=== PATIENT | female | born 1945 | race Caucasian/White ===

== ENCOUNTER → 2016-06-01 10:21 | Outpatient (CLI) | payer MEDICARE, BC ==
[2016-03-20 13:57] VITALS: BMI 35.1
[~2016-06-01 10:21] MED LIST: BAYER CHEWABLE81 MG PO; BENZONATATE200 MG PO; CARAFATE1 G PO; CYCLOBENZAPRINE10 MG PO; DESERYL100 MG PO; EFFIENT10 MG PO; ELAVIL25 MG PO; FLORAJEN3 CAPS460 MG PO; GLUCOPHAGE1000 MG PO; HYZAAR 100-25 T1 TAB PO; ISOSORBIDE MONO30 M1 PO; ISOSORBIDE MONO60 M1 PO; JARDIANCE25 MG PO; K-TAB10 MEQ PO; KLONOPIN0.5 MG PO; LEVAQUIN500 MG PO; LEVEMIR100 U/M1 SC; LIPITOR40 MG PO; LIPITOR80 MG PO; LOPRESSOR25 MG PO; MEPERIDINE HCL50 MG PO; METOPROLOL TART25 MG PO; MUCINEX DM ER1 EAC1 PO; MULTIPLE VITAMI1 TA1 PO; NITROSTAT0.4 MG SL; PROTONIX40 MG PO; SYNTHROID112 MCG PO; TRAZODONE HCL150 MG PO; ULTRAM50 MG PO; VICTOZA0.6 MG/0.1 SQ; ZOLOFT100 MG PO
== END | disposition home or self-care (01) ==
LOC: D.CT 10:21
DX: R19.09 Other intra-abdominal and pelvic swelling, mass and lump (principal)

== ENCOUNTER → 2016-06-09 10:25 | Outpatient (CLI) | payer MEDICARE, BC ==
[2016-03-20 13:57] VITALS: BMI 35.1
[2016-06-09 11:26] LABS: ANION GAP 12.8 mmol/L (8-16); CALCIUM 9.5 mg/dL (8.5-10.1); CARBON DIOXIDE 31.3 mmol/L (21.0-32.0); CREATININE - SERUM 1.3 mg/dL (0.6-1.3); POTASSIUM - SERUM 5.1 mmol/L (3.5-5.1)
[2016-06-13 12:16] LABS: RENIN ACTIVITY - PLASMA 1.045 ng/mL/hr (0.167-5.380)
[2016-06-16 10:19] LABS: ALDOSTERONE 3.2 ng/dL (0.0-30.0)
[2016-06-18 08:09] LABS: CORTISOL FREE - 24HR 5 ug/24 hr (0-50); CORTISOL FREE - UR 4 ug/L (Undefined)
[2016-06-21 17:12] LABS: META PL - METANEPHRINE <10 pg/mL (0-62); META PL - NORMETANEPHRINE 15 pg/mL (0-145)
== END | disposition home or self-care (01) ==
LOC: D.LAB 10:25
PROVIDERS: Surgery
DX: D35.00 Benign neoplasm of unspecified adrenal gland (principal)

== ENCOUNTER 2016-06-14 16:36 | Observation (INO) | payer MEDICARE, BC ==
[~2016-06-14] VITALS: Ht 175.3 cm; Wt 98.7 kg
--- NOTE | ~2016-06-14 | HEMODYNAMI ---
PATIENT:WALLY FAY MEDICAL RECORD: [id number] : 47 LOCATION:[id number] ADMISSION DATE: 06/14/16 Generatedon:06/15/20168:45 Patient name: WALLY FAY Patient #: [id number] : 1945 Date of study: 06/15/2016 Page: Of Hemodynamic Procedure Report Patient Data Patient Demographics Procedure consent was obtained First Name: AWLLY Gender: Female Last Name: NYA : 1945 Middle Initial: DIANA Age: 70 year(s) Patient #: [id number] Race: SSN: [id number] Additional ID: [id number] Contact details Address: [address] [place] [address] State: [place] City: [place] Zip code: [address] Past Medical History Allergies Allergen Reaction Date Comments Reported Other allergy 12/30/2015 MARCELO,Tape, Hydrocodone, Reglan, Sulfa, Morphine Other allergy 02/11/2016 Sulfa, Morphine, Hydrocodone, Reglan, MARCELO Inhibitors, tape Other allergy 03/19/2016 Marcelo Inhibitors, Sulfa, Hydrocodone, Morphine, Acetametaphen, Metoclopramide, Adhesive Tape MARCELO inhibitors 06/15/2016 Sulfa drugs 06/15/2016 Adhesive tape 06/15/2016 Other allergy 06/15/2016 amlodipine, reglan, hydrocodone Admission Admission Data Admission Date: 06/14/2016 Admission Time: 19:00 Room #: D.2118 Lab Results Lab Result Date: 06/15/2016 Lab Result Time: 0:00 Biochemistry Name Units Result Min Max BUN mg/dl 23 --(----)-* 7 18 Creatinine mg/dl 1.1 --(--*-)-- 0.6 1.3 CBC Name Units Result Min Max Hemoglobin g/dl 12.7 -*(----)-- 13.5 17.5 Procedure Procedure Types Cath Procedure Diagnostic Procedure [facility] w/Coronaries Miscellaneous Procedures Moderate Sedation up to 15 minutes Procedure Description Procedure Date Procedure Date: 06/15/2016 Procedure Start Time: 8:33 Procedure End Time: 8:40 Procedure Staff Name Function Kang Sheth MD Performing Physician Alejandro Parnell RT Scrub Rajan Duncan RN Nurse David Regan RT Monitor Procedure Data Cath Procedure Fluoroscopy Diagnostic fluoroscopy Total fluoroscopy Time: 0.9 time: 0.9 min min Diagnostic fluoroscopy Total fluoroscopy dose: dose: 233.78 mGy 233.78 mGy Contrast Material Contrast Material Type Amount (ml) Isovue 300 64 Entry Location Entry Primary Successful Side Size Upsize Upsize Entry Closure Luna ccessful Closure Location (Fr) 1 (Fr) 2 (Fr) Remarks Device Remarks Radial Right 6 Fr Mechanical artery Short Compression Diagnostic catheters Device Type Used For End Catheter Placement Cordis RBL 4 catheter (NO Left Coronary CHARGE) Angiography Procedure Complications No complications Procedure Medications Medication Administration Route Dosage Oxygen NC 2 l/min Heparin Flush Bag added to field 2 bags (1000units/500ml NS) 0.9% NaCl I.V. 100 ml/hr Radial Cocktail added to field 1 syringe (Verapomil 2mg/Nitro 400mcg/Heparin 1500units) Fentanyl I.V. 50 mcg Versed I.V. 1 mg Radial Cocktail I.A. 1 syringe (Verapomil 2mg/Nitro 400mcg/Heparin 1500units) Fentanyl I.V. 50 mcg Versed I.V. 1 mg Hemodynamics Rest HGB: 12.7 (g/dl) Heart Rate: 78 (bpm) Snapshots Pre Cath Intra NCS Post Cath Vital Signs Time Heart Resp SPO2 NIBP (mmHg) Rhythm Pain Sedation Rate (ipm) (%) Status Level (bpm) 8:21:38 82 18 98 147/82(119) NSR 0 (11) 10(A) , No pain 8:25:54 80 18 95 134/79(112) NSR 0 (11) 10(A) , No pain 8:30:12 82 16 98 133/73(101) NSR 0 (11) 9(A) , No pain 8:34:28 89 18 99 120/59(99) NSR 0 (11) 9(A) , No pain 8:38:40 98 17 94 109/66(92) NSR 0 (11) 9(A) , No pain 8:40:22 106 17 96 126/72(99) NSR 0 (11) 9(A) , No pain Medications Time Medication Route Dose Verified Delivered Reason Notes E ffectiveness by by 8:20:08 Oxygen NC 2 l/min Rjaan Tolentino Per Dakota Stokes RN physician RN 8:20:20 Heparin Flush added 2 bags Rajan Tolentino used for Bag to Dakota Stokes RN procedure (1000units/500ml field RN NS) 8:20:32 0.9% NaCl I.V. 100 Rajan Tolentino Per ml/hr Dakota Stokes RN physician RN 8:20:44 Radial Cocktail added 1 Rajan Tolentino used for (Verapomil to syringe Dakota Stokes RN procedure 2mg/Nitro field RN 400mcg/Heparin 1500units) 8:29:59 Fentanyl I.V. 50 mcg Rajan Tolentino for sedation Dakota Stokes RN RN 8:30:10 Versed I.V. 1 mg Rajan Tolentino for sedation Dakota Duncan RN RN 8:33:49 Radial Cocktail I.A. 1 Rajan Kapadia for (Verapomil syringe Dakota Sheth MD vasodilation 2mg/Nitro RN 400mcg/Heparin 1500units) 8:33:59 Fentanyl I.V. 50 mcg Rajan Tolentino for sedation Dakota Duncan RN RN 8:34:04 Versed I.V. 1 mg Rajna Tolentino for sedation Dakota Duncan RN outreach team member Log Time Note 8:05:43 David Regan RT(R) sent for patient. Start room use. 8:19:29 Vital chart was started 8:20:08 Oxygen 2 l/min NC was given by Rajan Stokes RN; Per physician; 8:20:20 Heparin Flush Bag (1000units/500ml NS) 2 bags added to field was given by Rajan Stokes RN; used for procedure; 8:20:32 0.9% NaCl 100 ml/hr I.V. was given by Rajan Stokes RN; Per physician; 8:20:44 Radial Cocktail (Verapomil 2mg/Nitro 400mcg/Heparin 1500units) 1 syringe added to field was given by Rajan Stokes RN; used for procedure; 8:23:39 ACC Patient presents with Unstable Angina CCS Anginal Class 3--Marked limitation of physical activity, angina occurs with ordinary activity.. 8:23:41 Diagnostic Cath status Urgent 8:23:50 Time tracking: Regular hours 8:23:55 Plan of Care:Hemodynamics will remain stable., Cardiac rhythm will remain stable., Comfort level will be maintained., Respiratory function will remain adequate., Patient/ family verbilizes understanding of procedure., Procedure tolerated without complication., Recovers from procedure without complications.. 8:24:02 Patient received from PCU to CCL 3 Alert and oriented. Tansferred to table in Supine position. 8:24:03 Warm blankets applied, and wendy hugger turned on for patient comfort. 8:24:04 Correct patient and procedure confirmed by team. 8:24:05 Signed procedure consent form obtained from patient. 8:24:06 Baseline sample Acquired. 8:24:06 ECG and BP/O2 sat monitors applied to patient. 8:24:09 Rhythm: sinus rhythm 8:24:10 Full Disclosure recording started 8:24:29 H&P Date Dictated: 06/14/2016 Within 30 days and on chart., H&P Addendum completed by physician on day of procedure. (MUST COMPLETE FOR ALL OUTPATIENTS). 8:24:35 Pre-procedure instructions explained to patient. 8:25:20 Pre-op teaching completed and patient verbalized understanding. 8:25:22 Family unavailable. 8:25:25 Patient NPO since Midnight. 8:25:35 Patient allergic to MARCELO inhibitors 8:25:43 Patient allergic to Sulfa drugs 8:25:49 Patient allergic to Adhesive tape 8:26:14 Patient allergic to Other allergyamlodipine, reglan, hydrocodone 8:26:16 Is the patient allergic to Iodine/contrast media? No. 8:26:23 Is patient on blood thinner?Yes 8:26:28 ACC The patient was administered the following blood thiners within the last 24 hours: ACCEffient 8:26:40 effient was 5-7 days ago 8:26:42 Patient diabetic? Yes. 8:26:43 If diabetic: On Metformin? Yes 8:26:47 If on Metformin: Last Dose? 06/14/2016 8:26:48 ----Pre-sedation anethsthesia assessment.---- 8:26:50 Previous problem with sedation/anesthesia? No ? 8:26:53 Snore? Yes 8:26:54 Sleep apnea? Yes 8:26:55 Deviated septum? No 8:26:56 Opens mouth fully? Yes 8:26:57 Sticks out tongue? Yes 8:26:59 Airway obstruction? No ? 8:27:03 Dentures? Yes in tight 8:27:06 Pre procedure: right dorsailis pedis pulse 1+ Palpable, but thready & weak; easily obliterated 8:27:09 Modified Kike's test Ulnar < 7 seconds 8:27:20 Patient pain scale 0/10 no pain just tightness. 8:27:34 IV patent on arrival in left hand with 0.9% NaCl at 10ml/hr. 8:27:41 Right Radial & Right Groin area was prepped with chlora-prep and draped in sterile fashion 8:27:42 Alarms reviewed by R. N. 8:27:43 Sharps counted by scrub and verified by R.N. 8:29:17 --------ALL STOP TIME OUT------ 8:29:18 Final Timeout: patient, procedure, and site verified with staff and physician. All members of the team are in agreement. 8:29:19 Right Radial & Right Groin site verified by team. 8:29:22 Physical assessment completed. ASA score P 2 - A patient with mild systemic disease as per Kang Sheth MD. 8:29:28 Sedation plan: IV Moderate Sedation Versed, Fentanyl 8::59 Fentanyl 50 mcg I.V. was given by Rajan Stokes RN; for sedation; 8:30:10 Versed 1 mg I.V. was given by Rajan Duncan RN; for sedation; 8:32:55 Use device set Radial Dx 8:32:56 Acist Syringe opened to sterile field. 8:32:56 Medline Cath Pack opened to sterile field. 8:32:57 Bag Decanter opened to sterile field. 8:32:57 Terumo 6Fr Slender Glidesheath opened to sterile field. 8:32:57 St Karl 260cm J .035 wire opened to sterile field. 8:32:58 Acist Hand Control opened to sterile field. 8:32:58 Acist Manifold opened to sterile field. 8:32:59 Tegaderm 4 x 4 opened to sterile field. 8:33:01 Procedure started. 8:33:09 Local anesthetic to right radial artery with Lidocaine 2% by Kang Sheth MD.INITIAL ACCESS ONLY 8:33:16 A 6 Fr Short sheath was inserted into the Right Radial artery 8:33:44 Lab Result : BUN 23 mg/dl 8:33:44 Lab Result : Creatinine 1.1 mg/dl 8:33:44 Lab Result : Hemoglobin 12.7 g/dl 8:33:47 Zero performed for pressure channel P1 8:33:49 Radial Cocktail (Verapomil 2mg/Nitro 400mcg/Heparin 1500units) 1 syringe I.A. was given by Kang Sheth MD; for vasodilation; 8:33:59 Fentanyl 50 mcg I.V. was given by Rajan Duncan RN; for sedation; 8:34:04 Versed 1 mg I.V. was given by Rajan Duncan RN; for sedation; 8:34:22 A [employer] RBL 4 catheter (NO CHARGE) was advanced over the wire and used for Left Coronary Angiography. 8:34:30 LV angiography performed. 8:34:31 LV gram done using BAI 8:34:34 Injector settings: Ml/sec: 5, Volume: 15, 8:34:40 EF : 60 % 8:34:51 LCA angiography performed. 8:36:31 RCA angiography performed. 8:36:43 Catheter removed. 8:36:54 Contrast amount:Isovue 300 64ml. 8:37:01 Terumo TR Band Standard opened to sterile field. 8:38:45 Procedure ended.(Physican Out) 8:38:50 Sheath removed intact; hemostasis achieved with Mechanical Compression to the Right Radial artery. 8:39:01 Fluoroscopy time 00.90 minutes. 8:39:08 Fluoroscopy dose: 233.78 mGy 8:39:08 Flurop Dose total: 233.78 8:39:09 Sharps counted by scrub and verified by R.N. 8:39:11 TR band inflated with 12cc of air. 8:39:12 Insertion/operative site no bleeding no hematoma. 8:39:18 Post right radial artery:stable 8:39:19 Post Procedure Pulses reassessed and unchanged 8:39:23 Post-procedure physical assessment completed. ASA score P 2 - A patient with mild systemic disease as per Kang Sheth MD. 8:39:25 Post procedure rhythm: sinus rhythm 8:39:27 Post procedure instruction explained to patient.Patient verbalizes understanding. 8:39:33 Procedure type changed to Cath procedure, Diagnostic procedure, LHC, LHC w/Coronaries, Miscellaneous Procedures, Moderate Sedation up to 15 minutes 8:39:48 Procedure and supply charges have been captured, reviewed, submitted and are correct. 8:39:52 Procedure Complication : No complications 8:39:54 Vital chart was stopped 8:39:54 See physician's report for complete and final results. 8:39:56 Report given to PCU. 8:40:00 Patient transfered to PCU with Bed. 8:40:02 Procedure ended. 8:40:02 Full Disclosure recording stopped 8:40:04 End room use (Document Last) Device Usage Item Name Manufacture Quantity Catalog Hospital Part Current Minimal Lot# / Number Charge Number Stock Stock Serial# Code Acist Acist 1 08956 [id number] 117772 [id number] 20 Syringe [employer] Inc Medline Cardinal 1 [id number] 74518 086704 5 Cath Pack Health Bag Microtek 1 2002S [id number] 52064 720366 5 Decanter Medical Inc. Terumo 6Fr Terumo 1 [id number] 881768 805682 [address] St Karl 1 [id number] 101885 170997 372141 30 260cm J .035 wire Acist Hand Acist 1 15471 384931 764167 703300 5 Control Medical Systems Inc Acist Acist 1 32193 671638 263105 292014 5 Manifold Medical Systems Inc Tegaderm 4 3M 1 1626W 688404 058910 598150 5 x 4 Cordis RBL Cardinal 1 [id number] 045055 692644 5 4 catheter Health (NO CHARGE) Terumo TR Terumo 1 [id number] 044441 484692 265682 40 Band Standard Signature Audit [place] Stage Time Signature Unsigned Intra-Procedure 06/15/2016 David Regan 8:45:12 AM RT(R) Signatures Monitor : David Regan RT Signature : Date : Time : [address] [place] [address]
[~2016-06-14 16:36] MED LIST changes: -CYCLOBENZAPRINE10 MG PO; -ISOSORBIDE MONO60 M1 PO; -KLONOPIN0.5 MG PO; -MEPERIDINE HCL50 MG PO; -MULTIPLE VITAMI1 TA1 PO; -ULTRAM50 MG PO
[2016-06-14 17:12] LABS: BASOPHILS 0.1 % (0.0-2.0); EOSINOPHILS 1.3 % (0-7); HEMATOCRIT 40.6 % (36.0-48.0); HEMOGLOBIN 13.2 g/dL (12-16); IMMATURE GRANULOCYTES 0.3 % (0-5); MCH 28.4 pg (26.0-34.0); MCHC 32.5 g/dL (31.0-37.0); MCV 87.5 fL (80.0-100.0); MEAN PLATELET VOLUME 10.5 fL (7.4-10.4); NEUTROPHILS 56.3 % (40-80); RBC 4.64 10x6/uL (4.00-5.40); RDW 14.5 % (11.5-14.5); WBC 7.4 10x3/uL (4.8-10.8)
[2016-06-14 17:29] LABS: PLATELET COUNT 186 10x3/uL (130-400)
[2016-06-14 17:34] LABS: ALBUMIN 3.8 g/dL (3.4-5.0); ALKALINE PHOSPHATASE 78 U/L (46-116); ALT (SGPT) 32 U/L (10-68); BILIRUBIN - TOTAL 0.63 mg/dL (0.2-1.3); CARBON DIOXIDE 30.5 mmol/L (21.0-32.0); CHLORIDE - SERUM 101 mmol/L (98-107); CREATININE - SERUM 1.2 mg/dL (0.6-1.3); POTASSIUM - SERUM 3.9 mmol/L (3.5-5.1); PROTEIN - SERUM 7.3 g/dL (6.4-8.2); SODIUM 141 mmol/L (136-145); UREA NITROGEN 26 mg/dL (7-18); eGFR NON AFRICAN AMERICAN 47 mL/min (90-120)
[2016-06-14 17:45] LABS: CHOL - HDL RATIO 2.3 ratio (2.3-4.1); CHOLESTEROL, TOTAL 106 mg/dL (0-200); CKMB 0.7 U/L (0.0-3.6); CREATINE KINASE 36 UL (21-215); HDL CHOLESTEROL 47 mg/dL (32-96); LDL CHOLESTEROL 28 mg/dL (0-100); LDL-HDL RATIO 0.6 ratio (1.5-3.5); TRIGLYCERIDE 159 mg/dL (30-200)
[2016-06-14 17:48] LABS: CALC OSMOLALITY 286 mosm/kg (275-300); GLUCOSE 112 mg/dL (74-106); TROPONIN-I < 0.017 ng/mL (0.000-0.060)
--- NOTE | 2016-06-14 20:00 | NUR ---
PT ARRIVES TO THE FLOOR FROM THE ER ACCOMPANIED BY NURSE X1. PLACED ON TELE, NSR ON MONITOR- HR 80'S. L AC WITH IV, NS 50 CC/HR - PLACED ONTO PUMP. ADMISSION ASSESSMENT AND HISTORY OBTAINED. MEDICATIONS RECONCILED AT THE BEDSIDE. CALL LIGHT PLACED WITHIN REACH. WILL CONT TO MONITOR.
[2016-06-14 21:56] VITALS: BP 141/80
--- NOTE | 2016-06-14 22:15 | NUR ---
PT C/O CHEST PAIN, RATES @ 6/10 ON PAIN SCALE. CALL TO DR KEMP. PM MEDS ORDERED AND ORDERED RECEIVED FOR MORPHINE PRN. DR KEMP STATES HE INTENDS TO PERFORM A HEART CATH ON THE PT IN THE MORNING AND TO KEEP PT NPO AFTER MIDNIGHT. UPDATED PT ON POC AND SHE VERBALIZES UNDERSTANDING. WILL CONT TO MONITOR.
[2016-06-14 22:21] VITALS: Ht 175.3 cm; Wt 98.7 kg
[2016-06-14] MEDS ORDERED: ULTRAM50 MG PO (22:33)
--- NOTE | 2016-06-15 00:12 | NUR ---
FURNACE BRAZER AT BEDSIDE TO OBTAIN VITALS, CALL LIGHT IN REACH. WILL CONTINUE WITH PLAN OF CARE.
[2016-06-15 01:17] VITALS: BP 111/51
--- NOTE | 2016-06-15 02:15 | NUR ---
PT RESTING WELL WITHOUT C/O OR DISTRESS NOTED. WILL CONT TO MONITOR. CALL LIGHT WITHIN REACH.
[2016-06-15 05:11] VITALS: BP 144/80
--- NOTE | 2016-06-15 06:00 | NUR ---
PT SIGNS INFORMED CONSENT FOR HEART CATH TODAY @ THIS TIME.
[2016-06-15 07:04] LABS: BASOPHILS 0.1 % (0.0-2.0); EOSINOPHILS 1.3 % (0-7); HEMATOCRIT 39.8 % (36.0-48.0); HEMOGLOBIN 12.7 g/dL (12-16); IMMATURE GRANULOCYTES 0.1 % (0-5); LYMPHOCYTES 34.2 % (15-50); MCH 28.4 pg (26.0-34.0); MCHC 31.9 g/dL (31.0-37.0); MEAN PLATELET VOLUME 11.1 fL (7.4-10.4); MONOCYTES 8.4 % (2-11); NEUTROPHILS 55.9 % (40-80); PLATELET COUNT 162 10x3/uL (130-400); RBC 4.47 10x6/uL (4.00-5.40); RDW 14.8 % (11.5-14.5)
[2016-06-15 07:09] LABS: ANION GAP 13.1 mmol/L (8-16); CALCIUM 9.1 mg/dL (8.5-10.1); CARBON DIOXIDE 29.2 mmol/L (21.0-32.0); CREATININE - SERUM 1.1 mg/dL (0.6-1.3); POTASSIUM - SERUM 4.3 mmol/L (3.5-5.1)
[2016-06-15 07:39] VITALS: BP 111/69
--- NOTE | 2016-06-15 08:08 | NUR ---
PRE-OPS GIVEN. TO MOLD RUNNER BY BED.
--- NOTE | 2016-06-15 08:59 | NUR ---
BACK FROM [facility] FIRER HELPER. VS WNL. RIGHT WRIST STABLE WITH TR BAND INTACT. WILL MONITOR.
[2016-06-15] MEDS ORDERED: ISOSORBIDE MONO60 M1 PO (11:04)
--- NOTE | 2016-06-15 11:29 | NUR ---
TR BAND DCD WITHOUT BLEEDING OR HEMATOMA NBOTED. IV AND TELEMETRY DCD. DC PLANS GIVEN. UNDERSTANDING VOICED. ESCORTED TO CAR BY W/C.
[2016-06-20] MEDS ORDERED: KLONOPIN0.5 MG PO (11:47)
[2016-06-20] MEDS ORDERED: ISOSORBIDE MONO60 M1 PO (11:49)
[2016-06-20] MEDS ORDERED: MULTIPLE VITAMI1 TA1 PO (11:50)
--- NOTE | 2016-06-26 10:08 | CN ---
PATIENT NAME:WALLY LYNCH MEDICAL RECORD: [id number] : 47 LOCATION:D. D.2118 ADMIT DATE: 06/14/16 ACCOUNT: [id number] CONSULTING PHYSICIAN: FLAKITA KEMP MD REFERRING PHYSICIAN: FLAKITA KEMP MD DATE OF CONSULTATION: 06/15/2016 Cardiology Consultation ADMITTING DIAGNOSES: 1. Unstable angina. 2. Coronary artery disease. 3. Previous multivessel percutaneous transluminal coronary angioplasty stent. 4. Hypertension. 5. Hyperlipidemia. HISTORY OF PRESENT ILLNESS: Mrs. Lynch presents with increasing angina over the past month, just like that of her previous angina last cardiac stent within September, she is still on Effient, she is also on Lipitor, Lopressor. Heart rate and blood pressure optimal. She is on Imdur. She continues to have ____ chest pain. PHYSICAL EXAMINATION: GENERAL APPEARANCE: Well-nourished, well-developed, appears stated age. Level of distress, comfortable. PSYCHIATRIC: Mental status, alert, normal affect. Orientation, oriented to time, place and person. EYES: Lids and conjunctiva, noninjected. No discharge, no pallor. ENT: Lips, teeth, gums, normal dentition. Oropharynx, no cyanosis, no pallor. NECK: Carotid arteries, bilateral normal upstroke, no bruits, no thrills. JUGULAR VEINS: No jugular venous pressure or distention. CERVICAL LYMPH NODES: Nontender, nonenlarged. THYROID: Not enlarged. Nontender. No nodules. LUNGS: Respiratory effort, unlabored. CHEST: Normal curvature. No thoracic deformity. No chest wall tenderness. Percussion, resonant. Auscultation, clear. No wheezes, no rales, no rhonchi. CARDIOVASCULAR: Precordial exam, nondisplaced. No heaves or pericardial thrills. Rate and rhythm, regular. Heart sounds, normal S1, normal S2. No S3, no gallop, no rub. Systolic murmur, not heard. Diastolic murmur, not heard. EXTREMITIES: No cyanosis, no edema. Peripheral pulses, full and equal in all extremities, except as noted. No bruits appreciated. ABDOMEN: Soft, nondistended. Normal aorta. No bruit. Nontender. No masses. Liver, nontender, no hepatomegaly. Spleen, nontender, no splenomegaly. MUSCULOSKELETAL: No joint tenderness. No joint swelling. No erythema. NEUROLOGICAL: Normal gait, normal strength, normal tone. SKIN: Warm and dry. REVIEW OF SYSTEMS: The patient reports easy bruising but reports no swollen glands. The patient reports no fever, no night sweats, no significant weight gain, no significant weight loss. No significant exercise tolerance. The patient reports no dry eyes, no irritation, no vision change. Patient reports no difficulty hearing and no ear pain. Patient reports no frequent nose bleeds or nose and sinus problems. Patient reports on arm pain on exertion. No shortness of breath while lying down. No history of heart murmur. Patient reports no cough, no wheezing or coughing up blood. Patient reports no CONSULT REPORT [id number] WALLY LYNCH abdominal pain, no vomiting. Normal appetite. No diarrhea and not vomiting blood. No nausea and no constipation. Patient reports no incontinence. No difficulty urinating. No hematuria. No increased frequency. Patient reports no muscle aches. No weakness, no arthralgias, no back pain. No swelling of the extremities. Patient reports no abnormal mole, no jaundice, no rashes. Reports no loss of consciousness. No weakness and no numbness. No seizures, dizziness, or headaches. The patient reports no depression, no sleep disturbance, feeling safe in a relationship and no alcohol abuse. Patient reports on fatigue. Reports no runny nose or sinus pressure. No itching, no hives, and no frequent sneezing. OVERALL IMPRESSION: Unstable angina. We will proceed with coronary angiography. Further care depends upon findings of the angiography. TRANSINT:[id number] Voice Confirmation ID: [id number] DOCUMENT ID: [id number] FLAKITA KEMP MD at 1008 CC: [id number] DICTATION DATE: 06/15/16 0719 [place] CULTURIST: 06/15/16 1432 [facility] 06/15/16 [place] [id number] [place] [address]
--- NOTE | 2016-06-26 10:08 | OP ---
PATIENT NAME: WALLY FAY MEDICAL RECORD: [id number] :47 LOCATION:D.M2 D.2118 ADMISSION DATE:06/14/16 SURGEON: FLAKITA KEMP MD DATE OF OPERATION: 06/15/2016 PROCEDURES: 1. Left heart catheterization. 2. Selective coronary angiography. 3. Left ventriculogram. INDICATION: Chest pain compatible with angina, coronary artery disease, previous coronary stenting. PROCEDURE IN DETAIL: After informed consent was obtained and after detailed explanation of risks, benefits as well as alternative therapies, the patient elected to proceed with angiogram and heart catheterization. The right radial area was prepped and draped in normal sterile fashion. The right radial artery was cannulated via modified Seldinger technique with placement of 5-Filipino sheath. All catheters exchanged through this sheath. FINDINGS: The left ventriculogram was performed in the standard 30-degree BAI view reveals good cardiac wall motion throughout all segments. Overall ejection fraction estimated 60%. SELECTIVE CORONARY ANGIOGRAPHY: 1. Left main showed no significant angiographic disease. 2. Left anterior descending has multiple previously placed stents. These are widely patent with no significant restenosis. No disease elsewise throughout the LAD or its branches. 3. Left circumflex shows moderate irregularities, but no flow-limiting stenosis. 4. Right coronary has moderate irregularities, but no flow-limiting stenosis. OVERALL IMPRESSION: No significant restenosis of the previously placed stents wide patency of all the vessels elsewise. Continue medical management of the coronary artery disease and cardiac risk factors. TRANSINT:[id number] Voice Confirmation ID: [id number] DOCUMENT ID: [id number] FLAKITA KEMP MD at 1008 CC: [id number] DICTATION DATE: 06/15/16 0842 PROMOTIONS PRODUCER: 06/15/16 1558 [facility] IN 06/15/16 [facility] [address] [place] [id number]
--- NOTE | 2016-07-13 08:41 | DS ---
PATIENT:WALLY LYNCH :47 MEDICAL RECORD: [id number] DISCHARGE SUMMARY ADMISSION DATE: 06/14/16 DISCHARGE DATE: 06/15/16 DISCHARGE DIAGNOSES: 1. Angina. 2. Coronary artery disease. HOSPITAL COURSE: Mrs. Lynch presents with anginal symptomatology. She underwent cardiac catheterization revealing wide patency of all her previously placed stents, no new stenosis. She was discharged home with the addition of Imdur to her medical regimen. She will follow up with [facility] in 1 month. TRANSINT:[id number] Voice Confirmation ID: [id number] DOCUMENT ID: [id number] FLAKITA KEMP MD at 0841 CC: [id number] DICTATION DATE: 07/11/16 1451 CHIPPING MACHINE OPERATOR: 07/12/16 0310 DIS IN 06/15/16 [facility] [address] [place] [address]
== END 2016-06-15 11:30 | disposition home or self-care (01) ==
LOC: OBSVTIME → D.ER 16:36 → D.M2 18:34 → OBSVTIME 18:34 → D.M2 19:00 → D.ER 19:00 → OBSVTIME 19:01 → D.M2 06-15 11:30
PROVIDERS: Emergency Medicine; ADMIT Internal Medicine Interventional Cardiology
DX: I25.110 Atherosclerotic heart disease of native coronary artery with unstable angina pectoris (principal); Z95.5 Presence of coronary angioplasty implant and graft; I10 Essential (primary) hypertension; E78.5 Hyperlipidemia, unspecified

== ENCOUNTER 2016-06-21 07:57 | Day surgery (SDC) | payer MEDICARE, BC ==
[~2016-06-21] VITALS: Ht 175.3 cm; Wt 97.1 kg
[~2016-06-21 07:57] MED LIST changes: +ISOSORBIDE MONO60 M1 PO; +KLONOPIN0.5 MG PO; +MULTIPLE VITAMI1 TA1 PO; +ULTRAM50 MG PO
[2016-06-21 08:53] VITALS: BP 134/71; Ht 175.3 cm; Wt 97.1 kg
[2016-06-21 09:08] LABS: BASOPHILS 0.2 % (0.0-2.0); EOSINOPHILS 2.2 % (0-7); HEMATOCRIT 39.2 % (36.0-48.0); HEMOGLOBIN 12.5 g/dL (12-16); LYMPHOCYTES 39.1 % (15-50); MCH 28.2 pg (26.0-34.0); MCHC 31.9 g/dL (31.0-37.0); MCV 88.5 fL (80.0-100.0); MEAN PLATELET VOLUME 10.6 fL (7.4-10.4); MONOCYTES 8.6 % (2-11); NEUTROPHILS 49.9 % (40-80); PLATELET COUNT 162 10x3/uL (130-400); RBC 4.43 10x6/uL (4.00-5.40); RDW 14.4 % (11.5-14.5); WBC 5.6 10x3/uL (4.8-10.8)
[2016-06-21 09:19] LABS: CALCIUM 9.6 mg/dL (8.5-10.1); CARBON DIOXIDE 33.6 mmol/L (21.0-32.0); CREATININE - SERUM 0.9 mg/dL (0.6-1.3); POTASSIUM - SERUM 4.6 mmol/L (3.5-5.1)
[2016-06-21] MEDS ORDERED: MEPERIDINE HCL50 MG PO (11:28)
[2016-06-21] MEDS ORDERED: CYCLOBENZAPRINE10 MG PO (11:29)
--- NOTE | 2016-06-21 21:25 | OP ---
PATIENT NAME: WALLY FAY MEDICAL RECORD: [id number] :47 LOCATION:D.[facility] ADMISSION DATE: SURGEON: NORMA CABRERA MD DATE OF OPERATION: 06/21/2016 SURGEON: Norma Cabrera MD PREOPERATIVE DIAGNOSES: Umbilical hernia, right-sided anterior abdominal wall mass, left adrenal adenoma, congestive heart failure, diabetes. POSTOPERATIVE DIAGNOSES: Umbilical hernia, right-sided anterior abdominal wall mass, left adrenal adenoma, congestive heart failure, diabetes. PROCEDURE PERFORMED: Laparoscopic lysis of adhesions, laparoscopic umbilical hernia repair with Ventralight ST mesh, excisional biopsy of a 3 cm right upper quadrant anterior abdominal wall mass. SPECIMENS: Right anterior abdominal wall mass, 3 x 2 x 3 cm. ANESTHESIA: General. COMPLICATIONS: None. ESTIMATED BLOOD LOSS: 30 cc. Case was clean. OPERATIVE COURSE: After consent was obtained, the patient was taken to the operating room and placed in supine position on the operating table. Next, general anesthesia was given via endotracheal intubation. A timeout was performed confirming the correct patient and procedure. The abdomen was prepped and draped in typical sterile fashion. Then, dressing was placed. Local anesthetic was injected in the left upper quadrant at Nunes's point. A stab incision was made with an 11-blade scalpel. Using a 5-mm bladeless optical trocar, the abdomen was entered under direct laparoscopic vision. Adequate pneumoperitoneum was achieved. The abdominal cavity was inspected. No evidence of bowel injury. No evidence of bleeding. At this time, 2 additional trocars were placed, 11-mm trocar and 5-mm trocar in the left lateral and left lower quadrants. At this time, the umbilical hernia could not be identified. There is significant amount of adhesions involving the greater omentum and small bowel. Laparoscopic lysis of adhesions was performed with sharp dissection and electrocautery. Once the anterior abdominal wall was cleared, the hernia defect was identified. The hernia sac was excised. The hernia was approximately 3 x 3 cm circular. At this time, the 4-1/[address] mesh was placed in the abdomen, the position system was deployed, the mesh was held firmly against the anterior abdominal wall and it was tacked in a double crown fashion using the OptiFix suture device. Once this was complete, the abdominal cavity was inspected. There was no evidence of bowel injury. No evidence of bleeding. The abdominal cavity was irrigated and suctioned. Again, inspection revealed no evidence of bleeding, no evidence of bowel injury. The Echo position system device was removed. At this time, all remaining instruments were removed. The abdomen was desufflated. Trocars removed. Skin was closed with 4-0 Monocryl, Mastisol and Steri-Strips. These 3 cm nodule on the right anterior abdominal wall had been marked preoperatively. Local anesthetic was administered. An incision made with a 15 blade scalpel. Dissection continued with electrocautery OPERATIVE REPORT [id number] WALLY FAY until the mass was identified. It was grasped with an Allis clamp and was circumferentially dissected using electrocautery and sent for permanent pathology. The wound was then irrigated and cleaned, was closed in multiple layers. The deep subcutaneous tissue was closed with 3-0 Vicryl suture. The skin was closed with 4-0 Monocryl, Mastisol and Steri-Strips. At the end of the case, all needle and instrument counts were correct. No complications occurred. The patient was extubated and transferred to the PACU in stable condition. TRANSINT:[id number] Voice Confirmation ID: [id number] DOCUMENT ID: [id number] NORMA CABRERA MD at 2125 CC: [id number] DICTATION DATE: 06/21/16 1125 HOSPITALITY RECRUITER: 06/21/16 1854 [facility] 06/21/16 [place] [id number] [place] [id number]
== END 2016-06-21 14:45 | disposition home or self-care (01) ==
LOC: D.OPS 07:57 → D.PAN 10:00 → D.OPS 10:15 → D.PAN 10:15 → D.OPS 10:30
PROVIDERS: Anesthesiology
DX: K42.9 Umbilical hernia without obstruction or gangrene (principal); D17.1 Benign lipomatous neoplasm of skin and subcutaneous tissue of trunk; D35.02 Benign neoplasm of left adrenal gland; I50.9 Heart failure, unspecified; E11.9 Type 2 diabetes mellitus without complications

== ENCOUNTER 2016-09-21 13:16 | Emergency (ER) | payer MEDICARE, BC ==
[2016-06-21 08:53] VITALS: BMI 31.6
[~2016-09-21 13:16] MED LIST changes: +CYCLOBENZAPRINE10 MG PO; +MEPERIDINE HCL50 MG PO
[2016-09-21 13:59] LABS: BASOPHILS 0.2 % (0-2); EOSINOPHILS 2.6 % (0-7); HEMATOCRIT 38.7 % (36.0-48.0); HEMOGLOBIN 12.2 g/dL (12-16); IMMATURE GRANULOCYTES 0.2 % (0-5); LYMPHOCYTES 41.4 % (15-50); MCH 26.9 pg (26.0-34.0); MCHC 31.5 g/dL (31.0-37.0); MCV 85.4 fL (80.0-100.0); MEAN PLATELET VOLUME 11.1 fL (7.4-10.4); MONOCYTES 6.2 % (2-11); NEUTROPHILS 49.4 % (40-80); PLATELET COUNT 176 10x3/uL (130-400); RBC 4.53 10x6/uL (4.00-5.40); RDW 14.6 % (11.5-14.5); WBC 5.3 10x3/uL (4.8-10.8)
[2016-09-21 14:17] LABS: ALBUMIN 3.3 g/dL (3.4-5.0); ALKALINE PHOSPHATASE 81 U/L (46-116); ALT (SGPT) 25 U/L (10-68); BILIRUBIN - TOTAL 0.49 mg/dL (0.2-1.3); CALC OSMOLALITY 279 mosm/kg (275-300); CALCIUM 9.3 mg/dL (8.5-10.1); CARBON DIOXIDE 27.3 mmol/L (21.0-32.0); CHLORIDE - SERUM 101 mmol/L (98-107); CREATININE - SERUM 0.9 mg/dL (0.6-1.3); POTASSIUM - SERUM 4.4 mmol/L (3.5-5.1); PROTEIN - SERUM 7.3 g/dL (6.4-8.2); SODIUM 137 mmol/L (136-145); UREA NITROGEN 17 mg/dL (7-18); eGFR NON AFRICAN AMERICAN 66 mL/min (90-120)
[2016-09-21 14:20] LABS: GLUCOSE 177 mg/dL (74-106)
[2016-09-21 14:39] LABS: CHOL - HDL RATIO 2.1 ratio (2.3-4.1); CHOLESTEROL, TOTAL 115 mg/dL (0-200); CKMB 0.5 U/L (0.0-3.6); CREATINE KINASE 36 UL (21-215); HDL CHOLESTEROL 54 mg/dL (32-96); LDL CHOLESTEROL 31 mg/dL (0-100); LDL-HDL RATIO 0.6 ratio (1.5-3.5); TRIGLYCERIDE 153 mg/dL (30-200); TROPONIN-I < 0.017 ng/mL (0.000-0.060)
== END 2016-09-21 17:30 | disposition home or self-care (01) ==
LOC: D.ER 13:16
PROVIDERS: Emergency Medicine
DX: R07.9 Chest pain, unspecified (principal); I10 Essential (primary) hypertension; E11.9 Type 2 diabetes mellitus without complications

== ENCOUNTER 2016-09-27 15:22 | Observation (INO) | payer MEDICARE, BC ==
[~2016-09-27] VITALS: Ht 175.3 cm; Wt 100.6 kg
--- NOTE | 2016-09-27 15:58 | NUR ---
PAGED DYLAN PALMA APN, WAITING ENVIRONMENTAL AIDE BACK
[2016-09-27 16:30] LABS: BASOPHILS 0.3 % (0-2); EOSINOPHILS 2.1 % (0-7); HEMOGLOBIN 12.5 g/dL (12-16); IMMATURE GRANULOCYTES 0.2 % (0-5); LYMPHOCYTES 38.2 % (15-50); MCH 27.4 pg (26.0-34.0); MCHC 32.1 g/dL (31.0-37.0); MCV 85.3 fL (80.0-100.0); MEAN PLATELET VOLUME 10.8 fL (7.4-10.4); MONOCYTES 7.4 % (2-11); NEUTROPHILS 51.8 % (40-80); PLATELET COUNT 171 10x3/uL (130-400); RBC 4.57 10x6/uL (4.00-5.40); RDW 15.2 % (11.5-14.5); WBC 5.8 10x3/uL (4.8-10.8)
--- NOTE | 2016-09-27 16:57 | NUR ---
PRE- MEDICATED PT WITH 12.5MG OF BENADRYL AND ADMINISTERED 4MG OF MORPHINE FOR PAIN LEVEL OF 10/10. PT DENIES ANY NEEDS AT THIS TIME. XRAY TECHS HERE TO TAKE PT TO XRAY, NAD NOTED.
[2016-09-27 16:59] LABS: ALBUMIN 3.6 g/dL (3.4-5.0); ALKALINE PHOSPHATASE 93 U/L (46-116); ALT (SGPT) 35 U/L (10-68); BILIRUBIN - TOTAL 0.67 mg/dL (0.2-1.3); CALC OSMOLALITY 283 mosm/kg (275-300); CALCIUM 9.3 mg/dL (8.5-10.1); CARBON DIOXIDE 28.5 mmol/L (21.0-32.0); CHLORIDE - SERUM 103 mmol/L (98-107); CKMB 0.3 U/L (0.0-3.6); CREATINE KINASE 43 UL (21-215); GLUCOSE 131 mg/dL (74-106); POTASSIUM - SERUM 4.5 mmol/L (3.5-5.1); PROTEIN - SERUM 7.8 g/dL (6.4-8.2); SODIUM 140 mmol/L (136-145); UREA NITROGEN 20 mg/dL (7-18); eGFR NON AFRICAN AMERICAN 58 mL/min (90-120)
[2016-09-27 17:01] LABS: TROPONIN-I < 0.017 ng/mL (0.000-0.060)
[2016-09-27] MEDS ORDERED: NORVASC10 MG PO (17:21)
[2016-09-27] MEDS ORDERED: TOPROL XL25 MG PO (17:24)
[2016-09-27] MEDS ORDERED: FUROSEMIDE20 MG PO (17:27)
[2016-09-27 17:33] VITALS: BP 144/80; Ht 175.3 cm; Wt 100.6 kg
--- NOTE | 2016-09-27 19:18 | NUR ---
RESUMED CARE OF PT, LYING IN BED RESPIRATIONS EVEN AND UNLABORED ON 2LPM VIA NC. 83 SR ON TELEMETRY. RIGHT FOREARM SALINE LOCKED. COMPLAINS OF CHEST PAIN 5:10. PLAN OF CARE DISCUSSED, CALL LIGHT IN REACH. WILL CONTINUE TO MONITOR. SEE NURSE ASSESSMENT.
[2016-09-27 21:40] VITALS: BP 128/64
[2016-09-27 22:42] LABS: CKMB 0.3 U/L (0.0-3.6); CREATINE KINASE 43 UL (21-215); TROPONIN-I < 0.017 ng/mL (0.000-0.060)
--- NOTE | 2016-09-28 01:09 | NUR ---
CENTER DIRECTOR AT BEDSIDE TO OBTAIN VITALS, CALL LIGHT IN REACH. WILL CONTINUE WITH PLAN OF CARE.
[2016-09-28 01:21] VITALS: BP 111/60
[2016-09-28 04:47] VITALS: BP 108/60
[2016-09-28 05:57] LABS: CKMB 0.5 U/L (0.0-3.6); CREATINE KINASE 34 UL (21-215); TROPONIN-I < 0.017 ng/mL (0.000-0.060)
[2016-09-28 08:40] VITALS: BP 132/62
--- NOTE | 2016-09-28 08:49 | CN ---
PATIENT NAME:WALLY LYNCH MEDICAL RECORD: [id number] : 47 LOCATION:D.M2 D.2119 ADMIT DATE: 09/27/16 ACCOUNT: [id number] CONSULTING PHYSICIAN: FLAKITA KEMP MD REFERRING PHYSICIAN: JESSICA LYNN MD DATE OF CONSULTATION: 09/27/2016 Cardiology Consultation ADMITTING DIAGNOSES: 1. Chest pain. 2. Coronary artery disease. 3. Previous cardiac stenting. 4. Hyperlipidemia. HISTORY OF PRESENT ILLNESS: Mrs. Lynch presents with continued chest pain. She has had greater than weeks of continuous chest pain, it does not have ever quit. It is a pressure and dull aching sensation across the anterior chest from shoulder to shoulder area. She does have a history of coronary artery disease, previous coronary stenting approximately a year ago. She underwent cardiac catheterization 2 months ago. This revealed no significant restenosis. No disease elsewise. Her troponin is normal. EKG is with no changes. PHYSICAL EXAMINATION: GENERAL APPEARANCE: Well-nourished, well-developed, appears stated age. Level of distress, comfortable. PSYCHIATRIC: Mental status, alert, normal affect. Orientation, oriented to time, place and person. EYES: Lids and conjunctiva, noninjected. No discharge, no pallor. ENT: Lips, teeth, gums, normal dentition. Oropharynx, no cyanosis, no pallor. NECK: Carotid arteries, bilateral normal upstroke, no bruits, no thrills. JUGULAR VEINS: No jugular venous pressure or distention. CERVICAL LYMPH NODES: Nontender, nonenlarged. THYROID: Not enlarged. Nontender. No nodules. LUNGS: Respiratory effort, unlabored. CHEST: Normal curvature. No thoracic deformity. No chest wall tenderness. Percussion, resonant. Auscultation, clear. No wheezes, no rales, no rhonchi. CARDIOVASCULAR: Precordial exam, nondisplaced. No heaves or pericardial thrills. Rate and rhythm, regular. Heart sounds, normal S1, normal S2. No S3, no gallop, no rub. Systolic murmur, not heard. Diastolic murmur, not heard. EXTREMITIES: No cyanosis, no edema. Peripheral pulses, full and equal in all extremities, except as noted. No bruits appreciated. ABDOMEN: Soft, nondistended. Normal aorta. No bruit. Nontender. No masses. Liver, nontender, no hepatomegaly. Spleen, nontender, no splenomegaly. MUSCULOSKELETAL: No joint tenderness. No joint swelling. No erythema. NEUROLOGICAL: Normal gait, normal strength, normal tone. SKIN: Warm and dry. REVIEW OF SYSTEMS: The patient reports easy bruising but reports no swollen glands. The patient reports no fever, no night sweats, no significant weight gain, no significant weight loss. No significant exercise tolerance. The patient reports no dry eyes, no irritation, no vision change. Patient reports no difficulty hearing and no ear pain. Patient reports no frequent nose bleeds or nose and sinus problems. Patient reports on arm pain on exertion. No shortness of breath while lying down. No history of heart murmur. Patient CONSULT REPORT [id number] WALLY LYNCH reports no cough, no wheezing or coughing up blood. Patient reports no abdominal pain, no vomiting. Normal appetite. No diarrhea and not vomiting blood. No nausea and no constipation. Patient reports no incontinence. No difficulty urinating. No hematuria. No increased frequency. Patient reports no muscle aches. No weakness, no arthralgias, no back pain. No swelling of the extremities. Patient reports no abnormal mole, no jaundice, no rashes. Reports no loss of consciousness. No weakness and no numbness. No seizures, dizziness, or headaches. The patient reports no depression, no sleep disturbance, feeling safe in a relationship and no alcohol abuse. Patient reports on fatigue. Reports no runny nose or sinus pressure. No itching, no hives, and no frequent sneezing. OVERALL IMPRESSION: Continual chest pain, this is not cardiac in etiology, cardiac pain would not be continuous for 2 weeks with a normal troponin, normal EKG. She does have a history of coronary artery disease, but she had a cardiac catheterization 2 months ago and this was with no significant restenosis. No disease elsewise. At this time, we will treat her symptomatically with pain, but no cardiac workup or treatment is necessary. TRANSINT:[id number] Voice Confirmation ID: [id number] DOCUMENT ID: [id number] FLAKITA KEMP MD at 0849 CC: [id number] DICTATION DATE: 09/27/161713 MAINFRAME DEVELOPER: 09/28/16 0332 [facility] IN [address] [place] [address]
--- NOTE | 2016-09-28 15:30 | NUR ---
IV STARTED WITH 20 GAUGE CATH BY LOGAN RODRIGUEZ. LEAVING FOR CT BY W/C.
[2016-09-28 20:24] VITALS: BP 110/74
[2016-09-29 01:28] VITALS: BP 109/68
[2016-09-29 04:34] VITALS: BP 115/49
[2016-09-29 08:00] VITALS: BP 136/65
--- NOTE | 2016-09-29 09:47 | NUR ---
TELEMETRY SR. RESTS WITH EYES CLOSED. CALL LIGHT IN REACH. WILL CONT. PLAN OF CARE.
[2016-09-29 12:00] VITALS: BP 130/65
[2016-09-29] MEDS ORDERED: CARAFATE1 G/10 ML PO (12:37)
[2016-09-29] MEDS ORDERED: LOTRISONE CREAM45 GM TOPICAL (14:16)
--- NOTE | 2016-09-29 15:24 | NUR ---
IV AND TELEMETRY DCD. DC PLANS GIVEN. UNDERSTANDING VOICED. ESCORTED TO CAR BY W/C.
== END 2016-09-29 15:26 | disposition home or self-care (01) ==
LOC: D.M2 15:22 → OBSVTIME 15:22 → D.M2 15:22
PROVIDERS: Family Medicine Adult Medicine; ADMIT Family Medicine
DX: R07.9 Chest pain, unspecified (principal); I25.119 Atherosclerotic heart disease of native coronary artery with unspecified angina pectoris; Z95.5 Presence of coronary angioplasty implant and graft; I11.0 Hypertensive heart disease with heart failure; I50.9 Heart failure, unspecified; M25.512 Pain in left shoulder; R12 Heartburn; E11.65 Type 2 diabetes mellitus with hyperglycemia; Z79.4 Long term (current) use of insulin; E78.5 Hyperlipidemia, unspecified

== ENCOUNTER 2016-11-17 13:27 | Inpatient (IN) | payer MEDICARE, BC ==
[~2016-11-17] VITALS: Ht 177.8 cm; Wt 97.4 kg
--- NOTE | ~2016-11-17 | EC ---
PATIENT:WALLY FAY DATE OF SERVICE: 11/17/16 SEX: F MEDICAL RECORD: [id number] DATE OF : 47 LOCATION:D.MS [address]222 AGE OF PATIENT: 71 ADMISSION DATE: 11/17/16 REFERRING PHYSICIAN: INTERPRETING PHYSICIAN: FLAKITA SHETH MD ECHOCARDIOGRAM REPORT ECHO CHARGES CLINICAL DIAGNOSIS: CVA HX HTN/CHF/CAD/STENTS/IDDM ECHOCARDIOGRAPHIC MEASUREMENTS (adult normal given) AC root (d.<3.7cm) 3.2 cm LV Septum d (<1.2 cm> 1.4 cm Valve Excursion 2.1 cm LV Septum (systole) 1.7 cm Left Atria (s.<4.0cm> 4.2 cm LVPW d(<1.2cm) 1.3 cm RV (d.<2.3cm) 36.4 cm LVPW (sytole) 1.9 cm LV diastole(<5.6CM) 5.8 cm MV E-F(>70mm/sec) cm LV systole 4.1 cm LVOT Diameter 1.5 cm MV exc.(>10mm) 1.7 cm Est.ejection fraction (50-75%) % Pericardial Effusion N DOPPLER: LVIT cm/sec A 136 cm/sec E 90.0 cm/sec LA cm/sec RVSP 31 mmHg LVOT 99 cm/sec AOP1/2T m/s Asc. Ao 157 cm/sec RVOT 88 cm/sec RA cm/sec PA 110 cm/sec AV Gradient Peak 9.84 mmHg AV Mean 6.15 mmHg AV Area 17 cm MV Gradient Peak 9.24 mmHg MV Mean 3.50 mmHg MV Area cm COMMENTS: Senior Sas Developer: Saji CABRALES Nuisance Animal Damage Control Agent: 1 Dr. Sheth TAPE# PACS DATE OF SERVICE: 11/18/2016 Echocardiogram FINDINGS: 1. Left ventricular chamber size is within normal limits. Left ventricular systolic function is normal. Overall ejection fraction estimated at 55%. 2. The left atrium is mildly dilated at 4.2 cm. Right atrium and right ventricular chamber sizes are as well mildly dilated. 3. Valvular structures have normal structure and motion. ECHOCARDIOGRAM REPORT [id number] WALLY FAY 4. Doppler interrogation reveals mild mitral regurgitation, mild tricuspid regurgitation, no other valvular insufficiency or stenosis. Pulmonary systolic pressure is normal estimated at 31 mmHg. 5. No evidence of pericardial effusion or left ventricular thrombus. 6. No cardiac source of neurologic emboli. TRANSINT:[id number] Voice Confirmation ID: [id number] DOCUMENT ID: [id number] 11/24/2016 Edited to correct date of service, dmm. FLAKITA SHETH MD CC: [id number] DICTATION DATE: 11/18/16 1221 REGULATORY COMPLIANCE ENGINEER: 11/18/16 1429 ADM IN [place] [id number] [place] [address]
[~2016-11-17 13:27] MED LIST changes: +CARAFATE1 G/10 ML PO; +FUROSEMIDE20 MG PO; +LOTRISONE CREAM45 GM TOPICAL; +NORVASC10 MG PO; +TOPROL XL25 MG PO
[2016-11-17 14:18] LABS: BASOPHILS 0.4 % (0-2); HEMATOCRIT 40.1 % (36.0-48.0); IMMATURE GRANULOCYTES 0.2 % (0-5); LYMPHOCYTES 34.9 % (15-50); MCH 27.5 pg (26.0-34.0); MCHC 32.4 g/dL (31.0-37.0); MEAN PLATELET VOLUME 10.3 fL (7.4-10.4); MONOCYTES 6.4 % (2-11); NEUTROPHILS 56.1 % (40-80); PLATELET COUNT 190 10x3/uL (130-400); RBC 4.72 10x6/uL (4.00-5.40); RDW 15.9 % (11.5-14.5); WBC 5.5 10x3/uL (4.8-10.8)
[2016-11-17 14:48] LABS: ALBUMIN 3.7 g/dL (3.4-5.0); ANION GAP 13.1 mmol/L (8-16); BILIRUBIN - TOTAL 0.56 mg/dL (0.2-1.3); CALCIUM 9.7 mg/dL (8.5-10.1); CARBON DIOXIDE 29.4 mmol/L (21.0-32.0); POTASSIUM - SERUM 4.5 mmol/L (3.5-5.1)
[2016-11-17 17:50] LABS: CHOL - HDL RATIO 2.4 ratio (2.3-4.1); CHOLESTEROL, TOTAL 134 mg/dL (0-200); CKMB 0.3 U/L (0.0-3.6); CREATINE KINASE 43 UL (21-215); HDL CHOLESTEROL 56 mg/dL (32-96); LDL CHOLESTEROL 47 mg/dL (0-100); LDL-HDL RATIO 0.8 ratio (1.5-3.5); TRIGLYCERIDE 158 mg/dL (30-200)
[2016-11-17 18:21] LABS: TROPONIN-I < 0.017 ng/mL (0.000-0.060)
[2016-11-17 20:55] LABS: CKMB 0.3 U/L (0.0-3.6); CREATINE KINASE 40 UL (21-215); TROPONIN-I < 0.017 ng/mL (0.000-0.060)
--- NOTE | 2016-11-17 21:00 | NUR ---
ASSESSMENT PER FLOW SHEET.PT WITHOUT DISTRESS.EQUAL MANAGER GRANT.LLE A LITTLE WEAKER THAN RIGHT.PT STATES SHE HAS DEVELOPED SOME SHAKING THAT HAS BEEN KEEPING HER FROM SLEEPING.SHE IS ALERT AND ORIENTED.CALL LIGHT USE INSTRUCTED AND IN REACH.
[2016-11-17] MEDS ORDERED: SINGULAIR10 MG PO (21:06)
[2016-11-17] MEDS ORDERED: TOUJEO SOL300 UNIT/1 SC (21:07)
[2016-11-18] VITALS (7 sets, daily range): BP systolic 113–149; BP diastolic 57–84; Ht 177.8 cm; Wt 97.4 kg
[2016-11-18 02:33] LABS: BASOPHILS 0.2 % (0-2); EOSINOPHILS 2.2 % (0-7); HEMATOCRIT 37.2 % (36.0-48.0); HEMOGLOBIN 11.9 g/dL (12-16); IMMATURE GRANULOCYTES 0.2 % (0-5); LYMPHOCYTES 35.6 % (15-50); MCV 84.5 fL (80.0-100.0); MONOCYTES 9.1 % (2-11); NEUTROPHILS 52.7 % (40-80); PLATELET COUNT 161 10x3/uL (130-400); WBC 6.2 10x3/uL (4.8-10.8)
--- NOTE | 2016-11-18 02:45 | NUR ---
HAS BEEN RESTING WELL.AWAKENS INT,WITHOUT DISTRESS.ALERT AND ORIENTED.MONITOR FOR NEEDS
[2016-11-18 03:03] LABS: ALBUMIN 3.3 g/dL (3.4-5.0); ALKALINE PHOSPHATASE 67 U/L (46-116); ALT (SGPT) 31 U/L (10-68); BILIRUBIN - TOTAL 0.62 mg/dL (0.2-1.3); CALC OSMOLALITY 278 mosm/kg (275-300); CALCIUM 9.3 mg/dL (8.5-10.1); CARBON DIOXIDE 29.9 mmol/L (21.0-32.0); CHLORIDE - SERUM 100 mmol/L (98-107); CKMB 0.1 U/L (0.0-3.6); CREATINE KINASE 37 UL (21-215); GLUCOSE 128 mg/dL (74-106); POTASSIUM - SERUM 4.2 mmol/L (3.5-5.1); PROTEIN - SERUM 7.1 g/dL (6.4-8.2); SODIUM 137 mmol/L (136-145); UREA NITROGEN 21 mg/dL (7-18); eGFR NON AFRICAN AMERICAN 58 mL/min (90-120)
[2016-11-18 03:05] LABS: TROPONIN-I < 0.017 ng/mL (0.000-0.060)
--- NOTE | 2016-11-18 05:45 | NUR ---
REPORTS PAIN IN LEFT SHOULDER AND LEFT LEG. ALSO STATES SOME NUMBNESS/TINGELING TO LEFT ARM.DENIES ANY OTHER PAIN. SPEACH REMAINS CLEAR.SHE IS STILL ALERT AND ORIENTED.
--- NOTE | 2016-11-18 07:40 | NUR ---
AWAKE AND ALERT AT THIS TIME. DR CHANG IN ROOM ASSESSING PATIENT AT THIS TIME. CALL LIGHT IN REACH. SRX2 WITH BED LOWEST POSITION AND WHEELS LOCKED. CALL LIGHT IN REACH, WILL CONTINUE WITH PLAN OF CARE.
[2016-11-18 08:18] LABS: CKMB 0.2 U/L (0.0-3.6); CREATINE KINASE 37 UL (21-215)
[2016-11-18 08:19] LABS: TROPONIN-I < 0.017 ng/mL (0.000-0.060)
--- NOTE | 2016-11-18 08:22 | NUR ---
SCHEDULED ASPIRIN ADMINISTERED AT THIS TIME PER DR CHANG'S ORDER.
--- NOTE | 2016-11-18 10:13 | NUR ---
REVIEWED KECASTILLORA AND ADMINISTERED MEDICATION PER ORDER. PT DENIES QUESTIONS OR CONCERNS. PT C/O WEAKNESS WITH PAIN TO LEFT ARM AND LEG. REQUESTING PAIN MEDICATION, BUT NO ORDERS FOR MEDICATION. WILL SPEAK WITH DR LAINEZ.
--- NOTE | 2016-11-18 12:30 | NUR ---
PRN TYLENOL ADMINISTERED FOR PAIN AT THIS TIME. PT ASKING IF DR WILL SEE HER TODAY AND I TOLD HER YES. DENIES FURTHER NEEDS. WILL CONTINUE WITH PLAN OF CARE.
--- NOTE | 2016-11-18 19:55 | NUR ---
ASSESSMENT PER FLOW SHEET.PT WITHOUT DISTRESS.PT STATES LEFT ARM AND LEG FEEL BETTER,BUT ARE STILL WEAK.SHE DENIES ANY TROUBLE SWALLOWING EXCEPT PILL AT TIMES.INSTRUTCED HER TO CALL FOR NEEDS.CALL LIGHT IN REACH.
[2016-11-19] VITALS: BP 144/60
--- NOTE | 2016-11-19 02:12 | NUR ---
RESTING,WITHOUT SIGNS OF DISTRESS.MONITOR FOR CHANGE
--- NOTE | 2016-11-19 06:20 | NUR ---
ASSISTING PT TO BATHROOM WHEN SHE REPORTS SOME TINGELING IN HER ARM AND LEG.PT BACK TO BED AND STATES SHE IS STARTING TO JERK. SOME MOVEMENT IN LEFT ARM AND HEAD NOTED.PT REMAINS ALERT AND TALKING,BUT SHE STARTS CRYING. BP 146/78, HR 82 SR PER SENIOR EXECUTIVE COMPENSATION ANALYST.SATS 100% ON ROOM AIR,BLOOD GLUCOSE 106.DR. LAINEZ HERE TO SEE PT. ATIVAN PER MAR ORDERED. PT CALM AFTER A COUPLE OF MINUTES. SHE IS WITHOUT JERKING. SHE ALSO STATES THAT SHE WILL NOT GET TO GO HOME TODAY UNTIL THE FINDS OUT WHAT IS WRONG.DOOR OPEN TO MONITOR.
[2016-11-19 06:50] LABS: BASOPHILS 0.2 % (0-2); EOSINOPHILS 3.3 % (0-7); HEMOGLOBIN 12.6 g/dL (12-16); IMMATURE GRANULOCYTES 0.2 % (0-5); LYMPHOCYTES 40.9 % (15-50); MCH 27.3 pg (26.0-34.0); MCHC 32.3 g/dL (31.0-37.0); MCV 84.6 fL (80.0-100.0); MEAN PLATELET VOLUME 10.4 fL (7.4-10.4); MONOCYTES 7.9 % (2-11); NEUTROPHILS 47.5 % (40-80); PLATELET COUNT 166 10x3/uL (130-400); RBC 4.61 10x6/uL (4.00-5.40); RDW 15.8 % (11.5-14.5); WBC 4.9 10x3/uL (4.8-10.8)
[2016-11-19 07:06] LABS: ALBUMIN 3.2 g/dL (3.4-5.0); ALKALINE PHOSPHATASE 66 U/L (46-116); ALT (SGPT) 32 U/L (10-68); BILIRUBIN - TOTAL 0.55 mg/dL (0.2-1.3); CALC OSMOLALITY 281 mosm/kg (275-300); CALCIUM 8.8 mg/dL (8.5-10.1); CARBON DIOXIDE 31.2 mmol/L (21.0-32.0); CHLORIDE - SERUM 103 mmol/L (98-107); CREATININE - SERUM 0.8 mg/dL (0.6-1.3); GLUCOSE 114 mg/dL (74-106); POTASSIUM - SERUM 4.2 mmol/L (3.5-5.1); PROTEIN - SERUM 7.1 g/dL (6.4-8.2); SODIUM 140 mmol/L (136-145); UREA NITROGEN 19 mg/dL (7-18); eGFR NON AFRICAN AMERICAN 75 mL/min (90-120)
--- NOTE | 2016-11-19 07:20 | NUR ---
SLEEPING AT THIS TIME WITH RESPIRATIONS EVEN AND NON LABORED. BED ALARM ON AND CALL LIGHT IN REACH. SRX2 WITH BED IN LOWEST POSITION AND WHEELS LOCKED. WILL CONTINUE WITH PLAN OF CARE.
[2016-11-19 08:15] VITALS: BP 111/68
--- NOTE | 2016-11-19 08:31 | NUR ---
SCHEDULED MEDICATIONS ADMINISTERED AT THIS TIME. DENIES NEED FOR PAIN MEDICATION. BED ALARM ON AND CALL LIGHT IN REACH. WILL CONTINUE WITH PLAN OF CARE.
--- NOTE | 2016-11-19 09:45 | NUR ---
UP WITH THERAPY. PT BECAME LIGHT HEADED AND ASSISTED BACK TO BED. VITAL SIGNS OBTAINED AND BP 145/75, HEART RATE 68 NORMAL SINUS RHYTHM AND OXYGEN SATURATION 96% ON ROOM AIR. BED ALARM ON AND CALL LIGHT IN REACH. PT REMAINS ALERT AND ORIENTED. WILL CONTINUE WITH PLAN OF CARE.
[2016-11-19 11:17] VITALS: BP 123/62
--- NOTE | 2016-11-19 11:22 | NUR ---
PRN DEMEROL ADMINISTERED PER PT'S REQUEST FOR COMPLAINTS OF HEADACHE.
--- NOTE | 2016-11-19 14:10 | NUR ---
PT STATED TO DAUGHTER THAT SHE WAS ABOUT TO HAVE ANOTHER EPISODE. PT BEGAN HAVING JERKING MOVEMENTS OF HEAD AND NECK. ALSO DISPLAYING SIGNS OF NYSTAGMUS. LEFT PUPIL 2MM AND SLUGGISH AND RIGHT PUPIL 3MM AND BRISK. HEDIS NURSE STRENGTHS WITH LEFT SIDED WEAKNESS. PT'S SMILE EQUAL WITH NO FACIAL DROOPING. PT UNABLE TO TALK, BUT CAN RESPOND TO YES AND NO QUESTIONS WITH HEAD MOVEMENTS. BP 140/52, PULSE 81 AND NORMAL SINUS RHYTHM PER CHISEL MORTISER OPERATOR, RESPIRATORY RATE 22 AND SHALLOW WITH OXYGEN SATURATION 98%. 1413: DR CHANG CALLED AND NOTIFIED OF CHANGE IN PT STATUS. NEW ORDERS GIVEN FOR ONE TIME DOSE OF ATIVAN 1MG IV AND STAT CMP AND KEPPRA LEVELS. 1417: OXYGENS SATURATION 90-92%. PLACED OXYGEN ON 2L VIA NC. CALLED LAB TO NOTIFY THEM OF STAT LAB ORDERS. 1420: ATTEMPTED TO ADMINISTER ATIVAN 1MG IV TO RIGHT FOREARM PIV. IV LEAKING AROUND INSERTION SITE. 1432: 20G IV SITED TO RIGHT AC X3 ATTEMPTS. BRISK BLOOD RETURN PRESENT AND ATIVAN ADMINISTERED PER ORDER. 1435: ATIVAN ADMINISTERED AND JERKING MOVEMENTS SUBSIDED. BOTH PUPILS 3MM AND BRISK, NYSTAGMUS STILL PRESENT. PT ABLE TO BEGIN SPEAKING SLOWLY WITH SLIGHT SLURRING PRESENT. DAUGHTER REMAINS AT BEDSIDE. BP 116/62, PULSE 73 AND NORMAL SINUS RHYTHM AND OXYGEN SATURATION 96% ON 2L VIA NC.
--- NOTE | 2016-11-19 14:41 | NUR ---
PIV RESITED TO R AC. X2 ATTEMPTS. 20GUAGE USED. SALINE LOCKED AND THEN MICHAEL LIMON AT BEDSIDE PUSHING MEDS PER MAR. BED LOW, CALL LIGHT IN REACH, DENIES NEEDS. CPOC.
[2016-11-19 14:53] LABS: ALBUMIN 3.4 g/dL (3.4-5.0); ANION GAP 12.5 mmol/L (8-16); BILIRUBIN - TOTAL 0.49 mg/dL (0.2-1.3); CALCIUM 8.8 mg/dL (8.5-10.1); CARBON DIOXIDE 29.1 mmol/L (21.0-32.0); POTASSIUM - SERUM 4.6 mmol/L (3.5-5.1); PROTEIN - SERUM 7.2 g/dL (6.4-8.2)
[2016-11-19 14:54] LABS: CREATININE - SERUM 1.1 mg/dL (0.6-1.3)
--- NOTE | 2016-11-19 16:16 | NUR ---
ALERT AND ORIENTED WITH HEADACHE. PRN DEMEROL ADMINISTERED FOR PAIN. DAUGHTER REMAINS AT BEDSIDE. WILL CONTINUE WITH PLAN OF CARE.
--- NOTE | 2016-11-19 18:30 | NUR ---
ASSISTED PT BACK TO BED FROM BATHROOM. PT SAID THAT SHE WAS ABOUT TO HAVE ANOTHER SEIZURE. PT LYING SUPINE WITH HOB AT 35 DEGREES. OXYGEN APPLIED AT 2L VIA NC. PT BEGAN EXPERIENCING JERKING MOVEMENTS TO HEAD, NECK AND LEFT ARM. PT UNABLE TO SPEAK, EYES OPEN. BP 138/84 AND PULSE 75 NORMAL SINUS RHYTHM. OXYGEN SATURATION 98% ON 2L VIA NC. 1840 ATIVAN 0.5MG ADMINISTERED IV PER DR LAINEZ'S ORDER. [address] CHANG PER DR LAINEZ'S REQUEST TO NOTIFY OF NEW SEIZURE. NO ANSWER, LEFT VOICEMAIL. 1846 PT ALERT AND ORIENTED. VITAL SIGNS REMAIN STABLE. SEIZURE ACTIVITY HAS STOPPED AT THIS TIME. ABLE TO VERBALIZE NEEDS, BUT SPEECH IS SLOW AND SLURRED AND SLOWLY RESOLVING.
[2016-11-19 19:00] VITALS: BP 98/71
--- NOTE | 2016-11-19 19:50 | NUR ---
ASSESMENT PER FLOW SHEET.PT IS WITHOUT DISTRESS AT PRESENT.STATES SHE JUST HAD SHAKING EPISODE BEFORE I GOT HERE.SHE IS VERY TEARFUL AND UPSET RE.. TALK WITH DR. GARIBAY WHOM EXPLAINED TO HER, SHE WILL NOT BE ABLE TO TAKE CARE OF HER ANYMORE. SHE SAID THE HAVE BEEN 50 YEARS AND IS VERY UPSET ABOUT POSSIBLE PLACEMENT IN CORRECTION. SHE STATES HSE CARES FOR HER AND SON WHO LIVES WITH THEM.MONITOR FOR NEEDS.
--- NOTE | 2016-11-19 21:30 | NUR ---
PT HAS HAD ANOTHER SEIZURE AFTER I HAD SPOKEN WITH ABOUT SEIZURE ACTIVITY EARLIER.ORDERS RECIEVED PER DR. CHANG AND INITIATED. PT STILL VERY UPSET AND HAS JERKING OF LEFT ARM AND HEAD. SHE STATES HER THROAT FEELS TIGHT AND SHE CAN NOT SPEAK AT PRESENT. ONITOR FOR NEEDS.
--- NOTE | 2016-11-19 22:10 | NUR ---
DECREASED JERKING AND PT MORE CALM.SHE STATES HER THROAT FEELS BETTER.
--- NOTE | 2016-11-19 22:30 | NUR ---
RESTING ON LEFT SIDE,WITHOUT ANY SIGNS OF SEIZURE ACTIVITY.DOOR OPEN TO MONITOR
[2016-11-20 00:37] VITALS: BP 125/62
--- NOTE | 2016-11-20 01:26 | NUR ---
STILL RESTING HEAVILY,AWAKENS TO NAME INT.POSITIONED ON RIGHT SIDE.REMAINS WITHOUT ANY JERKING OF BODY AFTER IV KEPPRA ORDERED. DOOR OPEN TO MONITOR
[2016-11-20 04:00] VITALS: BP 125/59
--- NOTE | 2016-11-20 04:51 | NUR ---
PT AWAKE AND STARTING TO HAVE MILD JERKING.MEDS ORDERED PER MAR
[2016-11-20 05:41] LABS: BASOPHILS 0.2 % (0-2); EOSINOPHILS 2.2 % (0-7); HEMATOCRIT 39.8 % (36.0-48.0); HEMOGLOBIN 12.8 g/dL (12-16); IMMATURE GRANULOCYTES 0.2 % (0-5); LYMPHOCYTES 38.9 % (15-50); MCH 27.3 pg (26.0-34.0); MCHC 32.2 g/dL (31.0-37.0); MCV 84.9 fL (80.0-100.0); MEAN PLATELET VOLUME 10.1 fL (7.4-10.4); MONOCYTES 9.2 % (2-11); NEUTROPHILS 49.3 % (40-80); PLATELET COUNT 168 10x3/uL (130-400); RBC 4.69 10x6/uL (4.00-5.40); WBC 4.9 10x3/uL (4.8-10.8)
[2016-11-20 06:01] LABS: ALBUMIN 3.2 g/dL (3.4-5.0); ANION GAP 11.7 mmol/L (8-16); BILIRUBIN - TOTAL 0.4 mg/dL (0.2-1.3); CALCIUM 9.1 mg/dL (8.5-10.1); CARBON DIOXIDE 29.6 mmol/L (21.0-32.0); CREATININE - SERUM 0.9 mg/dL (0.6-1.3); POTASSIUM - SERUM 4.3 mmol/L (3.5-5.1); PROTEIN - SERUM 7.1 g/dL (6.4-8.2)
--- NOTE | 2016-11-20 06:28 | EEG ---
PATIENT:WALLY FAY DATE OF SERVICE: 11/17/16 MEDICAL RECORD: [id number] DATE OF : 47 LOCATION:D.222 D.MS ADMISSION DATE: 11/17/16 REFERRING PHYSICIAN: INTERPRETING PHYSICIAN: JESSIKA CHANG MD DATE OF SERVICE: 11/18/2016 Referred by myself as an inpatient, currently in room 2223. ELECTROENCEPHALOGRAM NUMBER: [id number] DATE OF EXAMINATION: 11/18/2016, at 11:15 a.m. TECHNICAL DATA: This electroencephalographic recording consists of approximately 20 minutes of data collection utilizing the international 10/20 system of electrode placement and both referential and non-referential montages. Sixteen channels of electrocerebral recording are accompanied by a 17th channel dedicated to the electrocardiographic rhythm and 2 channels of electromyographic recording. Recording is performed in the awake and drowsy states utilizing activation by photic stimulation. ELECTROENCEPHALOGRAPHIC DATA: The awake state comprises approximately 30% of the recorded electrocerebral activity. Electromyographic artifact is prominent and rapid eye movements are seen. The posterior dominant background is not well-developed, but when seen consists of a symmetric semi-arrhythmic waxing and waning 8-9 Hz alpha activity, which is suppressed by eye opening. The drowsy state comprises the remaining portion of the recorded electrocerebral activity. Electromyographic artifact is diminished and rapid eye movements are not seen. The posterior dominant background is relatively suppressed. Also seen are occasional sharp waves with a minor after going slow component, maximal on this scalp recording at C4 and P4 in the right centroparietal region. No clinical or electrocerebral seizures were identified. INTERPRETATION: Sharp waves, focal, right centroparietal (awake and drowsy). This electroencephalographic recording is indicative of an epileptogenic focus of right centroparietal origin, maximal on this scalp recording at C4 and P4. TRANSINT:[id number] Voice Confirmation ID: [id number] DOCUMENT ID: [id number] JESSIKA CHANG MD at 0628 CC: [id number] DICTATION DATE: 11/19/16 0716 GROOVING LATHE TENDER: 11/19/16 0759 [place] [address]
--- NOTE | 2016-11-20 07:30 | NUR ---
ASSESSMENT COMPLETE. O2 2LNC IN USE. TRACTOR EXPERT SHOWING SR 77 PER TECH. L SIDED WEAKNESS. DENIES ANY NEEDS AT PRESENT.
[2016-11-20 08:15] VITALS: BP 146/77
--- NOTE | 2016-11-20 08:30 | NUR ---
Patient Name: WALLY FAY Admission Status: ER Accout number: [id number] Admission Date: 11-17-2016 : 1945 Admission Diagnosis: Attending: ROD Current LOS: 3 Anticipated DC Date: 11-23-2016 Planned Disposition: Home with Home Health Primary Insurance: MEDICARE A & B Discharge Planning Comments: CM MET WITH PATIENT REGARDING D/C NEEDS AND PLANS. PATIENT STATED SHE LIVES WITH HER SON (CJ) AND HE PROBABLE WILL DRIVE HER HOME AT DISCHARGE. PATIENT STATED SHE HAS A RAMP TO ENTER HOME AND NO STAIRS INSIDE. PATIENT WAS INDEPENDENT WITH HER CARE BEFORE THIS VISIT PER PATIENT AND HAS A C-PAP, SHOWER CHAIR, BS COMMODE, AND CANE AT HOME. PATIENTS PCP IS DR. LAINEZ AND PHARMACY IS [facility] ON [address]. PATIENT SIGNED THE KEANU FORM WITH [employer] PENDING SALE TO [facility]. CM WILL CONTINUE TO FOLLOW PATIENT WITH D/C NEEDS AND PLANS. PCP DR. FATOU FRANKLIN ON [address] [phone] CJ (SON) [phone] Diabetes Specialist: Yokasta Mcdaniel Is the patient Alert and Oriented? Yes 0 * How many steps to enter\exit or inside your home? RAMP 0 * PCP DR. LAINEZ 0 * Pharmacy [facility] ON [address] 0 * Preadmission Environment Home with Family 0 * ADLs Independent 0 * Equipment Bedside Commode Cane CPAP Shower Chair 0 * List name and contact numbers for known caregivers / representatives who currently or will assist patient after discharge: CJ (SON) [phone] 0 * Community resources currently utilized None 0 * Additional services required to return to the preadmission environment? Yes 0 * Can the patient safely return to the preadmission environment? Yes 0 * Has this patient been hospitalized within the prior 30 days at any hospital? No 0 Grand Total: 0
--- NOTE | 2016-11-20 08:45 | NUR ---
JERKING MOTION NOTED TO UPPER EXTREMITIES AND HEAD. STATES SHE COULD FEEL "ANOTHER EPISODE COMING ON." DR CHANG ON FLOOR. ORDER RECIEVED TO GIVE ATIVAN 0.5 MG IV AND START KEPPRA DOSE NOW.
--- NOTE | 2016-11-20 09:30 | NUR ---
RESTING QUIETLY AT THIS TIME.
[2016-11-20 11:34] VITALS: BP 139/72
--- NOTE | 2016-11-20 13:09 | NUR ---
JERKING MOTION NOTED TO UPPER EXTREMITIES, HEAD AND NECK. ALICIA CLEVELANDDESIGN ENGINEER OF FLOOR NOTIIFED. ORDER RECIEVED FOR ATIVAN 1 MG IVP. FAMILY AT BEDSIDE.
--- NOTE | 2016-11-20 13:51 | NUR ---
NUTRITION MONITORING & EVAL CHART REVIEWED, PT VISIT. TOLERATING ADA DIET, 100% INTAKE RECENT MEALS. RD FOLLOWING
--- NOTE | 2016-11-20 15:50 | NUR ---
RESTING QUIETLY ON LEFT SIDE WITH EYES CLOSED. RESP EVEN,NONLABORED.
[2016-11-20 16:01] VITALS: BP 135/71
[2016-11-20 20:00] VITALS: BP 141/74
--- NOTE | 2016-11-20 20:00 | NUR ---
ASSESSMENT PER FLOWSHEET. ALERT/ORIENTED X3 PT'S SON IN ROOM. SR UP X2 CALL LIGHT WITHIN REACH. SALINE LOCK PATENT RT AC. SITE CLEAR. NO SEIZURE ACTIVITY AT THIS TIME.
--- NOTE | 2016-11-20 20:28 | NUR ---
PT'S SON CALLS NURSE INTO ROOM STATES PT IS HAVING ANOTHER SEIZURE. TWITCHING OF FACE BOTH HANDS AND LEFT LEG. THEN RIGHT LEG. PATIENT ABLE TO TALK TO NURSE AND FOLLOW COMMANDS. ATIVAN 1MG IVP GIVEN FOR SEIZURE ACTIVITY.
--- NOTE | 2016-11-20 21:15 | NUR ---
MEDS GIVEN PER JUN. XAOH=116. 6 UNITS OF HUMALOG INSULIN GIVEN SUBC PER S/S.
--- NOTE | 2016-11-20 22:00 | NUR ---
RESTING QUIETLY NO OTHER SEIZURE ACTIVITY NOTED.
[2016-11-21] VITALS: BP 138/72
--- NOTE | 2016-11-21 00:23 | NUR ---
PATIENT CALLING OUT FOR HELP. PT HAVING SOME JERKING MOTION OF LEGS AND HANDS AND FACIAL TWITCHING.ATIVAN 1MG IVP GIVEN FOR JERKING MOTION. PT WAS ABLE TO TALK THROUGHOUT JERKING ACTIVITY.
--- NOTE | 2016-11-21 03:22 | NUR ---
EYES CLOSED RESPIRATIONS WITH EASE AND UNLABORED. NO FURTHER SEIZURE ACTIVITY.
[2016-11-21 03:45] LABS: BASOPHILS 0.2 % (0-2); EOSINOPHILS 2.1 % (0-7); HEMATOCRIT 39.1 % (36.0-48.0); HEMOGLOBIN 12.5 g/dL (12-16); IMMATURE GRANULOCYTES 0.2 % (0-5); MCH 27.4 pg (26.0-34.0); MCV 85.7 fL (80.0-100.0); MEAN PLATELET VOLUME 10.2 fL (7.4-10.4); MONOCYTES 6.8 % (2-11); NEUTROPHILS 52.7 % (40-80); PLATELET COUNT 176 10x3/uL (130-400); RBC 4.56 10x6/uL (4.00-5.40); WBC 5.2 10x3/uL (4.8-10.8)
[2016-11-21 04:00] VITALS: BP 131/61
[2016-11-21 04:03] LABS: ALBUMIN 3.1 g/dL (3.4-5.0); BILIRUBIN - TOTAL 0.42 mg/dL (0.2-1.3); CALCIUM 8.8 mg/dL (8.5-10.1); CARBON DIOXIDE 31.5 mmol/L (21.0-32.0); POTASSIUM - SERUM 4.5 mmol/L (3.5-5.1); PROTEIN - SERUM 7.1 g/dL (6.4-8.2)
--- NOTE | 2016-11-21 05:15 | NUR ---
CALL LIGHT ON FOUND PATIENT LYING SUPINE IN FLOOR SR NEXT TO BR DOWN AND BED ALARM BED TURN OFF. ASSESSED PATIENT NO KNOWN INJURY. PATIENT STATES GOT UP AND WENT TO BATHROOM. NOTIFIED TRAIN OPERATOR.
--- NOTE | 2016-11-21 07:10 | NUR ---
NOTIFIED DYLAN PALMA APN SLATE MIXER OF INCIDENT.
--- NOTE | 2016-11-21 07:45 | NUR ---
BED LOWEST POSITION, BED ALARM ON, CALL LIGHT IN REACH, DENIES NEEDS, WILL CONTINUE TO MONITOR
--- NOTE | 2016-11-21 07:50 | NUR ---
PT HAD SEIZURE AND REQUESTED ATIVAN, WILL CONITNUE TO MONITOR
[2016-11-21 09:05] VITALS: BP 132/81
--- NOTE | 2016-11-21 09:30 | NUR ---
RIGHT SIDE SORE FROM FALL THIS AM, TYLENOL GIVEN FOR PAIN
--- NOTE | 2016-11-21 13:00 | NUR ---
DENIES NEEDS AT PRESENT. BED LOW CL IN REACH..
[2016-11-21 13:22] VITALS: BP 158/78
[2016-11-21 17:36] VITALS: BP 149/75
--- NOTE | 2016-11-21 19:45 | NUR ---
C/O PAIN IN MUSCLES OF BACK DEMEROL 12.5MG IVP GIVEN FOR PAIN CONTROL. SR UP X2 CALL LIGHT WITHIN REACH BED ALARM ACTIVATED. DOOR OPENED CALL LIGHT WITHIN REACH PT'S SON AT BEDSIDE.
[2016-11-21 20:00] VITALS: BP 140/84
--- NOTE | 2016-11-21 21:15 | NUR ---
MEDS GIVEN PER MAR.
[2016-11-22] VITALS: BP 112/65
--- NOTE | 2016-11-22 | NUR ---
EYES CLOSED RESPIRATIONS WITH EASE NO SEIZURE ACTIVITY NOTED.
--- NOTE | 2016-11-22 03:00 | NUR ---
AWAKE ASSISTED TO BSC VOIDED. ASSISTED BACK TO BED SR UP X2 CALL LIGHT WITHIN REACH BED ALARM ACTIVATED. TELM. SHOWS SR WITH HR 75.
[2016-11-22 04:00] VITALS: BP 132/69
[2016-11-22 05:40] LABS: BASOPHILS 0.3 % (0-2); EOSINOPHILS 2.2 % (0-7); HEMATOCRIT 37.9 % (36.0-48.0); HEMOGLOBIN 12.2 g/dL (12-16); IMMATURE GRANULOCYTES 0.2 % (0-5); LYMPHOCYTES 39.3 % (15-50); MCH 27.3 pg (26.0-34.0); MCHC 32.2 g/dL (31.0-37.0); MCV 84.8 fL (80.0-100.0); MEAN PLATELET VOLUME 10.3 fL (7.4-10.4); MONOCYTES 7.7 % (2-11); NEUTROPHILS 50.3 % (40-80); PLATELET COUNT 157 10x3/uL (130-400); RBC 4.47 10x6/uL (4.00-5.40); WBC 5.9 10x3/uL (4.8-10.8)
--- NOTE | 2016-11-22 06:00 | NUR ---
MEDS GIVEN PER MAR. NO CHANGES IN ASSESSMENT.
[2016-11-22 06:33] LABS: ALKALINE PHOSPHATASE 79 U/L (46-116); ALT (SGPT) 43 U/L (10-68); BILIRUBIN - TOTAL 0.52 mg/dL (0.2-1.3); CALC OSMOLALITY 279 mosm/kg (275-300); CALCIUM 8.3 mg/dL (8.5-10.1); CARBON DIOXIDE 29.5 mmol/L (21.0-32.0); CHLORIDE - SERUM 102 mmol/L (98-107); CREATININE - SERUM 0.8 mg/dL (0.6-1.3); POTASSIUM - SERUM 4.3 mmol/L (3.5-5.1); PROTEIN - SERUM 6.4 g/dL (6.4-8.2); SODIUM 137 mmol/L (136-145); UREA NITROGEN 15 mg/dL (7-18); eGFR NON AFRICAN AMERICAN 75 mL/min (90-120)
[2016-11-22 06:35] LABS: GLUCOSE 183 mg/dL (74-106)
--- NOTE | 2016-11-22 07:40 | NUR ---
PT HAD A SZ EPISODE AND COMPLAINED OF PAIN ON RIGHT SIDE, ATIVAN AND DEMEROL GIVEN, SZ HAS DISSIPATED QUICKLY, BEDLOWEST POSITION, BED ALARM ON, CALLL LIGHTIN REACH, WILL CONTINUE TO MONITOR
[2016-11-22 08:00] VITALS: BP 135/52
[2016-11-22 12:05] VITALS: BP 150/68
--- NOTE | 2016-11-22 15:07 | NUR ---
PATIENT IN LEFT LATERAL POSITION RESTING QUIETLY WITH EYES CLOSED. RESPIRATIONS EVEN AND UNLABORED. SIDE RAILS UP X2. BED IN LOW POSITION. CALL LIGHT IN REACH.
[2016-11-22 16:34] VITALS: BP 140/81
--- NOTE | 2016-11-22 17:58 | NUR ---
PT IS CURRENTLY HAVING ANOTHER SZ EPISODE, ATIVAN GIVEN PER ORDER, FAMILY AT BEDSIDE, FAMILY IS WORRIED "THE SHAKING HASN'T STOPPED FOR OVER A MINUTE" BUT PT REMAINS COHERENT AND ABLE TO FOLLOW COMMANDS, PUPILS REACTIVE, RIGTH AFTER DOSE OF ATIVAN THE SHAKING SUBSIDED TILL FAMILY STARTED ASKING QUESTIONS TO PATIENT, WILL CONTINUE TO MONITOR
[2016-11-22 20:00] VITALS: BP 153/74
--- NOTE | 2016-11-22 20:00 | NUR ---
ASSESSMENT PER FLOWSHEET. SALINE LOCK PATENT RT AC. SITE CLEAR. BED ALARM BED ACTIVATED SR UP X2 CALL LIGHT WITHIN REACH. BED ALARM ALARMS PATIENT IS COMING OUT OF BED FROM THE FOOT OF THE BED. INFORMED PT NOT TO CLIMB OUT OF BED USE CALL LIGHT IF NEEDED TO GET UP. ASSISTED TO BSC PT VOIDED ASSISTED BACK TO BED SR UP X2 BED ALARM RESET.CALL LIGHT LIGHT WITHIN REACH.
--- NOTE | 2016-11-22 21:00 | NUR ---
MEDS GIVEN HI JUN.[id number]. HUMALOG INSULIN 4 UNITS GIVEN SUBC PER S/S. NO SEIZURE ACTIVITY NOTED.
--- NOTE | 2016-11-22 22:14 | NUR ---
C/O HEAD ACHE TYLENOL 650MG GIVEN PO FOR HEADACHE. PT REQUESTING THE DEMEROL SHOT EXPLAINED TO PATIENT DR. CHANG DISCONTINUED THE DEMEROL BECAUSE IT IS CAUSING HER SEIZURES AND IS NOW LISTED AN ALLERGY.
--- NOTE | 2016-11-23 | NUR ---
EYES CLOSED RESPIRATIONS WITH EASE AND UNLABORED.
--- NOTE | 2016-11-23 02:00 | NUR ---
EYES CLOSED RESPIRATIONS WITH EASE AND UNLABORED. NO SEIZURE ACTIVITY NOTED. TELM. SHOWS SR WITH HR 75.
[2016-11-23 04:00] VITALS: BP 110/54
--- NOTE | 2016-11-23 05:50 | NUR ---
MEDS GIVEN PER JUN. JHOO=[id number]. HUMALOG INSULIN 2 UNITS GIVEN SUBC LEFT ARM PER S/S.
[2016-11-23 05:58] LABS: BASOPHILS 0.2 % (0-2); EOSINOPHILS 2.5 % (0-7); HEMATOCRIT 37.9 % (36.0-48.0); HEMOGLOBIN 12.3 g/dL (12-16); IMMATURE GRANULOCYTES 0.2 % (0-5); LYMPHOCYTES 38.7 % (15-50); MCH 27.4 pg (26.0-34.0); MCHC 32.5 g/dL (31.0-37.0); MCV 84.4 fL (80.0-100.0); MEAN PLATELET VOLUME 10.1 fL (7.4-10.4); MONOCYTES 9.1 % (2-11); NEUTROPHILS 49.3 % (40-80); PLATELET COUNT 151 10x3/uL (130-400); RBC 4.49 10x6/uL (4.00-5.40); RDW 15.9 % (11.5-14.5); WBC 5.5 10x3/uL (4.8-10.8)
[2016-11-23 06:16] LABS: ALKALINE PHOSPHATASE 76 U/L (46-116); ALT (SGPT) 35 U/L (10-68); CALC OSMOLALITY 278 mosm/kg (275-300); CALCIUM 8.7 mg/dL (8.5-10.1); CARBON DIOXIDE 30.8 mmol/L (21.0-32.0); CHLORIDE - SERUM 101 mmol/L (98-107); CREATININE - SERUM 0.8 mg/dL (0.6-1.3); GLUCOSE 196 mg/dL (74-106); POTASSIUM - SERUM 4.1 mmol/L (3.5-5.1); PROTEIN - SERUM 6.6 g/dL (6.4-8.2); SODIUM 137 mmol/L (136-145); UREA NITROGEN 12 mg/dL (7-18); eGFR NON AFRICAN AMERICAN 75 mL/min (90-120)
--- NOTE | 2016-11-23 08:05 | NUR ---
ASSESSMENT PER FLOW SHEET.PT WITHOUT DISTRESS. FAMILY AT BEDSIDE.FALL PREVENTION IN PLACE WITH BED ALARM BED. DOOR OPEN TO MONITOR
[2016-11-23 09:02] VITALS: BP 132/66
[2016-11-23 13:26] VITALS: BP 139/64
--- NOTE | 2016-11-23 14:53 | NUR ---
CM REASSESSMENT NOTE: PATIENT HAS A REHAB CONSULT AND DR. LAINEZ WANTED TO MAKE SURE HER SPOUSE WAS OK AT HOME (THE PATIENT STATED SHE WAS HIS CAREGIVER). CM SPOKE WITH CJ THE SON AND HE STATED HIS DAD AND MOM LIVES WITH HIM AND HIS DAD IS FINE AND BEING TAKEN CARE OF. CJ STATED HIS MOTHER MAKES IT A PRIORITY TO TRY AND TAKE CARE OF HIS DAD.
--- NOTE | 2016-11-23 15:57 | NUR ---
Rehab Prescreening Consult recieved and the chart has been reviewed. She is a good IRF candidate and will be accepted to the rehab when her medical work-up is completed and the physician feels she is medically stable for discharge to rehab. Kori Henning RN Clinical Liaison, Rehab
[2016-11-23 16:28] VITALS: BP 154/66
--- NOTE | 2016-11-23 19:00 | NUR ---
BEDSIDE REPORT RECEIVED AND CARE OF PT ASSUMED. PT LYING IN SUPINE POSITION VISITING WITH FAMILY MEMBERS. IV IN RIGHT AC SALINE LOCKED. TELEMETRY IN PLACE AND READING 62 SR AT THIS ASSESSMENT. WILL MONITOR CLOSEY FOR NEEDS.
[2016-11-23 20:00] VITALS: BP 116/67
--- NOTE | 2016-11-23 20:28 | NUR ---
HS MEDICATIONS GIVEN TO INCLUDE TYLENOL PER REQUEST FOR BACK PAIN. WILL CONTINUE TO MONITOR FOR NEEDS.
[2016-11-24] VITALS: BP 122/53
--- NOTE | 2016-11-24 01:00 | NUR ---
PT RESTLESS AND STATING HAVING BACK PAIN. GAVE TYLENOL AND XANAX PER PRN ORDERS. BED ALARM IN USE FOR SAFETY.
--- NOTE | 2016-11-24 03:00 | NUR ---
PT RESTING QUIETLY AT THIS TIME WITH EASY RESPIRATIONS. SIDE RAILS UP X3 AND BED ALARM IN USE FOR SAFETY.
[2016-11-24 04:00] VITALS: BP 147/60
[2016-11-24 06:43] LABS: BASOPHILS 0.4 % (0-2); EOSINOPHILS 2.4 % (0-7); HEMATOCRIT 38.2 % (36.0-48.0); HEMOGLOBIN 12.4 g/dL (12-16); IMMATURE GRANULOCYTES 0.2 % (0-5); LYMPHOCYTES 42.9 % (15-50); MCH 27.1 pg (26.0-34.0); MCHC 32.5 g/dL (31.0-37.0); MCV 83.6 fL (80.0-100.0); MEAN PLATELET VOLUME 10.3 fL (7.4-10.4); MONOCYTES 7.2 % (2-11); NEUTROPHILS 46.9 % (40-80); PLATELET COUNT 153 10x3/uL (130-400); RBC 4.57 10x6/uL (4.00-5.40); RDW 15.7 % (11.5-14.5)
[2016-11-24 07:06] LABS: ALBUMIN 2.9 g/dL (3.4-5.0); ALKALINE PHOSPHATASE 81 U/L (46-116); ALT (SGPT) 36 U/L (10-68); BILIRUBIN - TOTAL 0.47 mg/dL (0.2-1.3); CALC OSMOLALITY 273 mosm/kg (275-300); CALCIUM 8.6 mg/dL (8.5-10.1); CARBON DIOXIDE 26.2 mmol/L (21.0-32.0); CHLORIDE - SERUM 100 mmol/L (98-107); CREATININE - SERUM 0.6 mg/dL (0.6-1.3); GLUCOSE 225 mg/dL (74-106); POTASSIUM - SERUM 4.1 mmol/L (3.5-5.1); PROTEIN - SERUM 6.8 g/dL (6.4-8.2); SODIUM 134 mmol/L (136-145); UREA NITROGEN 11 mg/dL (7-18); eGFR NON AFRICAN AMERICAN > 90 mL/min (90-120)
--- NOTE | 2016-11-24 07:50 | NUR ---
PT AOX4 CONFUSED AT TIMES RESP EVEN AND NONLABORED IV TO RIGHT AC PATENT AND INTACT AT THIS TIME SRX2 BED AT LOWEST SETTING CALL LIGHT WITHIN REACH WILL CONTINUE TO MONITOR
[2016-11-24 07:53] VITALS: BP 128/64
[2016-11-24] MEDS ORDERED: ATIVAN2 MG/ML IV (09:33)
[2016-11-24] MEDS ORDERED: ASPIRIN325 MG PO (09:33)
[2016-11-24] MEDS ORDERED: PHENOBARBITAL32.4 MG PO (09:33)
[2016-11-24] MEDS ORDERED: KEPPRA500 MG PO (09:33)
[2016-11-24] MEDS ORDERED: HUMALOG 30100 UNITS/ SC (09:34)
[2016-11-24] MEDS ORDERED: GLUCAGEN1 MG/VIAL SC (09:34)
[2016-11-24] MEDS ORDERED: GLUCAGEN1 MG/VIAL IM (09:34)
[2016-11-24] MEDS ORDERED: ACETAMINOPHEN325 MG PO (09:35)
[2016-11-24] MEDS ORDERED: XANAX0.25 MG PO ×2 (09:36)
--- NOTE | 2016-11-24 09:36 | NUR ---
CM REASSESSMENT NOTE: PATIENT IS DISCHARGING TO IP REHAB TODAY. FAMILY AWARE. IMM NOTICE SERVED
--- NOTE | 2016-11-24 10:25 | NUR ---
Rehab Note- Visited with the patient, stated she was interested in acute rehab and is wanting to come to [facility]. Will plan to admit today. Notified KARL Templeton and MICHAEL Hudson. Thank you for this referral! Ellie Lynch RN Clinical Liaison, [facility]
--- NOTE | 2016-11-24 15:32 | NUR ---
Rehab Note- Acute Rehab Prescreen order received. Meet with the patient and her . The patient's is wanting to take the patent home and feels that he can take care of her, stated has taken care of her for 69yrs. Provided the patient's with acute rehab information and business card in case taking his home doesn't work out. Informed EugenioKARL of the patient and 's decision of being discharged home. Thank you for this referral! Ellie Lynch RN Clinical Liaison, [facility]
--- NOTE | 2016-11-24 18:15 | NUR ---
PT IV DISCONTINUED WITH CATHETER INTACT AT THIS TIME PT GIVEN DISCHARGE INSTRUCTIONS AND TAKEN VIA WHEELCHAIR TO INPATIENT WHEELCHAIR AT THIS TIME
== END 2016-11-24 18:16 | DRG 65 ==
LOC: D.ER 13:27 → D.SDCHOLD 17:12 → D.MS 17:12
PROVIDERS: Family Medicine; Psychiatry & Neurology Neurology; ADMIT Family Medicine
DX: I63.9 Cerebral infarction, unspecified (principal); G81.94 Hemiplegia, unspecified affecting left nondominant side; G40.109 Localization-related (focal) (partial) symptomatic epilepsy and epileptic syndromes with simple partial seizures, not intractable, without status epilepticus; R13.10 Dysphagia, unspecified; R47.1 Dysarthria and anarthria; E11.65 Type 2 diabetes mellitus with hyperglycemia; Z79.4 Long term (current) use of insulin; I10 Essential (primary) hypertension; I25.10 Atherosclerotic heart disease of native coronary artery without angina pectoris; E78.5 Hyperlipidemia, unspecified; R41.0 Disorientation, unspecified; W18.30XA Fall on same level, unspecified, initial encounter; Y92.230 Patient room in hospital as the place of occurrence of the external cause

== ENCOUNTER 2016-11-24 19:28 | Inpatient (IN) | payer MEDICARE, BC ==
[~2016-11-24] VITALS: Ht 177.8 cm; Wt 98.4 kg
--- NOTE | 2016-11-24 18:38 | NUR ---
PT. ARRIVED VIA W/C AND TRANSFERRED TO BED. PT. POSITIONED TO COMFORT AND ORIENTED TO ROOM AND ROOMMATE. CALL LIGHT WITHIN REACH.
[~2016-11-24 19:28] MED LIST changes: +ACETAMINOPHEN325 MG PO; +ASPIRIN325 MG PO; +ATIVAN2 MG/ML IV; +GLUCAGEN1 MG/VIAL IM; +GLUCAGEN1 MG/VIAL SC; +HUMALOG 30100 UNITS/ SC; +KEPPRA500 MG PO; +PHENOBARBITAL32.4 MG PO; +SINGULAIR10 MG PO; +TOUJEO SOL300 UNIT/1 SC; +XANAX0.25 MG PO
[2016-11-24 20:00] VITALS: BP 164/80
[2016-11-24 22:58] VITALS: BP 164/80; BMI 31.2
--- NOTE | 2016-11-24 23:19 | NUR ---
ADMISSION ASSESSMENT COMPLETED. PT. IN BED WITH HOB UP FOR COMFORT AND TURNED ONTO HER LEFT SIDE AND EYES WERE CLOSED I WAS LEAVING ROOM. CALL LIGHT WITHIN REACH.
--- NOTE | 2016-11-25 03:15 | NUR ---
PT. IN BED WITH HOB UP FOR COMFORT LYING ON HER LEFT SIDE. EYES CLOSED AND RESP. EVEN. CALL LIGHT WITHIN REACH.
[2016-11-25 06:58] LABS: BASOPHILS 0.2 % (0-2); EOSINOPHILS 1.9 % (0-7); HEMATOCRIT 37.6 % (36.0-48.0); HEMOGLOBIN 12.3 g/dL (12-16); IMMATURE GRANULOCYTES 0.2 % (0-5); LYMPHOCYTES 42.7 % (15-50); MCHC 32.7 g/dL (31.0-37.0); MCV 82.6 fL (80.0-100.0); MEAN PLATELET VOLUME 10.2 fL (7.4-10.4); MONOCYTES 6.5 % (2-11); NEUTROPHILS 48.5 % (40-80); PLATELET COUNT 159 10x3/uL (130-400); RBC 4.55 10x6/uL (4.00-5.40); RDW 15.7 % (11.5-14.5); WBC 5.2 10x3/uL (4.8-10.8)
[2016-11-25 07:13] LABS: CALC OSMOLALITY 274 mosm/kg (275-300); CALCIUM 8.7 mg/dL (8.5-10.1); CARBON DIOXIDE 28.5 mmol/L (21.0-32.0); CHLORIDE - SERUM 100 mmol/L (98-107); GLUCOSE 204 mg/dL (74-106); POTASSIUM - SERUM 3.9 mmol/L (3.5-5.1); SODIUM 135 mmol/L (136-145); UREA NITROGEN 11 mg/dL (7-18); eGFR NON AFRICAN AMERICAN 75 mL/min (90-120)
[2016-11-25 07:15] LABS: CREATININE - SERUM 0.8 mg/dL (0.6-1.3)
--- NOTE | 2016-11-25 07:36 | NUR ---
PT IN THERAPY, DENIES NEEDS. WCTM.
[2016-11-25 08:00] VITALS: BP 124/59
[2016-11-25 09:41] VITALS: BMI 31.1
--- NOTE | 2016-11-25 10:50 | NUR ---
PT IN ROOM CRYING IN PAIN. PRN TYLENOL GIVEN BUT PT STATES "TYLENOL WONT WORK, I'M HURTING BAD." WCTM.
--- NOTE | 2016-11-25 16:47 | NUR ---
PT RESTING IN BED, REQUESTED SNACK. PT GIVEN ALCIDES CRACKERS AND PEANUT BUTTER. PT GIVEN 2 UNIS SS INSULIN FOR FSBS OF 178. WCTM.
--- NOTE | 2016-11-25 19:30 | NUR ---
PT. IN BED WITH HOB UP FOR COMFORT WATCHING TV. ASSESSMENT COMPLETED. PT. REQUESTING ANXIETY MEDICATION. CALL LIGHT WITHIN REACH.
[2016-11-25 19:50] VITALS: BP 124/68
--- NOTE | 2016-11-25 23:05 | NUR ---
PT. IN BED LYING ON HER RIGHT SIDE WITH MULTIPLE PILLOWS FOR COMFORT. EYES CLOSED AND RESP. DEEP AND EVEN. CALL LIGHT WITHIN REACH.
--- NOTE | 2016-11-26 03:00 | NUR ---
ASSISTED PT. TO/FROM BR. POSITIONED TO COMFORT AND CALL LIGHT WITHIN REACH. NO OTHER VOICED NEEDS AT THIS TIME.
--- NOTE | 2016-11-26 03:27 | NUR ---
AT 0252 PT. WAS GIVEN 2 EXTRA STRENGTH TYLENOL FOR RT.SIDED/RIB PAIN AND HER XANAX FOR ANXIETY. THEN AT 319 PT. REPORTS HEADACHE. B/P TAKEN AND IT WAS 123/59. GAVE COOL WASHCLOTH TO FOREHEAD AND INSTRUCTED TO TRY AND RELAX AND LET THE MEDICATION WORK SINCE IT HADN'T REALLY BEEN IN HER SYSTEM LONG ENOUGH TO WORK.
[2016-11-26 07:30] VITALS: BP 104/45
--- NOTE | 2016-11-26 08:13 | NUR ---
AM MEDS ADMINISTERED. PT REBret DIETZ'Conrad PRN TYLENOL WITH AM MEDS FOR 6/10 PAIN TO RT SIDE. WCTM.
--- NOTE | 2016-11-26 12:20 | NUR ---
PT REQ AND REC'D PRN TYLENOL PER ORDERS AT THIS TIME. PT DENIES FURTHER NEEDS. WCTM.
--- NOTE | 2016-11-26 16:55 | NUR ---
PT REQ AND REC'D PRN TYLENOL AND XANAX AT THIS TIME. PT DENIES FURTHER NEEDS. WCTM.
--- NOTE | 2016-11-26 19:25 | NUR ---
PT. IN BED WITH HOB UP FOR COMFORT AND IS WATCHING TV. NO VOICED NEEDS AT THIS TIME. ASSESSMENT COMPLETED. CALL LIGHT WITHIN REACH.
[2016-11-26 19:45] VITALS: BP 115/54
--- NOTE | 2016-11-26 23:08 | NUR ---
PT. IN BED WITH HOB UP FOR COMFORT AND IS LAYING ON HER LEFT SIDE. EYES CLOSED AND RESP. EVEN. CALL LIGHT WITHIN REACH.
--- NOTE | 2016-11-27 03:01 | NUR ---
PT. IN BED LYING ON HER LEFT SIDE WITH EYES CLOSED AND RESP. EVEN. CALL LIGHT WITHIN REACH.
[2016-11-27 05:47] LABS: BASOPHILS 0.2 % (0-2); EOSINOPHILS 3.3 % (0-7); HEMATOCRIT 38.5 % (36.0-48.0); HEMOGLOBIN 12.7 g/dL (12-16); IMMATURE GRANULOCYTES 0.2 % (0-5); MCH 27.5 pg (26.0-34.0); MCV 83.3 fL (80.0-100.0); MEAN PLATELET VOLUME 10.8 fL (7.4-10.4); MONOCYTES 8.4 % (2-11); NEUTROPHILS 43.9 % (40-80); PLATELET COUNT 167 10x3/uL (130-400); RBC 4.62 10x6/uL (4.00-5.40); RDW 16.1 % (11.5-14.5); WBC 5.8 10x3/uL (4.8-10.8)
[2016-11-27 06:20] LABS: ANION GAP 12.7 mmol/L (8-16); CALCIUM 9.4 mg/dL (8.5-10.1); CARBON DIOXIDE 31.2 mmol/L (21.0-32.0); POTASSIUM - SERUM 3.9 mmol/L (3.5-5.1)
--- NOTE | 2016-11-27 07:25 | NUR ---
PT IS RECEIVED LYING IN BED. SHE OFFERS NO COMPLAINTS. GEN- AWAKE AND ALERT. LUNGS- WHEEZING BILATERAL LOWER LOBES. GAVE HER INCENTIVE SPIROMETRY AND INSTRUCTIONS GIVEN. HEART- RRR. ABD- SOFT, NT. BS+ EXT- NO EDEMA. PULSES PALPABLE. SHE HAS A FLANK ABRASION. BED IS LOW, SIDE RAILS UP X 2 AND CALL LIGHT IN REACH. SHE NEEDS MINIMAL ASSISTANCE.
--- NOTE | 2016-11-27 09:15 | NUR ---
PT IS GETTING DRESSED FOR THERAPY. PT OFFERS NO COMPLAINTS.
[2016-11-27 09:29] VITALS: BP 104/55
--- NOTE | 2016-11-27 11:12 | NUR ---
PT IS STANDING UP BESIDE BED. SHE IS GETTING IN WHEELCHAIR TO GO TO THERAPY. SHE OFFERS NO COMPLAINTS.
--- NOTE | 2016-11-27 12:39 | NUR ---
PT IS EATING LUNCH. SITTING ON SIDE OF BED. CALL LIGHT IN REACH.PT OFFERS NO COMPLAINTS. BS TAKEN AND WAS 203. 4 UNITS GIVEN.
--- NOTE | 2016-11-27 14:30 | NUR ---
PT CAME TO NURSE STATION AND IS CRYING AND STATES THAT SHE NEEDS TO TALK TO SOMEONE ABOUT HER FALL. HER DAUGHTER WOULD LIKE TO TALK TO SOMEONE ABOUT HER FALL. SAAD, RN NURSE TAILINGS WORKER ON WAS CONTACTED BY SAILAJA(WOUND CARE NURSE) SAAD DID NOT COME DOWN TO TALK TO PT. SHE TOLD HER TO GIVE HER HER PHONE NUMBER AND SHE CAN CALL. WE ALSO TOLD PT THAT WHEN HER DAUGHTER GETS HERE WE CAN CALL [facility].
--- NOTE | 2016-11-27 16:37 | NUR ---
PT IS GETTING DRESSED FOR THERAPY. PT OFFERS NO COMPLAINTS THIS AM.
--- NOTE | 2016-11-27 16:39 | NUR ---
PT'S BS CHECKED BS IS 164. 2 UNITS OF HUMALOG GIVEN.
--- NOTE | 2016-11-27 16:45 | NUR ---
PT GOING FOR A STROLL IN HER WHEELCHAIR. SHE SEEMS MORE CALM AND HAPPY AT THIS TIME AND NOT TEARFUL.
[2016-11-27 19:34] VITALS: BP 145/66
--- NOTE | 2016-11-27 19:39 | NUR ---
PT IS RESTING IN BED WATCHING TV. ALERT AND ORIENTED X 4. DENIES ACUTE PAIN OR DISCOMFORT AT THIS TIME. VSS. NO NEEDS VOICED. SR'S ARE UP X 2 IN BED. CALL LIGHT AND BEDSIDE TABLE ARE WITHIN EASY REACH. BED ALARM IS ON.
--- NOTE | 2016-11-27 21:28 | NUR ---
PT IS RESTING IN BED WATCHING TV. NO NEEDS VOICED. SON AT BEDSIDE.
--- NOTE | 2016-11-28 00:52 | NUR ---
RESTING IN BED WITH EYES CLOSED.
--- NOTE | 2016-11-28 04:05 | NUR ---
RESTING IN BED WITH EYES CLOSED. ASSISTED TO THE BATHROOM PRN.
--- NOTE | 2016-11-28 04:36 | NUR ---
RESTING IN BED WIOTH EYES CLOSED. NO S/S OF DISTRESS OBSERVED. CALL LIGHT AND OVERBED TABLE IN REACH. LAYING ON BACK WITH HOB ELEVATED AT 20 DEGREES.
--- NOTE | 2016-11-28 07:25 | NUR ---
PT IS LYING IN BED , AWAKE. AHE STATES THAT HER PAIN IS ABOUT A 2 IN HER R SIDE. HER BS WAS 163 SHE RECEIVED 2 UNITS OF HUMALOG THIS AM. SHE STATES THAT SHE HAS BEEN GETTING NAUSEATED AT TIMES AND WOULD LIKE SOMETHING FOR THIS. GEN- AWAKE AND ALERT, LUNGS- CLEAR. HEART- RRR. ABD- SOFT, NT. BS+. EXT WITH MINIMAL EDEMA LE. BED IS LOW, SIDE RAILS UP X 2 AND CALL LIGHT IN REACH.
--- NOTE | 2016-11-28 10:41 | NUR ---
PT IS GOING TO THERAPY. SHE WAS GIVEN HER AM MEDS, INCLUDING THE ZOFRAN FOR NAUSEA. SHE STATES THAT SHE IS NOT FEELING GOOD TODAY.
--- NOTE | 2016-11-28 11:13 | NUR ---
PT IS LYING IN BED AND STATES THAT SHE IS STILL NOT FEELING WELL. STATES CADEN SHE IS HAVING PAIN ON LEFT SIDE BUT CANT DESCRIBE PAIN. STATES THAT HER LEFT ARM IS TINGLING NOW. SHE HAS EQUAL BILATERAL UPPER EXTREMITY AMBULANCE DISPATCHER. HER SMILE IS SYMETRICAL. EQUAL LE STRENGTH. BS WAS 266.
--- NOTE | 2016-11-28 12:48 | NUR ---
PT IS SITTING UP ON SIDE OF BED EATING LUNCH. SHE STATES THAT SHE IS 100 % BETTER AND SHE IS NOT HAVING THE SYMPTOMS ANYMORE.
--- NOTE | 2016-11-28 13:36 | NUR ---
PT IS PARTICIPATING IN THERAPY AT THIS TIME. SHE IS FEELING MUCH BETTER AT THIS TIME. STATES THAT SHE IS NOT HAVING LEFT SIDE PAIN AT THIS TIME.
--- NOTE | 2016-11-28 14:34 | NUR ---
PT IS BACK FROM THERAPY. SHE IS DOING WELL. AI IS GOING TO STR[facility]LL [facility].
--- NOTE | 2016-11-28 15:08 | NUR ---
PT CAME OUT TO THE DESK AND STATED THAT SHE IS BECOMING NAUSEATED AGAIN. HER ZOFRAN IS NOT DUE FOR AN HOUR. SHE WENT TO LAY DOWN. GAVE HER SOME [employer] [employer] [employer] TO DRINK.
--- NOTE | 2016-11-28 15:39 | NUR ---
PT REQUESTED SOMETHING EARLIER FOR NAUSEA. IT WAS NOT TIME THEN. GAVE HER ZOFRAN FOR NAUSEA NOW.
--- NOTE | 2016-11-28 16:36 | NUR ---
PATIENT ADMITTED TO REHAB FROM ACUTE FLOOR. PATIENT LIVES WITH HER SON (CJ) AND HER SPOUSE. DR. LAINEZ IS HER PCP , [facility] [email or web address] IS HER [facility] CHOICE. DME AT HOME: C-PAP, SHOWER CHAIR, BEDSIDE COMMODE AND A CANE. SHE HAS [facility]. WILL CONTINUE TO FOLLOW WITH PATIENT AND WILL ASSIST WITH HER DISCHARGE NEEDS.
--- NOTE | 2016-11-28 17:00 | NUR ---
PT LYING IN BED. BS TAKEN . BS 244. HUMALOG GIVEN.
--- NOTE | 2016-11-28 19:25 | NUR ---
PT IS RESTING IN BED WITH EYES OPEN. ALERT AND ORIENTED X 4. DENIES PAIN OR DISCOMFORT AT THIS TIME. NO NEEDS VOICED. SR'S ARE UP X 2 IN BED. CALL LIGHT AND BEDSIDE TABLE ARE WITHIN EASY REACH.
[2016-11-28 20:45] VITALS: BP 131/68
--- NOTE | 2016-11-28 21:37 | NUR ---
PT IS RESTING IN BED WITH EYES CLOSED. NO DISTRESS NOTED.
--- NOTE | 2016-11-29 00:01 | NUR ---
PT ASSISTED TO THE BATHROOM WITH SBA. NO FURTHER NEEDS VOICED.
--- NOTE | 2016-11-29 02:29 | NUR ---
RESTING IN BED WITH EYES CLOSED. NO DISTRESS NOTED.
--- NOTE | 2016-11-29 04:40 | NUR ---
RESTING IN BED WITH EYES CLOSED. NO S/S OF DISTRESS OBSERVED. CALL LIGHT AND OVERBED TABLE IN REACH.
[2016-11-29 05:51] LABS: BASOPHILS 0.2 % (0-2); EOSINOPHILS 2.6 % (0-7); HEMATOCRIT 38.8 % (36.0-48.0); HEMOGLOBIN 12.5 g/dL (12-16); IMMATURE GRANULOCYTES 0.2 % (0-5); LYMPHOCYTES 36.7 % (15-50); MCH 27.3 pg (26.0-34.0); MCHC 32.2 g/dL (31.0-37.0); MCV 84.7 fL (80.0-100.0); MEAN PLATELET VOLUME 10.6 fL (7.4-10.4); MONOCYTES 7.7 % (2-11); NEUTROPHILS 52.6 % (40-80); PLATELET COUNT 159 10x3/uL (130-400); RBC 4.58 10x6/uL (4.00-5.40); RDW 16.2 % (11.5-14.5); WBC 4.9 10x3/uL (4.8-10.8)
[2016-11-29 06:05] LABS: ANION GAP 12.4 mmol/L (8-16); CALCIUM 9.2 mg/dL (8.5-10.1); CARBON DIOXIDE 29.5 mmol/L (21.0-32.0); CREATININE - SERUM 1.1 mg/dL (0.6-1.3); POTASSIUM - SERUM 3.9 mmol/L (3.5-5.1)
--- NOTE | 2016-11-29 07:22 | NUR ---
INTRODUCED SELF TO PT, PT STATES NO NEEDS AT THIS TIME, WILL CONTINUE TO MONITOR, CALL LIGHT WITHIN REACH.
[2016-11-29 07:53] VITALS: BP 112/75
--- NOTE | 2016-11-29 08:12 | NUR ---
EATING BREAKFAST.DENIES NEEDS.EATING BREAKFAST.
--- NOTE | 2016-11-29 08:31 | NUR ---
MORNING MEDICATION GIVEN, PT TOLERATED WELL, WILL CONTINUE TO MONITOR, CALL LIGHT WITHIN REACH.
[2016-11-29 09:21] VITALS: Ht 177.8 cm; Wt 98.4 kg
--- NOTE | 2016-11-29 11:28 | NUR ---
FSBS 298, 6 UNITS GIVEN, PT TOLERATED WELL, WILL CONTINUE TO MONITOR, CALL LIGHT WITHIN REACH.
--- NOTE | 2016-11-29 13:06 | NUR ---
PT SITTING UP IN BED WATCHING TV, PT STATES NO NEEDS AT THIS TIME, KYLIE CONTINUE TO MONITOR, CALL LIGHT WITHIN REACH.
--- NOTE | 2016-11-29 15:37 | NUR ---
PT RESTING IN BED, RESPIRATIONS EVEN, BED IN LOW POSITION, SIDE RAILS UP X'S 2, CALL LIGHT WITHIN REACH.
--- NOTE | 2016-11-29 17:53 | NUR ---
PT SITTING UP IN BED EATING DINNER, PT STATES NO NEEDS AT THIS TIME, WILL CONTINUE TO MONITOR, CALL LIGHT WITHIN REACH.
--- NOTE | 2016-11-29 19:30 | NUR ---
PT. IN BED WITH HOB UP FOR COMFORT AND IS WATCHING TV. NO VOICED NEEDS AT THIS TIME AND SHE HAS HER CALL LIGHT WITHIN REACH.
--- NOTE | 2016-11-29 19:45 | NUR ---
PT IS RESTING IN BED WATCHING TV AND VISITING WITH FAMILY MEMBERS. ALERT AND ORIENTED X 4. DENIES ACUTE DISCOMFORT AT THIS TIME. NO NEEDS VOICED. SR'S ARE UP X 2 IN BED. CALL LIGHT AND BEDSIDE TABLE ARE WITHIN EASY REACH.
[2016-11-29 19:55] VITALS: BP 134/44
--- NOTE | 2016-11-29 22:00 | NUR ---
PT IS RESTING IN BED VISITING WITH HER ROOMMATE. NO NEEDS VOICED.
--- NOTE | 2016-11-30 00:01 | NUR ---
PT IS RESTING QUIETLY IN BED WITH EYES CLOSED. RESPS ARE EVEN AND UNLABORED. NO ACUTE DISTRESS NOTED.
--- NOTE | 2016-11-30 01:47 | NUR ---
RESTING IN BED WITH EYES CLOSED.
--- NOTE | 2016-11-30 05:48 | NUR ---
PT RESTING IN BED WITH EYES OPEN. NO NEEDS VOICED.
--- NOTE | 2016-11-30 08:00 | NUR ---
DENIES NEEDS.CL IN REACH.
--- NOTE | 2016-11-30 08:22 | NUR ---
UP ON SIDE OF BED EATING BREAKFAST AT THIS TIME INDEPENDENTLY. NO ACUTE DISTRESS NOTED. PT ALERT AND ORIENTED. ABLE TO STATE NEEDS. WILL CONTINUE PLAN OF CARE.
[2016-11-30 08:27] VITALS: BP 132/67
[2016-11-30 11:16] VITALS: BP 129/52
--- NOTE | 2016-11-30 11:25 | NUR ---
PT COMPLAINT OF DULL PAIN IN CHEST RADIATING TO SHOULDER AT A LEVEL OF 6/10. STAT EKG AND CARDIAC ENZYMES FROM LAB ORDERED AT THIS TIME. PT ALSO COMPLAINT OF NAUSEA AT THIS TIME. PAGING DR MACHADO FOR FURTHER ORDERS.
--- NOTE | 2016-11-30 11:30 | NUR ---
SPOKE WITH DR MACHADO. NOTED ORDERS FOR EKG, CARDIAC ENZYMES, 81MG ASPIRIN IF PT NOT ALREADY TAKING ASPIRIN, AND 1 TAB OF 0.4 NITRO SUBLINGUAL. NOTED EKG SHOWS SINUS RHYTHM AT 71. BP 129/52, PULSE RATE 68. ORDERS PLACED. WILL CONTINUE TO OBSERVE.
[2016-11-30 11:46] VITALS: BP 103/45
--- NOTE | 2016-11-30 11:47 | NUR ---
VITAL SIGNS; 103/45 (MAP 64) PUSE RATE 65. OXYGEN SATURATION AT 92% AT 2L VIA NC. PT STATES CHEST PAIN IS NOW 3/10. WILL CONTINUE PLAN OF CARE.
[2016-11-30 12:16] LABS: CKMB 0.1 U/L (0.0-3.6); CREATINE KINASE 38 UL (21-215)
[2016-11-30 12:18] LABS: TROPONIN-I < 0.017 ng/mL (0.000-0.060)
[2016-11-30 12:30] VITALS: BP 130/52
--- NOTE | 2016-11-30 12:31 | NUR ---
SITTING UP ON SIDE OF BED AT AT THIS TIME. PT DENIES ANY CHEST PAIN OR DISCOMFORT. EATING LUNCH. NO ACUTE DISTRESS NOTED. WILL CONTINUE PLAN OF CARE.
--- NOTE | 2016-11-30 16:42 | NUR ---
SHOWER PROVIDED TO PT VIA SET UP ASSIST. ALSO AT THIS TIME LINEN CHANGE PROVIDED. NO ACUTE DISTRESS NOTED. PT UP IN WHEELCHAIR AT THIS TIME. WILL CONTINUE PLAN OF CARE.
[2016-11-30 18:18] LABS: CKMB 0.1 U/L (0.0-3.6); CREATINE KINASE 37 UL (21-215)
[2016-11-30 18:21] LABS: TROPONIN-I < 0.017 ng/mL (0.000-0.060)
--- NOTE | 2016-11-30 19:15 | NUR ---
PT. IN BED WITH HOB UP FOR COMFORT WATCHING TV. ASSESSMENT COMPLETED. NO VOICED NEEDS AT THIS TIME. PT. DENIES ANY FURTHER EPISODES OF CHEST DISCOMFORT. CALL LIGHT WITHIN REACH.
[2016-11-30 19:45] VITALS: BP 135/65
--- NOTE | 2016-11-30 23:08 | NUR ---
PT. IN BED LYING ON HER LEFT SIDE WITH EYES CLOSED AND RESP. DEEP AND EVEN. CALL LIGHT WITHIN REACH.
[2016-12-01 00:47] LABS: CKMB 0.2 U/L (0.0-3.6); CREATINE KINASE 31 UL (21-215); TROPONIN-I < 0.017 ng/mL (0.000-0.060)
--- NOTE | 2016-12-01 03:01 | NUR ---
PT. IN BED WITH HOB UP FOR COMFORT WITH EYES CLOSED AND RESP. DEEP AND EVEN. CALL LIGHT WITHIN REACH.
--- NOTE | 2016-12-01 07:30 | NUR ---
INTRODUCED SELF TO PT, PT STATES NO NEEDS AT THIS TIME, WILL CONTINUE TO MONITOR, CALL LIGHT WITHIN REACH.
[2016-12-01 08:00] VITALS: BP 131/63
--- NOTE | 2016-12-01 08:24 | NUR ---
GONE TO THERAPY.NAHUM WELL.
--- NOTE | 2016-12-01 09:00 | NUR ---
MORNING MEDICATION GIVEN, PT TOLERATED WELL, PT STATES NO NEEDS AT THIS TIME, WILL CONTINUE TO MONITOR, CALL LIGHT WITHN REACH.
--- NOTE | 2016-12-01 11:49 | NUR ---
PT RESTING IN BED, PT STATES HEADACHE AT A 6, PAIN MED GIVEN, WILL CONTINUE TO MONITOR, CALL LIGHT WITHIN REACH.
--- NOTE | 2016-12-01 12:38 | NUR ---
RE ACCESSED PAIN, PT STATES PAIN STILL AT A 6, PT STATES PAIN DIFFERENT THAN NORMAL, BP 138/76, PULSE 71, O2 98, RESPIRATIONS 18. INSTRUCTED PT TO STAY IN BED, USE CALL LIGHT FOR ASSISTANCE, WILL CONTINUE TO MONITOR, CALL LIGHT WITHIN REACH.
--- NOTE | 2016-12-01 13:21 | NUR ---
PT STATES PAIN AT A 6 IN HEAD, WILL INFORM DR MACHADO, WILL CONTINUE TO MONITOR, PT IN PHYSICAL THERAPY.
[2016-12-01 14:27] VITALS: BP 138/76
--- NOTE | 2016-12-01 14:36 | NUR ---
TRAMADOL 50MG PO EVERY 4 HRS PRN ORDER FOR HEADACHE/PAIN PER DR MACHADO.
--- NOTE | 2016-12-01 14:38 | NUR ---
PT RESTING IN BED, RESPIRATIONS EVEN, BED IN LOW, SIDE RAILS UP X'S 2, CALL LIGHT WITHIN REACH. WILL CONTINUE TO MONITOR.
--- NOTE | 2016-12-01 15:44 | NUR ---
PT STATES PAIN AT A 6, HEADACHE, PAIN MED GIVEN, WILL CONTINUE MONITOR, CALL LIGHT WITHIN REACH.
--- NOTE | 2016-12-01 17:47 | NUR ---
PT STATES HEADACHE AT A 2, PAIN MUCH BETTER, WILL CONTINUE TO MONITOR. CALL LIGHT WITHIN REACH.
--- NOTE | 2016-12-01 19:35 | NUR ---
PT RESTING IN BED, FAMILY AT BEDSIDE. PT DENIES NEEDS AT THIS TIME. WCTM.
[2016-12-01 20:00] VITALS: BP 114/61
--- NOTE | 2016-12-02 01:15 | NUR ---
PT RESTING, EYES CLOSED. BED LOW. CL IN REACH. WCTM.
--- NOTE | 2016-12-02 03:10 | NUR ---
PT RESTING, EYES CLOSED. RR ARE EVEN AND UNLABORED. WCTM. BED LOW. CL IN REACH.
--- NOTE | 2016-12-02 06:12 | NUR ---
PT AM MEDS ADMINISTERED. PT DENIES NEEDS. WCTM.
--- NOTE | 2016-12-02 07:30 | NUR ---
PT AWAKE IN THE BED WATCHING TV. DENIES PAIN AT THIS TIME. ALARM BED PAD INTACT. C/L IN REACH WILL MONITOR.
[2016-12-02 08:00] VITALS: BP 136/59
--- NOTE | 2016-12-02 18:19 | NUR ---
JUST FINISHED SUPPER. DENIES NEEDS. CALL LIGHT IN REACH
--- NOTE | 2016-12-02 18:24 | NUR ---
PT IN BED RESTING WHILE WATCHING TV. DENIES PAIN AT THIS TIME. C/L IN REACH. WILL MONITOR.
[2016-12-02 19:35] VITALS: BP 110/45
--- NOTE | 2016-12-02 21:50 | NUR ---
PT HS MEDS ADMINISTERED. PT DENIES NEEDS AT THIS TIME. BED LOW CL IN REACH.
--- NOTE | 2016-12-02 23:34 | NUR ---
PT RESTING, EYES CLOSED. BED LOW. CLIN REACH.
--- NOTE | 2016-12-03 06:36 | NUR ---
PT AM MEDS ADMINISTERED. PT RESTING IN BED, DENIES NEEDS. WCTM.
--- NOTE | 2016-12-03 07:20 | NUR ---
LYING IN BED RESTING COMFORTABLY. OFFERS NO COMPLAINTS. CALL LIGHT IN REACH. WILL CONTINUE TO MONITOR.
[2016-12-03 07:30] VITALS: BP 127/59
--- NOTE | 2016-12-03 08:30 | NUR ---
SITTING UP EATING BREAKFAST. DENIES NEEDS. CALL LIGHT IN REACH
--- NOTE | 2016-12-03 09:59 | NUR ---
C/O OF HEADACHE AND REQUESTED FIORCET AND ZOFRAN. ADMINISTERED BOTH TO PT WITHOUT ANY DIFFICULTY. WILL CONTINUE TO MONITOR
--- NOTE | 2016-12-03 14:04 | NUR ---
SITTING UP ON SIDE OF BED WORKING CROSSWORD PUZZLE. OFFERS NO COMPLAINTS. CALL LIGHT IN REACH. WILL CONTINUE TO MONITOR
--- NOTE | 2016-12-03 18:02 | NUR ---
SITTING UP ON SIDE OF BED EATING DINNER. NO S/SX OF DISTRESS. CALL LIGHT IN REACH. OFFERS NO COMPLAINTS. WILL CONTINUE TO MONITOR
[2016-12-03 19:30] VITALS: BP 137/72
--- NOTE | 2016-12-03 19:39 | NUR ---
PT RESTING IN BED WATCHING TV, DENIES NEEDS. WCTM.
--- NOTE | 2016-12-03 21:42 | NUR ---
PT HS MEDS ADMINISTERED. PT DENIES NEEDS. BED LOW. CL IN REACH. WCTM.
[2016-12-04 05:52] LABS: BASOPHILS 0.2 % (0-2); EOSINOPHILS 3.7 % (0-7); HEMATOCRIT 38.3 % (36.0-48.0); HEMOGLOBIN 12.1 g/dL (12-16); IMMATURE GRANULOCYTES 0.2 % (0-5); LYMPHOCYTES 44.6 % (15-50); MCH 27.1 pg (26.0-34.0); MCHC 31.6 g/dL (31.0-37.0); MCV 85.7 fL (80.0-100.0); MEAN PLATELET VOLUME 10.8 fL (7.4-10.4); MONOCYTES 6.8 % (2-11); NEUTROPHILS 44.5 % (40-80); PLATELET COUNT 180 10x3/uL (130-400); RBC 4.47 10x6/uL (4.00-5.40); WBC 4.9 10x3/uL (4.8-10.8)
[2016-12-04 06:00] LABS: ANION GAP 7.7 mmol/L (8-16); CARBON DIOXIDE 34.5 mmol/L (21.0-32.0); CREATININE - SERUM 0.9 mg/dL (0.6-1.3); POTASSIUM - SERUM 4.2 mmol/L (3.5-5.1)
--- NOTE | 2016-12-04 06:34 | NUR ---
PT AM MEDS ADMINISTERED. PT DENIES NEEDS. WCTM.
--- NOTE | 2016-12-04 07:15 | NUR ---
PT IS LYING IN BED. SHE C/O PAIN IN R SIDE BEING ABOUT A 3. HER BS WAS 185 THIS AM AND SHE RECEIVED 2 UNITS OF INSULIN. SHE HAD A BM YESTERDAY. SHE IS VOIDING WITHOUT DIFFICULTY. PT IS SITTING ON THE SIDE OF HER BED. SERVED HER BREAKFAST. GEN- AWAKE AND ALERT. LUNGS- CLEAR. HEART- RRR. ABD- SOFT, NT, BS+. EXT - NO EDEMA. . BED IS LOW. SIDE RAILSUP X 2 AND CALL LIGHT IN REACH.
[2016-12-04 07:59] VITALS: BP 108/57
--- NOTE | 2016-12-04 08:13 | NUR ---
SITTING UP EATING BREAKFAST. DENIES NEEDS. CALL LIGHT IN REACH
--- NOTE | 2016-12-04 09:15 | NUR ---
PT IS GETTING READY TO GO TO THERAPY. MEDS GIVEN.
--- NOTE | 2016-12-04 12:39 | NUR ---
PT IS RESTING IN BED. SHE STATES THAT HER HEADACHE IS ABOUT THE SAME. SHE STATES THAT SHE HAS NEVER HAD HEADACHES LIKE THIS EVER. STATES THAT SHE DOES NOT KNOW WHAT IS CAUSING THEM.
--- NOTE | 2016-12-04 14:20 | NUR ---
PT TO THERAPY. SHE ASKED FOR SOMETHING FOR NAUSEA. GAVE HER A ZOFRAN PO.
--- NOTE | 2016-12-04 14:48 | NUR ---
PT IS UP AMBULATING IN HALLWAY WITH NO ASSISTIVE DEVICES. THERAPIST BESIDE HER. NAEEM, PT STATES SHE CAN HAVE INDEPENDENCE IN THE ROOM WHEN NEEDING TO GET UP AND AROUND.
--- NOTE | 2016-12-04 17:34 | NUR ---
PT IS LYING IN BED RESTING. GAVE HER SOME PM MEDS AND GAVE HER HER FIORICET FOR HER HEADACHES.
--- NOTE | 2016-12-04 19:15 | NUR ---
PT. LYING IN BED WITH HOB UP FOR COMFORT AND WATCHING TV. ASSESSMENT COMPLETED. NO VOICED NEEDS AT THIS TIME. PT. HAS SIGNED BED/CHAIR ALARM WAIVER AND KNOWS TO CALL FOR ASSISTANCE IF NEEDS. CALL LIGHT WITHIN REACH.
[2016-12-04 19:50] VITALS: BP 133/52
--- NOTE | 2016-12-04 23:10 | NUR ---
PT. IN BED LYING ON HER LEFT SIDE. EYES CLOSED AND RESP. EVEN. CALL LIGHT WITHIN REACH.
--- NOTE | 2016-12-05 03:08 | NUR ---
PT. IN BED LYING ON HER LEFT SIDE WITH EYES CLOSED AND RESP. DEEP AND EVEN. CALL LIGHT WITHIN REACH.
[2016-12-05 07:53] VITALS: BP 141/78
--- NOTE | 2016-12-05 07:58 | NUR ---
SITTING UP ON SIDE OF BED EATING BREAKFAST. OFFERS NO COMPLAINTS. PLEASANT AFFECT. CALL LIGHT IN REACH. WILL CONTINUE TO MONTIOR
--- NOTE | 2016-12-05 08:00 | NUR ---
RESTING QUIETLY IN BED.BREAKFAST EATEN,WAITING FOR THERAPY.CL IN REACH.
--- NOTE | 2016-12-05 09:05 | NUR ---
RETURNED FROM OCCUPATIONAL THERAPY C/O NAUSEA AND REQUESTED SOMETHING FOR IT ADMINISTERED 4MG ZOFRAN. NO OTHER CONCERNS VOICED. NO FEVER NOTED. CALL LIGHT IN REACH WILL CONTINUE TO MONITOR
--- NOTE | 2016-12-05 09:42 | NUR ---
Nutrition Follow Up: Chart reviewed. Pt is eating 93% meal avg on a diabetic diet. +BM 12/03/16. No new wt to assess. Meds noted. Labs reviewed - Glucose continues elevated. Rec continue current diet. RD following.
--- NOTE | 2016-12-05 09:45 | NUR ---
GIOVANNI SENT TO [facility] FOR A ROLLATOR WALKER PER PATIENT REQUEST
--- NOTE | 2016-12-05 10:01 | NUR ---
SITTING UP IN BED RESTING. OFFERS NO COMPLAINTS. NO S/SX OF DISTRESS. CALL LIGHT IN REACH. WILL CONTINUE TO MONITOR
--- NOTE | 2016-12-05 12:31 | NUR ---
SITTING UP ON SIDE OF BED EATING LUNCH. OFFERS NO COMPLAINTS. CALL LIGHT IN REACH. WILL CONTINUE TO MONITOR.
--- NOTE | 2016-12-05 16:00 | NUR ---
PT CALLED DUE TO UNCONTROLLABLE SOBBING, PT STARTED TREMORING AND SHAKING TRIED TO GET PT TO RESPOND TO QUESTIONS, PT WOULD NOT RESPOND. LAID PT ON LEFT SIDE AND PUT UP SIDE RAILS X4 AND PADDED WITH BLANKETS. STAYED WITH PT UNTIL TREMORS AND TONGUE THRASHING STOPPED. PT STARTED RESPONDING TO QUESTIONS. VITALS ARE STABLE 126/82 P92 O2 98%.
--- NOTE | 2016-12-05 17:58 | NUR ---
REVIEWED DISCHARGE INFORMATION AND MEDICATIONS WITH PATIENT. NO CONCERNS VOICED. PT SIGNED CHART COPY AND RECIEVED COPY WELL SCRIPT FOR FREEMAN. PT TRANSPORTED OUT TO FRONT VIA WC AND ACCOMPAINIED BY SON IN LAW. BUCKLED PT IN FRONT SEAT OF PERSONAL VEHICLE DRIVEN BY SON IN LAW. ALL BELONGINGS ACCOUNTED FOR AND IN VEHICLE WITH PT AND FAMILY.
--- NOTE | 2016-12-05 19:15 | NUR ---
PT. IN BED WITH HOB UP FOR COMFORT WATCHING TV. ASSESSMENT COMPLETED. NO VOICED NEEDS AT THIS TIME AND WANTS HER PAIN MEDS WITH HER BEDTIME MEDS. CALL LIGHT WITHIN REACH.
[2016-12-05 19:31] VITALS: BP 124/46
--- NOTE | 2016-12-05 23:06 | NUR ---
PT. IN BED LYING ON HER LEFT SIDE. EYES CLOSED AND RESP. DEEP AND EVEN. CALL LIGHT WITHIN REACH.
--- NOTE | 2016-12-06 03:01 | NUR ---
PT. IN BED WITH HOB UP FOR COMFORT AND LYING ON HER LEFT SIDE. EYES CLOSED AND RESP. DEEP AND EVEN. CALL LIGHT WITHIN REACH.
--- NOTE | 2016-12-06 07:40 | NUR ---
PT RESTING IN BED WITH EYES OPEN CALL LIGHT IN REACH NO PROBLEMS WILL MONITER
[2016-12-06] MEDS ORDERED: KEPPRA500 MG PO (07:41)
--- NOTE | 2016-12-06 07:43 | RHP ---
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 HISTORY OF PRESENT ILLNESS: The patient was admitted to inpatient rehab for a lacunar infarction at the level of the internal capsule and thalamus on the right. She is a 71-year-old female patient treated in acute hospital for CVA and followed by neurology on November 16. She had abrupt onset of rhythmic repetitive jerking of the upper and lower extremities as well as the face that was continuous and went throughout the night, prompting a trip to the ER along with the jerking movements, she had noticed onset of left hemiparesis, splitting midline and weakness of the left upper and left lower extremity and left side of face and dysarthria, dysphagia and choking on liquids and solids, jerking movements did not stop until a sedative was given in the Emergency Room to go to the MRI, intermittent jerking has occurred a few times since then and she had numbness of the left side. She has had some medication adjustments during her acute hospital stay that seemed to resolve the seizure-like activity. She lives at home with her son and disabled . She has had a past CVA that her actually experiencing, she is the primary caregiver. She was completely independent with ADLs and mobility prior to presenting to the hospital. She is set up to max assist for ADLs and moderate to max assist for mobility. She has had 2 falls while being in the acute hospital. She plans to return home, hopefully to her prior level of functioning and hopefully continue would be able to assist with her dysfunctional and disabled . 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 She got a history of hyperlipidemia, coronary artery disease, CHF, Wells esophagitis and also delirium. PAST MEDICAL HISTORY: Significant for a TIA in the past. She has also got a history of neuropathy, numbness, diabetes, thyroid problems, hypertension, CO, coronary artery disease, obstructive sleep apnea, and anxiety. PAST SURGICAL HISTORY: Includes gallbladder surgery, knee surgery, appendectomy and hysterectomy. She has had a plate and 6 screws placed in her neck. She has had stent placement in the past, carpal tunnel surgery, back surgery and bilateral knee surgery. ALLERGIES: MÓNICA INHIBITORS, SULFA, MORPHINE, HYDROCODONE, REGLAN, TRAMADOL AND ADHESIVE TAPE. CURRENT MEDICATIONS: Include potassium 10 mEq daily, Protonix 80 mg daily, multivitamin 1 tab daily. She is on Singulair 10 mg daily, metformin 1000 mg HISTORY AND PHYSICAL [id number] WALLY FAY b.i.d. with meals, Synthroid 112 mcg daily, furosemide 20 mg daily, Jardiance 25 mg daily, aspirin 325 mg daily, MiraLax 17 grams in 8 ounce of water daily, phenobarbital 97.2 mg at q.h.s. Ativan 1 mg q.6 hours p.r.n., Keppra 1000 mg b.i.d. She is on a low resistant sliding scale with Humalog, GlucaGen 1 mg as needed for hypoglycemia. She is on Xanax 0.25 mg q.4 hours p.r.n. and on a scheduled basis of 0.25 b.i.d. and Tylenol 650 q.4 hours p.r.n. pain. HABITS: No alcohol or tobacco use. FAMILY HISTORY: Noncontributory. SOCIAL HISTORY: The patient hopes to return back home and get back to her prior level of functioning and be able to take care of her disabled . REVIEW OF SYSTEMS: GENERAL: Does complain of weakness and fatigue. HEENT: Denies cold, cough, or congestion. CARDIOVASCULAR: Denies chest pain. LUNGS: No shortness of breath. PHYSICAL EXAMINATION: VITAL SIGNS: Stable, afebrile. GENERAL: Elderly female, in no acute distress, alert upon exam. HEENT: Normocephalic and atraumatic. Mucosa moist. NECK: Supple. No lymphadenopathy. LUNGS: Clear at this time. HEART: Has a regular rate and rhythm. ABDOMEN: Benign. EXTREMITIES: No clubbing, cyanosis or edema. NEUROLOGIC: Consistent with CVA. LABORATORY DATA: Her white count was 5.2, H&H of 12 and 37, and platelet count was noted to be 159. Her sodium is 135, potassium 3.9, BUN and creatinine of 11 and 0.8 and blood sugar is noted to be 204. ASSESSMENT: This is a 71-year-old female patient admitted to rehab with a working diagnosis of cerebrovascular accident involving the internal capsule and thalamus on the right. The patient has potential to make improvement. We instituted the following multidisciplinary therapies including to, but not limited to physical, occupational, respiratory, speech, nutritional services, prosthetics and orthotics. Given her complex condition and risk for more complications, rehabilitation services cannot be provided at a low level of care such as fci facility. PLAN: 1. Admit to [facility] rehab for intensive inpatient therapy to include the following disciplines: A. Physical therapy to improve gait, all transfer skills and bed mobility to a modified independent level. B. Occupational therapy to improve activities of daily living to a modified independent level. C. Case management to assist with discharge planning and placement options. D. Nutrition to assist in nutritional needs. E. Rehabilitation nursing to assist in monitoring the patient's underlying medical conditions and to assist with any type of bowel or bladder management. HISTORY AND PHYSICAL [id number] WALLY FAY 2. The patient's current medication and medical care will be continued. 3. The patient will be placed on standard fall precautions. 4. The patient's estimated length of stay is approximately 10-14 days. 5. Discuss this patient during care team staff meeting this week. TRANSINT:[id number] Voice Confirmation ID: [id number] DOCUMENT ID: [id number] CLAUDIA notes whether there has been none or any medical/functional change since admission: - CLAUDIA attests patient continues to be appropriate for IRF: - MAURISIO MACHADO MD at 0743 CC: [id number] DICTATION DATE: 11/25/16 1555 BINDERY MACHINE FEEDER OFFBEARER: 11/25/16 1634 ADM IN [facility] [address] [place] [address]
[2016-12-06 07:57] LABS: ANION GAP 11.4 mmol/L (8-16); CALCIUM 8.6 mg/dL (8.5-10.1); CARBON DIOXIDE 31.8 mmol/L (21.0-32.0); CREATININE - SERUM 0.9 mg/dL (0.6-1.3); POTASSIUM - SERUM 4.2 mmol/L (3.5-5.1)
[2016-12-06 08:22] VITALS: BP 141/71
--- NOTE | 2016-12-06 11:39 | NUR ---
SITTING UP ON SIDE OF BED.READY FOR DC HOME.CL IN REACH.
--- NOTE | 2016-12-06 11:47 | NUR ---
patient discharging home with family. [facility] health will follow with patient at home. [facility] will deliver a rollator walker and shower chair to patient. Dr. Arias 12/14/16 @ 11:30, Dr. Alvarez 12/21/16 @ 10:20. patient choice form for home health and [facility] form signed, explained and filed in chart. orders have been faxed with conformation recieved
--- NOTE | 2016-12-06 12:19 | NUR ---
PT DISCHARGED TO HOME WITH SON VIA WHEELCHAIR DISCHARGED SUMMARY AND MEDS REVIEWED WITH PT ALL MEDS CALLED TO [facility] ON [address]
== END 2016-12-06 12:33 | disposition home health service (06) | DRG 65 ==
LOC: D.REHAB 19:28
PROVIDERS: ADMIT Emergency Medicine
DX: I63.8 Other cerebral infarction (principal); I69.354 Hemiplegia and hemiparesis following cerebral infarction affecting left non-dominant side; G40.109 Localization-related (focal) (partial) symptomatic epilepsy and epileptic syndromes with simple partial seizures, not intractable, without status epilepticus; I69.391 Dysphagia following cerebral infarction; R13.12 Dysphagia, oropharyngeal phase; E11.9 Type 2 diabetes mellitus without complications; E78.5 Hyperlipidemia, unspecified; I25.10 Atherosclerotic heart disease of native coronary artery without angina pectoris; I11.0 Hypertensive heart disease with heart failure; I50.9 Heart failure, unspecified; Z79.4 Long term (current) use of insulin

== ENCOUNTER 2016-12-15 14:24 | Emergency (ER) | payer MEDICARE, BC ==
[2016-11-29 09:21] VITALS: BMI 31.1
== END 2016-12-15 16:13 | disposition home or self-care (01) ==
LOC: D.ER 14:24
DX: R51 Headache (principal); I10 Essential (primary) hypertension; K21.9 Gastro-esophageal reflux disease without esophagitis; E11.9 Type 2 diabetes mellitus without complications; Z79.4 Long term (current) use of insulin

== ENCOUNTER → 2016-12-19 15:33 | Outpatient (CLI) | payer MEDICARE, BC ==
[2016-11-29 09:21] VITALS: BMI 31.1
[2016-12-19 16:15] LABS: CREATININE - SERUM 0.8 mg/dL (0.6-1.3)
== END | disposition home or self-care (01) ==
LOC: D.LAB 15:33 → D.MRI 16:00
PROVIDERS: Family Medicine
DX: R51 Headache (principal)

== ENCOUNTER 2016-12-23 18:58 | Emergency (ER) | payer MEDICARE, BC ==
[2016-11-29 09:21] VITALS: BMI 31.1
[2016-12-23 19:26] LABS: BASOPHILS 0.3 % (0-2); EOSINOPHILS 3.3 % (0-7); HEMOGLOBIN 12.4 g/dL (12-16); IMMATURE GRANULOCYTES 0.2 % (0-5); MCH 27.6 pg (26.0-34.0); MCHC 32.6 g/dL (31.0-37.0); MCV 84.4 fL (80.0-100.0); MEAN PLATELET VOLUME 9.8 fL (7.4-10.4); MONOCYTES 7.5 % (2-11); NEUTROPHILS 46.7 % (40-80); PLATELET COUNT 195 10x3/uL (130-400); RDW 15.1 % (11.5-14.5); WBC 5.7 10x3/uL (4.8-10.8)
[2016-12-23 19:39] LABS: ALBUMIN 3.5 g/dL (3.4-5.0); ALKALINE PHOSPHATASE 95 U/L (46-116); ALT (SGPT) 34 U/L (10-68); BILIRUBIN - TOTAL 0.34 mg/dL (0.2-1.3); CALC OSMOLALITY 279 mosm/kg (275-300); CALCIUM 8.9 mg/dL (8.5-10.1); CARBON DIOXIDE 27.5 mmol/L (21.0-32.0); CHLORIDE - SERUM 100 mmol/L (98-107); POTASSIUM - SERUM 4.2 mmol/L (3.5-5.1); PROTEIN - SERUM 7.7 g/dL (6.4-8.2); SODIUM 138 mmol/L (136-145); UREA NITROGEN 22 mg/dL (7-18); eGFR NON AFRICAN AMERICAN 58 mL/min (90-120)
[2016-12-23 19:40] LABS: GLUCOSE 122 mg/dL (74-106)
[2016-12-23 19:50] LABS: CKMB 0.2 U/L (0.0-3.6); CREATINE KINASE 48 UL (21-215); TROPONIN-I < 0.017 ng/mL (0.000-0.060)
== END 2016-12-23 23:18 | disposition home or self-care (01) ==
LOC: D.ER 18:58
PROVIDERS: Family Medicine
DX: J45.909 Unspecified asthma, uncomplicated (principal); J20.9 Acute bronchitis, unspecified; E11.9 Type 2 diabetes mellitus without complications; Z79.4 Long term (current) use of insulin; K21.9 Gastro-esophageal reflux disease without esophagitis

== ENCOUNTER 2017-01-11 12:56 | Emergency (ER) | payer MEDICARE, BC ==
[2016-11-29 09:21] VITALS: BMI 31.1
[2017-01-11 14:51] LABS: BASOPHILS 0.2 % (0-2); EOSINOPHILS 2.2 % (0-7); HEMATOCRIT 38.6 % (36.0-48.0); HEMOGLOBIN 12.5 g/dL (12-16); IMMATURE GRANULOCYTES 0.2 % (0-5); LYMPHOCYTES 42.4 % (15-50); MCH 27.5 pg (26.0-34.0); MCHC 32.4 g/dL (31.0-37.0); MCV 84.8 fL (80.0-100.0); MEAN PLATELET VOLUME 10.1 fL (7.4-10.4); MONOCYTES 7.4 % (2-11); NEUTROPHILS 47.6 % (40-80); PLATELET COUNT 209 10x3/uL (130-400); RBC 4.55 10x6/uL (4.00-5.40); WBC 5.4 10x3/uL (4.8-10.8)
[2017-01-11 14:53] LABS: APPEARANCE CLEAR (CLEAR); BILIRUBIN NEGATIVE (NEGATIVE); COLOR YELLOW (YELLOW); GLUCOSE 100 mg/dL (NEGATIVE); KETONE NEGATIVE (NEGATIVE); LEUKOCYTE ESTERASE TRACE (NEGATIVE); NITRITE NEGATIVE (NEGATIVE); PROTEIN NEGATIVE (NEGATIVE); UROBILINOGEN NORMAL (NORMAL)
[2017-01-11 14:55] LABS: BACTERIA FEW /hpf (NONE SEEN); EPITHELIAL CELLS 0-5 /hpf (0-5); RED CELLS - URINE RARE /hpf (0-5); WHITE CELLS - URINE OCC /hpf (0-5)
[2017-01-11 15:09] LABS: ALBUMIN 3.6 g/dL (3.4-5.0); ANION GAP 15.2 mmol/L (8-16); BILIRUBIN - TOTAL 0.45 mg/dL (0.2-1.3); CALCIUM 9.9 mg/dL (8.5-10.1); CARBON DIOXIDE 31.1 mmol/L (21.0-32.0); CREATININE - SERUM 1.1 mg/dL (0.6-1.3); MAGNESIUM - SERUM 1.8 mg/dL (1.8-2.4); POTASSIUM - SERUM 5.3 mmol/L (3.5-5.1); PROTEIN - SERUM 7.9 g/dL (6.4-8.2)
== END 2017-01-11 18:06 | disposition home or self-care (01) ==
LOC: D.ER 12:56
PROVIDERS: Emergency Medicine
DX: R42 Dizziness and giddiness (principal); R53.1 Weakness; E87.5 Hyperkalemia; E86.0 Dehydration

== ENCOUNTER 2017-01-14 16:02 | Observation (INO) | payer MEDICARE, BC ==
[2017-01-14 16:52] LABS: BASOPHILS 0.2 % (0-2); EOSINOPHILS 2.2 % (0-7); HEMATOCRIT 36.5 % (36.0-48.0); HEMOGLOBIN 11.7 g/dL (12-16); LYMPHOCYTES 39.4 % (15-50); MCHC 32.1 g/dL (31.0-37.0); MCV 84.1 fL (80.0-100.0); MEAN PLATELET VOLUME 11.6 fL (7.4-10.4); MONOCYTES 7.3 % (2-11); NEUTROPHILS 50.9 % (40-80); PLATELET COUNT 204 10x3/uL (130-400); RBC 4.34 10x6/uL (4.00-5.40); RDW 14.9 % (11.5-14.5); WBC 4.5 10x3/uL (4.8-10.8)
[2017-01-14 18:07] LABS: ALBUMIN 3.2 g/dL (3.4-5.0); ALKALINE PHOSPHATASE 72 U/L (46-116); ALT (SGPT) 33 U/L (10-68); BILIRUBIN - TOTAL 0.35 mg/dL (0.2-1.3); CALC OSMOLALITY 282 mosm/kg (275-300); CALCIUM 8.6 mg/dL (8.5-10.1); CHLORIDE - SERUM 97 mmol/L (98-107); CREATININE - SERUM 0.9 mg/dL (0.6-1.3); POTASSIUM - SERUM 4.4 mmol/L (3.5-5.1); PROTEIN - SERUM 7.2 g/dL (6.4-8.2); SODIUM 136 mmol/L (136-145); UREA NITROGEN 15 mg/dL (7-18); eGFR NON AFRICAN AMERICAN 66 mL/min (90-120)
[2017-01-14 18:11] LABS: GLUCOSE 282 mg/dL (74-106)
[2017-01-14 18:18] LABS: CHOL - HDL RATIO 2.4 ratio (2.3-4.1); CHOLESTEROL, TOTAL 123 mg/dL (0-200); CKMB 0.3 U/L (0.0-3.6); CREATINE KINASE 55 UL (21-215); HDL CHOLESTEROL 51 mg/dL (32-96); LDL CHOLESTEROL 42 mg/dL (0-100); LDL-HDL RATIO 0.8 ratio (1.5-3.5); TRIGLYCERIDE 150 mg/dL (30-200)
[2017-01-14 18:19] LABS: TROPONIN-I < 0.017 ng/mL (0.000-0.060)
--- NOTE | 2017-01-14 19:30 | NUR ---
PT ARRIVES TO FLOOR VIA WC FROM ER. VSS, AFEBRILE. PLACED ON TELEMETRY, NSR ON MONITOR, HR 80'S. MEDICATIONS RECONCILED AT THE BEDSIDE. ADMISSION ASSESSMENT AND HISTORY COMPLETED. UNIT ROUTINES AND PROTOCOLS DISCUSSED WITH PT AND VERBALIZES UNDERSTANDING. CALL LIGHT PLACED WITHIN REACH. NO NEEDS VOICED. WILL CONT TO MONITOR.
[2017-01-14] MEDS ORDERED: ATIVAN1 MG PO (20:08)
[2017-01-14] MEDS ORDERED: PROAIR HFA8.5 GM INH (20:09)
[2017-01-14] MEDS ORDERED: TRAZODONE HCL150 MG PO (20:09)
[2017-01-14] MEDS ORDERED: TOUJEO SOL300 UNIT/1 SC (20:09)
[2017-01-14] MEDS ORDERED: ZOLOFT100 MG PO (20:10)
--- NOTE | 2017-01-14 20:10 | NUR ---
PT C/O CHEST PAIN, MIDSTERNAL RADIATING TO HER RIGHT ARM. DESCRIBES TIGHTNESS. RATES @ 8/10 ON PAIN SCALE. NITRO 0.4 MG SL X1 GIVEN. AFTER 5 MIN PT REPORTS COMPLETE RELIEF AND REPORTS PAIN @ 1/10 ON PAIN SCALE.
[2017-01-14] MEDS ORDERED: NORVASC10 MG PO (20:12)
[2017-01-14 20:13] VITALS: BP 138/72; BMI 31.0
--- NOTE | 2017-01-14 21:51 | NUR ---
PT REQUESTS HS MEDS. NO ORDERS RECEIVED FOR HS MEDS AT THIS TIME. CALL TO NURSING SHOE HANDLER TO SPEAK WITH ER DOCTOR RE: ORDERS FOR HS MEDS. PT UPDATED ON THE POC AND VERBALIZES UNDERSTANDING.
--- NOTE | 2017-01-14 22:48 | NUR ---
PT HAS NOW RECEIVED ALL HER HS MEDS. CONTINUES TO DENY ANY FURTHER CHEST PAIN. WILL CONT TO MONITOR.
[2017-01-15] VITALS: BP 113/57
[2017-01-15 04:22] VITALS: BP 126/71
[2017-01-15 08:00] VITALS: BP 129/71
--- NOTE | 2017-01-15 09:50 | NUR ---
LEAVING FOR STRESS TEST BY W/C. WILL CONT. PLAN OF CARE.
[2017-01-15 10:17] VITALS: BMI 31.4
--- NOTE | 2017-01-15 10:57 | NUR ---
BACK FROM STRESS TEST. DIET RESUMED.
[2017-01-15 11:43] VITALS: BP 117/61
[2017-01-15 13:00] LABS: CKMB 0.4 U/L (0.0-3.6); CREATINE KINASE 47 UL (21-215); PRO BNP 49 pg/mL (0-125); TROPONIN-I < 0.017 ng/mL (0.000-0.060)
--- NOTE | 2017-01-15 17:33 | NUR ---
IV AND TELEMETRY DCD. DC PLANS GIVEN. UNDERSTANDING VOICED. ESCORTED TO CAR BY W/C.
--- NOTE | 2017-01-25 12:47 | ST ---
PATIENT:WALLY FAY MEDICAL RECORD: [id number] SEX: F LOCATION:[facility] D211 ORDER #: ADMISSION DATE: 01/14/17 AGE OF PATIENT: 71 REFERRING PHYSICIAN: INTERPRETING PHYSICIAN: BECCA MEDEL MD DATE OF SERVICE: 01/15/2017 Nuclear Stress Test PROCEDURE IN DETAIL: The patient was brought into the nuclear stress lab where she was placed in supine position on the nuclear table. The patient had a Lexiscan performed via Standard protocol without complications. The patient had 11.2 mCi of sestamibi injected in the left hand at 8:20 a.m. via IV infusion and then after stress she had 31 mCi injected at 10:20 a.m. Imaging revealed her gated ejection fraction at 82% and hyperdynamic without wall motion abnormalities. SPECT imaging revealed no evidence of significant ischemia. IMPRESSION: Normal left ventricular systolic function, no evidence of ischemia. Clinical correlation is suggested. TRANSINT:[id number] Voice Confirmation ID: [id number] DOCUMENT ID: [id number] BECCA MEDEL MD at 1247 CC: [id number] DICTATION DATE: 01/16/17 1638 STAPLE LASTER: 01/17/17 0558 DIS IN 01/15/17 [id number] [place] [address]
== END 2017-01-15 17:34 | disposition home or self-care (01) ==
LOC: D.ER 16:02 → OBSVTIME 18:57 → D.M2 18:57
PROVIDERS: Internal Medicine Cardiovascular Disease; Nurse Practitioner Acute Care; ADMIT Family Medicine
DX: R07.89 Other chest pain (principal); Z95.5 Presence of coronary angioplasty implant and graft; I25.110 Atherosclerotic heart disease of native coronary artery with unstable angina pectoris; M54.2 Cervicalgia; Z86.73 Personal history of transient ischemic attack (TIA), and cerebral infarction without residual deficits; E11.65 Type 2 diabetes mellitus with hyperglycemia; E11.40 Type 2 diabetes mellitus with diabetic neuropathy, unspecified; Z79.4 Long term (current) use of insulin; K21.9 Gastro-esophageal reflux disease without esophagitis; F41.9 Anxiety disorder, unspecified; I10 Essential (primary) hypertension

== ENCOUNTER → 2017-01-23 07:37 | Outpatient (CLI) | payer MEDICARE, BC ==
[2017-01-15 10:17] VITALS: BMI 31.4
[~2017-01-23 07:37] MED LIST changes: +ATIVAN1 MG PO; +GABAPENTIN100 MG PO; +PROAIR HFA8.5 GM INH
== END | disposition home or self-care (01) ==
LOC: D.RT 07:37
DX: R06.00 Dyspnea, unspecified (principal)

== ENCOUNTER → 2017-03-09 09:43 | Outpatient (CLI) | payer MEDICARE, BC | END | disposition home or self-care (01) | LOC: D.CT 09:43 | DX: E27.8 Other specified disorders of adrenal gland (principal) ==

== ENCOUNTER 2017-04-14 08:30 | Emergency (ER) | payer MEDICARE, BC ==
[~2017-04-14 08:30] MED LIST changes: -GABAPENTIN100 MG PO
[2017-04-14 09:17] LABS: BASOPHILS 0.2 % (0-2); EOSINOPHILS 3.4 % (0-7); HEMATOCRIT 39.2 % (36.0-48.0); HEMOGLOBIN 12.3 g/dL (12-16); IMMATURE GRANULOCYTES 0.2 % (0-5); LYMPHOCYTES 32.7 % (15-50); MCH 26.1 pg (26.0-34.0); MCHC 31.4 g/dL (31.0-37.0); MCV 83.1 fL (80.0-100.0); MEAN PLATELET VOLUME 9.8 fL (7.4-10.4); NEUTROPHILS 55.5 % (40-80); RBC 4.72 10x6/uL (4.00-5.40); RDW 14.9 % (11.5-14.5)
[2017-04-14 09:24] LABS: PLATELET COUNT 160 10x3/uL (130-400)
[2017-04-14 09:40] LABS: ALBUMIN 3.5 g/dL (3.4-5.0); ALKALINE PHOSPHATASE 62 U/L (46-116); ALT (SGPT) 27 U/L (10-68); BILIRUBIN - TOTAL 0.42 mg/dL (0.2-1.3); CALC OSMOLALITY 278 mosm/kg (275-300); CALCIUM 9.6 mg/dL (8.5-10.1); CHLORIDE - SERUM 102 mmol/L (98-107); POTASSIUM - SERUM 4.2 mmol/L (3.5-5.1); PROTEIN - SERUM 7.3 g/dL (6.4-8.2); SODIUM 139 mmol/L (136-145); UREA NITROGEN 13 mg/dL (7-18); eGFR NON AFRICAN AMERICAN 58 mL/min (90-120)
[2017-04-14 09:41] LABS: GLUCOSE 123 mg/dL (74-106)
[2017-04-14 09:52] LABS: CHOL - HDL RATIO 3.8 ratio (2.3-4.1); CHOLESTEROL, TOTAL 231 mg/dL (0-200); CKMB 0.3 U/L (0.0-3.6); CREATINE KINASE 22 UL (21-215); HDL CHOLESTEROL 61 mg/dL (32-96); LDL CHOLESTEROL 139 mg/dL (0-100); LDL-HDL RATIO 2.3 ratio (1.5-3.5); TRIGLYCERIDE 157 mg/dL (30-200); TROPONIN-I < 0.017 ng/mL (0.000-0.060)
== END 2017-04-14 10:45 | disposition home or self-care (01) ==
LOC: D.ER 08:30
PROVIDERS: Emergency Medicine
DX: R07.9 Chest pain, unspecified (principal); I25.10 Atherosclerotic heart disease of native coronary artery without angina pectoris; E11.9 Type 2 diabetes mellitus without complications; Z79.4 Long term (current) use of insulin; I10 Essential (primary) hypertension; K21.9 Gastro-esophageal reflux disease without esophagitis

== ENCOUNTER 2017-04-21 14:44 | Emergency (ER) | payer MEDICARE, BC ==
[2017-04-21 15:23] LABS: BASOPHILS 0.4 % (0-2); EOSINOPHILS 2.7 % (0-7); HEMATOCRIT 40.5 % (36.0-48.0); HEMOGLOBIN 13.1 g/dL (12-16); IMMATURE GRANULOCYTES 0.2 % (0-5); LYMPHOCYTES 43.1 % (15-50); MCH 26.3 pg (26.0-34.0); MCHC 32.3 g/dL (31.0-37.0); MCV 81.3 fL (80.0-100.0); MEAN PLATELET VOLUME 9.7 fL (7.4-10.4); NEUTROPHILS 45.6 % (40-80); RBC 4.98 10x6/uL (4.00-5.40); WBC 5.1 10x3/uL (4.8-10.8)
[2017-04-21 15:29] LABS: PLATELET COUNT 205 10x3/uL (130-400)
[2017-04-21 15:40] LABS: ALBUMIN 3.7 g/dL (3.4-5.0); ALKALINE PHOSPHATASE 73 U/L (46-116); ALT (SGPT) 28 U/L (10-68); BILIRUBIN - TOTAL 0.52 mg/dL (0.2-1.3); CALC OSMOLALITY 277 mosm/kg (275-300); CALCIUM 9.9 mg/dL (8.5-10.1); CHLORIDE - SERUM 97 mmol/L (98-107); CREATININE - SERUM 1.1 mg/dL (0.6-1.3); GLUCOSE 130 mg/dL (74-106); POTASSIUM - SERUM 3.7 mmol/L (3.5-5.1); PROTEIN - SERUM 7.8 g/dL (6.4-8.2); SODIUM 138 mmol/L (136-145); UREA NITROGEN 13 mg/dL (7-18); eGFR NON AFRICAN AMERICAN 52 mL/min (90-120)
[2017-04-21 15:52] LABS: CKMB 0.5 U/L (0.0-3.6); CREATINE KINASE 38 UL (21-215)
[2017-04-21 15:53] LABS: TROPONIN-I < 0.017 ng/mL (0.000-0.060)
[2017-04-21 16:08] LABS: AMYLASE - SERUM 53 U/L (25-115); LIPASE 207 U/L (73-393)
== END 2017-04-21 19:52 | disposition home or self-care (01) ==
LOC: D.ER 14:44
PROVIDERS: Emergency Medicine; Family Medicine
DX: R10.9 Unspecified abdominal pain (principal); E11.9 Type 2 diabetes mellitus without complications; I10 Essential (primary) hypertension; K21.9 Gastro-esophageal reflux disease without esophagitis

== ENCOUNTER 2017-05-07 11:39 | Outpatient (CLI) | payer MEDICARE, BC ==
[~2017-05-07] VITALS: Ht 175.3 cm; Wt 96.8 kg
--- NOTE | ~2017-05-07 | HEMODYNAMI ---
PATIENT:WALLY FAY MEDICAL RECORD: [id number] : 47 LOCATION:[facility] ADMISSION DATE: 05/07/17 Generatedon:05/07/201714:14 Patient name: WALLY FAY Patient #: [id number] : 1945 Date of study: 05/07/2017 Page: Of Hemodynamic Procedure Report Patient Data Patient Demographics Procedure consent was obtained First Name: WALLY Gender: Female Last Name: NYA : 1945 Middle Initial: DIANA Age: 71 year(s) Patient #: [id number] Race: SSN: [id number] Additional ID: [id number] Contact details [address]: [address] [place] [address] State: [place] City: [place] Zip code: [address] Past Medical History Allergies Allergen Reaction Date Comments Reported Other allergy 12/30/2015 MARCELO,Tape, Hydrocodone, Reglan, Sulfa, Morphine Other allergy 02/11/2016 Sulfa, Morphine, Hydrocodone, Reglan, MARCELO Inhibitors, tape Other allergy 03/19/2016 Marcelo Inhibitors, Sulfa, Hydrocodone, Morphine, Acetametaphen, Metoclopramide, Adhesive Tape MARCELO inhibitors 06/15/2016 Sulfa drugs 06/15/2016 Adhesive tape 06/15/2016 Other allergy 06/15/2016 amlodipine, reglan, hydrocodone Other allergy 05/07/2017 ADHESIVE TAPE, HYDROCODONE, MORPHINE, REGLAN, SULFA, VICODIN Admission Admission Data Admission Date: 05/07/2017 Admission Time: 11:39 Height (in.): 5.9 BSA: 0.36 (m2) Height (cm.): 14.99 BMI: 4302.04 (kg/m2) Weight (lbs.): 213 Weight (kg.): 96.62 Lab Results Lab Result Date: 05/07/2017 Lab Result Time: 0:00 Biochemistry Name Units Result Min Max BUN mg/dl 18 --(---*)-- 7 18 Creatinine mg/dl 0.9 --(-*--)-- 0.6 1.3 Procedure Procedure Types Cath Procedure Diagnostic Procedure [facility] w/Coronaries Miscellaneous Procedures Moderate Sedation up to 15 minutes Procedure Description Procedure Date Procedure Date: 05/07/2017 Procedure Start Time: 13:59 Procedure End Time: 14:13 Procedure Staff Name Function Ye Cuevas MD Performing Physician Irma Moreno RT Monitor Alejandro Parnell RT Scrub Sg Song RN Nurse Procedure Data Cath Procedure Fluoroscopy Diagnostic fluoroscopy Total fluoroscopy Time: 2 time: 2 min min Diagnostic fluoroscopy Total fluoroscopy dose: 596 dose: 596 mGy mGy Contrast Material Contrast Material Type Amount (ml) Isovue 300 58 Entry Location Entry Primary Successful Side Size Upsize Upsize Entry Closure Luna ccessful Closure Location (Fr) 1 (Fr) 2 (Fr) Remarks Device Remarks Radial Right 6 Fr Mechanical artery Short Compression Estimated blood loss: 5 ml Diagnostic catheters Device Type Used For End Catheter Placement DIAGNOSTIC [place] 110cm 5 Procedure Fr catheter ([id number]) Procedure Complications No complications Procedure Medications Medication Administration Route Dosage Oxygen NC 2 l/min Lidocaine 2% added to field 20 Heparin Flush Bag added to field 2 bags (1000units/500ml NS) 0.9% NaCl I.V. 100 ml/hr Versed I.V. 1 mg Fentanyl I.V. 50 mcg Versed I.V. 1 mg Fentanyl I.V. 50 mcg Versed I.V. 1 mg Fentanyl I.V. 50 mcg Radial Cocktail I.A. 1 syringe (Verapomil 2mg/Nitro 400mcg/Heparin 1500units) Hemodynamics Rest BSA: 0.36 (m2) O2 Consumption: Estimated: 34.47 (ml/min) O2 Consumption indexed: Estimated:95.75 (ml/min/m) Heart Rate: 80 (bpm) Pressure Samples Time Site Value (mmHg) Purpose Heart Use Rate(bpm) 14:03 LV 142/-10,3 Snapshot 96 14:04 AO (79) Pullback 46 14:04 LV 111/38,-12 Pullback 46 Gradients Valve Time Site 1 Site Mean SEP/DFP Peak To Heart Use 2 (mmHg) (sec/min) Peak Rate (mmHg) (bpm) Aortic 14:04 LV AO 6 4 46 111/38,-12 (79) Calculations Valve P-P Mean Valve Index Valve Source Name Gradient Area Flow (cm2) Aortic 6 6 Snapshots Pre Cath Intra NCS Post Cath Vital Signs Time Heart Resp SPO2 etCO2 NIBP (mmHg) Rhythm Pain Sedation Rate (ipm) (%) (mmHg) Status Level (bpm) 13:42:03 88 14 100 26 153/93(127) NSR 3 (11) , 10(A) Tolerable 13:46:35 80 23 99 26 155/91(126) NSR 3 (11) , 10(A) Tolerable 13:55:50 82 14 96 37.2 160/88(121) NSR 3 (11) , 10(A) Tolerable 14:00:29 83 14 96 4.4 128/76(99) NSR 0 (11) , 9(A) No pain 14:05:02 91 16 95 36.4 128/71(88) NSR 0 (11) , 9(A) No pain 14:09:32 97 16 96 40.2 133/80(106) NSR 0 (11) , 10(A) No pain Medications Time Medication Route Dose Verified Delivered Reason Notes Effectiveness by by 13:40:48 Oxygen NC 2 l/min Ye Buffie used for Mason Song RN procedure 13:40:56 Lidocaine 2% added 20ml Ye Ye for local to vial Mason Cuevas MD anesthetic field 13:41:03 Heparin Flush added 2 bags Ye Ye used for Bag to Mason Cuevas MD procedure (1000units/500ml field NS) 13:41:12 0.9% NaCl I.V. 100 Ye Buffie Per ml/hr Mason Song RN physician 13:47:36 Versed I.V. 1 mg Ye Buffie for sedation Mason Song RN 13:47:42 Fentanyl I.V. 50 mcg Ye Buffie for sedation Mason Song RN 13:55:31 Versed I.V. 1 mg Ye Buffie for sedation Mason Song RN 13:55:34 Fentanyl I.V. 50 mcg Ye Buffie for sedation Mason Song RN 14:00:15 Versed I.V. 1 mg Ye Buffie for sedation Mason Song RN 14:00:19 Fentanyl I.V. 50 mcg Ye Buffie for sedation Mason Song RN 14:02:15 Radial Cocktail I.A. 1 Ye Belcher for (Verapomil syringe Mason Cuevas MD vasodilation 2mg/Nitro 400mcg/Heparin 1500units) Procedure Log Time Note 12:55:48 Time tracking: Regular hours 12:55:52 Plan of Care:Hemodynamics will remain stable., Cardiac rhythm will remain stable., Comfort level will be maintained., Respiratory function will remain adequate., Patient/ family verbilizes understanding of procedure., Procedure tolerated without complication., Recovers from procedure without complications.. 12:57:42 H&P Date Dictated: 05/02/2017 Within 30 days and on chart., H&P Addendum completed by physician on day of procedure. (MUST COMPLETE FOR ALL OUTPATIENTS). 12:58:11 Lab Result : BUN 18 mg/dl 12:58:11 Lab Result : Creatinine 0.9 mg/dl 13:22:00 Alejandro Parnell RT(R) sent for patient. Start room use. 13:26:43 Patient allergic to Other allergyADHESIVE TAPE, HYDROCODONE, MORPHINE, REGLAN, SULFA, VICODIN 13:28:12 Patient received from Pre/Post Procedure Room to CCL 1 Alert and oriented. Tansferred to table in Supine position. 13:28:14 Warm blankets applied, and wendy hugger turned on for patient comfort. 13:28:14 Correct patient and procedure confirmed by team. 13:28:16 Signed procedure consent form obtained from patient. 13:28:17 ECG and BP/O2 sat monitors applied to patient. 13:40:48 Oxygen 2 l/min NC was administered by Sg Song RN; used for procedure; 13:40:56 Lidocaine 2% 20ml vial added to field was administered by Ye Cuevas MD; for local anesthetic; 13:41:03 Heparin Flush Bag (1000units/500ml NS) 2 bags added to field was administered by Ye Cuevas MD; used for procedure; 13:41:12 0.9% NaCl 100 ml/hr I.V. was administered by Sg Song RN; Per physician; 13:41:17 Vital chart was started 13:43:36 Full Disclosure recording started 13:44:27 Baseline sample Acquired. 13:44:34 Rhythm: sinus rhythm 13:44:37 Pre-procedure instructions explained to patient. 13:44:38 Pre-op teaching completed and patient verbalized understanding. 13:44:40 Family in patients room. 13:44:42 Patient NPO since Midnight. 13:44:44 Is the patient allergic to Iodine/contrast media? No. 13:44:47 Is patient on blood thinner?No 13:44:50 Patient diabetic? Yes. 13:44:52 If diabetic: On Metformin? Yes 13:44:55 If on Metformin: Last Dose? 05/03/2017 13:44:59 Patient not . Patient is over age 55. 13:45:02 Previous problem with sedation/anesthesia? No ? 13:45:04 Snore? Yes 13:45:47 Sleep apnea? Yes 13:45:49 Deviated septum? No 13:45:49 Opens mouth fully? Yes 13:45:50 Sticks out tongue? Yes 13:45:52 Airway obstruction? No ? 13:45:57 Dentures? Yes IN TIGHT 13:46:02 Modified Kiek's test Ulnar < 7 seconds 13:46:04 Patient pain scale 3/10 ?. 13:46:11 IV patent on arrival in left antecubital with 0.9% NaCl at [facility]. 13:46:15 Lab results completed and on chart. 13:46:18 Right Radial & Right Groin area was prepped with chlora-prep and draped in sterile fashion 13:46:19 Alarms reviewed by R. N. 13:46:19 Sharps counted by scrub and verified by R.N. 13:46:21 --------ALL STOP TIME OUT------ 13:46:21 Final Timeout: patient, procedure, and site verified with staff and physician. All members of the team are in agreement. 13:46:22 Right Radial & Right Groin site verified by team. 13:46:25 Physical assessment completed. ASA score P 2 - A patient with mild systemic disease as per Ye Cuevas MD. 13:46:28 Sedation plan: IV Moderate Sedation Medication:Versed, Fentanyl 13:47:22 Use device set Radial Dx or PCI 13:47:23 ACIST Syringe (38742) opened to sterile field. 13:47:24 Bag Decanter (2002S) opened to sterile field. 13:47:25 Tegaderm 4 x 4 (1626W) opened to sterile field. 13:47:26 ACIST Manifold (24177) opened to sterile field. 13:47:27 ACIST Hand Control (44432) opened to sterile field. 13:47:32 Medline Cath Pack ([id number]) opened to sterile field. 13:47:32 SHEATH 6FR Slender ([id number]) opened to sterile field. 13:47:33 DIAGNOSTIC WIRE .035 260cm J wire (036464) opened to sterile field. 13:47:34 MBrace Wrist Support ([id number]) opened to sterile field. 13:47:35 NEEDLE Cook 21G 4cm Radial (C36909) opened to sterile field. 13:47:36 Versed 1 mg I.V. was administered by Sg Song RN; for sedation; 13:47:42 Fentanyl 50 mcg I.V. was administered by Sg Song RN; for sedation; 13:50:04 PT. STATED IV WAS HURTING. SG WILL START A NEW ONE. 13:50:15 IV left antecubital D/C'd due to site irritation. 13:54:17 IV started by Sg Song RN inleft hand with a 22 gauge IV catheter with 0.9% NaCl at [facility]. 13:55:20 Zero performed for pressure channel P1 13:55:31 Versed 1 mg I.V. was administered by Sg Song RN; for sedation; 13:55:34 Fentanyl 50 mcg I.V. was administered by Sg Song RN; for sedation; 13:55:57 Patient Height : 5.9 inches 13:56:03 Patient Weight : 213 lbs 13:59:37 Procedure started. 13:59:47 Local anesthetic to right radial artery with Lidocaine 2% by Ye Cuevas MD.INITIAL ACCESS ONLY 14:00:15 Versed 1 mg I.V. was administered by Sg Song RN; for sedation; 14:00:19 Fentanyl 50 mcg I.V. was administered by Sg Song RN; for sedation; 14:01:33 A 6 Fr Short sheath was inserted into the Right Radial artery 14:02:05 A DIAGNOSTIC [place] 110cm 5 Fr catheter ([id number]) was advanced over the wire and used for Procedure. 14:02:15 Radial Cocktail (Verapomil 2mg/Nitro 400mcg/Heparin 1500units) 1 syringe I.A. was administered by Ye Cuevas MD; for vasodilation; 14:03:11 LV gram done using BAI 14:03:13 Injector settings: Ml/sec: 7, Volume: 15, 14:03:46 LV hemodynamics recorded. 14:04:11 EF : 60 % 14:04:44 RCA angiography performed. 14:05:58 LCA angiography performed. 14:06:38 Catheter removed. 14:08:25 TR BAND Standard ([id number]) opened to sterile field. 14:09:01 Sheath removed intact; hemostasis achieved with Mechanical Compression to the Right Radial artery. 14:09:03 Procedure ended.(Physican Out) 14:09:08 Fluoroscopy time 02.00 minutes. 14:09: Fluoroscopy dose: 596 mGy 14:09: Flurop Dose total: 596 14:09:15 Contrast amount:Isovue 300 58ml. 14:09:27 Sharps counted by scrub and verified by R.N. 14:09:43 TR band inflated with 10cc of air. 14:09:45 Insertion/operative site no bleeding no hematoma. 14:09:52 Post-procedure physical assessment completed. ASA score P 2 - A patient with mild systemic disease as per Ye Cuevas MD. 14:10:22 Post procedure rhythm: unchanged. 14:10:31 Estimated blood loss: 5 ml 14:10:38 Post procedure instruction explained to patient.Patient verbalizes understanding. 14:10:39 Patient needs reinforcement of post procedure teaching. 14:11:33 Procedure and supply charges have been captured, reviewed, submitted and are correct. 14:11:35 Procedure Complication : No complications 14:13:35 Vital chart was stopped 14:13:35 See physician's report for complete and final results. 14:13:37 Report given to Pre/Post Procedure Room. 14:13:43 Patient transfered to Pre/Post Procedure Room with Bed. 14:13:46 Procedure ended. 14:13:46 Full Disclosure recording stopped 14:13:52 End room use (Document Last) Device Usage Item Name Manufacture Quantity Catalog Hospital Part Current Minima l Lot# / Number Charge Number Stock Stock Serial# Code ACIST Acist 1 [id number] 150048 088944 20 [employer] (97618) Tracked.[employer] Bag Decanter Microtek 1 [id number] 53622 351592 5 (2001S) Medical Inc. Tegaderm 4 x 3M 1 1626W 165191 028013 005287 5 4 (1626W) ACIST Acist 1 47907 744840 329148 670923 5 Manifold Medical (97759) Systems Inc ACIST Hand Acist 1 67424 019325 088734 372439 5 Control Medical (73895) Systems Inc Medline Cath Cardinal [address] [id number] 68[address] [facility] ([id number]) SHEATH 6FR Terumo 1 [id number] 849315 409148 082455 40 Slender ([id number]) DIAGNOSTIC St Karl 1 082641 807640 431121 194426 30 WIRE .035 260cm J wire (733532) MBrace Wrist Advanced 1 140-0250-00 364923 50780 721220 5 Support Vascular ([id number]) Dynamics NEEDLE tibdit Dickens Medical 1 L65090 369674 879204 961921 5 21G 4cm Radial (J91711) DIAGNOSTIC Terumo 1 40-5013 158762 183066 967013 5 [place] 110cm 5 Fr catheter (266200) TR BAND Terumo 1 [id number] 019989 352812 521428 40 Standard ([id number]) Signature Audit Kismet Stage Time Signature Unsigned Intra-Procedure 05/07/2017 Irma Moreno 2:14:09 PM RT(R) Signatures Monitor : Irma Moreno Signature : RT Date : Time : [facility] [address] [facility] [facility] [place] [address]
[2017-05-07 12:01] VITALS: Ht 175.3 cm; Wt 96.8 kg
[2017-05-07] MEDS ORDERED: GABAPENTIN100 MG PO (12:15)
[2017-05-07] MEDS ORDERED: ISOSORBIDE MONO60 M1 PO (12:15)
[2017-05-07 12:40] LABS: ANION GAP 13.7 mmol/L (8-16); CALCIUM 9.7 mg/dL (8.5-10.1); CARBON DIOXIDE 28.4 mmol/L (21.0-32.0); CREATININE - SERUM 0.9 mg/dL (0.6-1.3); POTASSIUM - SERUM 4.1 mmol/L (3.5-5.1)
[2017-05-07 13:49] LABS: BASOPHILS 0.4 % (0-2); EOSINOPHILS 2.6 % (0-7); HEMATOCRIT 40.2 % (36.0-48.0); HEMOGLOBIN 12.6 g/dL (12-16); IMMATURE GRANULOCYTES 0.2 % (0-5); LYMPHOCYTES 37.7 % (15-50); MCH 25.7 pg (26.0-34.0); MCHC 31.3 g/dL (31.0-37.0); MCV 81.9 fL (80.0-100.0); MEAN PLATELET VOLUME 10.7 fL (7.4-10.4); MONOCYTES 7.7 % (2-11); NEUTROPHILS 51.4 % (40-80); PLATELET COUNT 203 10x3/uL (130-400); RBC 4.91 10x6/uL (4.00-5.40); RDW 15.5 % (11.5-14.5); WBC 5.1 10x3/uL (4.8-10.8)
== END 2017-05-07 17:00 | disposition home or self-care (01) ==
LOC: D.CATH 11:39
PROVIDERS: Internal Medicine Cardiovascular Disease
DX: I25.119 Atherosclerotic heart disease of native coronary artery with unspecified angina pectoris (principal); Z95.5 Presence of coronary angioplasty implant and graft; Z01.812 Encounter for preprocedural laboratory examination

== ENCOUNTER → 2017-05-10 07:21 | Outpatient (CLI) | payer MEDICARE, BC ==
[~2017-05-10 07:21] MED LIST changes: +GABAPENTIN100 MG PO
== END | disposition home or self-care (01) ==
LOC: D.MRI 05-08 11:00
DX: M50.30 Other cervical disc degeneration, unspecified cervical region (principal)

== ENCOUNTER → 2017-06-14 07:14 | Outpatient (CLI) | payer MEDICARE, BC ==
[~2017-06-14 07:14] MED LIST changes: +DILAUDID2 MG PO
[2017-06-15 11:16] LABS: ANA REFLEX - DIRECT Negative (Negative)
[2017-06-18 16:11] LABS: ANCA - ANTIMYELOPEROXIDASE <9.0 U/mL (0.0-9.0); ANCA - ANTIPROTEINASE 3 <3.5 U/mL (0.0-3.5); ANCA - ATYPICAL <1:20 titer (Neg:<1:20); ANCA - CYTOPLASMIC <1:20 titer (Neg:<1:20); ANCA - PERINUCLEAR <1:20 titer (Neg:<1:20)
== END | disposition home or self-care (01) ==
LOC: D.CT 06-11 13:00
PROVIDERS: Surgery
DX: R91.8 Other nonspecific abnormal finding of lung field (principal)

== ENCOUNTER 2017-06-30 16:23 | Emergency (ER) | payer MEDICARE, BC ==
[~2017-06-30 16:23] MED LIST changes: -DILAUDID2 MG PO
[2017-07-09] MEDS ORDERED: JARDIANCE25 MG PO (10:52)
== END 2017-07-01 19:30 | disposition home or self-care (01) ==
LOC: D.ER 16:23
DX: S16.1XXA Strain of muscle, fascia and tendon at neck level, initial encounter (principal); V43.62XA Car passenger injured in collision with other type car in traffic accident, initial encounter; Y93.89 Activity, other specified; Y92.410 Unspecified street and highway as the place of occurrence of the external cause; S39.012A Strain of muscle, fascia and tendon of lower back, initial encounter; F17.200 Nicotine dependence, unspecified, uncomplicated; I10 Essential (primary) hypertension; K21.9 Gastro-esophageal reflux disease without esophagitis; E11.9 Type 2 diabetes mellitus without complications; Z79.4 Long term (current) use of insulin

== ENCOUNTER 2017-07-11 08:40 | Day surgery (SDC) | payer MEDICARE, BC ==
[2017-07-09 11:17] LABS: HEMATOCRIT 38.9 % (36.0-48.0); HEMOGLOBIN 12.1 g/dL (12-16); MCH 25.7 pg (26.0-34.0); MCHC 31.1 g/dL (31.0-37.0); MCV 82.6 fL (80.0-100.0); MEAN PLATELET VOLUME 10.1 fL (7.4-10.4); RBC 4.71 10x6/uL (4.00-5.40); RDW 16.2 % (11.5-14.5); WBC 5.8 10x3/uL (4.8-10.8)
[2017-07-09 11:32] LABS: ANION GAP 12.2 mmol/L (8-16); POTASSIUM - SERUM 4.2 mmol/L (3.5-5.1)
[~2017-07-11] VITALS: Ht 175.3 cm; Wt 98.4 kg
--- NOTE | ~2017-07-11 | OP ---
PATIENT NAME: WALLY FAY MEDICAL RECORD: [id number] :47 LOCATION:D.OPS ADMISSION DATE: SURGEON: NORMA CABRERA MD DATE OF OPERATION: 07/11/2017 SURGEON: Norma Cabrera MD PREOPERATIVE DIAGNOSES: 1. Abdominal pain. 2. Left adrenal mass. 3. Diastasis. 4. Congestive heart failure. 5. Diabetes. 6. Idiopathic pulmonary fibrosis. POSTOPERATIVE DIAGNOSES: 1. Abdominal pain. 2. Left adrenal mass. 3. Diastasis. 4. Congestive heart failure. 5. Diabetes. 6. Idiopathic pulmonary fibrosis. PROCEDURE PERFORMED: Diagnostic laparoscopy with laparoscopic lysis of adhesions. ANESTHESIA: General. COMPLICATIONS: None. SPECIMENS: None. Case was clean. ESTIMATED BLOOD LOSS: 10 cc. OPERATIVE COURSE: After consent was obtained, the patient was taken to the operating room and placed in the supine position on the operating table. Next, general anesthesia was given via endotracheal intubation after a timeout was performed that confirmed the correct patient and procedure. The abdomen was prepped and draped in typical sterile fashion. Local anesthetic was injected in the right upper quadrant and the previous trocar site. A stab incision was made with an 11-blade scalpel. Using a 5-mm bladeless optical trocar, the abdomen was entered under direct laparoscopic vision. Adequate pneumoperitoneum was achieved. There was significant amount of anterior abdominal wall adhesions to the midline abdominal mesh as well as in the left lower quadrant and pelvis. A second 5-mm trocar was placed into the right lateral quadrant. A third 5-mm trocar was placed into the midline, all under direct laparoscopic vision after administration of local anesthetic. Meticulous laparoscopic lysis of adhesions was performed with electrocautery and sharp scissor dissection into the anterior abdominal wall was clear of all adhesions. The small bowel was run from the ligament of Treitz to the ileocecal valve. There was no bowel injuries identified. The abdomen was then copiously irrigated and suctioned. No evidence of bowel injury. No evidence of bleeding. At this time, all remaining instruments were removed. The abdomen was desufflated. Trocars were removed. OPERATIVE REPORT [id number] WALLY FAY Skin was closed with 4-0 Monocryl, Mastisol, and Steri-Strips. At the end of the case, all needle and instrument counts were correct. No complications occurred. The patient was extubated and transferred to the PACU in stable condition. TRANSINT:[id number] Voice Confirmation ID: [id number] DOCUMENT ID: [id number] NORMA CABRERA MD at 1254 CC: [id number] DICTATION DATE: 07/11/17 1134 AUTO MECHANIC SUPERVISOR: 07/11/17 12[address] [place] [address]
[2017-07-11 09:19] VITALS: BP 131/72; Ht 175.3 cm; Wt 98.4 kg
[2017-07-11 10:15] LABS: ANION GAP 14.2 mmol/L (8-16); CALCIUM 9.3 mg/dL (8.5-10.1); CARBON DIOXIDE 26.4 mmol/L (21.0-32.0); CREATININE - SERUM 1.1 mg/dL (0.6-1.3); POTASSIUM - SERUM 4.6 mmol/L (3.5-5.1)
[2017-07-11] MEDS ORDERED: DILAUDID2 MG PO (11:26)
== END 2017-07-11 14:08 | disposition home or self-care (01) ==
LOC: D.OPS 08:40
PROVIDERS: Anesthesiology
DX: R19.09 Other intra-abdominal and pelvic swelling, mass and lump (principal); E27.8 Other specified disorders of adrenal gland; M62.08 Separation of muscle (nontraumatic), other site; I50.9 Heart failure, unspecified; E11.65 Type 2 diabetes mellitus with hyperglycemia; I20.0 Unstable angina; K42.9 Umbilical hernia without obstruction or gangrene; J84.112 Idiopathic pulmonary fibrosis; Z01.812 Encounter for preprocedural laboratory examination; J45.909 Unspecified asthma, uncomplicated; E11.9 Type 2 diabetes mellitus without complications; E03.9 Hypothyroidism, unspecified; K44.9 Diaphragmatic hernia without obstruction or gangrene; K21.9 Gastro-esophageal reflux disease without esophagitis

== ENCOUNTER 2017-07-27 17:58 | Emergency (ER) | payer MEDICARE, BC ==
[2017-07-11 09:19] VITALS: BMI 32.1
[~2017-07-27 17:58] MED LIST changes: +DILAUDID2 MG PO
[2017-07-27 18:55] LABS: BASOPHILS 0.6 % (0-2); EOSINOPHILS 4.4 % (0-7); HEMOGLOBIN 12.4 g/dL (12-16); IMMATURE GRANULOCYTES 0.1 % (0-5); LYMPHOCYTES 37.2 % (15-50); MCH 26.1 pg (26.0-34.0); MCHC 32.6 g/dL (31.0-37.0); MEAN PLATELET VOLUME 9.6 fL (7.4-10.4); MONOCYTES 6.9 % (2-11); NEUTROPHILS 50.8 % (40-80); PLATELET COUNT 213 10x3/uL (130-400); RBC 4.75 10x6/uL (4.00-5.40); RDW 15.7 % (11.5-14.5); WBC 7.1 10x3/uL (4.8-10.8)
[2017-07-27 19:12] LABS: ALBUMIN 3.6 g/dL (3.4-5.0); ALKALINE PHOSPHATASE 82 U/L (46-116); ALT (SGPT) 23 U/L (10-68); CALC OSMOLALITY 277 mosm/kg (275-300); CALCIUM 9.6 mg/dL (8.5-10.1); CHLORIDE - SERUM 97 mmol/L (98-107); CREATININE - SERUM 1.1 mg/dL (0.6-1.3); GLUCOSE 127 mg/dL (74-106); POTASSIUM - SERUM 4.3 mmol/L (3.5-5.1); SODIUM 136 mmol/L (136-145); UREA NITROGEN 23 mg/dL (7-18); eGFR NON AFRICAN AMERICAN 52 mL/min (90-120)
[2017-07-27 19:16] LABS: CREATINE KINASE 23 UL (21-215)
[2017-07-27 19:17] LABS: TROPONIN-I < 0.017 ng/mL (0.000-0.060)
[2017-07-27 19:57] LABS: APPEARANCE CLEAR (CLEAR); BILIRUBIN NEGATIVE (NEGATIVE); COLOR YELLOW (YELLOW); GLUCOSE 1000 mg/dL (NEGATIVE); KETONE NEGATIVE (NEGATIVE); NITRITE NEGATIVE (NEGATIVE); PROTEIN NEGATIVE (NEGATIVE); UROBILINOGEN NORMAL (NORMAL)
[2017-07-27 20:06] LABS: APTT 27.4 SECONDS (22.8-39.4)
[2017-07-27 20:07] LABS: D-DIMER-QUANTITATIVE 0.6 ug/mLFEU (0.20-0.54)
[2017-07-27 20:08] LABS: INR 0.98 (0.85-1.17); PROTIME 12.6 SECONDS (11.6-15.0)
[2017-07-27 20:16] LABS: AMYLASE - SERUM 63 U/L (25-115); CKMB 0.3 U/L (0.0-3.6); LIPASE 178 U/L (73-393); PRO BNP 22 pg/mL (0-125)
== END 2017-07-28 00:37 | disposition home or self-care (01) ==
LOC: D.ER 17:58
PROVIDERS: Family Medicine
DX: R42 Dizziness and giddiness (principal); E11.9 Type 2 diabetes mellitus without complications; Z79.4 Long term (current) use of insulin; I10 Essential (primary) hypertension

== ENCOUNTER → 2017-08-27 09:45 | Outpatient (CLI) | payer MEDICARE, BC ==
[2017-07-11 09:19] VITALS: BMI 32.1
== END | disposition home or self-care (01) ==
LOC: D.MRI 09:45
DX: M75.121 Complete rotator cuff tear or rupture of right shoulder, not specified as traumatic (principal)

== ENCOUNTER 2017-09-11 17:13 | Emergency (ER) | payer MEDICARE, BC ==
[2017-07-11 09:19] VITALS: BMI 32.1
[2017-09-11 17:46] LABS: BASOPHILS 0.6 % (0-2); EOSINOPHILS 2.9 % (0-7); IMMATURE GRANULOCYTES 0.1 % (0-5); MCH 25.3 pg (26.0-34.0); MCHC 31.6 g/dL (31.0-37.0); MCV 80.2 fL (80.0-100.0); MEAN PLATELET VOLUME 10.4 fL (7.4-10.4); MONOCYTES 6.5 % (2-11); NEUTROPHILS 57.9 % (40-80); PLATELET COUNT 180 10x3/uL (130-400); RBC 4.74 10x6/uL (4.00-5.40); WBC 6.9 10x3/uL (4.8-10.8)
[2017-09-11 18:00] LABS: ALBUMIN 3.6 g/dL (3.4-5.0); ALKALINE PHOSPHATASE 100 U/L (46-116); ALT (SGPT) 23 U/L (10-68); CALC OSMOLALITY 289 mosm/kg (275-300); CALCIUM 9.9 mg/dL (8.5-10.1); CHLORIDE - SERUM 103 mmol/L (98-107); CREATININE - SERUM 1.1 mg/dL (0.6-1.3); GLUCOSE 158 mg/dL (74-106); POTASSIUM - SERUM 4.3 mmol/L (3.5-5.1); PROTEIN - SERUM 7.8 g/dL (6.4-8.2); SODIUM 141 mmol/L (136-145); UREA NITROGEN 30 mg/dL (7-18); eGFR NON AFRICAN AMERICAN 52 mL/min (90-120)
[2017-09-11 18:10] LABS: CHOL - HDL RATIO 2.8 ratio (2.3-4.1); CHOLESTEROL, TOTAL 131 mg/dL (0-200); CKMB 0.7 U/L (0.0-3.6); CREATINE KINASE 49 UL (21-215); HDL CHOLESTEROL 47 mg/dL (32-96); LDL CHOLESTEROL 52 mg/dL (0-100); LDL-HDL RATIO 1.1 ratio (1.5-3.5); TRIGLYCERIDE 162 mg/dL (30-200); TROPONIN-I < 0.017 ng/mL (0.000-0.060)
== END 2017-09-11 20:00 | disposition home or self-care (01) ==
LOC: D.ER 17:13
PROVIDERS: Family Medicine
DX: S46.911A Strain of unspecified muscle, fascia and tendon at shoulder and upper arm level, right arm, initial encounter (principal); X58.XXXA Exposure to other specified factors, initial encounter; Y93.89 Activity, other specified; Y92.89 Other specified places as the place of occurrence of the external cause; M75.91 Shoulder lesion, unspecified, right shoulder

== ENCOUNTER 2017-09-27 09:35 | Inpatient (IN) | payer MEDICARE, BC ==
[~2017-09-27] VITALS: Ht 175.3 cm; Wt 97.5 kg
[2017-09-27 10:14] LABS: BASOPHILS 0 % (0-2); EOSINOPHILS 0 % (0-7); HEMATOCRIT 36.7 % (36.0-48.0); HEMOGLOBIN 11.6 g/dL (12-16); IMMATURE GRANULOCYTES 0.2 % (0-5); LYMPHOCYTES 11.4 % (15-50); MCH 24.8 pg (26.0-34.0); MCHC 31.6 g/dL (31.0-37.0); MCV 78.6 fL (80.0-100.0); MEAN PLATELET VOLUME 10.6 fL (7.4-10.4); MONOCYTES 7.5 % (2-11); NEUTROPHILS 80.9 % (40-80); PLATELET COUNT 182 10x3/uL (130-400); RBC 4.67 10x6/uL (4.00-5.40); RDW 16.3 % (11.5-14.5); WBC 6.2 10x3/uL (4.8-10.8)
[2017-09-27 10:33] LABS: APPEARANCE CLEAR (CLEAR); BILIRUBIN NEGATIVE (NEGATIVE); COLOR YELLOW (YELLOW); GLUCOSE 1000 mg/dL (NEGATIVE); KETONE NEGATIVE (NEGATIVE); NITRITE NEGATIVE (NEGATIVE); PROTEIN NEGATIVE (NEGATIVE); SPECIFIC GRAVITY 1.015 (1.005-1.020); UROBILINOGEN NORMAL (NORMAL)
[2017-09-27 10:44] LABS: ALBUMIN 3.5 g/dL (3.4-5.0); ALKALINE PHOSPHATASE 100 U/L (46-116); ALT (SGPT) 28 U/L (10-68); CALC OSMOLALITY 300 mosm/kg (275-300); CALCIUM 9.5 mg/dL (8.5-10.1); CARBON DIOXIDE 23.5 mmol/L (21.0-32.0); CHLORIDE - SERUM 100 mmol/L (98-107); CKMB 0.7 U/L (0.0-3.6); CREATINE KINASE 69 UL (21-215); CREATININE - SERUM 1.3 mg/dL (0.6-1.3); POTASSIUM - SERUM 4.8 mmol/L (3.5-5.1); PROTEIN - SERUM 7.6 g/dL (6.4-8.2); SODIUM 137 mmol/L (136-145); TROPONIN-I < 0.017 ng/mL (0.000-0.060); UREA NITROGEN 35 mg/dL (7-18); eGFR NON AFRICAN AMERICAN 43 mL/min (90-120)
[2017-09-27 10:50] LABS: GLUCOSE 448 mg/dL (74-106)
[2017-09-27 11:00] VITALS: BP 148/92
[2017-09-27 12:00] VITALS: BP 156/76
[2017-09-27 13:00] VITALS: BP 127/54
[2017-09-27] MEDS ORDERED: SEROQUEL50 MG (14:56)
[2017-09-27] MEDS ORDERED: ZOFRAN4 MG PO (14:57)
[2017-09-27] MEDS ORDERED: LIPITOR80 MG PO (14:58)
[2017-09-27 15:20] VITALS: BP 148/78; BMI 31.8
[2017-09-27 17:23] VITALS: BP 138/70
[2017-09-27 20:00] VITALS: BP 150/78
[2017-09-28 04:00] VITALS: BP 129/67
[2017-09-28 05:30] LABS: BASOPHILS 0.1 % (0-2); EOSINOPHILS 0.4 % (0-7); HEMATOCRIT 38.4 % (36.0-48.0); IMMATURE GRANULOCYTES 0.2 % (0-5); LYMPHOCYTES 22.5 % (15-50); MCH 24.8 pg (26.0-34.0); MCHC 31.3 g/dL (31.0-37.0); MCV 79.3 fL (80.0-100.0); MEAN PLATELET VOLUME 10.4 fL (7.4-10.4); MONOCYTES 5.9 % (2-11); NEUTROPHILS 70.9 % (40-80); PLATELET COUNT 186 10x3/uL (130-400); RBC 4.84 10x6/uL (4.00-5.40); RDW 16.3 % (11.5-14.5)
[2017-09-28 05:33] LABS: WBC 8.9 10x3/uL (4.8-10.8)
[2017-09-28 05:49] LABS: ALBUMIN 3.4 g/dL (3.4-5.0); ANION GAP 14.1 mmol/L (8-16); BILIRUBIN - TOTAL 0.4 mg/dL (0.2-1.3); CALCIUM 9.4 mg/dL (8.5-10.1); CARBON DIOXIDE 25.3 mmol/L (21.0-32.0); POTASSIUM - SERUM 4.4 mmol/L (3.5-5.1); PROTEIN - SERUM 7.4 g/dL (6.4-8.2)
[2017-09-28 08:02] VITALS: BP 135/64
[2017-09-28 10:58] VITALS: BP 135/73
[2017-09-28 13:29] VITALS: Ht 175.3 cm; Wt 97.5 kg
[2017-09-28] MEDS ORDERED: OMNICEF300 MG PO (15:26)
[2017-09-28 16:51] VITALS: BP 138/74
== END 2017-09-28 17:00 | disposition home or self-care (01) | DRG 637 ==
LOC: D.ER 09:35 → D.EDHOLD 11:58 → D.M2 11:58
PROVIDERS: Emergency Medicine; Family Medicine
DX: E11.65 Type 2 diabetes mellitus with hyperglycemia (principal); G93.41 Metabolic encephalopathy; N39.0 Urinary tract infection, site not specified; E11.40 Type 2 diabetes mellitus with diabetic neuropathy, unspecified; Z79.4 Long term (current) use of insulin; I11.0 Hypertensive heart disease with heart failure; I50.9 Heart failure, unspecified; I25.10 Atherosclerotic heart disease of native coronary artery without angina pectoris; F41.9 Anxiety disorder, unspecified; K59.09 Other constipation; G47.33 Obstructive sleep apnea (adult) (pediatric); E03.9 Hypothyroidism, unspecified; E86.0 Dehydration; Z86.73 Personal history of transient ischemic attack (TIA), and cerebral infarction without residual deficits; Z95.5 Presence of coronary angioplasty implant and graft; I25.2 Old myocardial infarction

== ENCOUNTER 2017-10-13 20:15 | Emergency (ER) | payer MEDICARE, BC ==
[~2017-10-13] VITALS: Ht 175.3 cm; Wt 97.5 kg
[~2017-10-13 20:15] MED LIST changes: +OMNICEF300 MG PO; +SEROQUEL50 MG; +ZOFRAN4 MG PO
[2017-10-13 20:23] VITALS: Ht 175.3 cm; Wt 97.5 kg
[2017-10-13 20:54] LABS: APPEARANCE CLEAR (CLEAR); BILIRUBIN NEGATIVE (NEGATIVE); COLOR YELLOW (YELLOW); GLUCOSE 1000 mg/dL (NEGATIVE); KETONE NEGATIVE (NEGATIVE); NITRITE NEGATIVE (NEGATIVE); PROTEIN NEGATIVE (NEGATIVE); UROBILINOGEN NORMAL (NORMAL)
[2017-10-13 20:57] LABS: BACTERIA FEW /hpf (NONE SEEN); RED CELLS - URINE OCC /hpf (0-5); WHITE CELLS - URINE RARE /hpf (0-5)
[2017-10-13] MEDS ORDERED: DIFLUCAN150 MG PO (22:28)
[2017-10-13] MEDS ORDERED: FLAGYL500 MG PO (22:28)
[2017-10-13 22:56] VITALS: BP 144/77
== END 2017-10-13 22:57 | disposition home or self-care (01) ==
LOC: D.ER 20:15
PROVIDERS: Family Medicine
DX: N76.0 Acute vaginitis (principal); R19.7 Diarrhea, unspecified; R10.30 Lower abdominal pain, unspecified; R31.9 Hematuria, unspecified; I10 Essential (primary) hypertension; E11.9 Type 2 diabetes mellitus without complications; Z79.4 Long term (current) use of insulin

== ENCOUNTER 2017-10-25 07:15 | Day surgery (SDC) | payer MEDICARE, BC ==
[2017-10-24 09:52] LABS: ANION GAP 10.9 mmol/L (8-16); CALCIUM 8.8 mg/dL (8.5-10.1); CREATININE - SERUM 1.1 mg/dL (0.6-1.3); POTASSIUM - SERUM 4.9 mmol/L (3.5-5.1)
[2017-10-24 10:00] LABS: BASOPHILS 0.3 % (0-2); EOSINOPHILS 2.9 % (0-7); HEMATOCRIT 38.7 % (36.0-48.0); HEMOGLOBIN 12.1 g/dL (12-16); IMMATURE GRANULOCYTES 0.2 % (0-5); LYMPHOCYTES 29.8 % (15-50); MCH 25.1 pg (26.0-34.0); MCHC 31.3 g/dL (31.0-37.0); MCV 80.3 fL (80.0-100.0); MEAN PLATELET VOLUME 10.1 fL (7.4-10.4); MONOCYTES 5.9 % (2-11); NEUTROPHILS 60.9 % (40-80); PLATELET COUNT 191 10x3/uL (130-400); RBC 4.82 10x6/uL (4.00-5.40); RDW 16.6 % (11.5-14.5); WBC 5.8 10x3/uL (4.8-10.8)
[~2017-10-25] VITALS: Ht 175.3 cm; Wt 99.5 kg
--- NOTE | ~2017-10-25 | OP ---
PATIENT NAME: WALLY FAY MEDICAL RECORD: [id number] :47 LOCATION:NOELLE ADMISSION DATE: SURGEON: NORMA GARCIA MD DATE OF OPERATION: 10/25/2017 PREOPERATIVE DIAGNOSES: 1. Impingement syndrome of the right shoulder. 2. Acromioclavicular arthritis of the right shoulder. PREOPERATIVE DIAGNOSES: 1. Impingement syndrome of the right shoulder. 2. Acromioclavicular arthritis of the right shoulder. PROCEDURES: 1. Arthroscopic distal clavicle excision done through separate arthroscopic incision -- 1 cm under direct arthroscopic visualization. 2. Arthroscopic subacromial decompression, acromioplasty and bursectomy. SURGEON: Norma Garcia MD ANESTHESIA: General. INTRAOPERATIVE COMPLICATIONS: None. SUMMARY OF PATHOLOGIC FINDINGS: The patient did have some posterior labral fraying and some mild arthritic changes at the posterior aspect of the glenohumeral joint. She also had some biceps tendinitis; however, no tearing was noted. The patient had superficial tearing of the rotator cuff, but at no point was thick enough to consider a full rotator cuff repair. The patient had a downward sloping acromion and acromioclavicular arthritis. OPERATIVE SUMMARY IN DETAIL: After obtaining the appropriate preoperative orthopedic surgery consent as well as anesthetic consultation, evaluation and clearance, the patient was brought to the operating room and placed on the operating table in supine position. After general laryngeal mask airway was administered, the patient was placed in left lateral decubitus position. All pressure points were padded to include down leg peroneal pad as well as axillary roll. The patient was held firmly to the operating table using vacuum pack suction system. Right upper extremity and shoulder were prepped and draped in routine sterile fashion. The arm was held on the [place] traction boom at 30 degrees of forward flexion, 30 degrees of abduction, and 10 pounds of traction laterally. Arthroscopy was established in the glenohumeral joint. Posterior portal and anterior portal were established in the anterior safe interval. Diagnostic arthroscopy revealed the above findings. Slight labral debridement was then followed by establishing arthroscopy in the subacromial space. While on the subacromial space, accessory lateral portal was created through which the [place]away tissue ablation system was utilized to denude the undersurface of the acromion of all soft tissue elements and released coracoacromial ligament. A 5.0 barrel bur was used to perform acromioplasty at the level of acromioclavicular joint. Through a separate anterior arthroscopic approach, the distal clavicle was resected for 1 cm. Having completed this, the rotator cuff was cleared of all the subacromial bursa, examined anteriorly, superiorly and posteriorly and found not to have significant tearing only superficial attritional changes. At this point, arthroscopy portals were closed in routine OPERATIVE REPORT [id number] WALLY FAY interrupted fashion using 4-0 Prolene. Sterile dressings were applied. The patient was awakened. LMA was removed. She was taken to recovery room in stable condition. All final needle and sponge counts were correct. TRANSINT:[id number] Voice Confirmation ID: [id number] DOCUMENT ID: [id number] JOSE THOMAS, NORMA DE LA CRUZ at 1402 CC: [id number] DICTATION DATE: 10/25/17 1136 SLUDGE FILTRATION OPERATOR: 10/25/17 1307 [facility] [place] 10/25/17 [facility] [address] [place] [address]
[~2017-10-25 07:15] MED LIST changes: +DIFLUCAN150 MG PO; +FLAGYL500 MG PO
[2017-10-25] MEDS ORDERED: LIXISENATIDE (08:56)
[2017-10-25] MEDS ORDERED: INSULIN GLARGINE (08:56)
[2017-10-25 09:04] VITALS: BP 129/78; Ht 175.3 cm; Wt 99.5 kg
[2017-10-25] MEDS ORDERED: DILAUDID2 MG PO (11:24)
== END 2017-10-25 13:35 | disposition home or self-care (01) ==
LOC: D.OPS 07:15 → D.PAN 09:15 → D.OPS 13:35
PROVIDERS: Anesthesiology
DX: M75.41 Impingement syndrome of right shoulder (principal); M13.811 Other specified arthritis, right shoulder; Z01.812 Encounter for preprocedural laboratory examination

== ENCOUNTER → 2017-11-15 09:39 | Outpatient (CLI) | payer MEDICARE, BC ==
[2017-10-25 09:04] VITALS: BMI 32.4
[~2017-11-15 09:39] MED LIST changes: +INSULIN GLARGINE; +LIXISENATIDE
== END | disposition home or self-care (01) ==
LOC: D.MRI 09:39
DX: M54.16 Radiculopathy, lumbar region (principal)

== ENCOUNTER 2017-11-24 12:25 | Emergency (ER) | payer MEDICARE, BC ==
[~2017-11-24] VITALS: Ht 175.3 cm; Wt 97.7 kg
[2017-11-24 12:34] VITALS: Ht 175.3 cm; Wt 97.7 kg
[2017-11-24 12:57] LABS: APPEARANCE CLEAR (CLEAR); COLOR YELLOW (YELLOW); GLUCOSE 1000 mg/dL (NEGATIVE); NITRITE NEGATIVE (NEGATIVE); PROTEIN NEGATIVE (NEGATIVE)
[2017-11-24 12:58] LABS: BILIRUBIN NEGATIVE (NEGATIVE); KETONE NEGATIVE (NEGATIVE); UROBILINOGEN NORMAL (NORMAL)
[2017-11-24 13:22] LABS: BASOPHILS 0.2 % (0-2); EOSINOPHILS 3.9 % (0-7); HEMATOCRIT 36.4 % (36.0-48.0); IMMATURE GRANULOCYTES 0.2 % (0-5); LYMPHOCYTES 25.7 % (15-50); MCHC 30.2 g/dL (31.0-37.0); MCV 79.5 fL (80.0-100.0); MONOCYTES 5.9 % (2-11); NEUTROPHILS 64.1 % (40-80); PLATELET COUNT 159 10x3/uL (130-400); RBC 4.58 10x6/uL (4.00-5.40)
[2017-11-24 13:30] LABS: APTT 27.6 SECONDS (22.8-39.4); INR 1.04 (0.85-1.17); PROTIME 13.2 SECONDS (11.6-15.0)
[2017-11-24 13:38] LABS: ALBUMIN 3.1 g/dL (3.4-5.0); ANION GAP 10.4 mmol/L (8-16); BILIRUBIN - TOTAL 0.39 mg/dL (0.2-1.3); CALCIUM 8.8 mg/dL (8.5-10.1); CARBON DIOXIDE 31.4 mmol/L (21.0-32.0); CREATININE - SERUM 0.9 mg/dL (0.6-1.3); POTASSIUM - SERUM 4.8 mmol/L (3.5-5.1); PROTEIN - SERUM 6.8 g/dL (6.4-8.2)
[2017-11-24] MEDS ORDERED: PROTONIX40 MG PO (17:19)
[2017-11-24] MEDS ORDERED: CARAFATE1 G PO (17:19)
[2017-11-24 17:32] VITALS: BP 114/58
== END 2017-11-24 17:33 | disposition home or self-care (01) ==
LOC: D.ER 12:25
PROVIDERS: Family Medicine
DX: R10.9 Unspecified abdominal pain (principal); K29.70 Gastritis, unspecified, without bleeding; Z86.73 Personal history of transient ischemic attack (TIA), and cerebral infarction without residual deficits; G40.909 Epilepsy, unspecified, not intractable, without status epilepticus; E11.9 Type 2 diabetes mellitus without complications; E07.9 Disorder of thyroid, unspecified; I10 Essential (primary) hypertension

== ENCOUNTER → 2017-12-26 10:10 | Outpatient (CLI) | payer MEDICARE, BC ==
[2017-11-24 12:34] VITALS: BMI 31.8
[2017-12-26 12:04] LABS: BASOPHILS 0.3 % (0-2); EOSINOPHILS 2.1 % (0-7); HEMATOCRIT 39.9 % (36.0-48.0); HEMOGLOBIN 12.5 g/dL (12-16); IMMATURE GRANULOCYTES 0.2 % (0-5); LYMPHOCYTES 39.8 % (15-50); MCH 24.3 pg (26.0-34.0); MCHC 31.3 g/dL (31.0-37.0); MCV 77.5 fL (80.0-100.0); MONOCYTES 5.7 % (2-11); NEUTROPHILS 51.9 % (40-80); PLATELET COUNT 173 10x3/uL (130-400); RBC 5.15 10x6/uL (4.00-5.40); RDW 16.8 % (11.5-14.5); WBC 6.3 10x3/uL (4.8-10.8)
[2017-12-26 12:15] LABS: ALBUMIN 3.6 g/dL (3.4-5.0); ALKALINE PHOSPHATASE 82 U/L (46-116); ALT (SGPT) 31 U/L (10-68); BILIRUBIN - DIRECT 0.13 mg/dL (0.00-0.30); BILIRUBIN - INDIRECT 0.24 mg/dL (0.00-1.00); BILIRUBIN - TOTAL 0.37 mg/dL (0.2-1.3); PROTEIN - SERUM 7.9 g/dL (6.4-8.2)
[2017-12-26 12:17] LABS: C-REACTIVE PROTEIN < 0.2 mg/dL (0.0-0.9)
[2017-12-26 13:43] LABS: ERYTHROCYTE SEDIMENTATION RATE 17 mm/hr (0-30)
== END | disposition home or self-care (01) ==
LOC: D.RT 10:00
PROVIDERS: Internal Medicine Pulmonary Disease
DX: J84.112 Idiopathic pulmonary fibrosis (principal); M25.561 Pain in right knee

== ENCOUNTER → 2018-01-02 08:08 | Outpatient (CLI) | payer MEDICARE, BC ==
[2017-11-24 12:34] VITALS: BMI 31.8
== END | disposition home or self-care (01) ==
LOC: D.NM 08:08
DX: M25.561 Pain in right knee (principal)

== ENCOUNTER → 2018-01-08 14:36 | Outpatient (CLI) | payer MEDICARE, BC ==
[2017-11-24 12:34] VITALS: BMI 31.8
== END | disposition home or self-care (01) ==
LOC: D.LAB 14:36
PROVIDERS: Orthopaedic Surgery
DX: E11.9 Type 2 diabetes mellitus without complications (principal)

== ENCOUNTER → 2018-01-08 17:23 | Outpatient (CLI) | payer MEDICARE, BC ==
[2017-11-24 12:34] VITALS: BMI 31.8
== END | disposition home or self-care (01) ==
LOC: D.LABREF 17:23
DX: M25.561 Pain in right knee (principal); Z11.8 Encounter for screening for other infectious and parasitic diseases

== ENCOUNTER → 2018-01-11 13:09 | Outpatient (CLI) | payer MEDICARE, BC ==
[2017-11-24 12:34] VITALS: BMI 31.8
[~2018-01-11 13:09] MED LIST changes: +BYSTOLIC10 MG PO; +FLUTICASONE PRO16 GM NASAL; +KLOR-CON 1010 MEQ PO; +SEROQUEL50 MG PO; +SOLIQUA 100 UNIT3 ML SQ
== END | disposition home or self-care (01) ==
LOC: D.CT 13:09
DX: R93.7 Abnormal findings on diagnostic imaging of other parts of musculoskeletal system (principal)

== ENCOUNTER → 2018-02-04 18:11 | Outpatient (CLI) | payer MEDICARE, BC ==
[2017-11-24 12:34] VITALS: BMI 31.8
[2018-02-04 18:29] LABS: BASOPHILS 0.4 % (0-2); EOSINOPHILS 2.4 % (0-7); HEMATOCRIT 39.8 % (36.0-48.0); HEMOGLOBIN 12.2 g/dL (12-16); IMMATURE GRANULOCYTES 0.2 % (0-5); LYMPHOCYTES 35.9 % (15-50); MCH 24.3 pg (26.0-34.0); MCHC 30.7 g/dL (31.0-37.0); MCV 79.1 fL (80.0-100.0); MONOCYTES 7.6 % (2-11); NEUTROPHILS 53.5 % (40-80); PLATELET COUNT 194 10x3/uL (130-400); RBC 5.03 10x6/uL (4.00-5.40)
== END | disposition home or self-care (01) ==
LOC: D.LABREF 18:11
PROVIDERS: Orthopaedic Surgery
DX: E11.9 Type 2 diabetes mellitus without complications (principal)

== ENCOUNTER 2018-02-20 10:00 | Inpatient (IN) | payer MEDICARE, BC ==
[~2018-02-20] VITALS: Ht 175.3 cm; Wt 131.0 kg
--- NOTE | ~2018-02-20 | MORECARE ---
CASE MANAGEMENT DISCHARGE SUMMARY PATIENT: WALLY FAY UNIT: [id number] ADM DATE: 02/25/18 AGE: 72 : 46 SEX: F ROOM/BED: D.2211 AUTHOR: FANNIE BELL PHYSICIAN: REFERRING PHYSICIAN: NORMA GARCIA MD DATE OF SERVICE: 03/05/18 Discharge Plan Patient Name: WALLY FAY Facility: [facility]:[place] : 1945 Planned Disposition: Home Health Service Anticipated Discharge Date: 03/01/18 Discharge Date: 03/01/2018 Expected LOS: 4 Initial Reviewer: [email or web address] Initial Review Date: 02/27/2018 Generated: 03/05/18 1:41 pm Comments DCP- Discharge Planning Updated by [email or web address]: Jenny Fleming on 03/01/18 8:[address] Patient discharging home today with [facility] home [facility], DME will be delivered to patient by [facility] I spoke with Carmela this AM. CM will continue to follow and assist with DC planning as needed DCP- Discharge Planning Updated by [email or web address]: Jenny Fleming on 02/27/18 11:[address] [facility] will be supplying her DME. I spoke with Carmela DCP- Discharge Planning Updated by [email or web address]: Jenny Fleming on 02/27/18 10:[address] Patient Name: WALLY FAY Admission Status: Elective Accout number: [id number] Admission Date: 02-25-2018 : 1945 Admission Diagnosis: Attending: NORMA GARCIA Current LOS: 2 Anticipated DC Date: 03-01-2018 Planned Disposition: Home Health Service Primary Insurance: MEDICARE A & B Discharge Planning Comments: CM MET WITH PATIENT TO ASSESS DISCHARGE PLANNING NEEDS. PATIENT STATED THAT SHE LIVES WITH HER SON AND HER , BUT HER DAUGHTER WILL BE THE ONE TO DRIVE HER HOME AT DISCHARGE. SHE HAS A CPAP MACHINE, ROLLATOR WALKER AND A SHOWER CHAIR AT HOME. SHE WILL NEED A CPM AND A REGULAR WALKER WHEN SHE IS DISCHARGED. I WILL MAKE SURE SHE HAS BOTH PRIOR TO DC. SHE WOULD LIKE HOME HEALTH AND [facility] WITH [facility]. I HAVE SPOKEN WITH [facility] AND FAXED CLINICALS OVER. IMM SERVED AND EXPLAINED. CM WILL CONTINUE TO FOLLOW AND ASSIST WITH DC PLANNING Molder Bench: Jenny Fleming DCPIA - Discharge Planning Initial Assessment Updated by [email or web address]: Jenny Fleming on 02/27/18 11:54 am * Is the patient Alert and Oriented? Yes * How many steps to enter\exit or inside your home? * PCP DR LAINEZ * Pharmacy [facility] * Preadmission Environment Home with Family * ADLs Independent * Equipment CPAP Rolling Walker Shower Chair * List name and contact numbers for known caregivers / representatives who currently or will assist patient after discharge: TRISTIAN HOOVER [phone] * Community resources currently utilized None * Additional services required to return to the preadmission environment? Yes * Can the patient safely return to the preadmission environment? Yes * Has this patient been hospitalized within the prior 30 days at any hospital? No Coverage Notice Reviewer: [id number] - Jenny Fleming Notice Issued Date-Time: 02/27/2018 9:30 Notice Type: IM Discharge Notice Notice Delivered To: Patient Relationship to Patient: Medical Insurance Coder Name: Delivery Method: HAND - Hand Delivered Ameena Days: Prior Verbal Notification: Recipient Understood Notice: Yes Recipient Signature: Yes Med Rec Note Co-signed by Attending: Coverage Notice Comment: Last DP export: 03/01/18 8:20 Patient Name: WALLY FAY Page [id number] at 1241 All edits/amendments must be made on the electronic document DICTATION DATE: 03/05/18 1240 TEAR DOWN MATCHER: WINNIE 03/05/18 1240 RPT#: [id number] DC DATE:03/01/18 STATUS: DIS IN [facility] [address] [place] [address] END OF REPORT
--- NOTE | ~2018-02-20 | MORECARE ---
CASE MANAGEMENT DISCHARGE SUMMARY PATIENT: WALLY FAY UNIT: [id number] ADM DATE: 02/25/18 AGE: 72 : 46 SEX: F ROOM/BED: D.2211 AUTHOR: FANNIE BELL PHYSICIAN: REFERRING PHYSICIAN: NORMA GARCIA MD DATE OF SERVICE: 02/27/18 Discharge Plan Patient Name: WALLY FAY Facility: [facility]:[place] : 1945 Planned Disposition: Home Health Service Anticipated Discharge Date: 03/01/18 Discharge Date: Expected LOS: 4 Initial Reviewer: [email or web address] Initial Review Date: 02/27/2018 Generated: 02/27/18 1:38 pm Comments DCP- Discharge Planning Updated by [email or web address]: Jenny Fleming on 02/27/18 11:[address] [facility] will be supplying her DME. I spoke with Carmela DCP- Discharge Planning Updated by [email or web address]: Jenny Fleming on 02/27/18 10:[address] Patient Name: WALLY FAY Admission Status: Elective Accout number: [id number] Admission Date: 02-25-2018 : 1945 Admission Diagnosis: Attending: NORMA GARCIA Current LOS: 2 Anticipated DC Date: 03-01-2018 Planned Disposition: Home Health Service Primary Insurance: MEDICARE A & B Discharge Planning Comments: CM MET WITH PATIENT TO ASSESS DISCHARGE PLANNING NEEDS. PATIENT STATED THAT SHE LIVES WITH HER SON AND HER , BUT HER DAUGHTER WILL BE THE ONE TO DRIVE HER HOME AT DISCHARGE. SHE HAS A CPAP MACHINE, ROLLATOR WALKER AND A SHOWER CHAIR AT HOME. SHE WILL NEED A CPM AND A REGULAR WALKER WHEN SHE IS DISCHARGED. I WILL MAKE SURE SHE HAS BOTH PRIOR TO DC. SHE WOULD LIKE HOME HEALTH AND [facility] WITH [facility]. I HAVE SPOKEN WITH [facility] AND FAXED CLINICALS OVER. IMM SERVED AND EXPLAINED. CM WILL CONTINUE TO FOLLOW AND ASSIST WITH DC PLANNING Front Desk Auxiliary: Jenny Fleming DCPIA - Discharge Planning Initial Assessment Updated by [email or web address]: Jenny Fleming on 02/27/18 11:54 am * Is the patient Alert and Oriented? Yes * How many steps to enter\exit or inside your home? * PCP DR LAINEZ * [facility] * Preadmission Environment Home with Family * ADLs Independent * Equipment CPAP Rolling Walker Shower Chair * List name and contact numbers for known caregivers / representatives who currently or will assist patient after discharge: TRISTIAN CONTRERASCHANTAL [phone] * Community resources currently utilized None * Additional services required to return to the preadmission environment? Yes * Can the patient safely return to the preadmission environment? Yes * Has this patient been hospitalized within the prior 30 days at any hospital? No Coverage Notice Reviewer: [id number] Bernadette Fleming Notice Issued Date-Time: 02/27/2018 9:30 Notice Type: IM Discharge Notice Notice Delivered To: Patient Relationship to Patient: Periodontal Assistant Name: Delivery Method: HAND - Hand Delivered Ameena Days: Prior Verbal Notification: Recipient Understood Notice: Yes Recipient Signature: Yes Med Rec Note Co-signed by Attending: Coverage Notice Comment: Last DP export: 02/27/18 11:01 Patient Name: WALLY FAY Page [phone] at 1238 All edits/amendments must be made on the electronic document DICTATION DATE: 02/27/18 1237 TRANSFORMER STOCK CLERK: WINNIE 02/27/18 1237 RPT#: [id number] DC DATE: STATUS: ADM IN [facility] [address] [place] [address] END OF REPORT
--- NOTE | ~2018-02-20 | OP ---
PATIENT NAME: WALLY FAY MEDICAL RECORD: [id number] :47 LOCATION:D.MS [id number] ADMISSION DATE:02/25/18 SURGEON: NORMA GARCIA MD DATE OF OPERATION: 02/25/2018 PREOPERATIVE DIAGNOSIS: Painful total knee arthroplasty. POSTOPERATIVE DIAGNOSIS: Painful total knee arthroplasty. PROCEDURE: Revision total knee arthroplasty, all components. SURGEON: Norma Garcia MD MEDICAL DRIVER: Orville Carlson APN INTRAOPERATIVE COMPLICATIONS: None. SUMMARY OF PATHOLOGIC FINDINGS: The patient was indeed found to have what appeared to be debonding of the tibial component between the Biomet implant and the Palacos cement. It was very easily removed as was the femur without any bone loss at all. OPERATIVE SUMMARY IN DETAIL: After obtaining the appropriate preoperative orthopedic surgery consent as well as anesthetic consultation, evaluation and clearance, the patient was brought to the operating room and placed on the operating table in supine position. After general laryngeal mask airway was administered, tourniquet was placed about the proximal aspect of the right lower extremity. Right lower extremity was then prepped and draped in routine sterile fashion. Leg was elevated and exsanguinated, tourniquet was inflated to 350 mmHg. Midline incision was taken down for paramedian arthrotomy. Paramedian arthrotomy was performed. The patella was subluxed laterally. This was done by Orville Carlson APN. The patella component itself was in good shape. Serial and sequential flexible osteotome was utilized to loosen up the portion of the femur that was not loose. It was then removed with absolutely zero bone loss with the remainder of this cement sticking to the back. At this point, attention was turned to the tibia and the tibia fairly easily from the Palacos cement that was removed in its entirety. Serial and sequential removal of all Palacos cement including that portion, which was down the shaft was then done. Having removed all components and cement, serial and sequential reaming for the femur was followed by cutting cleanup cuts on the distal femur. Having completed this, attention was turned to the measuring the femur. The femur measured a size 4. It did require distal femoral augmentation. Placing the augmentation, cleanup chamfer cuts were made at the appropriate degree of external rotation. Offset was also required on both the femur and the tibia eventually. The trial was created and placed, and had good fit and fill, and looked to be in excellent overall position. This was left in place while the tibia was approached. After serial and sequential reaming was completed with the tibia cleanup cut was made. Having completed this, the trial plate was put into place, again this required an offset. No augmentation under the tibial baseplate and a press-fit stem was utilized both in the femur and in the tibia; that being 13 mm x 150 in the femur and 13 mm x100 in the tibia respectively. The appropriate trial was then put into place. Trial was then undertaken with the appropriate polyethylene insert. The appropriate polyethylene insert seemed to be 13. After this was ranged, the trials were taken out. Copious irrigation was then followed by drying of the bone ends. The final implant was assembled OPERATIVE REPORT [id number] WALLY FAY on the back table. It was then cemented into place. All excess cement was removed. The cement was allowed to harden. The knee was taken through range of motion and found to have excellent patellar tracking without need for lateral release. Paramedian arthrotomy was then closed along with the subcutaneous tissue and skin, again done by Orville Carlson APN. Sterile dressings were applied. Please note that the cavity itself was filled with both a gram of vancomycin, gram of tobramycin and 1 gram of TXA. After the tourniquet was deflated, sterile dressings were applied. The patient was awakened and taken to the recovery room in stable condition. All final needle and sponge counts were correct. TRANSINT:[id number] Voice Confirmation ID: [id number] DOCUMENT ID: [id number] JOSE THOMAS, NORMA DE LA CRUZ at 1312 CC: [id number] DICTATION DATE: 03/01/18 1412 MANAGER NUCLEAR: 03/01/18 1555 DIS IN 03/01/18 [facility] [address] [place] [address]
--- NOTE | ~2018-02-20 | MORECARE ---
CASE MANAGEMENT DISCHARGE SUMMARY PATIENT: WALLY FAY UNIT: [id number] ADM DATE: 02/25/18 AGE: 72 : 46 SEX: F ROOM/BED: D.2211 AUTHOR: FANNIE BELL PHYSICIAN: REFERRING PHYSICIAN: NORMA GARCIA MD DATE OF SERVICE: 03/01/18 Discharge Plan Patient Name: WALLY FAY Facility: [facility]:[place] : 1945 Planned Disposition: Home Health Service Anticipated Discharge Date: 03/01/18 Discharge Date: Expected LOS: 4 Initial Reviewer: [email or web address] Initial Review Date: 02/27/2018 Generated: 03/01/18 10:20 am Comments DCP- Discharge Planning Updated by [email or web address]: Jenny Fleming on 03/01/18 8:[address] Patient discharging home today with [facility] home health, DME will be delivered to patient by [facility] I spoke with Carmela this AM. CM will continue to follow and assist with DC planning as needed DCP- Discharge Planning Updated by [id number]: Jenny Fleming on 02/27/18 11:[address] [facility]. I spoke with Carmela DCP- Discharge Planning Updated by [email or web address]: Jenny Fleming on 02/27/18 10:[address] Patient Name: WALLY FAY Admission Status: Elective Accout number: [id number] Admission Date: 02-25-2018 : 1945 Admission Diagnosis: Attending: NORMA GARCIA Current LOS: 2 Anticipated DC Date: 03-01-2018 Planned Disposition: Home Health Service Primary Insurance: MEDICARE A & B Discharge Planning Comments: CM MET WITH PATIENT TO ASSESS DISCHARGE PLANNING NEEDS. PATIENT STATED THAT SHE LIVES WITH HER SON AND HER , BUT HER DAUGHTER WILL BE THE ONE TO DRIVE HER HOME AT DISCHARGE. SHE HAS A CPAP MACHINE, ROLLATOR WALKER AND A SHOWER CHAIR AT HOME. SHE WILL NEED A CPM AND A REGULAR WALKER WHEN SHE IS DISCHARGED. I WILL MAKE SURE SHE HAS BOTH PRIOR TO DC. SHE WOULD LIKE HOME HEALTH AND [facility] WITH [facility]. I HAVE SPOKEN WITH [facility] AND FAXED CLINICALS OVER. IMM SERVED AND EXPLAINED. CM WILL CONTINUE TO FOLLOW AND ASSIST WITH DC PLANNING Clip On Sunglasses Inspector: Jenny Fleming DCPIA - Discharge Planning Initial Assessment Updated by [email or web address]: Jenny Fleming on 02/27/18 11:54 am * Is the patient Alert and Oriented? Yes * How many steps to enter\exit or inside your home? * PCP DR LAINEZ * [facility] * Preadmission Environment Home with Family * ADLs Independent * Equipment CPAP Rolling Walker Shower Chair * List name and contact numbers for known caregivers / representatives who currently or will assist patient after discharge: TRISTIAN HOOVER [phone] * Community resources currently utilized None * Additional services required to return to the preadmission environment? Yes * Can the patient safely return to the preadmission environment? Yes * Has this patient been hospitalized within the prior 30 days at any hospital? No Coverage Notice Reviewer: [id number] - Jenny Fleming Notice Issued Date-Time: 02/27/2018 9:30 Notice Type: IM Discharge Notice Notice Delivered To: Patient Relationship to Patient: Lamp Assembler Name: Delivery Method: HAND - Hand Delivered Ameena Days: Prior Verbal Notification: Recipient Understood Notice: Yes Recipient Signature: Yes Med Rec Note Co-signed by Attending: Coverage Notice Comment: Last DP export: 02/27/18 11:38 Patient Name: WALLY FAY Page [id number] at 0920 All edits/amendments must be made on the electronic document DICTATION DATE: 03/01/18919 [facility] MEDICAL [facility] LAB DIRECTOR: WINNIE 03/01/18919 RPT#: [id number] DC DATE: STATUS: ADM IN [facility] [address] [place] [address] END OF REPORT
--- NOTE | ~2018-02-20 | MORECARE ---
CASE MANAGEMENT DISCHARGE SUMMARY PATIENT: WALLY FAY UNIT: [id number] ADM DATE: 02/25/18 AGE: 72 : 46 SEX: F ROOM/BED: D.2211 AUTHOR: RAY,DOC PHYSICIAN: REFERRING PHYSICIAN: NORMA GARCIA MD DATE OF SERVICE: 02/27/18 Discharge Plan Patient Name: WALLY AFY Facility: [facility]:[place] : 1945 Planned Disposition: Home Health Service Anticipated Discharge Date: 03/01/18 Discharge Date: Expected LOS: 4 Initial Reviewer: [email or web address] Initial Review Date: 02/27/2018 Generated: 02/27/18 1:01 pm Comments DCP- Discharge Planning Updated by [email or web address]: Jenny Fleming on 02/27/18 10:[address] Patient Name: WALLY FAY Admission Status: Elective Accout number: [id number] Admission Date: 02-25-2018 : 1945 Admission Diagnosis: Attending: NORMA GARCIA Current LOS: 2 Anticipated DC Date: 03-01-2018 Planned Disposition: Home Health Service Primary Insurance: MEDICARE A & B Discharge Planning Comments: CM MET WITH PATIENT TO ASSESS DISCHARGE PLANNING NEEDS. PATIENT STATED THAT SHE LIVES WITH HER SON AND HER , BUT HER DAUGHTER WILL BE THE ONE TO DRIVE HER HOME AT DISCHARGE. SHE HAS A CPAP MACHINE, ROLLATOR WALKER AND A SHOWER CHAIR AT HOME. SHE WILL NEED A CPM AND A REGULAR WALKER WHEN SHE IS DISCHARGED. I WILL MAKE SURE SHE HAS BOTH PRIOR TO DC. SHE WOULD LIKE HOME HEALTH AND [facility] WITH [facility]. I HAVE SPOKEN WITH [facility] AND FAXED CLINICALS OVER. IMM SERVED AND EXPLAINED. CM WILL CONTINUE TO FOLLOW AND ASSIST WITH DC PLANNING Shoe Stitcher Odd: Jenny Fleming DCPIA - Discharge Planning Initial Assessment Updated by [email or web address]: Jenny Fleming on 02/27/18 11:54 am * Is the patient Alert and Oriented? Yes * How many steps to enter\exit or inside your home? * PCP DR LAINEZ * [facility] * Preadmission Environment Home with Family * ADLs Independent * Equipment CPAP Rolling Walker Shower Chair * List name and contact numbers for known caregivers / representatives who currently or will assist patient after discharge: TRISTIAN SNEHA [phone] * Community resources currently utilized None * Additional services required to return to the preadmission environment? Yes * Can the patient safely return to the preadmission environment? Yes * Has this patient been hospitalized within the prior 30 days at any hospital? No External Providers External Provider: [facility] Next Contact Date: Service Request Date: Service Type: Resolution: Reviewer: Comments: Coverage Notice Reviewer: [email or web address] Bernadette Fleming Notice Issued Date-Time: 02/27/2018 9:30 Notice Type: IM Discharge Notice Notice Delivered To: Patient Relationship to Patient: Interior Plant Caretaker Name: Delivery Method: HAND - Hand Delivered Ameena Days: Prior Verbal Notification: Recipient Understood Notice: Yes Recipient Signature: Yes Med Rec Note Co-signed by Attending: Coverage Notice Comment: Last DP export: 02/27/18 10:47 Patient Name: WALLY FAY Page [phone] at 1201 All edits/amendments must be made on the electronic document DICTATION DATE: 02/27/18 1201 PIE FILLER: WINNIE 02/27/18 1201 RPT#: [id number] DC DATE: STATUS: ADM IN [facility] [address] [place] [address] END OF REPORT
--- NOTE | ~2018-02-20 | MORECARE ---
CASE MANAGEMENT DISCHARGE SUMMARY PATIENT: WALLY FAY UNIT: [id number] ADM DATE: 02/25/18 AGE: 72 : 46 SEX: F ROOM/BED: D.2211 AUTHOR: FANNIE BELL PHYSICIAN: REFERRING PHYSICIAN: NORMA GARCIA MD DATE OF SERVICE: 02/27/18 Discharge Plan Patient Name: WALLY FAY Facility: [facility]:[place] : 1945 Planned Disposition: Home Health Service Anticipated Discharge Date: 03/01/18 Discharge Date: Expected LOS: 4 Initial Reviewer: [id number] Initial Review Date: 02/27/2018 Generated: 02/27/18 12:47 pm Coverage Notice Reviewer: [id number] - Jenny Fleming Notice Issued Date-Time: 02/27/2018 9:30 Notice Type: IM Discharge Notice Notice Delivered To: Patient Relationship to Patient: Broadcast Correspondent Name: Delivery Method: HAND - Hand Delivered Ameena Days: Prior Verbal Notification: Recipient Understood Notice: Yes Recipient Signature: Yes Med Rec Note Co-signed by Attending: Coverage Notice Comment: Patient Name: WALLY FAY Page 28610 at 1147 All edits/amendments must be made on the electronic document DICTATION DATE: 02/27/18 1147 AGRICULTURE WORKER: WINNIE 02/27/18 1147 RPT#: [id number] DC DATE: STATUS: ADM IN [place] [address] [place] [address] END OF REPORT
[2018-02-20 12:06] LABS: BASOPHILS 0.3 % (0-2); EOSINOPHILS 2.5 % (0-7); HEMOGLOBIN 12.1 g/dL (12-16); IMMATURE GRANULOCYTES 0.3 % (0-5); LYMPHOCYTES 30.4 % (15-50); MCH 24.5 pg (26.0-34.0); MCV 78.9 fL (80.0-100.0); MEAN PLATELET VOLUME 10.6 fL (7.4-10.4); MONOCYTES 6.3 % (2-11); NEUTROPHILS 60.2 % (40-80); PLATELET COUNT 207 10x3/uL (130-400); RBC 4.94 10x6/uL (4.00-5.40); RDW 19.1 % (11.5-14.5); WBC 7.6 10x3/uL (4.8-10.8)
[2018-02-20 12:10] LABS: APTT 25.1 SECONDS (22.8-39.4); INR 1.04 (0.85-1.17); PROTIME 13.2 SECONDS (11.6-15.0)
[2018-02-20 12:20] LABS: CALCIUM 9.2 mg/dL (8.5-10.1); CREATININE - SERUM 1.1 mg/dL (0.6-1.3)
[2018-02-20 12:23] LABS: APPEARANCE CLEAR (CLEAR); COLOR YELLOW (YELLOW); NITRITE NEGATIVE (NEGATIVE)
[2018-02-20 12:24] LABS: BILIRUBIN NEGATIVE (NEGATIVE); GLUCOSE 250 mg/dL (NEGATIVE); KETONE NEGATIVE (NEGATIVE); PROTEIN NEGATIVE (NEGATIVE); UROBILINOGEN NORMAL (NORMAL)
[2018-02-25] VITALS (12 sets, daily range): BP systolic 95–132; BP diastolic 38–74; BMI 34.5; BMI 333.6
[2018-02-25 16:51] LABS: BASOPHILS 0.2 % (0-2); EOSINOPHILS 0.8 % (0-7); HEMATOCRIT 34.1 % (36.0-48.0); HEMOGLOBIN 10.4 g/dL (12-16); IMMATURE GRANULOCYTES 0.2 % (0-5); LYMPHOCYTES 12.7 % (15-50); MCH 24.1 pg (26.0-34.0); MCHC 30.5 g/dL (31.0-37.0); MCV 79.1 fL (80.0-100.0); MEAN PLATELET VOLUME 9.8 fL (7.4-10.4); MONOCYTES 4.8 % (2-11); NEUTROPHILS 81.3 % (40-80); PLATELET COUNT 168 10x3/uL (130-400); RBC 4.31 10x6/uL (4.00-5.40); RDW 18.7 % (11.5-14.5); WBC 10.9 10x3/uL (4.8-10.8)
[2018-02-25 17:06] LABS: ALBUMIN 2.9 g/dL (3.4-5.0); ANION GAP 9.5 mmol/L (8-16); BILIRUBIN - TOTAL 0.27 mg/dL (0.2-1.3); CALCIUM 7.6 mg/dL (8.5-10.1); CARBON DIOXIDE 28.3 mmol/L (21.0-32.0); CREATININE - SERUM 1.1 mg/dL (0.6-1.3); POTASSIUM - SERUM 4.8 mmol/L (3.5-5.1); PROTEIN - SERUM 6.3 g/dL (6.4-8.2)
[2018-02-26 00:35] VITALS: BP 102/70
[2018-02-26 05:18] VITALS: BP 104/74
[2018-02-26 07:16] LABS: BASOPHILS 0.3 % (0-2); EOSINOPHILS 3.3 % (0-7); HEMATOCRIT 33.4 % (36.0-48.0); IMMATURE GRANULOCYTES 0.4 % (0-5); LYMPHOCYTES 25.3 % (15-50); MCHC 29.9 g/dL (31.0-37.0); MCV 80.3 fL (80.0-100.0); MEAN PLATELET VOLUME 10.2 fL (7.4-10.4); MONOCYTES 8.8 % (2-11); NEUTROPHILS 61.9 % (40-80); PLATELET COUNT 170 10x3/uL (130-400); RBC 4.16 10x6/uL (4.00-5.40); RDW 19.2 % (11.5-14.5)
[2018-02-26 07:17] LABS: ALBUMIN 2.8 g/dL (3.4-5.0); ANION GAP 13.5 mmol/L (8-16); BILIRUBIN - TOTAL 0.37 mg/dL (0.2-1.3); CALCIUM 7.4 mg/dL (8.5-10.1); POTASSIUM - SERUM 4.5 mmol/L (3.5-5.1); PROTEIN - SERUM 6.1 g/dL (6.4-8.2)
[2018-02-26 07:18] LABS: CREATININE - SERUM 1.5 mg/dL (0.6-1.3)
[2018-02-26 07:23] LABS: WBC 6.7 10x3/uL (4.8-10.8)
[2018-02-26 08:35] VITALS: BP 107/45
[2018-02-26 10:05] VITALS: Ht 175.3 cm; Wt 131.0 kg
[2018-02-26 11:44] VITALS: BP 111/56
[2018-02-26 16:39] VITALS: BP 117/53
[2018-02-26 21:11] VITALS: BP 129/57
[2018-02-27 03:39] VITALS: BP 134/60
[2018-02-27 07:02] LABS: BASOPHILS 0.3 % (0-2); EOSINOPHILS 2.2 % (0-7); HEMATOCRIT 33.2 % (36.0-48.0); IMMATURE GRANULOCYTES 0.3 % (0-5); LYMPHOCYTES 15.2 % (15-50); MCH 24.3 pg (26.0-34.0); MCHC 30.1 g/dL (31.0-37.0); MCV 80.8 fL (80.0-100.0); MEAN PLATELET VOLUME 10.4 fL (7.4-10.4); MONOCYTES 6.7 % (2-11); NEUTROPHILS 75.3 % (40-80); PLATELET COUNT 176 10x3/uL (130-400); RBC 4.11 10x6/uL (4.00-5.40); RDW 19.4 % (11.5-14.5); WBC 7.2 10x3/uL (4.8-10.8)
[2018-02-27 07:19] LABS: ALBUMIN 2.6 g/dL (3.4-5.0); ANION GAP 11.5 mmol/L (8-16); BILIRUBIN - TOTAL 0.48 mg/dL (0.2-1.3); CALCIUM 7.4 mg/dL (8.5-10.1); CARBON DIOXIDE 26.2 mmol/L (21.0-32.0); CREATININE - SERUM 1.1 mg/dL (0.6-1.3); POTASSIUM - SERUM 4.7 mmol/L (3.5-5.1); PROTEIN - SERUM 6.4 g/dL (6.4-8.2)
[2018-02-27 09:03] VITALS: BP 140/65
[2018-02-27 12:36] VITALS: BP 113/54
[2018-02-27 16:52] VITALS: BP 94/40
[2018-02-27 20:00] VITALS: BP 99/48
[2018-02-28 05:23] LABS: BASOPHILS 0.2 % (0-2); EOSINOPHILS 1.8 % (0-7); HEMATOCRIT 29.4 % (36.0-48.0); HEMOGLOBIN 8.9 g/dL (12-16); IMMATURE GRANULOCYTES 0.3 % (0-5); LYMPHOCYTES 13.8 % (15-50); MCH 24.1 pg (26.0-34.0); MCHC 30.3 g/dL (31.0-37.0); MCV 79.7 fL (80.0-100.0); MEAN PLATELET VOLUME 10.2 fL (7.4-10.4); MONOCYTES 7.7 % (2-11); NEUTROPHILS 76.2 % (40-80); PLATELET COUNT 154 10x3/uL (130-400); RBC 3.69 10x6/uL (4.00-5.40); RDW 19.4 % (11.5-14.5); WBC 6.2 10x3/uL (4.8-10.8)
[2018-02-28 06:05] LABS: ALBUMIN 2.5 g/dL (3.4-5.0); BILIRUBIN - TOTAL 0.64 mg/dL (0.2-1.3); CALCIUM 7.6 mg/dL (8.5-10.1); CARBON DIOXIDE 25.8 mmol/L (21.0-32.0); CREATININE - SERUM 1.2 mg/dL (0.6-1.3); POTASSIUM - SERUM 4.8 mmol/L (3.5-5.1)
[2018-02-28 08:57] VITALS: BP 116/58
[2018-02-28 12:46] VITALS: BP 112/54
[2018-02-28 17:26] VITALS: BP 109/50
[2018-02-28 21:55] VITALS: BP 120/59
[2018-03-01 04:55] LABS: BASOPHILS 0.4 % (0-2); EOSINOPHILS 2.7 % (0-7); HEMATOCRIT 28.9 % (36.0-48.0); HEMOGLOBIN 8.7 g/dL (12-16); IMMATURE GRANULOCYTES 0.2 % (0-5); LYMPHOCYTES 23.3 % (15-50); MCH 24.3 pg (26.0-34.0); MCHC 30.1 g/dL (31.0-37.0); MCV 80.7 fL (80.0-100.0); MEAN PLATELET VOLUME 10.4 fL (7.4-10.4); MONOCYTES 8.4 % (2-11); PLATELET COUNT 161 10x3/uL (130-400); RBC 3.58 10x6/uL (4.00-5.40); WBC 5.2 10x3/uL (4.8-10.8)
[2018-03-01 05:12] LABS: ALBUMIN 2.4 g/dL (3.4-5.0); ANION GAP 10.7 mmol/L (8-16); BILIRUBIN - TOTAL 0.69 mg/dL (0.2-1.3); CALCIUM 7.9 mg/dL (8.5-10.1); CARBON DIOXIDE 26.9 mmol/L (21.0-32.0); CREATININE - SERUM 1.3 mg/dL (0.6-1.3); POTASSIUM - SERUM 4.6 mmol/L (3.5-5.1)
[2018-03-01 06:37] VITALS: BP 125/62
[2018-03-01] MEDS ORDERED: PERCOCET 5-3251 TAB PO (08:42)
[2018-03-01] MEDS ORDERED: ELIQUIS2.5 MG PO (08:42)
[2018-03-01 09:12] VITALS: BP 116/53
[2018-03-02] MEDS ORDERED: SINGULAIR10 MG PO (05:35)
== END 2018-03-01 11:03 | disposition home health service (06) | DRG 470 ==
LOC: D.SDCHOLD 10:00 → D.MS 02-25 07:25 → D.SDCHOLD 02-25 08:55 → D.MS 02-25 14:24
PROVIDERS: Emergency Medicine; Orthopaedic Surgery
PROC: 0SRC0JZ Replacement of Right Knee Joint with Synthetic Substitute, Open Approach (ICD-10-PCS; principal; 2018-02-25 09:45)
DX: M17.11 Unilateral primary osteoarthritis, right knee (principal); D62 Acute posthemorrhagic anemia; I10 Essential (primary) hypertension; I50.9 Heart failure, unspecified; I11.0 Hypertensive heart disease with heart failure; E11.9 Type 2 diabetes mellitus without complications; E78.5 Hyperlipidemia, unspecified

== ENCOUNTER 2018-03-02 01:10 | Inpatient (IN) | payer MEDICARE, BC ==
[~2018-03-02] VITALS: Ht 175.3 cm; Wt 102.3 kg
--- NOTE | ~2018-03-02 | MORECARE ---
CASE MANAGEMENT DISCHARGE SUMMARY PATIENT: WALLY FAY UNIT: [id number] ADM DATE: 03/02/18 AGE: 72 : 46 SEX: F ROOM/BED: D.2212 AUTHOR: FANNIE BELL PHYSICIAN: REFERRING PHYSICIAN: JUAN CARLOS ARGUETA MD DATE OF SERVICE: 03/05/18 Discharge Plan Patient Name: WALLY FAY Facility: [facility]:[place] : 1945 Planned Disposition: Anticipated Discharge Date: Discharge Date: Expected LOS: Initial Reviewer: [id number] Initial Review Date: 03/02/2018 Generated: 03/05/18 10:09 am Comments DCP- Discharge Planning Updated by [email or web address]: Jenny Fleming on 03/05/18 8:[address] Referral sent to [facility], per Gerry PT he stated that she wanted to go there when she was discharged. External Providers External Provider: [facility] Next Contact Date: Service Request Date: Service Type: Resolution: Reviewer: Comments: Patient Name: WALLY FAY Page 76391 at 0909 All edits/amendments must be made on the electronic document DICTATION DATE: 03/05/18908 PLANT WRAPPER: WINNIE 03/05/18908 RPT#: [id number] DC DATE: STATUS: ADM IN [facility] [address] [place] [address] END OF REPORT
--- NOTE | ~2018-03-02 | MORECARE ---
CASE MANAGEMENT DISCHARGE SUMMARY PATIENT: WALLY FAY UNIT: [id number] ADM DATE: 03/02/18 AGE: 72 : 46 SEX: F ROOM/BED: D.2212 AUTHOR: FANNIE BELL PHYSICIAN: REFERRING PHYSICIAN: JUAN CARLOS ARGUETA MD DATE OF SERVICE: 03/06/18 Discharge Plan Patient Name: WALLY FAY Facility: [facility]:[place] : 1945 Planned Disposition: Chcf Facility Anticipated Discharge Date: Discharge Date: Expected LOS: Initial Reviewer: [id number] Initial Review Date: 03/02/2018 Generated: 03/06/18 11:53 am Comments DCP- Discharge Planning Updated by [email or web address]: Jenny Fleming on 03/06/18 9:[address] Patient discharging to [facility] to a skilled bed by transportation. DCP- Discharge Planning Updated by [email or web address]: Jenny Fleming on 03/05/18 12:[address]a at [facility] called and stated that they would pick patient up on 03/06 @ 10:30. DCP- Discharge Planning Updated by [id number]: Jenny Fleming on 03/05/18 11:[address] TERENCE WITH [employer] CALLED AND STATED THAT HE WILL FAX A LETTER OVER THAT SHE DOES NOT HAVE AN OPEN CASE. [phone] EXT [phone] CM WILL WAIT FOR THE FAX DCP- Discharge Planning Updated by [email or web address]: Jenny Fleming on 03/05/18 10:[address] Patient Name: WALLY FAY Admission Status: ER Accout number: [id number] Admission Date: 03-02-2018 : 1945 Admission Diagnosis:PNEUMONIA, UNSPECIFIED ORGANISM Attending: JUAN CARLOS ARGUETA Current LOS: 3 Anticipated DC Date: Planned Disposition: Chcf Facility Primary Insurance: MEDICARE A & B Discharge Planning Comments: CM met with patient to assess discharge planning needs. Patient was [facility] with [facility] PT last week post her knee arthroplasty. She has a walker, cpm, BSC, CPAP, Shower chair at home. She is requesting to go to [facility] when she is discharged from hospital. Referral has been started. Manager Community: Jenny Fleming DCP- Discharge Planning Updated by [email or web address]: Jenny Fleming on 03/05/18 10:[address] SPOKE WITH PATIENT ABOUT THE INSURANCE CLAIM FROM 06/30/17- 12/27/17 AND SHE STATED THAT IS WAS CLOSED. I TALKED TO HER ONLINE MARKETING ANALYST ABIDA VALERO ( [phone]) AND HE WILL CALL ME BACK WITH MORE INFO. FROM [place]. IMM SERVED AND EXPLAINED AND KEANU SIGNED FOR [place], REFERRAL SENT OVER PATIENT HAS AN OPEN MSP THROUGH [place] DCP- Discharge Planning Updated by [email or web address]: Jenny Fleming on 03/05/18 8:[address] Referral sent to [facility], per Gerry PT he stated that she wanted to go there when she was discharged. DCPIA - Discharge Planning Initial Assessment Updated by [email or web address]: Jenny Fleming on 03/05/18 11:56 am * Is the patient Alert and Oriented? Yes * PCP [facility]OU * [facility] * Preadmission Environment Home with Family * ADLs Independent * Equipment Bedside Commode CPAP Elevated [place] Seat Rolling Walker Shower Chair * Other Equipment CPM * List name and contact numbers for known caregivers / representatives who currently or will assist patient after discharge: TRISTIAN HOOVER [phone] * Verbal permission to speak to the caregivers and representatives has been obtained from the patient. N/A * Community resources currently utilized Home Health * Please name any agencies selected above. [facility] * Additional services required to return to the preadmission environment? Yes * Can the patient safely return to the preadmission environment? No * Has this patient been hospitalized within the prior 30 days at any hospital? Yes Coverage Notice Reviewer: [id number] - Jenny Fleming Notice Issued Date-Time: 03/05/2018 11:49 Notice Type: IM Discharge Notice Notice Delivered To: Patient Relationship to Patient: Foreign Food Specialty Cook Name: Delivery Method: HAND - Hand Delivered Ameena Days: Prior Verbal Notification: Recipient Understood Notice: Yes Recipient Signature: Yes Med Rec Note Co-signed by Attending: Coverage Notice Comment: Last DP export: 03/05/18 12:43 Patient Name: WALLY FAY Page 43463 at 1053 All edits/amendments must be made on the electronic document DICTATION DATE: 03/06/18 105 METAL COATER: WINNIE 03/06/18 105 RPT#: [id number] DC DATE: STATUS: ADM IN [facility] [address] [place] [address] END OF REPORT
--- NOTE | ~2018-03-02 | MORECARE ---
CASE MANAGEMENT DISCHARGE SUMMARY PATIENT: WALLY FAY UNIT: [id number] ADM DATE: 03/02/18 AGE: 72 : 46 SEX: F ROOM/BED: D.2212 AUTHOR: RAY,DOC PHYSICIAN: REFERRING PHYSICIAN: JUAN CARLOS ARGUETA MD DATE OF SERVICE: 03/05/18 Discharge Plan Patient Name: WALLY FAY Facility: [facility]:[place] : 1945 Planned Disposition: Fpc Facility Anticipated Discharge Date: Discharge Date: Expected LOS: Initial Reviewer: [id number] Initial Review Date: 03/02/2018 Generated: 03/05/18 12:59 pm Comments DCP- Discharge Planning Updated by [email or web address]: Jenny Fleming on 03/05/18 10:[address] Patient Name: WALLY FAY Admission Status: ER Accout number: [id number] Admission Date: 03-02-2018 : 1945 Admission Diagnosis:PNEUMONIA, UNSPECIFIED ORGANISM Attending: JUAN CARLOS ARGUETA Current LOS: 3 Anticipated DC Date: Planned Disposition: Fpc Facility Primary Insurance: MEDICARE A & B Discharge Planning Comments: CM met with patient to assess discharge planning needs. Patient was discharged with [facility] and PT last week post her knee arthroplasty. She has a walker, cpm, BSC, CPAP, Shower chair at home. She is requesting to go to [facility] when she is discharged from hospital. Referral has been started. Auto Servicer: Jenny Fleming DCP- Discharge Planning Updated by [email or web address]: Jenny Fleming on 03/05/18 10:[address] SPOKE WITH PATIENT ABOUT THE INSURANCE CLAIM FROM 06/30/17- 12/27/17 AND SHE STATED THAT IS WAS CLOSED. I TALKED TO HER QUALITY ASSOCIATE ABIDA VALERO ( [phone]) AND HE WILL CALL ME BACK WITH MORE INFO. FROM [employer]. IMM SERVED AND EXPLAINED AND KEANU SIGNED FOR [place], REFERRAL SENT OVER PATIENT HAS AN OPEN MSP THROUGH [facility] [facility] DCP- Discharge Planning Updated by [id number]: Jenny Fleming on 03/05/18 8:[address] Referral sent to [facility], per Gerry PT he stated that she wanted to go there when she was discharged. DCPIA - Discharge Planning Initial Assessment Updated by [id number]: Jenny Fleming on 03/05/18 11:56 am * Is the patient Alert and Oriented? Yes * PCP FATOU * [facility] * Preadmission Environment Home with Family * ADLs Independent * Equipment Bedside Commode CPAP Elevated [place] Seat Rolling Walker Shower Chair * Other Equipment CPM * List name and contact numbers for known caregivers / representatives who currently or will assist patient after discharge: TRISTIAN HOOVER [phone] * Verbal permission to speak to the caregivers and representatives has been obtained from the patient. N/A * Community resources currently utilized Home Health * Please name any agencies selected above. [facility] * Additional services required to return to the preadmission environment? Yes * Can the patient safely return to the preadmission environment? No * Has this patient been hospitalized within the prior 30 days at any hospital? Yes Coverage Notice Reviewer: [id number] - Jenny Fleming Notice Issued Date-Time: 03/05/2018 11:49 Notice Type: IM Discharge Notice Notice Delivered To: Patient Relationship to Patient: Reinsurance Accountant Name: Delivery Method: HAND - Hand Delivered Ameena Days: Prior Verbal Notification: Recipient Understood Notice: Yes Recipient Signature: Yes Med Rec Note Co-signed by Attending: Coverage Notice Comment: Last DP export: 03/05/18 8:24 Patient Name: WALLY FAY Page 85598 at 1159 All edits/amendments must be made on the electronic document DICTATION DATE: 03/05/18 115 CERTIFIED PROFESSIONAL CODER: WINNIE 03/05/18 1159 RPT#: [id number] DC DATE: STATUS: ADM IN [facility] [address] [place] [address] END OF REPORT
--- NOTE | ~2018-03-02 | MORECARE ---
CASE MANAGEMENT DISCHARGE SUMMARY PATIENT: WALLY FAY UNIT: [id number] ADM DATE: 03/02/18 AGE: 72 : 46 SEX: F ROOM/BED: D.2212 AUTHOR: FANNIE BELL PHYSICIAN: REFERRING PHYSICIAN: JUAN CARLOS ARGUETA MD DATE OF SERVICE: 03/05/18 Discharge Plan Patient Name: WALLY FAY [facility] [facility] 1945 Planned Disposition: Anticipated Discharge Date: Discharge Date: Expected LOS: Initial Reviewer: [id number] Initial Review Date: 03/02/2018 Generated: 03/05/18 10:24 am Comments DCP- Discharge Planning Updated by [id number]: Jenny Fleming on 03/05/18 8:[address] Referral sent to [facility], per Gerry PT he stated that she wanted to go there when she was discharged. Last DP export: 03/05/18 8:09 Patient Name: WALLY FAY Page 96496 at 0924 All edits/amendments must be made on the electronic document DICTATION DATE: 03/05/18923 MEDICATION TECHNICIAN: WINNIE 03/05/18923 RPT#: [id number] DC DATE: STATUS: ADM IN [facility] [address] [place] [address] END OF REPORT
--- NOTE | ~2018-03-02 | MORECARE ---
CASE MANAGEMENT DISCHARGE SUMMARY PATIENT: WALLY FAY UNIT: [id number] ADM DATE: 03/02/18 AGE: 72 : 46 SEX: F ROOM/BED: D.2212 AUTHOR: RAYDOC PHYSICIAN: REFERRING PHYSICIAN: JUAN CARLOS ARGUETA MD DATE OF SERVICE: 03/05/18 Discharge Plan Patient Name: WALLY FAY Facility: [facility]:[place] : 1945 Planned Disposition: Longterm Facility Anticipated Discharge Date: Discharge Date: Expected LOS: Initial Reviewer: [id number] Initial Review Date: 03/02/2018 Generated: 03/05/18 2:43 pm Comments DCP- Discharge Planning Updated by [id number]: Jenny Fleming on 03/05/18 12:[address] Mona at [facility] called and stated that they would pick patient up on 03/06 @ 10:30. DCP- Discharge Planning Updated by [id number]: Jenny Fleming on 03/05/18 11:[address] TERENCE WITH [employer] CALLED AND STATED THAT HE WILL FAX A LETTER OVER THAT SHE DOES NOT HAVE AN OPEN CASE. [phone] EXT [phone] CM WILL WAIT FOR THE FAX DCP- Discharge Planning Updated by [id number]: Jenny Fleming on 03/05/18 10:[address] Patient Name: WALLY FAY Admission Status: ER Accout number: [id number] Admission Date: 03-02-2018 : 1945 Admission Diagnosis:PNEUMONIA, UNSPECIFIED ORGANISM Attending: JUAN CARLOS ARGUETA Current LOS: 3 Anticipated DC Date: Planned Disposition: Longterm Facility Primary Insurance: MEDICARE A & B Discharge Planning Comments: CM met with patient to assess discharge planning needs. Patient was discharged with [facility] and PT last week post her knee arthroplasty. She has a walker, cpm, BSC, CPAP, Shower chair at home. She is requesting to go to [facility] when she is discharged from hospital. Referral has been started. Director Of Occupational Therapy: Jenny Fleming DCP- Discharge Planning Updated by [id number]: Jenny Fleming on 03/05/18 10:[address] SPOKE WITH PATIENT ABOUT THE INSURANCE CLAIM FROM 06/30/17- 12/27/17 AND SHE STATED THAT IS WAS CLOSED. I TALKED TO HER ACQUISITION CONSULTANT ABIDA VALERO ( [phone]) AND HE WILL CALL ME BACK WITH MORE INFO. FROM [facility]. IMM SERVED AND EXPLAINED AND KEANU SIGNED FOR [place], REFERRAL SENT OVER PATIENT HAS AN OPEN MSP THROUGH [facility] DCP- Discharge Planning Updated by [id number]: Jenny Fleming on 03/05/18 8:[address] Referral sent to [facility], per Gerry PT he stated that she wanted to go there when she was discharged. DCPIA - Discharge Planning Initial Assessment Updated by [id number]: Jenny Fleming on 03/05/18 11:56 am * Is the patient Alert and Oriented? Yes * PCP FATOU * [facility] * Preadmission Environment Home with Family * ADLs Independent * Equipment Bedside Commode CPAP Elevated Tol[place] Seat Rolling Walker Shower Chair * Other Equipment CPM * List name and contact numbers for known caregivers / representatives who currently or will assist patient after discharge: TRISTIAN HOOVER [phone] * Verbal permission to speak to the caregivers and representatives has been obtained from the patient. N/A * Community resources currently utilized Home Health * Please name any agencies selected above. [facility] * Additional services required to return to the preadmission environment? Yes * Can the patient safely return to the preadmission environment? No * Has this patient been hospitalized within the prior 30 days at any hospital? Yes Coverage Notice Reviewer: [id number] - Jenny Lonnie Notice Issued Date-Time: 03/05/2018 11:49 Notice Type: IM Discharge Notice Notice Delivered To: Patient Relationship to Patient: Glass Vial Filler Name: Delivery Method: HAND - Hand Delivered Ameena Days: Prior Verbal Notification: Recipient Understood Notice: Yes Recipient Signature: Yes Med Rec Note Co-signed by Attending: Coverage Notice Comment: Last DP export: 03/05/18 11:20 Patient Name: WALLY FAY Page 52876 at 1343 All edits/amendments must be made on the electronic document DICTATION DATE: 03/05/18 1343 RESIDENTIAL SOLAR CONSULTANT: WINNIE 03/05/18 1343 RPT#: [id number] DC DATE: STATUS: ADM IN [facility] [address] [place] [address] END OF REPORT
--- NOTE | ~2018-03-02 | MORECARE ---
CASE MANAGEMENT DISCHARGE SUMMARY PATIENT: WALLY FAY UNIT: [id number] ADM DATE: 03/02/18 AGE: 72 : 46 SEX: F ROOM/BED: D.2212 AUTHOR: FANNIE BELL PHYSICIAN: REFERRING PHYSICIAN: JUAN CARLOS ARGUETA MD DATE OF SERVICE: 03/06/18 Discharge Plan Patient Name: WALLY FAY Facility: [facility]:[place] : 1945 Planned Disposition: Fpc Facility Anticipated Discharge Date: Discharge Date: 03/06/2018 Expected LOS: 0 Initial Reviewer: [id number] Initial Review Date: 03/02/2018 Generated: 03/06/18 1:54 pm Comments DCP- Discharge Planning Updated by [email or web address]: Jenny Fleming on 03/06/18 9:[address] Patient discharging to [facility] to a skilled bed by transportation. DCP- Discharge Planning Updated by [id number]: Jenny Fleming on 03/05/18 12:[address] Mona at [facility] called and stated that they would pick patient up on 03/06 @ 10:30. DCP- Discharge Planning Updated by [id number]: Jenny Fleming on 03/05/18 11:[address] TERENCE WITH [employer] CALLED AND STATED THAT HE WILL FAX A LETTER OVER THAT SHE DOES NOT HAVE AN OPEN CASE. [phone] EXT [phone] CM WILL WAIT FOR THE FAX DCP- Discharge Planning Updated by [id number]: Jenny Fleming on 03/05/18 10:[address] Patient Name: WALLY FAY Admission Status: ER Accout number: [id number] Admission Date: 03-02-2018 : 1945 Admission Diagnosis:PNEUMONIA, UNSPECIFIED ORGANISM Attending: JUAN CARLOS ARGUETA Current LOS: 3 Anticipated DC Date: Planned Disposition: Fpc Facility Primary Insurance: MEDICARE A & B Discharge Planning Comments: CM met with patient to assess discharge planning needs. Patient was discharged with [facility] and PT last week post her knee arthroplasty. She has a walker, cpm, BSC, CPAP, Shower chair at home. She is requesting to go to [facility] when she is discharged from hospital. Referral has been started. Supervisor Drawing: Jenny Fleming DCP- Discharge Planning Updated by [id number]: Jenny Fleming on 03/05/18 10:[address] SPOKE WITH PATIENT ABOUT THE INSURANCE CLAIM FROM 06/30/17- 12/27/17 AND SHE STATED THAT IS WAS CLOSED. I TALKED TO HER PVC MONITOR ABIDA VALERO ( [phone]) AND HE WILL CALL ME BACK WITH MORE INFO. FROM [place]. IMM SERVED AND EXPLAINED AND KEANU SIGNED FOR [place], REFERRAL SENT OVER PATIENT HAS AN OPEN MSP THROUGH [facility] DCP- Discharge Planning Updated by [email or web address]: Jenny Fleming on 03/05/18 8:[address] Referral sent to [facility], per Gerry PT he stated that she wanted to go there when she was discharged. DCPIA - Discharge Planning Initial Assessment Updated by [id number]: Jenny Fleming on 03/05/18 11:56 am * Is the patient Alert and Oriented? Yes * PCP [facility] * [facility] * Preadmission Environment Home with Family * ADLs Independent * Equipment Bedside Commode CPAP Elevated Tol[place] Seat Rolling Walker Shower Chair * Other Equipment CPM * List name and contact numbers for known caregivers / representatives who currently or will assist patient after discharge: TRISTIAN HOOVER [phone] * Verbal permission to speak to the caregivers and representatives has been obtained from the patient. N/A * Community resources currently utilized Home Health * Please name any agencies selected above. [facility] * Additional services required to return to the preadmission environment? Yes * Can the patient safely return to the preadmission environment? No * Has this patient been hospitalized within the prior 30 days at any hospital? Yes Coverage Notice Reviewer: [id number] - Jenny Fleming Notice Issued Date-Time: 03/05/2018 11:49 Notice Type: IM Discharge Notice Notice Delivered To: Patient Relationship to Patient: Alloy Weigher Name: Delivery Method: HAND - Hand Delivered Ameena Days: Prior Verbal Notification: Recipient Understood Notice: Yes Recipient Signature: Yes Med Rec Note Co-signed by Attending: Coverage Notice Comment: Last DP export: 03/06/18 9:53 Patient Name: WALLY FAY Page 10496 at 1254 All edits/amendments must be made on the electronic document DICTATION DATE: 03/06/181253 GLOVE STITCHER: WINNIE 03/06/18 1252 RPT#: [id number] [place] DATE:03/06/18 STATUS: DIS IN [facility] [address] [place] [address] END OF REPORT
--- NOTE | ~2018-03-02 | MORECARE ---
CASE MANAGEMENT DISCHARGE SUMMARY PATIENT: WALLY FAY UNIT: [id number] ADM DATE: 03/02/18 AGE: 72 : 46 SEX: F ROOM/BED: D.2212 AUTHOR: RAY,DOC PHYSICIAN: REFERRING PHYSICIAN: JUAN CARLOS ARGUETA MD DATE OF SERVICE: 03/05/18 Discharge Plan Patient Name: WALLY FAY Facility: [facility]:[place] : 1945 Planned Disposition: Usp Facility Anticipated Discharge Date: Discharge Date: Expected LOS: Initial Reviewer: [id number] Initial Review Date: 03/02/2018 Generated: 03/05/18 1:20 pm Comments DCP- Discharge Planning Updated by [email or web address]: Jenny Fleming on 03/05/18 11:[address] TERENCE WITH [facility] CALLED AND STATED THAT HE WILL FAX A LETTER OVER THAT SHE DOES NOT HAVE AN OPEN CASE. [phone] EXT [phone] CM WILL WAIT FOR THE FAX DCP- Discharge Planning Updated by [id number]: Jenny Fleming on 03/05/18 10:[address] Patient Name: WALLY FAY Admission Status: ER Accout number: [id number] Admission Date: 03-02-2018 : 1945 Admission Diagnosis:PNEUMONIA, UNSPECIFIED ORGANISM Attending: JUAN CARLOS ARGUETA Current LOS: 3 Anticipated DC Date: Planned Disposition: Usp Facility Primary Insurance: MEDICARE A & B Discharge Planning Comments: CM met with patient to assess discharge planning needs. [facility] was [facility] with [facility] last week post her knee arthroplasty. She has a walker, cpm, BSC, CPAP, Shower chair at home. She is requesting to go to [facility] when she is discharged from hospital. Referral has been started. Chief Contract Officer: Jenny Fleming DCP- Discharge Planning Updated by [email or web address]: Jenny Fleming on 03/05/18 10:[address] SPOKE WITH PATIENT ABOUT THE INSURANCE CLAIM FROM 06/30/17- 12/27/17 AND SHE STATED THAT IS WAS CLOSED. I TALKED TO HER CHILD LIFE SPECIALIST ABIDA VALERO ( [phone]) AND HE WILL CALL ME BACK WITH MORE INFO. FROM [employer]. IMM SERVED AND EXPLAINED AND KEANU SIGNED FOR [place], REFERRAL SENT OVER PATIENT HAS AN OPEN MSP THROUGH [facility] DCP- Discharge Planning Updated by [id number]: Jenny Fleming on 03/05/18 8:[address] Referral sent to [facility], per Gerry PT he stated that she wanted to go there when she was discharged. DCPIA - Discharge Planning Initial Assessment Updated by [id number]: Jenny Fleming on 03/05/18 11:56 am * Is the patient Alert and Oriented? Yes * PCP [facility] * [facility] * Preadmission Environment Home with Family * ADLs Independent * Equipment Bedside Commode CPAP Elevated Tol[place] Seat Rolling Walker Shower Chair * Other Equipment CPM * List name and contact numbers for known caregivers / representatives who currently or will assist patient after discharge: TRISTIAN HOOVER [phone] * Verbal permission to speak to the caregivers and representatives has been obtained from the patient. N/A * Community resources currently utilized Home Health * Please name any agencies selected above. [facility] * Additional services required to return to the preadmission environment? Yes * Can the patient safely return to the preadmission environment? No * Has this patient been hospitalized within the prior 30 days at any hospital? Yes Coverage Notice Reviewer: [id number] - Jenny Fleming Notice Issued Date-Time: 03/05/2018 11:49 Notice Type: IM Discharge Notice Notice Delivered To: Patient Relationship to Patient: Social Work Program Coordinator Name: Delivery Method: HAND - Hand Delivered Ameena Days: Prior Verbal Notification: Recipient Understood Notice: Yes Recipient Signature: Yes Med Rec Note Co-signed by Attending: Coverage Notice Comment: Last DP export: 03/05/18 10:59 Patient Name: WALLY FAY Page 26187 at 1220 All edits/amendments must be made on the electronic document DICTATION DATE: 03/05/18 1220 STRATEGIC MARKETING ASSOCIATE: WINNIE 03/05/18 1220 RPT#: [id number] DC DATE: STATUS: ADM IN [facility] [address] [place] [address] END OF REPORT
[~2018-03-02 01:10] MED LIST changes: +ELIQUIS2.5 MG PO; +PERCOCET 5-3251 TAB PO
[2018-03-02 01:35] LABS: BASOPHILS 0.2 % (0-2); EOSINOPHILS 0.2 % (0-7); HEMATOCRIT 33.1 % (36.0-48.0); HEMOGLOBIN 10.1 g/dL (12-16); IMMATURE GRANULOCYTES 0.4 % (0-5); LYMPHOCYTES 8.6 % (15-50); MCH 24.3 pg (26.0-34.0); MCHC 30.5 g/dL (31.0-37.0); MCV 79.8 fL (80.0-100.0); MEAN PLATELET VOLUME 9.7 fL (7.4-10.4); NEUTROPHILS 84.6 % (40-80); RBC 4.15 10x6/uL (4.00-5.40); RDW 19.7 % (11.5-14.5)
[2018-03-02 01:43] LABS: PLATELET COUNT 208 10x3/uL (130-400); WBC 8.2 10x3/uL (4.8-10.8)
[2018-03-02 01:49] LABS: APTT 28.1 SECONDS (22.8-39.4); INR 1.19 (0.85-1.17); PROTIME 14.8 SECONDS (11.6-15.0)
[2018-03-02 01:50] LABS: D-DIMER-QUANTITATIVE 1.78 ug/mLFEU (0.20-0.54)
[2018-03-02 01:52] LABS: ALBUMIN 2.8 g/dL (3.4-5.0); ALKALINE PHOSPHATASE 76 U/L (46-116); ALT (SGPT) 28 U/L (10-68); BILIRUBIN - TOTAL 1.37 mg/dL (0.2-1.3); CALC OSMOLALITY 289 mosm/kg (275-300); CALCIUM 8.5 mg/dL (8.5-10.1); CARBON DIOXIDE 29.6 mmol/L (21.0-32.0); CHLORIDE - SERUM 104 mmol/L (98-107); CREATININE - SERUM 1.1 mg/dL (0.6-1.3); POTASSIUM - SERUM 4.8 mmol/L (3.5-5.1); PROTEIN - SERUM 7.1 g/dL (6.4-8.2); SODIUM 138 mmol/L (136-145); UREA NITROGEN 27 mg/dL (7-18); eGFR NON AFRICAN AMERICAN 52 mL/min (90-120)
[2018-03-02 01:54] LABS: GLUCOSE 265 mg/dL (74-106)
[2018-03-02 02:00] VITALS: BP 116/73
[2018-03-02 02:12] LABS: CKMB 0.2 U/L (0.0-3.6); CREATINE KINASE 73 UL (21-215)
[2018-03-02 02:13] LABS: TROPONIN-I < 0.017 ng/mL (0.000-0.060)
[2018-03-02 03:58] VITALS: BP 118/62
[2018-03-02] MEDS ORDERED: SINGULAIR10 MG PO (05:35)
[2018-03-02 05:55] VITALS: BP 143/69; Ht 175.3 cm; Wt 102.3 kg
[2018-03-02 10:04] VITALS: BP 126/69
[2018-03-02 16:22] VITALS: BP 140/62
[2018-03-02 17:03] LABS: APPEARANCE CLEAR (CLEAR); BACTERIA NONE SEEN /hpf (NONE SEEN); BILIRUBIN NEGATIVE (NEGATIVE); COLOR YELLOW (YELLOW); EPITHELIAL CELLS NSEEN /hpf (0-5); GLUCOSE 1000 mg/dL (NEGATIVE); KETONE NEGATIVE (NEGATIVE); NITRITE NEGATIVE (NEGATIVE); PROTEIN NEGATIVE (NEGATIVE); RED CELLS - URINE NONE SEEN /hpf (0-5); SPECIFIC GRAVITY 1.015 (1.005-1.020); UROBILINOGEN NORMAL (NORMAL); WHITE CELLS - URINE NSEEN /hpf (0-5)
[2018-03-02 20:54] VITALS: BP 144/66
[2018-03-03 05:09] LABS: BASOPHILS 0.1 % (0-2); EOSINOPHILS 1.6 % (0-7); HEMOGLOBIN 9.1 g/dL (12-16); IMMATURE GRANULOCYTES 0.3 % (0-5); LYMPHOCYTES 18.1 % (15-50); MCH 24.2 pg (26.0-34.0); MCHC 30.3 g/dL (31.0-37.0); MCV 79.8 fL (80.0-100.0); MEAN PLATELET VOLUME 9.9 fL (7.4-10.4); MONOCYTES 8.9 % (2-11); PLATELET COUNT 188 10x3/uL (130-400); RBC 3.76 10x6/uL (4.00-5.40); RDW 19.6 % (11.5-14.5); WBC 7.4 10x3/uL (4.8-10.8)
[2018-03-03 05:24] LABS: ALBUMIN 2.4 g/dL (3.4-5.0); BILIRUBIN - TOTAL 0.98 mg/dL (0.2-1.3); CALCIUM 8.5 mg/dL (8.5-10.1); CARBON DIOXIDE 30.6 mmol/L (21.0-32.0); PROTEIN - SERUM 6.5 g/dL (6.4-8.2)
[2018-03-03 05:27] LABS: ANION GAP 9.9 mmol/L (8-16); POTASSIUM - SERUM 3.5 mmol/L (3.5-5.1)
[2018-03-03 05:48] VITALS: BP 123/55
[2018-03-03 08:23] VITALS: BP 114/63
[2018-03-03 12:16] VITALS: BP 107/47
[2018-03-03 16:40] VITALS: BP 114/61
[2018-03-03 20:00] VITALS: BP 124/61
[2018-03-04] VITALS: BP 162/54
[2018-03-04 05:00] VITALS: BP 117/57
[2018-03-04 05:11] LABS: BASOPHILS 0.3 % (0-2); EOSINOPHILS 4.5 % (0-7); HEMATOCRIT 29.9 % (36.0-48.0); HEMOGLOBIN 8.9 g/dL (12-16); IMMATURE GRANULOCYTES 0.3 % (0-5); LYMPHOCYTES 22.7 % (15-50); MCH 23.9 pg (26.0-34.0); MCHC 29.8 g/dL (31.0-37.0); MCV 80.4 fL (80.0-100.0); MEAN PLATELET VOLUME 10.3 fL (7.4-10.4); MONOCYTES 7.5 % (2-11); NEUTROPHILS 64.7 % (40-80); PLATELET COUNT 200 10x3/uL (130-400); RBC 3.72 10x6/uL (4.00-5.40); RDW 19.5 % (11.5-14.5); WBC 7.4 10x3/uL (4.8-10.8)
[2018-03-04 05:30] LABS: ALBUMIN 2.3 g/dL (3.4-5.0); ANION GAP 9.3 mmol/L (8-16); BILIRUBIN - TOTAL 0.66 mg/dL (0.2-1.3); CALCIUM 8.2 mg/dL (8.5-10.1); CARBON DIOXIDE 33.3 mmol/L (21.0-32.0); CREATININE - SERUM 1.2 mg/dL (0.6-1.3); POTASSIUM - SERUM 3.6 mmol/L (3.5-5.1); PROTEIN - SERUM 6.6 g/dL (6.4-8.2)
[2018-03-04 08:39] VITALS: BP 179/58
[2018-03-04 12:41] VITALS: BP 124/57
[2018-03-04 19:04] VITALS: BP 126/62
[2018-03-04 20:33] VITALS: BP 124/62
[2018-03-05 02:35] VITALS: BP 145/65
[2018-03-05 05:01] VITALS: BP 134/64
[2018-03-05 06:57] LABS: BASOPHILS 0.4 % (0-2); EOSINOPHILS 4.1 % (0-7); HEMATOCRIT 32.1 % (36.0-48.0); HEMOGLOBIN 9.7 g/dL (12-16); IMMATURE GRANULOCYTES 0.4 % (0-5); LYMPHOCYTES 24.2 % (15-50); MCH 24.5 pg (26.0-34.0); MCHC 30.2 g/dL (31.0-37.0); MCV 81.1 fL (80.0-100.0); MEAN PLATELET VOLUME 10.2 fL (7.4-10.4); MONOCYTES 6.7 % (2-11); NEUTROPHILS 64.2 % (40-80); PLATELET COUNT 214 10x3/uL (130-400); RBC 3.96 10x6/uL (4.00-5.40); RDW 19.4 % (11.5-14.5); WBC 6.9 10x3/uL (4.8-10.8)
[2018-03-05 07:17] LABS: ALBUMIN 2.5 g/dL (3.4-5.0); ANION GAP 9.2 mmol/L (8-16); BILIRUBIN - TOTAL 0.72 mg/dL (0.2-1.3); CALCIUM 8.9 mg/dL (8.5-10.1); CARBON DIOXIDE 33.6 mmol/L (21.0-32.0); CREATININE - SERUM 1.1 mg/dL (0.6-1.3); POTASSIUM - SERUM 3.8 mmol/L (3.5-5.1); PROTEIN - SERUM 6.8 g/dL (6.4-8.2)
[2018-03-05 09:59] VITALS: BP 109/59
[2018-03-05 21:33] VITALS: BP 115/55
[2018-03-06 04:45] VITALS: BP 116/60
[2018-03-06 05:01] LABS: BASOPHILS 0.3 % (0-2); HEMOGLOBIN 9.5 g/dL (12-16); IMMATURE GRANULOCYTES 0.5 % (0-5); LYMPHOCYTES 26.1 % (15-50); MCH 24.1 pg (26.0-34.0); MCHC 29.7 g/dL (31.0-37.0); MCV 81.2 fL (80.0-100.0); MEAN PLATELET VOLUME 10.1 fL (7.4-10.4); MONOCYTES 6.7 % (2-11); NEUTROPHILS 63.4 % (40-80); PLATELET COUNT 223 10x3/uL (130-400); RBC 3.94 10x6/uL (4.00-5.40); RDW 19.3 % (11.5-14.5); WBC 6.3 10x3/uL (4.8-10.8)
[2018-03-06 05:24] LABS: ALBUMIN 2.6 g/dL (3.4-5.0); ANION GAP 9.4 mmol/L (8-16); BILIRUBIN - TOTAL 0.72 mg/dL (0.2-1.3); POTASSIUM - SERUM 3.4 mmol/L (3.5-5.1); PROTEIN - SERUM 6.8 g/dL (6.4-8.2)
[2018-03-06 05:26] LABS: CREATININE - SERUM 1.4 mg/dL (0.6-1.3)
[2018-03-06 08:36] VITALS: BP 133/64
[2018-03-06] MEDS ORDERED: PROTONIX40 MG PO (09:12)
[2018-03-06] MEDS ORDERED: OMNICEF300 MG PO (09:17)
[2018-03-06] MEDS ORDERED: ZITHROMAX250 MG PO (09:17)
== END 2018-03-06 11:23 | DRG 291 ==
LOC: D.ER 01:10 → D.MS 03:26
PROVIDERS: Family Medicine; Internal Medicine Nephrology
DX: I11.0 Hypertensive heart disease with heart failure (principal); J18.9 Pneumonia, unspecified organism; J96.01 Acute respiratory failure with hypoxia; I50.41 Acute combined systolic (congestive) and diastolic (congestive) heart failure; E11.9 Type 2 diabetes mellitus without complications; I25.10 Atherosclerotic heart disease of native coronary artery without angina pectoris; E66.9 Obesity, unspecified; Z68.33 Body mass index [BMI] 33.0-33.9, adult

== ENCOUNTER → 2018-04-30 09:17 | Outpatient (CLI) | payer MEDICARE, BC ==
[2018-03-02 05:55] VITALS: BMI 33.3
[~2018-04-30 09:17] MED LIST changes: +ZITHROMAX250 MG PO
== END | disposition home or self-care (01) ==
LOC: D.CT 09:17
DX: J84.9 Interstitial pulmonary disease, unspecified (principal)

== ENCOUNTER 2018-05-19 10:03 | Inpatient (IN) | payer MEDICARE, BC ==
[~2018-05-19] VITALS: Ht 175.3 cm; Wt 104.3 kg
[2018-05-19 10:36] VITALS: BP 139/58
[2018-05-19 10:45] VITALS: BP 139/58
[2018-05-19 18:43] VITALS: BP 112/67
[2018-05-20 03:27] VITALS: BP 109/56
[2018-05-20 07:26] LABS: BASOPHILS 0.2 % (0-2); EOSINOPHILS 4.4 % (0-7); HEMATOCRIT 33.2 % (36.0-48.0); HEMOGLOBIN 10.2 g/dL (12-16); IMMATURE GRANULOCYTES 0.3 % (0-5); LYMPHOCYTES 46.9 % (15-50); MCH 24.2 pg (26.0-34.0); MCHC 30.7 g/dL (31.0-37.0); MCV 78.7 fL (80.0-100.0); MEAN PLATELET VOLUME 10.6 fL (7.4-10.4); NEUTROPHILS 42.2 % (40-80); PLATELET COUNT 188 10x3/uL (130-400); RBC 4.22 10x6/uL (4.00-5.40); RDW 16.6 % (11.5-14.5); WBC 6.4 10x3/uL (4.8-10.8)
[2018-05-20 07:35] LABS: ANION GAP 14.8 mmol/L (8-16); CALCIUM 8.4 mg/dL (8.5-10.1); CARBON DIOXIDE 25.4 mmol/L (21.0-32.0); CREATININE - SERUM 1.5 mg/dL (0.6-1.3); POTASSIUM - SERUM 4.2 mmol/L (3.5-5.1)
[2018-05-20 08:00] VITALS: BP 118/54
[2018-05-20 10:02] VITALS: Ht 175.3 cm; Wt 104.3 kg
[2018-05-20 20:40] VITALS: BP 152/62
[2018-05-21 08:00] VITALS: BP 146/53
[2018-05-21 21:34] VITALS: BP 140/57
[2018-05-22 07:42] LABS: BASOPHILS 0.3 % (0-2); EOSINOPHILS 4.5 % (0-7); HEMATOCRIT 33.1 % (36.0-48.0); HEMOGLOBIN 10.2 g/dL (12-16); IMMATURE GRANULOCYTES 0.2 % (0-5); LYMPHOCYTES 33.6 % (15-50); MCH 24.4 pg (26.0-34.0); MCHC 30.8 g/dL (31.0-37.0); MCV 79.2 fL (80.0-100.0); MEAN PLATELET VOLUME 10.3 fL (7.4-10.4); MONOCYTES 7.7 % (2-11); NEUTROPHILS 53.7 % (40-80); PLATELET COUNT 173 10x3/uL (130-400); RBC 4.18 10x6/uL (4.00-5.40); RDW 16.5 % (11.5-14.5); WBC 5.7 10x3/uL (4.8-10.8)
[2018-05-22 07:58] LABS: ANION GAP 15.5 mmol/L (8-16); CALCIUM 8.4 mg/dL (8.5-10.1); CARBON DIOXIDE 25.9 mmol/L (21.0-32.0); CREATININE - SERUM 1.2 mg/dL (0.6-1.3); POTASSIUM - SERUM 4.4 mmol/L (3.5-5.1)
[2018-05-22 08:00] VITALS: BP 151/74
[2018-05-23 08:05] VITALS: BP 125/60
[2018-05-23 19:00] VITALS: BP 160/73
[2018-05-24 07:01] LABS: BASOPHILS 0.2 % (0-2); EOSINOPHILS 4.7 % (0-7); HEMATOCRIT 32.2 % (36.0-48.0); HEMOGLOBIN 9.7 g/dL (12-16); MCHC 30.1 g/dL (31.0-37.0); MCV 79.7 fL (80.0-100.0); MEAN PLATELET VOLUME 10.2 fL (7.4-10.4); MONOCYTES 6.7 % (2-11); NEUTROPHILS 43.4 % (40-80); PLATELET COUNT 168 10x3/uL (130-400); RBC 4.04 10x6/uL (4.00-5.40); RDW 16.7 % (11.5-14.5); WBC 5.1 10x3/uL (4.8-10.8)
[2018-05-24 07:16] LABS: ANION GAP 15.2 mmol/L (8-16); CALCIUM 8.4 mg/dL (8.5-10.1); CARBON DIOXIDE 26.2 mmol/L (21.0-32.0); CREATININE - SERUM 1.1 mg/dL (0.6-1.3); POTASSIUM - SERUM 4.4 mmol/L (3.5-5.1)
[2018-05-24 08:00] VITALS: BP 140/66
[2018-05-24 19:00] VITALS: BP 150/69
[2018-05-26 13:58] VITALS: BP 148/59
[2018-05-26 19:49] VITALS: BP 151/66
[2018-05-27 06:45] LABS: BASOPHILS 0.3 % (0-2); HEMATOCRIT 34.5 % (36.0-48.0); HEMOGLOBIN 10.6 g/dL (12-16); IMMATURE GRANULOCYTES 0.2 % (0-5); LYMPHOCYTES 38.1 % (15-50); MCH 24.1 pg (26.0-34.0); MCHC 30.7 g/dL (31.0-37.0); MCV 78.6 fL (80.0-100.0); MEAN PLATELET VOLUME 10.6 fL (7.4-10.4); MONOCYTES 7.1 % (2-11); NEUTROPHILS 50.3 % (40-80); PLATELET COUNT 199 10x3/uL (130-400); RBC 4.39 10x6/uL (4.00-5.40); RDW 16.9 % (11.5-14.5); WBC 5.8 10x3/uL (4.8-10.8)
[2018-05-27 06:58] LABS: ANION GAP 13.5 mmol/L (8-16); CALCIUM 8.4 mg/dL (8.5-10.1); CARBON DIOXIDE 28.4 mmol/L (21.0-32.0); POTASSIUM - SERUM 3.9 mmol/L (3.5-5.1)
[2018-05-27 07:34] VITALS: BP 136/57
[2018-05-27 20:00] VITALS: BP 147/67
[2018-05-28 08:00] VITALS: BP 128/62
[2018-05-28 21:56] VITALS: BP 146/61
[2018-05-29 08:00] VITALS: BP 148/63
[2018-05-29] MEDS ORDERED: TRAZODONE HCL150 MG PO (09:03)
[2018-05-29] MEDS ORDERED: PROTONIX40 MG PO (09:04)
[2018-05-29] MEDS ORDERED: LANTUS INSULIN10 ML SC ×2 (09:04)
--- NOTE | 2018-05-29 09:05 | RHP ---
PATIENT: WALLY FAY MEDICAL RECORD: [id number] ACCOUNT: [id number] LOCATION:[facility].1114 : 47 ADMISSION DATE: 05/19/18 REHABILITATION HISTORY AND PHYSICAL EXAMINATION POST ADMISSION PHYSICIAN EXAMINATION DATE OF ADMISSION: 05/19/2018. ADMITTING DIAGNOSIS: Disuse atrophy. 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 She had a total knee revision on 02/25/2018, was hospitalized for about a week. She was home for 5 hours, readmitted with pneumonia. After 5 days of therapy, she was discharged to [facility]. She did slowly progress during her stay and was discharged to home 04/02/2018. She has been having falls. She has got a history of CVA, idiopathic pulmonary fibrosis, neuropathy, seizures, hypothyroidism, hyperlipidemia, degenerative changes in her back, osteopenia, seizure disorder, obesity. She has obstructive sleep apnea, for which she uses a BiPAP. She has got anxiety and arthritis. These all require medical management. Her and her are currently living with their son. She was previously moderately independent with rolling walker and ADLs as a result of her fall. She has been using a wheelchair for safety and has been having severe pain in her left chest area. These are all barriers to loss of mobility, pain management, dyspnea on exertion, frequent falls, and self-care deficits, which should require some inpatient therapy to hopefully return her back to her prior level of functioning and hopefully get her home again with her . COMORBIDITIES: Include hypothyroidism, diabetes, hyperlipidemia, hypertension, coronary artery disease, chronic respiratory insufficiency, idiopathic pulmonary fibrosis, COPD, multiple falls, osteopenia, seizures, lumbar and cervical radiculopathy, and gastroparesis. PAST MEDICAL HISTORY: Significant for neuropathy, seizures, cataracts, diabetes, thyroid problems, hypertension, coronary artery disease, ME in the past, arthritis, acid reflux. PAST SURGICAL HISTORY: Includes gallbladder surgery, knee surgery, appendectomy, and hysterectomy. She has had plate and screws placed in her neck. She had carpal tunnel surgery, back surgery, bilateral knee surgery, and stent placement. ALLERGIES: MÓNICA INHIBITORS, SULFA, REGLAN, VICODIN, TRAMADOL, MORPHINE, MÓNICA INHIBITORS, ADHESIVE TAPE, AND DEMEROL. CURRENT MEDICATIONS: Include Lantus 60 units daily. She is on Synthroid 112 mcg daily, amlodipine 10 mg daily, multivitamin daily, potassium 10 mEq daily, furosemide 20 mg daily, Flonase 1 spray daily, Bystolic 10 mg daily, Protonix 80 mg daily, Lantus 15 units q.h.s. She is on Zoloft 200 mg at bedtime. She is on albuterol inhaler as needed, Singulair 10 mg daily, Percocet 5/325 one tab q.4-6 hours p.r.n., Neurontin 100 mg q.h.s., Lipitor 80 mg daily, isosorbide 60 mg b.i.d., metformin 1000 mg b.i.d., Ativan 1 mg q.h.s. p.r.n., Tylenol 650 q.4 hours p.r.n., Zofran 4 mg p.r.n. nausea and vomiting, and Desyrel 150 mg q.h.s. HISTORY AND PHYSICAL [id number] WALLY FAY HABITS: No current alcohol or tobacco use. FAMILY HISTORY: Noncontributory. SOCIAL HISTORY: The patient hopes to return back home and get back to her prior level of functioning. REVIEW OF SYSTEMS: GENERAL: Does complain of weakness and fatigue. HEENT: Denies cold, cough, or congestion. CARDIOVASCULAR: Denies chest pain. PHYSICAL EXAMINATION: VITAL SIGNS: Stable, afebrile. GENERAL: A morbidly obese female in no acute distress, alert upon exam. HEENT: Normocephalic, atraumatic. Mucosa moist. NECK: Supple. No lymphadenopathy. LUNGS: Clear at this time. HEART: Regular rate and rhythm. No murmurs, rubs or gallops. ABDOMEN: Benign. EXTREMITIES: No clubbing, cyanosis or edema. NEUROLOGIC: She seems mostly intact. Postop knee looks pretty good actually at this time. LABORATORY DATA: Her admit blood count shows a white count of 6.4, H&H of 10 and 33 and platelet count was noted to be 188. Her sodium is 138, potassium 4.2, BUN and creatinine of 25 and 1.5 and blood sugar is noted to be 147. ASSESSMENT: This is a 72-year-old female patient admitted to the rehab with a working diagnosis of disuse atrophy. The patient has potential to make improvement. We instituted the following multidisciplinary therapies including, but not limited to physical, occupational, respiratory, speech, nutritional services, prosthetics and orthotics. Given her complex medical condition and risks for more complications, rehabilitation services cannot be provided at a low level of care such as group home facility. PLAN: 1. Admit to [facility] for an intensive inpatient therapy to include the following disciplines: A. Physical therapy to improve gait, all transfer skills and bed mobility to a modified independent level. B. Physical therapy to improve activities of daily living to a modified independent level. C. Case management to assist with discharge planning and placement options. D. Nutrition to assist with nutritional needs. E. Rehabilitation nursing to assist in monitoring the patient's underlying medical condition and to assist with any type of bowel and bladder management. 2. The patient's current medication and medical care will be continued. 3. The patient will be placed on standard fall precautions. 4. The patient's estimated length of stay is approximately 7-10 days. 5. We will discuss this patient during care team staff meeting this week. TRANSINT:[id number] Voice Confirmation ID: [id number] DOCUMENT ID: [id number] HISTORY AND PHYSICAL [id number] WALLY FAY notes whether there has been none or any medical/functional change since admission: - No change since pre-admission filippo. CLAUDIA attests patient continues to be appropriate for IRF: - Continues to be appropriate. MAURISIO MACHADO MD at 0905 CC: [id number] DICTATION DATE: 05/20/18 0854 MANAGER BUSINESS PROCESS: 05/20/18 1022 ADM IN [facility] [address] [id number]
== END 2018-05-29 12:28 | disposition home health service (06) | DRG 558 ==
LOC: D.REHAB 10:03
PROVIDERS: ADMIT Emergency Medicine
DX: M62.50 Muscle wasting and atrophy, not elsewhere classified, unspecified site (principal); R53.81 Other malaise; E03.9 Hypothyroidism, unspecified; E78.5 Hyperlipidemia, unspecified; I10 Essential (primary) hypertension; I25.10 Atherosclerotic heart disease of native coronary artery without angina pectoris; R06.89 Other abnormalities of breathing; J84.112 Idiopathic pulmonary fibrosis; J44.9 Chronic obstructive pulmonary disease, unspecified; G40.909 Epilepsy, unspecified, not intractable, without status epilepticus; M54.12 Radiculopathy, cervical region; K21.9 Gastro-esophageal reflux disease without esophagitis; M85.80 Other specified disorders of bone density and structure, unspecified site; M54.16 Radiculopathy, lumbar region; E11.43 Type 2 diabetes mellitus with diabetic autonomic (poly)neuropathy; K31.84 Gastroparesis; Z91.81 History of falling; G47.30 Sleep apnea, unspecified

== ENCOUNTER 2018-06-03 13:04 | Observation (INO) | payer MEDICARE, BC ==
[~2018-06-03] VITALS: Ht 175.3 cm; Wt 103.6 kg
--- NOTE | ~2018-06-03 | HEMODYNAMI ---
PATIENT:WALLY FAY MEDICAL RECORD: [id number] : 47 [facility] AD[facility] DATE: 06/03/18 Generatedon:06/04/20189:29 Patient name: WALLY FAY Patient #: [id number] : 1945 Date of study: 06/04/2018 Page: Of Hemodynamic Procedure Report Patient Data Patient Demographics Procedure consent was obtained First Name: WALLY Gender: Female Last Name: NYA : 1945 [facility] Initial: DIANA Age: 72 year(s) Patient #: [id number] Race: SSN: [id number] Additional ID: [id number] Contact details Address: [address] [place] [address] State: [place] City: [place] Zip code: [address] Past Medical History Allergies Allergen Reaction Date Comments Reported Other allergy 12/30/2015 MARCELO,Tape, Hydrocodone, Reglan, Sulfa, Morphine Other allergy 02/11/2016 Sulfa, Morphine, Hydrocodone, Reglan, MARCELO Inhibitors, tape Other allergy 03/19/2016 Marcelo Inhibitors, Sulfa, Hydrocodone, Morphine, Acetametaphen, Metoclopramide, Adhesive Tape MARCELO inhibitors 06/15/2016 Sulfa drugs 06/15/2016 Adhesive tape 06/15/2016 Other allergy 06/15/2016 amlodipine, reglan, hydrocodone Other allergy 06/04/2018 ADHESIVE TAPE, HYDROCODONE, MORPHINE, REGLAN, SULFA, VICODIN, MEPERIDINE, OXYCODONE, ACETAMINOPHEN, METOCLOPRAMIDE Adhesive tape 06/04/2018 MARCELO inhibitors 06/04/2018 Admission Admission Data Admission Date: 06/03/2018 Admission Time: 17:38 Room #: D.2110 Procedure Procedure Types Cath Procedure Diagnostic Procedure LHC LH w/Coronaries FFR/IVUS Intra-Coronary IVUS Initial Sedation Charges Moderate Sedation up to 15 minutes PCI Procedure Coronary Stent Coronary Stent Initial Procedure Description Procedure Date Procedure Date: 06/04/2018 Procedure Start Time: 9:10 Procedure End Time: 9:28 Procedure Staff Name Function Kang Sheth MD Performing Physician Denise Clark RT Monitor Sg Song RN Nurse Myla Enciso RT Scrub Adeola Pat RT Scrub Procedure Data Cath Procedure Fluoroscopy Diagnostic fluoroscopy Total fluoroscopy Time: 5.2 time: 5.2 min min Diagnostic fluoroscopy Total fluoroscopy dose: 770 dose: 770 mGy mGy Contrast Material Contrast Material Type Amount (ml) Isovue 300 83 Entry Location Entry Primary Successful Side Size Upsize Upsize Entry Closure Luna ccessful Closure Location (Fr) 1 (Fr) 2 (Fr) Remarks Device Remarks Radial Right 6 Fr Mechanical artery Short Compression Estimated blood loss: 10 ml Diagnostic catheters Device Type Used For End Catheter Placement DIAGNOSTIC Bristow 110cm 5 LV Angiography Fr catheter ([id number]) DIAGNOSTIC [place] 110cm 5 Right Coronary Fr catheter ([id number]) Angiography Procedure Complications No complications Procedure Medications Medication Administration Route Dosage Oxygen etCO2 Nasal cannula 2 l/min Lidocaine 2% added to field 20 Heparin Flush Bag added to field 2 bags (1000units/500ml NS) 0.9% NaCl I.V. 100 ml/hr Fentanyl I.V. 50 mcg Versed I.V. 2 mg Fentanyl I.V. 50 mcg Versed I.V. 1 mg Fentanyl I.V. 50 mcg Heparin Bolus I.V. 4000 units Versed I.V. 1 mg Fentanyl I.V. 50 mcg Plavix P.O. 75 mg Hemodynamics Rest Heart Rate: 62 (bpm) Snapshots Pre Cath Intra NCS Post Cath Vital Signs Time Heart Resp SPO2 etCO2 NIBP (mmHg) Rhythm Pain Status Sedation Rate (ipm) (%) (mmHg) Level (bpm) 8:36:59 71 20 90 0 169/87(133) NSR 5 (11) , 10(A) Very distressing 8:41:28 61 15 99 45.3 171/83(103) NSR 5 (11) , 10(A) Very distressing 8:46:00 62 10 99 37.8 164/77(135) NSR 5 (11) , 10(A) Very distressing 8:50:28 67 18 97 29.5 159/80(137) NSR 5 (11) , 10(A) Very distressing 8:54:53 60 14 95 43 145/71(128) NSR 1 (11) , 10(A) Very mild 8:59:09 60 15 95 39.2 125/67(101) NSR 1 (11) , 10(A) Very mild 9:03:25 57 12 93 24.2 116/61(99) NSR 1 (11) , 10(A) Very mild 9:07:43 56 13 95 32.4 106/58(96) NSR 0 (11) , No 9(A) pain 9:11:59 57 11 93 42.3 104/51(86) NSR 0 (11) , No 9(A) pain 9:16:09 63 23 93 36.3 93/48(78) NSR 0 (11) , No 9(A) pain 9:20:19 66 26 96 40 98/51(75) NSR 0 (11) , No 9(A) pain 9:24:30 59 24 97 37.8 88/48(65) NSR 0 (11) , No 10(A) pain 9:28:10 59 21 97 37 92/54(66) NSR 0 (11) , No 10(A) pain Medications Time Medication Route Dose Verified Delivered Reason Notes Effectiveness by by 8:38:55 Oxygen etCO2 2 Kang Buffie used for Nasal l/min Domenic Song RN procedure cannula 8:39:02 Lidocaine 2% added 20ml Kang Kang for local to vial Domenic Sheth MD anesthetic field 8:39:07 Heparin Flush added 2 Kang Kang used for Bag to bags Domenic Sheth MD procedure (1000units/500ml field NS) 8:39:15 0.9% NaCl I.V. 100 Kang Buffie Per physician ml/hr Domenic Song RN 8:52:42 Fentanyl I.V. 50 Kang Buffie for chest pain mcg Domenic Song RN 9:07:57 Versed I.V. 2 mg Kang Buffie for sedation Domenic Song RN 9:08:01 Fentanyl I.V. 50 Kang Buffie for chest pain mcg Domenic Song RN 9:11:17 Versed I.V. 1 mg Kang Buffie for sedation Domenic Song RN 9:11:21 Fentanyl I.V. 50 Kang Buffie for chest pain mcg Domenic Song RN 9:16:39 Heparin Bolus I.V. 4000 Kang Bettencourt for verifi ed units Domenic Song RN anticoagulation with dr sheth 9:18:15 Versed I.V. 1 mg Kang Bettencourt for sedation Domenic Song RN 9:18:19 Fentanyl I.V. 50 Kang Bettencourt for chest pain saw Song RN 9:27:12 Plavix P.O. 75 mg Kang Bettencourt for Domenic Song RN antiplatelet therapy Procedure Log Time Note 8:12:09 Time tracking: Regular hours (M-F 7:00 - 5:00) 8:12:13 Plan of Care:Hemodynamics will remain stable., Cardiac rhythm will remain stable., Comfort level will be maintained., Respiratory function will remain adequate., Patient/ family verbilizes understanding of procedure., Procedure tolerated without complication., Recovers from procedure without complications.. 8:15:49 Sg Song RN sent for patient. Start room use. 8:30:01 Patient received from PCU to CCL 1 Alert and oriented. Tansferred to table in Supine position. 8:30:02 Warm blankets applied, and wendy hugger turned on for patient comfort. 8:30:03 Correct patient and procedure confirmed by team. 8:30:04 Signed procedure consent form obtained from patient. 8:30:05 ECG and BP/O2 sat monitors applied to patient. 8:30:06 Full Disclosure recording started 8:35:40 Vital chart was started 8:35:43 Rhythm: sinus rhythm 8:35:51 H&P Date Dictated: 06/04/2018 Within 30 days and on chart.. 8:35:52 Pre-procedure instructions explained to patient. 8:35:53 Pre-op teaching completed and patient verbalized understanding. 8:35:54 Family in patients room. 8:35:56 Patient NPO since Midnight. 8:36:01 Patient allergic to Adhesive tape 8:36:58 Patient allergic to Other allergyADHESIVE TAPE, HYDROCODONE, MORPHINE, REGLAN, SULFA, VICODIN, MEPERIDINE, OXYCODONE, ACETAMINOPHEN, METOCLOPRAMIDE 8:37:01 Patient allergic to MARCELO inhibitors 8:37:34 Is the patient allergic to Iodine/contrast media? No. 8:37:36 Is patient on blood thinner?Yes 8:37:38 ACC The patient was administered the following blood thiners within the last 24 hours: ACCPlavix 8:37:39 Patient diabetic? Yes. 8:37:40 If diabetic: On Metformin? No 8:37:44 Previous problem with sedation/anesthesia? No ? 8:37:46 Snore? Yes 8:37:46 Sleep apnea? Yes 8:37:47 Deviated septum? No 8:37:48 Opens mouth fully? Yes 8:37:49 Sticks out tongue? Yes 8:37:50 Airway obstruction? No ? 8:37:53 Dentures? Yes IN 8:37:57 Pre procedure: right dorsailis pedis pulse 2+ Normal; easily identifiable; not easily obliterated 8:37:59 Modified Kike's test Ulnar < 7 seconds 8:38:05 Patient pain scale 5/10 CHEST. 8:38:14 IV patent on arrival in left antecubital with 0.9% NaCl at O. 8:38:17 Lab results completed and on chart. 8:38:21 Right Radial & Right Groin area was prepped with chlora-prep and draped in sterile fashion 8:38:22 Alarms reviewed by R. N. 8:38:22 Sharps counted by scrub and verified by R.N. 8:38:24 Use device set Radial Dx or PCI 8:38:26 ACIST Syringe (33142) opened to sterile field. 8:38:26 Medline Cath Pack ([id number]) opened to sterile field. 8:38:27 Bag Decanter () opened to sterile field. 8:38:27 DIAGNOSTIC WIRE .035 260cm J wire (804013) opened to sterile field. 8:38:28 ACIST Hand Control (37993) opened to sterile field. 8:38:28 ACIST Manifold (28067) opened to sterile field. 8:38:29 Tegaderm 4 x 4 (1626W) opened to sterile field. 8:38:29 MBrace Wrist Support ([id number]) opened to sterile field. 8:38:30 SHEATH 6FR Slender (47-1060) opened to sterile field. 8:38:55 Oxygen 2 l/min etCO2 Nasal cannula was administered by Sg Song RN; used for procedure; 8:39:02 Lidocaine 2% 20ml vial added to field was administered by Kang Sheth MD; for local anesthetic; 8:39:07 Heparin Flush Bag (1000units/500ml NS) 2 bags added to field was administered by Kang Sheth MD; used for procedure; 8:39:15 0.9% NaCl 100 ml/hr I.V. was administered by Sg Song RN; Per physician; 8:41:24 Baseline sample Acquired. 8:51:30 Zero performed for pressure channel P1 8:51:34 Zero performed for pressure channel P1 8:52:42 Fentanyl 50 mcg I.V. was administered by Sg Song RN; for chest pain; 9:06:54 Final Timeout: patient, procedure, and site verified with staff and physician. All members of the team are in agreement. 9:06:57 Right Radial site verified by team. 9:07:19 Fire Safety Assessment: A--An alcohol-based skin anteseptic being used preoperatively., C--Open oxygen or nitrous oxide is being used., D--An ESU, laser, or fiber-optic light is being used. 9:07:22 Physical assessment completed. ASA score P 2 - A patient with mild systemic disease as per Kang Sheth MD. 9:07:25 Sedation plan: IV Moderate Sedation Medication:Versed, Fentanyl 9:07:57 Versed 2 mg I.V. was administered by Sg Song RN; for sedation; 9:08:01 Fentanyl 50 mcg I.V. was administered by Sg Song RN; for chest pain; 9:10:00 Procedure started. 9:10:05 Local anesthetic to right radial artery with Lidocaine 2% by Kang Sheth MD.INITIAL ACCESS ONLY 9:10:24 A 6 Fr Short sheath was inserted into the Right Radial artery 9:10:59 A DIAGNOSTIC Bristow 110cm 5 Fr catheter (921265) was advanced over the wire and used for LV Angiography. 9:11:17 Versed 1 mg I.V. was administered by Sg Song RN; for sedation; 9:11:21 Fentanyl 50 mcg I.V. was administered by Sg Song RN; for chest pain; 9:12:12 LV gram done using MIRACLE 9:12:19 Injector settings: Ml/sec: 7, Volume: 15, 9:12:32 EF : 60 % 9:12:54 A DIAGNOSTIC Bristow 110cm 5 Fr catheter ([id number]) was advanced over the wire and used for Right Coronary Angiography. 9:13:02 Catheter removed. 9:13:15 Use device set DOMENIC PCI 9:13:21 GUIDE 6FR XBLAD 3.5 catheter ([id number]) opened to sterile field. 9:13:32 6 Fr XBLAD 3.5 guide catheter was inserted over the wire 9:14:53 LCA angiography performed. 9:15:18 INFLATOR Merit BasixCompak (GC4310) opened to sterile field. 9:15:21 CHOICE PT Extra Support 182cm wire ([id number]) opened to sterile field. 9:15:29 Lamont [place] Eagleye IVUS Catheter (85723O) opened to sterile field. 9:16:35 CHOICE PT ES wire advanced. 9:16:39 Heparin Bolus 4000 units I.V. was administered by Sg Song RN; for anticoagulation; verified with dr sheth 9:17:45 IVUS catheter advanced over wire. 9:17:58 IVUS pass to LAD lesion performed. 9:18:15 Versed 1 mg I.V. was administered by Sg Song RN; for sedation; 9:18:19 Fentanyl 50 mcg I.V. was administered by Sg Song RN; for chest pain; 9:18:59 IVUS catheter removed over wire. 9:21:34 Place stent Inflation Number: 1 A ANDRES RX 2.5 x 18 stent ([id number]) was prepped and advanced across the Dist LAD. The stent was deployed at 17 NANCY for 0:10 (min:sec). 9::53 Inflation number: 2 The stent balloon was then re-inflated across the Dist LAD to 13 NANCY for 0:13 (min:sec). 9:22:05 Stent catheter was removed intact over wire. 9:23:42 Place stent Inflation Number: 1 A ANDRES RX 3.0 x 22 stent ([id number]) was prepped and advanced across the Prox LAD. The stent was deployed at 13 NANCY for 0:10 (min:sec). 9:23:58 Inflation number: 2 The stent balloon was then re-inflated across the Prox LAD to 13 NANCY for 0:04 (min:sec). 9:24:19 Stent catheter was removed intact over wire. 9:24:20 Wire removed. 9:24:20 Guide catheter removed. 9:24:28 Sheath removed intact; hemostasis achieved with Mechanical Compression to the Right Radial artery. 9:24:29 Procedure ended.(Physican Out) 9:24:59 TR BAND Standard ([id number]) opened to sterile field. 9:25:06 Fluoroscopy time 05.20 minutes. 9:25:08 Flurop Dose total: 770 9:25:08 Fluoroscopy dose: 770 mGy 9:25:11 Contrast amount:Isovue 300 83ml. 9:25:13 Sharps counted by scrub and verified by R.N. 9:25:15 TR band inflated with 12cc of air. 9:25:16 Insertion/operative site no bleeding no hematoma. 9:25:20 Post right radial artery:stable, clean and dry 9:25:22 Post Procedure Pulses reassessed and unchanged 9:25:24 Post-procedure physical assessment completed. ASA score P 2 - A patient with mild systemic disease as per Kang Sheth MD. 9:25:26 Post procedure rhythm: unchanged. 9:25:29 Estimated blood loss: 10 ml 9:25:31 Post procedure instruction explained to patient.Patient verbalizes understanding. 9:25:31 Patient needs reinforcement of post procedure teaching. 9:25:44 Procedure type changed to Cath procedure, Diagnostic procedure, LHC, LHC w/Coronaries, FFR/IVUS, Intra-Coronary IVUS Initial, Sedation Charges, Moderate Sedation up to 15 minutes, PCI procedure, Coronary Stent, Coronary Stent Initial 9:25:49 Procedure Complication : No complications 9:26:08 See physician's report for complete and final results. 9:26:28 Procedure and supply charges have been captured, reviewed, submitted and are correct. 9:27:12 Plavix 75 mg P.O. was administered by Sg Song RN; for antiplatelet therapy; 9:28:33 Vital chart was stopped 9:28:36 Report given to Pre/Post Procedure Room. 9:28:43 Patient transfered to Pre/Post Procedure Room with Stretcher. 9:28:54 Procedure ended. 9:28:54 Full Disclosure recording stopped 9:28:57 End room use (Document Last) Intervention Summary Intervention Notes Time ActionType Lesion and Equipment Used Action# Pressure Duration Attributes 9:21:34 Place stent Dist LAD ANDRES RX 2.5 x 1 17 00:10 18 stent ([id number]) 9:21:53 Reinflate Dist LAD ANDRES RX 2.5 x 2 13 00:13 stent 18 stent balloon ([id number]) 9:23:42 Place stent Prox LAD ANDRES RX 3.0 x 1 13 00:10 22 stent ([id number]) 9:23:58 Reinflate Prox LAD ANDRES RX 3.0 x 2 13 00:04 stent 22 stent balloon ([id number]) Device Usage Item Name Manufacture Quantity Catalog Number Hospital Part Current M inimal Lot# / Charge Number Stock Stock Serial# Code ACIST Syringe Acist 1 61506 099524 866310 137334 2 0 (34375) Medical Systems Inc Medline Cath Medline 1 [id number] 328690 46245 867467 5 Pack ([id number]) Bag Decanter Microtek 1 2001S 275437 30192 345752 5 () Medical Inc. DIAGNOSTIC St Karl 1 206947 825883 820138 483043 3 0 WIRE .035 260cm J wire (333655) ACIST Hand Acist 1 72405 227883 489860 649211 5 Control Medical (33906) Systems Inc ACIST Manifold Acist 1 80152 232107 238984 459116 5 (57302) Medical Systems Inc Tegaderm 4 x 4 3M 1 1626W 258978 894754 356168 5 (1626W) MBrace Wrist Advanced 1 140-0250-00 433500 50503 091252 5 Support Vascular ([id number]) Dynamics SHEATH 6FR Terumo 1 [id number] 798009 530670 553230 5 Slender (80-1060) DIAGNOSTIC Terumo 1 40-8053 974035 345614 737458 5 Bristow 110cm 5 Fr catheter (473839) GUIDE 6FR Cardinal 1 [id number] 443910 344117 091221 1 0 XBLAD 3.5 Health catheter (09505953) INFLATOR Merit Merit 1 CT3386 645240 897204 737794 1 5 Admittedly (LZ4415) CHOICE PT [place] 1 [id number] 864007 201356 708868 5 Extra Support Scientific 182cm wire (3445823E4) Lamont Lamont 1 82813N 284633 567743 911965 8 [place] Eagleye IVUS Catheter (33590O) ANDRES RX 2.5 x Medtronic 1 [id number] 555759 7656120 677375 5 [id number] 18 stent ([id number]) ANDRES RX 3.0 x Medtronic 1 [id number] 057886 3097712 612227 5 [id number] 22 stent ([id number]) TR BAND Terumo 1 [id number] 449909 429200 704292 4 0 Standard ([id number]) Signature Audit [place] Stage Time Signature Unsigned Intra-Procedure 06/04/2018 Denise 9:29:09 AM Counts RT(R) Signatures Monitor : Denise Signature : Counts RT Date : Time : [address] [place] [address]
[~2018-06-03 13:04] MED LIST changes: +LANTUS INSULIN10 ML SC
[2018-06-03 13:42] LABS: BASOPHILS 0.4 % (0-2); EOSINOPHILS 2.3 % (0-7); HEMATOCRIT 34.5 % (36.0-48.0); HEMOGLOBIN 10.6 g/dL (12-16); IMMATURE GRANULOCYTES 0.2 % (0-5); LYMPHOCYTES 27.6 % (15-50); MCH 24.4 pg (26.0-34.0); MCHC 30.7 g/dL (31.0-37.0); MCV 79.3 fL (80.0-100.0); MEAN PLATELET VOLUME 10.3 fL (7.4-10.4); MONOCYTES 6.6 % (2-11); NEUTROPHILS 62.9 % (40-80); PLATELET COUNT 191 10x3/uL (130-400); RBC 4.35 10x6/uL (4.00-5.40); RDW 16.3 % (11.5-14.5); WBC 5.3 10x3/uL (4.8-10.8)
[2018-06-03 13:54] LABS: ALBUMIN 3.4 g/dL (3.4-5.0); ALKALINE PHOSPHATASE 81 U/L (46-116); ALT (SGPT) 24 U/L (10-68); BILIRUBIN - TOTAL 0.45 mg/dL (0.2-1.3); CALC OSMOLALITY 286 mosm/kg (275-300); CARBON DIOXIDE 30.4 mmol/L (21.0-32.0); CHLORIDE - SERUM 103 mmol/L (98-107); POTASSIUM - SERUM 3.7 mmol/L (3.5-5.1); PROTEIN - SERUM 7.5 g/dL (6.4-8.2); SODIUM 140 mmol/L (136-145); UREA NITROGEN 17 mg/dL (7-18); eGFR NON AFRICAN AMERICAN 58 mL/min (90-120)
[2018-06-03 13:55] LABS: GLUCOSE 210 mg/dL (74-106)
[2018-06-03 14:06] LABS: CKMB 0.6 U/L (0.0-3.6); CREATINE KINASE 43 UL (21-215); MAGNESIUM - SERUM 1.3 mg/dL (1.8-2.4); TROPONIN-I < 0.017 ng/mL (0.000-0.060)
[2018-06-03 14:27] LABS: APTT 27.5 SECONDS (22.8-39.4); INR 1.16 (0.85-1.17); PROTIME 14.3 SECONDS (11.6-15.0)
[2018-06-03 16:26] VITALS: BP 145/79
--- NOTE | 2018-06-03 16:30 | NUR ---
PT QUESTIONED ABOUT HER ALLERGY TO MORPHINE AND SHE REPORTS THAT SHE GETS ITCHY WHEN SHE TAKES IT AND CAN TOLERATE MORPHINE IF GIVEN BENADRYL PRIOR TO DOSE.
[2018-06-03 18:38] VITALS: BP 137/77
--- NOTE | 2018-06-03 20:18 | NUR ---
RECEIVED FROM ER, PT IS A&O, IV-LAC-SL, PT ASKING FOR SOMETHING TO EAT AND DRINK, PROVIDED, BED IS LOW, SRX2, CALL LIGHT IN REACH, WILL CONTINUE PLAN OF CARE
[2018-06-03 21:03] VITALS: BP 131/72
[2018-06-04 00:40] VITALS: Ht 175.3 cm; Wt 103.6 kg
[2018-06-04 01:03] VITALS: BP 110/46
--- NOTE | 2018-06-04 02:59 | NUR ---
LYING IN BED WITH EYES CLOSED, CALL LIGHT IN REACH. WILL CONTINUE WITH PLAN OF CARE.
[2018-06-04 06:21] VITALS: BP 124/49
--- NOTE | 2018-06-04 07:45 | NUR ---
RECEIVED A/A/OX4. C/O OF SOME INTERMITTENT CHEST DISCOMFORT 06/23 BUT STATES IF PAIN MED IS GIVEN, SHE NEEDS BENADRYL WITH IT BECAUSE IT CAUSES ITCHING. LET HER KNOW I WOULD SEE IF SHE COULD HAVE THE BENDADRYL. REMAINS NPO FOR CATH THIS AM AND VERBALIZES UNDERSTANDING. NO OTHER C/O OR REQUESTS. WILL CONTINUE WITH POC.
--- NOTE | 2018-06-04 08:22 | NUR ---
CATH ORDER IN. CONSENTS SIGNED AND PREOP FOR HEAD START DIRECTOR.
--- NOTE | 2018-06-04 08:30 | NUR ---
TO [facility] VIA BED. PREOP ORDERED AND GIVEN WHICH INCLUDED BENADRYL WHICH SHE HAD REQUESTED EARLIER.
[2018-06-04 09:06] VITALS: BP 127/59
--- NOTE | 2018-06-04 09:30 | HP ---
PATIENT: WALLY LYNCH MEDICAL RECORD: [id number] ACCOUNT: [id number] LOCATION:[facility] D.2110 : 47 ADMISSION DATE: 06/03/18 PCP: ANGI LAINEZ MD HISTORY AND PHYSICAL EXAMINATION DATE OF ADMISSION: 06/03/2018 DIAGNOSES: 1. Unstable angina. 2. Coronary artery disease. 3. Previous percutaneous transluminal coronary angioplasty stent. 4. Hypertension. 5. Obesity. 6. Hyperlipidemia. HISTORY OF PRESENT ILLNESS: Mrs. Lynch presents with chest discomfort in an escalating fashion since last Sunday. She has a history of cardiac stents times 5. The pain is just like that of her previous angina. Last stenting was 3 years ago. Her EKG is with nonspecific ST-T abnormalities. Her troponin is normal. She continues to have the chest pain. PHYSICAL EXAMINATION: GENERAL APPEARANCE: Well-nourished, well-developed, appears stated age. Level of distress, comfortable. PSYCHIATRIC: Mental status, alert, normal affect. Orientation, oriented to time, place and person. EYES: Lids and conjunctiva, noninjected. No discharge, no pallor. ENT: Lips, teeth, gums, normal dentition. Oropharynx, no cyanosis, no pallor. NECK: Carotid arteries, bilateral normal upstroke, no bruits, no thrills. JUGULAR VEINS: No jugular venous pressure or distention. CERVICAL LYMPH NODES: Nontender, nonenlarged. THYROID: Not enlarged. Nontender. No nodules. LUNGS: Respiratory effort, unlabored. CHEST: Normal curvature. No thoracic deformity. No chest wall tenderness. Percussion, resonant. Auscultation, clear. No wheezes, no rales, no rhonchi. CARDIOVASCULAR: Precordial exam, nondisplaced. No heaves or pericardial thrills. Rate and rhythm, regular. Heart sounds, normal S1, normal S2. No S3, no gallop, no rub. Systolic murmur, not heard. Diastolic murmur, not heard. EXTREMITIES: No cyanosis, no edema. Peripheral pulses, full and equal in all extremities, except as noted. No bruits appreciated. ABDOMEN: Soft, nondistended. Normal aorta. No bruit. Nontender. No masses. Liver, nontender, no hepatomegaly. Spleen, nontender, no splenomegaly. MUSCULOSKELETAL: No joint tenderness. No joint swelling. No erythema. NEUROLOGICAL: Normal gait, normal strength, normal tone. SKIN: Warm and dry. OVERALL IMPRESSION: Escalating unstable angina in a patient with a past history of multivessel coronary artery disease and previous stenting. We will proceed with coronary angiography. Further care depends upon the findings of the angiography. TRANSINT:[id number] Voice Confirmation ID: [id number] DOCUMENT ID: [id number] HISTORY AND PHYSICAL [id number] WALLY LYNCH JEFFREY MD at 0930 CC: [id number] DICTATION DATE: 06/04/18 0756 SUPERVISOR FERTILIZER: 06/04/[address] [facility] [address] [id number]
--- NOTE | 2018-06-04 09:45 | NUR ---
INFORMED PT WILL BE DISCHARGED FROM DOORS PREFITTER AND PERSONAL BELONGINGS TAKEN TO CATH HOLDING AREA.
--- NOTE | 2018-06-04 09:55 | NUR ---
ECHO BEING DONE AT THIS TIME. PATIENT AWAKE, VSS ON 2L NC. RIGHT TR BAND IN PLACE, NO S/S OF BLEEDING OR HEMATOMA. NO C/O PAIN, NUMBNESS, OR TINGLING.
--- NOTE | 2018-06-04 10:25 | NUR ---
PATIENT AWAKE, HEAD OF BED AT 45 DEGREES. VSS ON 1L NC. RIGHT TR BAND IN PLACE, NO S/S OF BLEEDING OR HEMTOMA. PATIENT DRINKING SPRITE AND EATING TURKEY SANDWICH, NO N/V.
--- NOTE | 2018-06-04 10:55 | NUR ---
PATIENT EATING AND DRINKING, NO N/V. RIGHT TR BAND IN PLACE, NO S/S OF BLEEDING OR HEMATOMA. NO C/O PAIN,NUMBNESS, OR TINGLING. VSS ON 1L NC.
[2018-06-04] MEDS ORDERED: PLAVIX75 MG PO (11:12)
--- NOTE | 2018-06-04 11:25 | NUR ---
PATIENT SPOKE WITH FAMILY AND FRIENDS, SON IS ONLY AVAILABLE TO PICK PATIENT UP AT 1600 THIS AFTERNOON. WILL SPEAK WITH STAMPING BENCH DIE MAKER IN REGARDS TO POSSIBLE TAXI VOUCHER FOR PATIENT. VSS ON 1L NC. RIGHT TR BAND IN PLACE,NO S/S OF BLEEDING OR HEMATOMA.
--- NOTE | 2018-06-04 11:55 | NUR ---
PATIENT RESTING, VSS ON 1L NC. NO C/O PAIN, NUMBNESS, OR TINGLING. RIGHT TR BAND IN PLACE, NO S/S OF BLEEDING OR HEMATOMA.
--- NOTE | 2018-06-04 12:25 | NUR ---
PATIENT RESTING. BEGIN AIR REMOVAL PROTOCOL OF TR BAND, 3CC REMOVED, SMALL AMOUNT OF BLEEDING NOTED, 3CC OF AIR REPLACED. NO FURTHER S/S OF BLEEDING OR HEMATOMA. VSS ON 1L NC.
--- NOTE | 2018-06-04 12:55 | NUR ---
3CC OF AIR REMOVED FROM TR BAND, NO S/S OF BLEEDING OR HEMATOMA. PATIENT RESTING, VSS ON 1L NC.
--- NOTE | 2018-06-04 13:25 | NUR ---
PATIENT RESTING, VSS ON 1L NC. RIGHT TR BAND IN PLACE, 3CC OF AIR REMOVED WITH NO S/S OF BLEEDING OR HEMATOMA.
--- NOTE | 2018-06-04 13:55 | NUR ---
PATIENT RESTING, 2CC OF AIR REMOVED FROM TR BAND, SMALL AMOUNT OF BLOOD NOTED, 2CC OF AIR REPLACED. NO FURTHER S/S OF BLEEDING OR HEMATOMA. VSS ON 1L NC.
--- NOTE | 2018-06-04 14:25 | NUR ---
PATIENT AWAKE, 2CC OF AIR REMOVED FROM RIGHT TR BAND, NO S/S OF BLEEDING OR HEMATOMA. VSS ON ROOM AIR.
--- NOTE | 2018-06-04 14:55 | NUR ---
PATIENT TAKEN VIA WHEELCHAIR TO BATHROOM, PATIENT VOIDED WITHOUT DIFFICULTY. VSS ON ROOM AIR. RIGHT TR BAND IN PLACE, 2CC OF AIR REMOVED WITH NO S/S OF BLEEDING OR HEMATOMA.
--- NOTE | 2018-06-04 15:25 | NUR ---
PATIENT AWAKE, REMAINING AIR REMOVED FROM TR BAND. DRESSING APPLIED, NO S/S OF BLEEDING OR HEMATOMA. IV REMOVED. EDUCATION REGARDING DISCHARGE INSTRUCTIONS AND MEDICATION GIVEN TO PATIENT, ALL QUESTIONS ANSWERED. VSS ON ROOM AIR.
--- NOTE | 2018-06-04 15:40 | NUR ---
PATIENT TRANSPORTED VIA WHEELCHAIR TO CAR WITH SON DRIVING, ALL BELONGINGS WITH PATIENT.
[2018-06-05] MEDS ORDERED: TORADOL10 MG PO (14:46)
--- NOTE | 2018-06-11 11:18 | OP ---
PATIENT NAME: WALLY FAY MEDICAL RECORD: [id number] :47 LOCATION[facility] ADMISSION DATE:06/03/18 SURGEON: FLAKITA KEMP MD DATE OF OPERATION: 06/04/2018 PROCEDURES: 1. PTCA stent LAD. 2. Intravascular ultrasound. 3. Left heart catheterization. 4. Selective coronary angiography. 5. Left ventriculogram. INDICATION: Angina and coronary artery disease. PROCEDURE IN DETAIL: After informed consent was obtained and after a detailed description of the risks, benefits as well as alternative therapies, the patient elected to proceed with angiogram and angioplasty. The right radial area was prepped and draped in normal sterile fashion. Right radial artery was cannulated via modified Seldinger technique with placement of 6-Algerian sheath. All catheters exchanged through this sheath. FINDINGS: The left ventriculogram was performed in standard 30-degree BAI view, reveals good cardiac wall motion throughout all segments. Overall ejection fraction estimated at 55%. SELECTIVE CORONARY ANGIOGRAPHY: 1. Left main is with no significant angiographic disease. 2. Left anterior descending has previously placed stents. The stents are widely patent; however, intravascular ultrasound reveals that there is greater than 80% stenosis in the area between the stents. 3. The left circumflex has mild irregularities, but no flow-limiting stenosis. 4. The right coronary has mild irregularities, but no flow-limiting stenosis. PTCA STENT OF THE LAD: Stents used were 2.5 x 18 and 3.0 x 22, both [place] stents. Result was 0% residual stenosis. OVERALL IMPRESSION: Successful PTCA stent of the LAD going from greater than 80% initial stenosis times 2 to 0% residual. TRANSINT:[id number] Voice Confirmation ID: [id number] DOCUMENT ID: [id number] FLAKITA KEMP MD at 1118 CC: [id number] DICTATION DATE: 06/04/18929 DENTAL APPLIANCE REPAIRER: 06/04/18 1153 DIS IN 06/04/18 [place] [id number]
--- NOTE | 2018-06-11 11:18 | DS ---
PATIENT:WALLY LYNCH :47 MEDICAL RECORD: [id number] DISCHARGE SUMMARY ADMISSION DATE: 06/03/18 DISCHARGE DATE: 06/04/18 DISCHARGE DIAGNOSES: 1. Unstable angina. 2. Percutaneous transluminal coronary angioplasty stent left anterior descending this admission. 3. Coronary artery disease. 4. Hypertension. 5. Hyperlipidemia. HOSPITAL COURSE: Mrs. Lynch presents with anginal symptomatology, found to have significant disease of the LAD, underwent successful PTCA stent of the LAD, was discharged to home with the addition of aspirin and Plavix to her medical regimen. She will follow up with [facility] in 1 month. TRANSINT:[id number] Voice Confirmation ID: [id number] DOCUMENT ID: [id number] FLAKITA KEMP MD at 1118 CC: [id number] DICTATION DATE: 06/04/18927 LICENSING ENGINEER: 06/05/18 0137 DIS IN 06/04/[id number] [place] [address]
--- NOTE | 2018-06-11 11:18 | EC ---
PATIENT:WALLY FAY DATE OF SERVICE: 06/03/18 SEX: F MEDICAL RECORD: [id number] DATE OF : 47 [facility] AGE OF PATIENT: 72 ADMISSION DATE: 06/03/18 REFERRING PHYSICIAN: INTERPRETING PHYSICIAN: FLAKITA SHETH MD ECHOCARDIOGRAM REPORT ECHO CHARGES 4 ECHO COMPLETE Date: 06/04/18 CLINICAL DIAGNOSIS: SOB HX CAD/STENTS ECHOCARDIOGRAPHIC MEASUREMENTS (adult normal given) AC root (d.<3.7cm) 3.1 cm LV Septum d (<1.2 cm> 1.6 cm Valve Excursion 1.4 cm LV Septum (systole) 1.8 cm Left Atria (s.<4.0cm> 4.0 cm LVPW d(<1.2cm) 1.5 cm RV (d.<2.3cm) 4.4 cm LVPW (sytole) 1.9 cm LV diastole(<5.6CM) 5.1 cm MV E-F(>70mm/sec) cm LV systole 3.3 cm LVOT Diameter 1.8 cm MV exc.(>10mm) 1.3 cm Est.ejection fraction (50-75%) % DOPPLER: LVIT cm/sec A 115 cm/sec E 132 cm/sec LA cm/sec RVSP 18 mmHg LVOT 104 cm/sec AOP1/2T m/s Asc. Ao 151 cm/sec RVOT 88 cm/sec RA cm/sec PA 121 cm/sec AV Gradient Peak 9.10 mmHg AV Mean 4.99 mmHg AV Area 2.3 cm MV Gradient Peak 9.45 mmHg MV Mean 4.33 mmHg MV Area cm COMMENTS: Merchandise Flow Team Member: Saji CABRALES Grain Cleaner: 1 Dr. Sheth TAPE# PACS Pericardial Effusion N DATE OF SERVICE: 06/04/2018 FINDINGS: 1. Left ventricular chamber size is within normal limits. Left ventricular systolic function is normal. Overall ejection fraction estimated at 55%. 2. Left atrium is upper limits of normal at 4.0 cm. Right atrium and right ventricular chamber sizes are mildly dilated. 3. Valvular structures have normal structure and motion. 4. Doppler interrogation reveals mild mitral regurgitation, trace tricuspid regurgitation. No other valvular insufficiency or stenosis. Pulmonary systolic ECHOCARDIOGRAM REPORT [id number] WALLY FAY pressure is estimated at 18 mmHg. 5. No evidence of pericardial effusion or left ventricular thrombus. TRANSINT:[id number] Voice Confirmation ID: [id number] DOCUMENT ID: [id number] FLAKITA SHETH MD at 1118 CC: [id number] DICTATION DATE: 06/04/18 1155 RADIOLOGY INTERVENTIONAL PHYSICIAN: 06/04/18 1311 DIS IN 06/04/18 [id number] [place] [id number]
== END 2018-06-04 15:40 | disposition home or self-care (01) ==
LOC: D.ER 13:04 → D.EDHOLD 17:38 → D.CLR 17:38 → OBSVTIME 17:39 → D.M2 19:03 → D.CLR 06-04 09:40
PROVIDERS: Emergency Medicine; ADMIT Internal Medicine Interventional Cardiology
DX: I25.110 Atherosclerotic heart disease of native coronary artery with unstable angina pectoris (principal); I10 Essential (primary) hypertension; E78.5 Hyperlipidemia, unspecified; E66.9 Obesity, unspecified
CPT/HCPCS: 93458; 92978; C9600

== ENCOUNTER 2018-06-05 11:21 | Emergency (ER) | payer MEDICARE, BC ==
[~2018-06-05] VITALS: Ht 175.3 cm; Wt 102.3 kg
[~2018-06-05 11:21] MED LIST changes: +PLAVIX75 MG PO
[2018-06-05 11:24] VITALS: BP 110/75; Ht 175.3 cm; Wt 102.3 kg
[2018-06-05 12:03] LABS: BASOPHILS 0.4 % (0-2); EOSINOPHILS 2.5 % (0-7); HEMATOCRIT 34.3 % (36.0-48.0); HEMOGLOBIN 10.8 g/dL (12-16); IMMATURE GRANULOCYTES 0.2 % (0-5); LYMPHOCYTES 34.2 % (15-50); MCH 24.5 pg (26.0-34.0); MCHC 31.5 g/dL (31.0-37.0); MEAN PLATELET VOLUME 10.2 fL (7.4-10.4); MONOCYTES 5.9 % (2-11); NEUTROPHILS 56.8 % (40-80); PLATELET COUNT 187 10x3/uL (130-400); RDW 16.5 % (11.5-14.5); WBC 5.6 10x3/uL (4.8-10.8)
[2018-06-05 12:22] LABS: APTT 26.1 SECONDS (22.8-39.4); INR 1.09 (0.85-1.17); PROTIME 13.6 SECONDS (11.6-15.0)
[2018-06-05 12:23] LABS: ALBUMIN 3.3 g/dL (3.4-5.0); ALKALINE PHOSPHATASE 91 U/L (46-116); ALT (SGPT) 22 U/L (10-68); BILIRUBIN - TOTAL 0.67 mg/dL (0.2-1.3); CALC OSMOLALITY 285 mosm/kg (275-300); CHLORIDE - SERUM 102 mmol/L (98-107); GLUCOSE 130 mg/dL (74-106); POTASSIUM - SERUM 4.1 mmol/L (3.5-5.1); PROTEIN - SERUM 7.5 g/dL (6.4-8.2); SODIUM 141 mmol/L (136-145); UREA NITROGEN 21 mg/dL (7-18); eGFR NON AFRICAN AMERICAN 58 mL/min (90-120)
[2018-06-05 12:33] LABS: CKMB 0.8 U/L (0.0-3.6); CREATINE KINASE 42 UL (21-215); MAGNESIUM - SERUM 1.6 mg/dL (1.8-2.4)
[2018-06-05] MEDS ORDERED: TORADOL10 MG PO (14:46)
--- NOTE | 2018-06-11 11:18 | CN ---
PATIENT NAME:WALLY LYNCH MEDICAL RECORD: [id number] : 47 LOCATION:[facility] ADMIT DATE: ACCOUNT: [id number] CONSULTING PHYSICIAN: FLAKITA KEMP MD REFERRING PHYSICIAN: TIAGO NORTON MD DATE OF CONSULTATION: 06/05/2018 CARDIOLOGY CONSULTATION ADMITTING DIAGNOSES: 1. Chest pain. 2. Coronary artery disease. 3. Recent percutaneous transluminal coronary angioplasty stent. 4. Hypertension. 5. Hyperlipidemia. 6. Gastroesophageal reflux disease. HISTORY OF PRESENT ILLNESS: Mrs. Lynch presents with recurrent chest pain. She presented yesterday with chest pain, found to have 80% stenosis of the LAD. No concomitant disease of significance of the right and circumflex, underwent PTCA stent. She continued to have the episodes of pain, it sounds more like GERD. She has a history of GERD. She is on omeprazole for this. Her EKG is with no ST-T changes. PHYSICAL EXAMINATION: GENERAL APPEARANCE: Well-nourished, well-developed, appears stated age. Level of distress, comfortable. PSYCHIATRIC: Mental status, alert, normal affect. Orientation, oriented to time, place and person. EYES: Lids and conjunctiva, noninjected. No discharge, no pallor. ENT: Lips, teeth, gums, normal dentition. Oropharynx, no cyanosis, no pallor. NECK: Carotid arteries, bilateral normal upstroke, no bruits, no thrills. JUGULAR VEINS: No jugular venous pressure or distention. CERVICAL LYMPH NODES: Nontender, nonenlarged. THYROID: Not enlarged. Nontender. No nodules. LUNGS: Respiratory effort, unlabored. CHEST: Normal curvature. No thoracic deformity. No chest wall tenderness. Percussion, resonant. Auscultation, clear. No wheezes, no rales, no rhonchi. CARDIOVASCULAR: Precordial exam, nondisplaced. No heaves or pericardial thrills. Rate and rhythm, regular. Heart sounds, normal S1, normal S2. No S3, no gallop, no rub. Systolic murmur, not heard. Diastolic murmur, not heard. EXTREMITIES: No cyanosis, no edema. Peripheral pulses, full and equal in all extremities, except as noted. No bruits appreciated. ABDOMEN: Soft, nondistended. Normal aorta. No bruit. Nontender. No masses. Liver, nontender, no hepatomegaly. Spleen, nontender, no splenomegaly. MUSCULOSKELETAL: No joint tenderness. No joint swelling. No erythema. NEUROLOGICAL: Normal gait, normal strength, normal tone. SKIN: Warm and dry. OVERALL IMPRESSION: Recurrent chest pain. No other blockages need fixing on review of the cardiac catheterization film, most likely this is GERD with center medical management on treatment of the GERD. TRANSINT:[id number] Voice Confirmation ID: [id number] DOCUMENT ID: [id number] CONSULT REPORT [id number] WALLY LYNCH JEFFREY MD at 1118 CC: [id number] DICTATION DATE: 06/05/18 1233 CHAMBER OF [employer] DIVISION MANAGER: 06/05/18 1324 DEP ER 06/05/[address] [id number]
== END 2018-06-05 18:11 | disposition home or self-care (01) ==
LOC: D.ER 11:21
PROVIDERS: Emergency Medicine
DX: K21.0 Gastro-esophageal reflux disease with esophagitis (principal)

== ENCOUNTER → 2018-07-08 10:27 | Outpatient (CLI) | payer MEDICARE, BC ==
[2018-06-05 11:24] VITALS: BMI 33.3
[~2018-07-08 10:27] MED LIST changes: +TORADOL10 MG PO
== END | disposition home or self-care (01) ==
LOC: D.RT 10:27
PROVIDERS: ATTEND Internal Medicine Pulmonary Disease
DX: J84.112 Idiopathic pulmonary fibrosis (principal)

== ENCOUNTER → 2018-07-23 12:35 | Outpatient (CLI) | payer MEDICARE, BC ==
[2018-06-05 11:24] VITALS: BMI 33.3
== END | disposition home or self-care (01) ==
LOC: D.CT 12:35
PROVIDERS: ATTEND Surgery
DX: E27.8 Other specified disorders of adrenal gland (principal)

== ENCOUNTER → 2018-07-26 07:56 | Outpatient (CLI) | payer MEDICARE, BC ==
[2018-06-05 11:24] VITALS: BMI 33.3
== END | disposition home or self-care (01) ==
LOC: D.MRI 07:56
PROVIDERS: ATTEND Clinical Nurse Specialist Family Health
DX: M54.16 Radiculopathy, lumbar region (principal)

== ENCOUNTER 2018-09-30 10:36 | Outpatient (CLI) | payer MEDICARE, BC ==
[~2018-09-30] VITALS: Ht 175.3 cm; Wt 106.8 kg
--- NOTE | ~2018-09-30 | HEMODYNAMI ---
PATIENT:WALLY FAY MEDICAL RECORD: [id number] : 47 LOCATION:D.CAT ADMISSION DATE: 09/30/18 Generatedon:09/30/201813:33 Patient name: WALLY FAY Patient #: [id number] : 1945 Date of study: 09/30/2018 Page: Of Hemodynamic Procedure Report Patient Data Patient Demographics Procedure consent was obtained First Name: WALLY Gender: Female Last Name: NYA : 1945 Middle Initial: DIANA Age: 73 year(s) Patient #: [id number] Race: SSN: [id number] Additional ID: [id number] Contact details [address]: [address] [place] [address] State: [place] City: [place] Zip code: [address] Past Medical History Allergies Allergen Reaction Date Comments Reported Other allergy 12/30/2015 MARCELO,Tape, Hydrocodone, Reglan, Sulfa, Morphine Other allergy 02/11/2016 Sulfa, Morphine, Hydrocodone, Reglan, MARCELO Inhibitors, tape Other allergy 03/19/2016 Marcelo Inhibitors, Sulfa, Hydrocodone, Morphine, Acetametaphen, Metoclopramide, Adhesive Tape MARCELO inhibitors 06/15/2016 Sulfa drugs 06/15/2016 Adhesive tape 06/15/2016 Other allergy 06/15/2016 amlodipine, reglan, hydrocodone Other allergy 06/04/2018 ADHESIVE TAPE, HYDROCODONE, MORPHINE, REGLAN, SULFA, VICODIN, MEPERIDINE, OXYCODONE, ACETAMINOPHEN, METOCLOPRAMIDE Adhesive tape 06/04/2018 MARCELO inhibitors 06/04/2018 Admission Admission Data Admission Date: 09/30/2018 Admission Time: 10:36 Height (in.): 68.9 BSA: 2.2 (m2) Height (cm.): 175 BMI: 34.61 (kg/m2) Weight (lbs.): 233.69 Weight (kg.): 106 Procedure Procedure Types Cath Procedure Diagnostic Procedure [facility] w/Coronaries Procedure Description Procedure Date Procedure Date: 09/30/2018 Procedure Start Time: 13:17 Procedure End Time: 13:30 Procedure Staff Name Function Ye Cuevas MD Performing Physician Kenyatta Preciado RT Monitor Myla Enciso RT Scrub Nurys Cleary RN Nurse Procedure Data Cath Procedure Fluoroscopy Diagnostic fluoroscopy Total fluoroscopy Time: 2.3 time: 2.3 min min Diagnostic fluoroscopy Total fluoroscopy dose: 862 dose: 862 mGy mGy Contrast Material Contrast Material Type Amount (ml) Isovue 300 59 Entry Location Entry Primary Successful Side Size Upsize Upsize Entry Closure Luna ccessful Closure Location (Fr) 1 (Fr) 2 (Fr) Remarks Device Remarks Radial Right 6 Fr Manual artery Short Compression Estimated blood loss: 10 ml Diagnostic catheters Device Type Used For End Catheter Placement DIAGNOSTIC Cocoa 110cm 5 Procedure Fr catheter ([id number]) Procedure Complications No complications Procedure Medications Medication Administration Route Dosage 0.9% NaCl I.V. 100 ml/hr Oxygen etCO2 Nasal cannula 2 l/min Lidocaine 2% added to field 20 Heparin Flush Bag added to field 2 bags (1000units/500ml NS) Radial Cocktail added to field 1 syringe (Verapamil 2mg/Nitro 400mcg/Heparin 1500units) Versed I.V. 2 mg Fentanyl I.V. 50 mcg Hemodynamics Rest BSA: 2.2 (m2) O2 Consumption: Estimated: 202.83 (ml/min) O2 Consumption indexed: Estimated:92.2 (ml/min/m) Heart Rate: 71 (bpm) Pressure Samples Time Site Value (mmHg) Purpose Heart Use Rate(bpm) 13:24 LV 130/1,18 Snapshot 71 13:24 LV 137/2,12 Snapshot 64 Gradients Valve Time Site Site Mean SEP/DFP Peak To Heart Use 1 2 (mmHg) (sec/min) Peak Rate (mmHg) (bpm) Aortic 13:24 LV AO 56 Snapshots Pre Cath Intra NCS Post Cath Vital Signs Time Heart Resp SPO2 etCO2 NIBP (mmHg) Rhythm Pain Sedation Rate (ipm) (%) (mmHg) Status Level (bpm) 13:11:30 72 12 90 36.6 202/96(141) NSR 0 (11) 10(A) , No pain 13:16:20 67 16 98 29.9 182/96(126) NSR 0 (11) 9(A) , No pain 13:21:07 67 16 98 33.7 181/85(149) NSR 0 (11) 9(A) , No pain 13:25:48 68 17 98 34.4 153/80(119) NSR 0 (11) 9(A) , No pain 13:30:20 75 19 99 33.6 165/89(124) NSR 0 (11) 10(A) , No pain Medications Time Medication Route Dose Verified Delivered Reason Notes E ffectiveness by by 13:11:48 0.9% NaCl I.V. 100 Ye Nurys used for ml/hr Mason Cleary assistant professor of art 13:11:54 Oxygen etCO2 2 l/min Ye Nurys used for Nasal Mason Cleary procedure cannula RN 13:11:59 Lidocaine 2% added 20ml Ye Ye for local to vial Mason Cuevas MD anesthetic field 13:12:03 Heparin Flush added 2 bags Ye Ye used for Bag to Mason Cuevas MD procedure (1000units/500ml field NS) 13:12:15 Versed I.V. 2 mg Ye Nurys for Mason Cleary sedation RN 13:12:24 Fentanyl I.V. 50 mcg Ye Nurys for Mason Cleary sedation RN 13:15:23 Radial Cocktail added 1 Ye Ye used for (Verapamil to syringe Mason Cuevas MD procedure 2mg/Nitro field 400mcg/Heparin 1500units) Procedure Log Time Note 12:50:22 Myla Enciso RT(R) sent for patient. Start room use. 12:59:34 Diagnostic Cath Status : Elective 13:00:27 Time tracking: Regular hours (M-F 7:00 - 5:00) 13:00:32 Plan of Care:Hemodynamics will remain stable., Cardiac rhythm will remain stable., Comfort level will be maintained., Respiratory function will remain adequate., Patient/ family verbilizes understanding of procedure., Procedure tolerated without complication., Recovers from procedure without complications.. 13:05:18 Patient received from Pre/Post Procedure Room to [facility] 2 Alert and oriented. Tansferred to table in Supine position. 13:06:57 Pt SpO2 87% on RA upon arrival to . Pt states she wears 2LNC at home PRN. Will apply 2LNC and continue to monitor. 13:08:19 Warm blankets applied, and wendy hugger turned on for patient comfort. 13:08:20 Correct patient and procedure confirmed by team. 13:08:21 Signed procedure consent form obtained from patient. 13:08:22 ECG and BP/O2 sat monitors applied to patient. 13:08:23 Vital chart was started 13:08:50 Rhythm: sinus rhythm 13:08:51 Full Disclosure recording started 13:09:02 H&P Date Dictated: 09/12/2018 Within 30 days and on chart., H&P Addendum completed by physician on day of procedure. (MUST COMPLETE FOR ALL OUTPATIENTS). 13:09:04 Pre-procedure instructions explained to patient. 13:09:04 Pre-op teaching completed and patient verbalized understanding. 13:09:06 Family unavailable. 13:09:07 Patient NPO since Midnight. 13:09:08 Is the patient allergic to Iodine/contrast media? No. 13:09:10 Is patient on blood thinner?Yes 13:09:13 ACC The patient was administered the following blood thiners within the last 24 hours: ACCPlavix 13:09:16 Patient diabetic? Yes. 13:09:17 If diabetic: On Metformin? Yes 13:09:24 If on Metformin: Last Dose? 09/28/2018 13:09:28 Previous problem with sedation/anesthesia? No ? 13:09:30 Snore? Yes 13:09:31 Sleep apnea? Yes 13:09:33 Deviated septum? No 13:09:34 Opens mouth fully? Yes 13:09:35 Sticks out tongue? Yes 13:09:51 Airway obstruction? No ? 13:09:55 Dentures? Yes IN 13:10:54 Pre procedure: right dorsailis pedis pulse 1+ Palpable, but thready & weak; easily obliterated 13:10:57 Modified Kike's test Ulnar < 7 seconds 13:10:59 Patient pain scale 0/10 ?. 13:11:08 IV patent on arrival in left forearm with 0.9% NaCl at O. 13:11:11 Lab results completed and on chart. 13:11:15 Right Radial & Right Groin area was prepped with chlora-prep and draped in sterile fashion 13:11:17 Alarms reviewed by Marybeth John 13:11:17 Sharps counted by scrub and verified by R.N. 13::35 --------ALL STOP TIME OUT------ 13::35 Final Timeout: patient, procedure, and site verified with staff and physician. All members of the team are in agreement. 13:11:38 Right Radial & Right Groin site verified by team. 13:11:41 Maximum allowable Isovue 370 dose 300ml. Physician notified. (300ml for normal creatinines. For patients with creatinine of 1.7 or higher multiply weight(kg) x 5 divided by creatinine.) 13:11:48 0.9% NaCl 100 ml/hr I.V. was administered by Nurys Cleary RN; used for procedure; 13:11:54 Oxygen 2 l/min etCO2 Nasal cannula was administered by Nurys Cleary RN; used for procedure; 13:11:59 Lidocaine 2% 20ml vial added to field was administered by Ye Cuevas MD; for local anesthetic; 13:12:03 Heparin Flush Bag (1000units/500ml NS) 2 bags added to field was administered by Ye Cuevas MD; used for procedure; 13:12:15 Versed 2 mg I.V. was administered by Nurys Cleary RN; for sedation; 13:12:20 Fire Safety Assessment: A--An alcohol-based skin anteseptic being used preoperatively., C--Open oxygen or nitrous oxide is being used., D--An ESU, laser, or fiber-optic light is being used. 13:12:24 Fentanyl 50 mcg I.V. was administered by Nurys Cleary RN; for sedation; 13:13:02 Physical assessment completed. ASA score P 2 - A patient with mild systemic disease as per Ye Cuevas MD. 13:13:05 Sedation plan: IV Moderate Sedation Medication:Versed, Fentanyl 13:15:23 Radial Cocktail (Verapamil 2mg/Nitro 400mcg/Heparin 1500units) 1 syringe added to field was administered by Ye Cuevas MD; used for procedure; 13:16:24 Patient Height : 68.9 inches 13:16:29 Patient Weight : 233.69 lbs 13:16:37 Use device set Femoral Dx 13:16:39 Procedure started. 13:17:54 Local anesthetic to right radial artery with Lidocaine 2% by Ye Cuevas MD.INITIAL ACCESS ONLY 13:17:55 ACIST Syringe (79411) opened to sterile field. 13:17:55 Bag Decanter () opened to sterile field. 13:17:56 Medline Cath Pack ([id number]) opened to sterile field. 13:17:56 DIAGNOSTIC WIRE .035 260cm J wire (449987) opened to sterile field. 13:17:58 ACIST Hand Control (89187) opened to sterile field. 13:17:58 ACIST Manifold (88517) opened to sterile field. 13:18:02 Tegaderm 4 x 4 (1626W) opened to sterile field. 13:18:14 Use device set Radial Dx or PCI 13:18:17 SHEATH 6FR Slender (80-9573) opened to sterile field. 13:18:23 NEEDLE Cook 21G 4cm Radial ([id number]) opened to sterile field. 13:18:25 MBrace Wrist Support ([id number]) opened to sterile field. 13:19:41 A 6 Fr Short sheath was inserted into the Right Radial artery 13:21:37 A DIAGNOSTIC Cocoa 110cm 5 Fr catheter (145643) was advanced over the wire and used for Procedure. 13:22:03 Zero performed for pressure channel P1 13:22:20 J wire advanced. 13:23:43 LV angiography performed. 13:24:29 EF : 60 % 13:25:20 LCA angiography performed. 13:26:23 RCA angiography performed. 13:28:04 Catheter removed. 13:28:55 Sheath removed intact; hemostasis achieved with Manual Compression to the Right Radial artery. 13:29:11 TR BAND Standard ([id number]) opened to sterile field. 13:29:16 Procedure ended.(Physican Out) 13:29:30 Fluoroscopy time 02.30 minutes. 13:29:34 Flurop Dose total: 862 13:29:34 Fluoroscopy dose: 862 mGy 13:29:40 Contrast amount:Isovue 300 59ml. 13:29:42 Sharps counted by scrub and verified by R.N. 13:29:46 TR band inflated with 10cc of air. 13:29:47 Insertion/operative site no bleeding no hematoma. 13:29:54 Post Procedure Pulses reassessed and unchanged 13:29:59 Post-procedure physical assessment completed. ASA score P 2 - A patient with mild systemic disease as per Ye Cuevas MD. 13:30:04 Post procedure rhythm: unchanged. 13:30:07 Estimated blood loss: 10 ml 13:30:09 Post procedure instruction explained to patient.Patient verbalizes understanding. 13:30:16 Procedure and supply charges have been captured, reviewed, submitted and are correct. 13:30:35 Procedure Complication : No complications 13:30:37 Vital chart was stopped 13:30:39 See physician's report for complete and final results. 13:30:42 Patient transfered to Pre/Post Procedure Room with Stretcher. 13:30:45 Procedure ended. 13:30:45 Full Disclosure recording stopped 13:30:48 End room use (Document Last) Device Usage Item Name Manufacture Quantity Catalog Hospital Part Current Minimal Lot# / Number Charge Number Stock Stock Serial# Code ACIST Acist 1 44161 053293 597423 108309 20 Syringe Medical (70076) Systems Inc Bag Microtek 1 406807 92777 640137 5 Decanter Medical Inc. () Medline Medline 1 [id number] 716687 21804 300625 5 Cath Pack ([id number]) DIAGNOSTIC St Karl 1 718215 406107 579582 040805 30 WIRE .035 260cm J wire (461913) ACIST Hand Acist 1 69194 019466 046962 127659 5 Control Medical (13372) Systems Inc ACIST Acist 1 98741 664016 413288 121729 5 Manifold Medical (79482) Systems Inc Tegaderm 4 3M 1 1626W 590066 570380 172036 5 x 4 (1626W) SHEATH 6FR Terumo 1 [id number] 215162 101672 128290 5 Slender (80-1060) NEEDLE Cook Cook Medical 1 [id number] 847038 164730 416143 5 21G 4cm Radial (S28219) MBrace Advanced 1 140-0250-00 444731 07761 073212 5 Wrist Vascular Support Dynamics ([id number]) DIAGNOSTIC Terumo 1 40-7793 743657 785740 203727 5 Cocoa 110cm 5 Fr catheter (566045) TR BAND Terumo 1 [id number] 418925 178572 666879 40 Standard ([id number]) Signature Audit [place] Stage Time Signature Unsigned Intra-Procedure 09/30/2018 Kenyatta Preciado 1:33:49 PM RT(R) Signatures Monitor : Kenyatta Preciado Signature : RT Date : Time : [address] [address]
[2018-09-30 10:59] VITALS: BP 166/78; Ht 175.3 cm; Wt 106.8 kg
[2018-09-30 11:10] LABS: BASOPHILS 0.4 % (0-2); EOSINOPHILS 2.4 % (0-7); HEMATOCRIT 34.5 % (36.0-48.0); HEMOGLOBIN 10.8 g/dL (12-16); IMMATURE GRANULOCYTES 0.2 % (0-5); LYMPHOCYTES 32.2 % (15-50); MCH 24.5 pg (26.0-34.0); MCHC 31.3 g/dL (31.0-37.0); MCV 78.2 fL (80.0-100.0); MONOCYTES 5.6 % (2-11); NEUTROPHILS 59.2 % (40-80); PLATELET COUNT 172 10x3/uL (130-400); RBC 4.41 10x6/uL (4.00-5.40); RDW 16.1 % (11.5-14.5); WBC 5.3 10x3/uL (4.8-10.8)
[2018-09-30 11:21] LABS: ANION GAP 11.3 mmol/L (8-16); CALCIUM 9.1 mg/dL (8.5-10.1); CREATININE - SERUM 0.9 mg/dL (0.6-1.3); POTASSIUM - SERUM 4.3 mmol/L (3.5-5.1)
--- NOTE | 2018-09-30 13:37 | NUR ---
PT ARRIVED BY STRETCHER. PLACED ON MONITORS. ASSESSMENT COMPLETED. RIGHT RADIAL TR BAND IN PLACE. NO BLEEDING/HEMATOMA NOTED.
--- NOTE | 2018-09-30 13:50 | NUR ---
PT ON BEDPAN. VOIDED APPROX 150CC OF CLEAR YELLOW URINE. RADHA-CARE GIVEN. VSS. RIGHT RADIAL TR BAND IN PLACE. NO BLEEDING/HEMATOMA NOTED.
--- NOTE | 2018-09-30 14:30 | NUR ---
3cc OF AIR REMOVED FROM TR BAND. TOLERATED WELL. NO BLEEDING/HEMATOMA NOTED. VSS.
--- NOTE | 2018-09-30 14:33 | NUR ---
PT ON BEDPAN. VOIDED WITHOUT DIFFICULTY. RADHA-CARE GIVEN.
--- NOTE | 2018-09-30 14:37 | NUR ---
PT SET UP WITH SANDWICH TRAY AND DRINK. DENIES NAUSEA.
--- NOTE | 2018-09-30 15:00 | NUR ---
LEFT ARM PIV D/C'D WITH CATH TIP INTACT. PT TOLERATED WELL. 3cc OF AIR REMOVED FROM TR BAND. NO BLEEDING/HEMATOMA NOTED. PT INSTRUCTED TO GET UP AND DRESSED AT THIS TIME. NO ASSISTANCE NEEDED PER PT.
--- NOTE | 2018-09-30 15:15 | NUR ---
DISCUSSED DISCHARGE INSTRUCTIONS WITH PT. SHE VOICED UNDERSTANDING.
--- NOTE | 2018-09-30 15:20 | NUR ---
TR BAND REMOVED AND DRESSING APPLIED. NO BLEEDING/HEMATOMA NOTED.
--- NOTE | 2018-09-30 15:22 | NUR ---
LEFT ARM PIV D/C'D WITH CATH TIP INTACT. PT TOLERATED WELL. 3cc OF AIR REMOVED FROM TR BAND. NO BLEEDING/HEMATOMA NOTED. PT INSTRUCTED TO GET UP AND DRESSED AT THIS TIME. NO ASSISTANCE NEEDED.
--- NOTE | 2018-09-30 15:30 | NUR ---
PT TAKEN OUT TO VEHICLE. SHE WALKED WITH HER WALKER. REFUSED WHEELCHAIR AT THIS TIME. NO S/S OF DISTRESS NOTED. BRACE TO RIGHT WRIST. PT INSTRUCTED TO KEEP ON FOR 2 HOURS AFTER ARRIVAL HOME.
--- NOTE | 2018-09-30 15:30 | NUR ---
PT TAKEN OUT BY WHEELCHAIR. NO S/S OF DISTRESS NOTED. ALL PAPERWORK AND BELONGINGS IN HAND.
== END 2018-09-30 15:30 | disposition home or self-care (01) ==
LOC: D.CATH 10:36
PROVIDERS: ATTEND Internal Medicine Cardiovascular Disease
DX: I25.110 Atherosclerotic heart disease of native coronary artery with unstable angina pectoris (principal); Z95.5 Presence of coronary angioplasty implant and graft; Z01.812 Encounter for preprocedural laboratory examination

== ENCOUNTER 2018-10-16 14:16 | Inpatient (IN) | payer MEDICARE, BC ==
[~2018-10-16] VITALS: Ht 175.3 cm; Wt 106.6 kg
--- NOTE | 2018-10-16 14:56 | NUR ---
RT AT BEDSIDE FOR ABG'S ET BREATHING TX.
[2018-10-16 15:12] LABS: BASOPHILS 0.3 % (0-2); EOSINOPHILS 1.3 % (0-7); HEMATOCRIT 34.6 % (36.0-48.0); HEMOGLOBIN 11.1 g/dL (12-16); IMMATURE GRANULOCYTES 0.3 % (0-5); LYMPHOCYTES 33.1 % (15-50); MCH 24.2 pg (26.0-34.0); MCHC 32.1 g/dL (31.0-37.0); MCV 75.5 fL (80.0-100.0); MEAN PLATELET VOLUME 10.3 fL (7.4-10.4); MONOCYTES 5.4 % (2-11); NEUTROPHILS 59.6 % (40-80); RBC 4.58 10x6/uL (4.00-5.40); WBC 7.4 10x3/uL (4.8-10.8)
[2018-10-16 15:15] LABS: PLATELET COUNT 209 10x3/uL (130-400)
[2018-10-16 15:24] LABS: APTT 27.4 SECONDS (22.8-39.4); INR 1.17 (0.85-1.17); PROTIME 14.4 SECONDS (11.6-15.0)
[2018-10-16 15:34] LABS: ALBUMIN 3.4 g/dL (3.4-5.0); ALKALINE PHOSPHATASE 104 U/L (46-116); ALT (SGPT) 30 U/L (10-68); BILIRUBIN - TOTAL 0.54 mg/dL (0.2-1.3); CALC OSMOLALITY 288 mosm/kg (275-300); CALCIUM 9.6 mg/dL (8.5-10.1); CARBON DIOXIDE 25.5 mmol/L (21.0-32.0); CHLORIDE - SERUM 98 mmol/L (98-107); CREATININE - SERUM 1.4 mg/dL (0.6-1.3); POTASSIUM - SERUM 4.1 mmol/L (3.5-5.1); PROTEIN - SERUM 7.7 g/dL (6.4-8.2); SODIUM 137 mmol/L (136-145); UREA NITROGEN 31 mg/dL (7-18); eGFR NON AFRICAN AMERICAN 39 mL/min (90-120)
[2018-10-16 15:38] LABS: GLUCOSE 249 mg/dL (74-106)
[2018-10-16 15:49] LABS: CKMB 0.4 U/L (0.0-3.6); CREATINE KINASE 29 UL (21-215); PRO BNP 136 pg/mL (0-125); TROPONIN-I < 0.017 ng/mL (0.000-0.060)
--- NOTE | 2018-10-16 16:06 | NUR ---
ZOSYN INFUSED AT 1538. 3.375GM INFUSED.
[2018-10-16 16:38] VITALS: BP 158/61
--- NOTE | 2018-10-16 16:42 | NUR ---
MEAL TRAY TO PT.
--- NOTE | 2018-10-16 16:57 | NUR ---
VANCOMYCIN INFUSION COMPLETE AT 1657. 1.25 GRAMS INFUSED.
--- NOTE | 2018-10-16 16:57 | NUR ---
VANCO INFUSION COMPLETED AT THIS TIME. 1.25 GM INFUSED.
--- NOTE | 2018-10-16 16:59 | NUR ---
Report Received from Blanca RN using SBAR
--- NOTE | 2018-10-16 17:05 | NUR ---
this nurse entered room to meet pt and introduce self to her to establish care. pt is aaox4, sitting up eating a meal. She denies needs at this time. IV patent with no s/s of infiltrate or infection
[2018-10-16 17:38] VITALS: BP 121/54
--- NOTE | 2018-10-16 18:08 | NUR ---
pt back from CT
--- NOTE | 2018-10-16 19:16 | NUR ---
PT ARRIVED TO FLOOR AT THIS TIME ACCOMPANIED BY ER STAFF. ASSISTED PT IN TO BED AND PROVIDED PILLOW PER REQUEST. PT DENIES FURTHER NEEDS AT THIS TIME.
[2018-10-16 20:00] VITALS: BP 152/80
[2018-10-17] VITALS (7 sets, daily range): BP systolic 124–158; BP diastolic 57–78; BMI 34.9
[2018-10-17 00:03] LABS: APPEARANCE CLEAR (CLEAR); BILIRUBIN NEGATIVE (NEGATIVE); COLOR YELLOW (YELLOW); GLUCOSE 1000 mg/dL (NEGATIVE); KETONE NEGATIVE (NEGATIVE); NITRITE NEGATIVE (NEGATIVE); PROTEIN NEGATIVE (NEGATIVE); UROBILINOGEN NORMAL (NORMAL)
--- NOTE | 2018-10-17 02:30 | NUR ---
IV RESITED TO L WRIST PER PT REQUEST. IV IN R AC REMOVED WITH CATH TIP INTACT.
[2018-10-17 07:10] LABS: ALBUMIN 3.6 g/dL (3.4-5.0); ANION GAP 21.7 mmol/L (8-16); BILIRUBIN - TOTAL 0.63 mg/dL (0.2-1.3); CALCIUM 9.5 mg/dL (8.5-10.1); CARBON DIOXIDE 22.4 mmol/L (21.0-32.0); PHOSPHOROUS 5.4 mg/dL (2.5-4.9); POTASSIUM - SERUM 4.1 mmol/L (3.5-5.1); PROTEIN - SERUM 8.2 g/dL (6.4-8.2)
[2018-10-17 07:31] LABS: CREATININE - SERUM 1.8 mg/dL (0.6-1.3)
[2018-10-17 07:34] LABS: BASOPHILS 0 % (0-2); EOSINOPHILS 0 % (0-7); HEMATOCRIT 36.4 % (36.0-48.0); HEMOGLOBIN 11.4 g/dL (12-16); IMMATURE GRANULOCYTES 0.2 % (0-5); LYMPHOCYTES 6.5 % (15-50); MCH 23.8 pg (26.0-34.0); MCHC 31.3 g/dL (31.0-37.0); MCV 76.2 fL (80.0-100.0); MEAN PLATELET VOLUME 10.7 fL (7.4-10.4); MONOCYTES 0.5 % (2-11); NEUTROPHILS 92.8 % (40-80); PLATELET COUNT 221 10x3/uL (130-400); RBC 4.78 10x6/uL (4.00-5.40); RDW 16.3 % (11.5-14.5); WBC 5.7 10x3/uL (4.8-10.8)
--- NOTE | 2018-10-17 07:40 | NUR ---
JONNY GUTIERREZ MEDICAL AIDES TEACHER DUE TO PT ANION GAP INCREASING FROM 17.6 TO 21.7, GLUCOSE IN UA OVER 1000 AND FSBS WAS 567 THIS AM. NEW ORDER RECIEVED TO START LANTUS 20U BID.
--- NOTE | 2018-10-17 15:17 | NUR ---
FSBS CHECKED AND READ HI ON MACHINE. STAT GLUCOSE ORDERED THROUGH LAB. GLUCOSE CAME BACK 625. NOTIFIED . NEW ORDER RECIEVED TO GIVE HUMULIN 20U NOW AND RECHECK IN ONE HR.
[2018-10-17 15:38] LABS: % SATURATION 6 % (15-55); IRON 23 ug/dl (35-150); TOTAL IRON BIND CAPACITY 341 ug/dl (260-445); UNSAT IRON BIND CAPACITY 318 ug/dl (150-375)
[2018-10-17 15:58] LABS: FERRITIN 24 ng/mL (3-244)
--- NOTE | 2018-10-17 16:34 | NUR ---
FSBS READ 589 NOTIFIED AND NEW ORDER RECIEVED TO GIVE HUMULIN 15U NOW AND RECHECK IN ONE HR.
--- NOTE | 2018-10-17 18:18 | NUR ---
FSBS 587, ATTEMPTED TO NOTIFY BUT CALL KEPT BREAKING UP. RECIEVED CALL FROM DYLAN DENNIS AND NOTIFIED HER. NEW ORDER RECIEVED TO GIVE HUMULIN 15U AND RECHECK IN ONE HOUR. SHE ALSO GAVE ORDER TO GIVE LANTUS 60U NOW.
--- NOTE | 2018-10-17 19:25 | NUR ---
PT IN BED. DENIES NEEDS AT THIS TIME.
--- NOTE | 2018-10-17 19:26 | NUR ---
FSBS 439 AT THIS TIME.
[2018-10-17 19:51] LABS: APPEARANCE CLEAR (CLEAR); BILIRUBIN NEGATIVE (NEGATIVE); COLOR YELLOW (YELLOW); GLUCOSE 1000 mg/dL (NEGATIVE); KETONE NEGATIVE (NEGATIVE); NITRITE NEGATIVE (NEGATIVE); PROTEIN NEGATIVE (NEGATIVE); UROBILINOGEN NORMAL (NORMAL)
[2018-10-17 20:02] LABS: RED CELLS - URINE 0-5 /hpf (0-5); WHITE CELLS - URINE OCC /hpf (0-5)
[2018-10-17 20:19] LABS: ANION GAP 13.7 mmol/L (8-16); CALCIUM 9.4 mg/dL (8.5-10.1); CREATININE - SERUM 1.6 mg/dL (0.6-1.3); POTASSIUM - SERUM 3.5 mmol/L (3.5-5.1)
[2018-10-17 20:23] LABS: CARBON DIOXIDE 28.8 mmol/L (21.0-32.0)
[2018-10-18] VITALS: BP 123/58
[2018-10-18 04:00] VITALS: BP 123/56
[2018-10-18 05:43] LABS: BASOPHILS 0.1 % (0-2); EOSINOPHILS 0.2 % (0-7); HEMATOCRIT 35.1 % (36.0-48.0); HEMOGLOBIN 11.1 g/dL (12-16); IMMATURE GRANULOCYTES 0.3 % (0-5); LYMPHOCYTES 13.8 % (15-50); MCH 23.9 pg (26.0-34.0); MCHC 31.6 g/dL (31.0-37.0); MCV 75.6 fL (80.0-100.0); MEAN PLATELET VOLUME 9.9 fL (7.4-10.4); MONOCYTES 7.1 % (2-11); NEUTROPHILS 78.5 % (40-80); PLATELET COUNT 213 10x3/uL (130-400); RBC 4.64 10x6/uL (4.00-5.40); RDW 16.5 % (11.5-14.5)
[2018-10-18 06:02] LABS: ANION GAP 11.5 mmol/L (8-16); CALCIUM 9.4 mg/dL (8.5-10.1); CARBON DIOXIDE 31.8 mmol/L (21.0-32.0); CREATININE - SERUM 1.5 mg/dL (0.6-1.3); PHOSPHOROUS 5.3 mg/dL (2.5-4.9); POTASSIUM - SERUM 3.3 mmol/L (3.5-5.1)
--- NOTE | 2018-10-18 07:10 | NUR ---
RECEIVED REPORT FROM NIGHTSHIFT AND CARE ASSUMED. SHE IS ALERT AND ABLE TO VOICE NEEDS. SKIN IS W/D. NO S/S OF HYPO/HYPER GLYCEMIA AT THIS TIME. CL IN REACH RESP EVEN WITHOUT LABOR. SALINE LOCK INTACT.
[2018-10-18 07:52] VITALS: BP 105/38
--- NOTE | 2018-10-18 10:30 | NUR ---
SHE SIT UP IN CHAIR IN ROOM FOR AWHILE THIS AM. ASSISTED BACK TO BED. ALERT NO C/O AT THIS TIME. CL IN REACH. NO S/S OF HYPO/HYPERGLYCEMIA.
[2018-10-18 12:01] VITALS: BP 118/54
[2018-10-18 15:17] VITALS: Ht 175.3 cm; Wt 106.6 kg
--- NOTE | 2018-10-18 15:32 | NUR ---
SHE IS AWARE OF NEED FOR STOOL SPECIMEN, AND HAT IN ROOM AND WILL CALL IF SHE GOES BUT STATES I GO EARLY IN AM
[2018-10-18 15:38] VITALS: BP 113/46
[2018-10-18 20:00] VITALS: BP 119/59
--- NOTE | 2018-10-18 22:35 | NUR ---
ASSISTED PT TO BATHROOM. PT STATES:" I DO NOT HAVE ANY BOWL MOVEMENT RIGHT NOW. WILL TRY LATER." MILARAX GIVEN WITH PM MEDS.
[2018-10-19] VITALS: BP 146/53
--- NOTE | 2018-10-19 02:16 | NUR ---
I have reviewed this patient and I concur with the Shift Assessment completed by the Licensed Practical Nurse today this shift.
--- NOTE | 2018-10-19 03:03 | NUR ---
REST QUIETLY IN BED. CALL LIGHT IN REACH.
[2018-10-19 04:00] VITALS: BP 128/84
--- NOTE | 2018-10-19 05:16 | NUR ---
FSBS 154
[2018-10-19 06:05] LABS: BASOPHILS 0.2 % (0-2); EOSINOPHILS 3.9 % (0-7); HEMATOCRIT 33.1 % (36.0-48.0); IMMATURE GRANULOCYTES 0.2 % (0-5); LYMPHOCYTES 27.5 % (15-50); MCH 23.4 pg (26.0-34.0); MCHC 30.2 g/dL (31.0-37.0); MCV 77.3 fL (80.0-100.0); MEAN PLATELET VOLUME 9.8 fL (7.4-10.4); NEUTROPHILS 61.2 % (40-80); RBC 4.28 10x6/uL (4.00-5.40); RDW 16.6 % (11.5-14.5)
[2018-10-19 06:21] LABS: ANION GAP 10.9 mmol/L (8-16); CALCIUM 8.5 mg/dL (8.5-10.1); CREATININE - SERUM 1.6 mg/dL (0.6-1.3); MAGNESIUM - SERUM 2.1 mg/dL (1.8-2.4); PHOSPHOROUS 5.2 mg/dL (2.5-4.9); POTASSIUM - SERUM 3.9 mmol/L (3.5-5.1)
[2018-10-19 06:23] LABS: PLATELET COUNT 169 10x3/uL (130-400)
--- NOTE | 2018-10-19 07:21 | NUR ---
PT LYING IN BED, AWAKE AND ORIENTED, NO COMPLIANTS/CONCERNS VOICED AT THIS TIME. CL IN REACH, SRX2.
[2018-10-19 14:23] VITALS: BP 126/59
--- NOTE | 2018-10-19 14:35 | NUR ---
I have reviewed this patient and I concur with the Shift Assessment completed by the Licensed Practical Nurse today this shift.
[2018-10-19 16:10] VITALS: BP 137/62
--- NOTE | 2018-10-19 17:37 | NUR ---
PT AWAKE AND ORIENTED, IRON WAS RUNNING THROUGH HER I/V, PT SCREEAMED AND I RAN INTO THE ROOM TO FIND THE PTS LW IV SITE HAD INFILTRATED. SHE C/O OF IT BEING ITCHY/SWOLLEN. AREA WAS SWOLLEN AND RED. SWELLING HAS GONE DOWN SINCE BUT PT STATES IT HURTS QUITE A BIT. WILL CONTINUE TO MONITOR. ATTEMPTED IV AND BLEW THE VEIN, ANOTHER NURSE IS ATTEMPTING AT THIS TIME. CL IN REACH, SRX2.
[2018-10-19 19:10] VITALS: BP 128/67
--- NOTE | 2018-10-19 22:25 | NUR ---
PT C/O ITCHING IN NOSE, ARM AND BODY. PT REQUESTED BENADRYL,CALLED WAREHOUSING TECHNICIAN FOR BENADRYL. WAREHOUSING TECHNICIAN ORDERED BENADRYL 25MG Q4PRN PO. GIVEN BENADRYL 25MG ORDERED.
[2018-10-20] VITALS: BP 115/51
--- NOTE | 2018-10-20 00:59 | NUR ---
REST QUIELTY IN BED. EYE CLOSE. BED LOW. SIDE RAIL UP X2.
[2018-10-20 04:00] VITALS: BP 129/57
--- NOTE | 2018-10-20 05:31 | NUR ---
I have reviewed this patient and I concur with the Shift Assessment completed by the Licensed Practical Nurse today this shift.
[2018-10-20 06:30] LABS: BASOPHILS 0.2 % (0-2); EOSINOPHILS 4.1 % (0-7); HEMATOCRIT 32.4 % (36.0-48.0); HEMOGLOBIN 9.9 g/dL (12-16); IMMATURE GRANULOCYTES 0.4 % (0-5); LYMPHOCYTES 27.4 % (15-50); MCH 23.8 pg (26.0-34.0); MCHC 30.6 g/dL (31.0-37.0); MCV 77.9 fL (80.0-100.0); MEAN PLATELET VOLUME 10.4 fL (7.4-10.4); MONOCYTES 7.2 % (2-11); NEUTROPHILS 60.7 % (40-80); PLATELET COUNT 165 10x3/uL (130-400); RBC 4.16 10x6/uL (4.00-5.40); RDW 16.7 % (11.5-14.5); WBC 5.1 10x3/uL (4.8-10.8)
[2018-10-20 06:51] LABS: ANION GAP 7.9 mmol/L (8-16); CALCIUM 8.8 mg/dL (8.5-10.1); CARBON DIOXIDE 33.5 mmol/L (21.0-32.0); CREATININE - SERUM 1.2 mg/dL (0.6-1.3); POTASSIUM - SERUM 4.4 mmol/L (3.5-5.1)
[2018-10-20 06:52] LABS: PHOSPHOROUS 3.8 mg/dL (2.5-4.9)
[2018-10-20] MEDS ORDERED: LEVAQUIN750 MG PO (08:55)
[2018-10-20 09:13] VITALS: BP 140/57
--- NOTE | 2018-10-20 10:31 | NUR ---
PT AWAKE AND ORIENTEDX4. STATES SHE IS FEELING OVERALL BETTER BUT STILL FEELS LIKE SHE CAN'T GET THE MUCUS TO BREAK UP AND OUT OF HER SYSTEM. PT IS AWARE SHE IS BEING DISCHARGED, WILL GIVE PAPERWORK SHORLTY. CL IN REACH, SRX2.
--- NOTE | 2018-10-20 13:54 | NUR ---
ESCORTED OUT VIA WHEELCHAIR TO DAUGHTERS P.O.V
--- NOTE | 2018-10-21 09:19 | MORECARE ---
CASE MANAGEMENT DISCHARGE SUMMARY PATIENT: WALLY FAY UNIT: [id number] ADM DATE: 10/16/18 AGE: 73 : 46 SEX: F ROOM/BED: D.2140 AUTHOR: FANNIE BELL PHYSICIAN: REFERRING PHYSICIAN: JUAN CARLOS ARGUETA MD DATE OF SERVICE: 10/21/18 Discharge Plan Patient Name: WALLY FAY Facility: [facility]:[place] : 1945 Planned Disposition: Home Anticipated Discharge Date: 10/20/18 Discharge Date: 10/20/2018 Expected LOS: 4 Initial Reviewer: [email or web address] Initial Review Date: 10/21/2018 Generated: 10/21/18 10:19 am Coverage Notice Reviewer: [email or web address] Bernadette Guevara Notice Issued Date-Time: 10/20/2018 12:20 Notice Type: IM Discharge Notice Notice Delivered To: Patient Relationship to Patient: Laboratory Animal Care Veterinarian Name: Nurse administered Delivery Method: HAND - Hand Delivered Ameena Days: Prior Verbal Notification: Recipient Understood Notice: Recipient Signature: Med Rec Note Co-signed by Attending: Coverage Notice Comment: Patient Name: WALLY FAY Page [phone] at 0919 All edits/amendments must be made on the electronic document DICTATION DATE: 10/21/18917 PER DIEM REGISTERED NURSE: WINNIE 10/21/18917 RPT#: [id number] DC DATE:10/20/18 STATUS: DIS IN [facility] [address] [place] [address] END OF REPORT
== END 2018-10-20 13:54 | disposition home or self-care (01) | DRG 191 ==
LOC: D.ER 14:16 → D.M2 17:26
PROVIDERS: Family Medicine; ADMIT Internal Medicine Nephrology; ATTEND Internal Medicine Nephrology
DX: J47.0 Bronchiectasis with acute lower respiratory infection (principal); N17.9 Acute kidney failure, unspecified; I13.0 Hypertensive heart and chronic kidney disease with heart failure and stage 1 through stage 4 chronic kidney disease, or unspecified chronic kidney disease; I50.32 Chronic diastolic (congestive) heart failure; J18.9 Pneumonia, unspecified organism; E11.9 Type 2 diabetes mellitus without complications; E78.5 Hyperlipidemia, unspecified; K21.9 Gastro-esophageal reflux disease without esophagitis; E03.9 Hypothyroidism, unspecified; I25.10 Atherosclerotic heart disease of native coronary artery without angina pectoris; J30.9 Allergic rhinitis, unspecified; G40.909 Epilepsy, unspecified, not intractable, without status epilepticus; E11.22 Type 2 diabetes mellitus with diabetic chronic kidney disease; N18.9 Chronic kidney disease, unspecified; D50.9 Iron deficiency anemia, unspecified; J84.112 Idiopathic pulmonary fibrosis; Z86.73 Personal history of transient ischemic attack (TIA), and cerebral infarction without residual deficits

== ENCOUNTER → 2019-01-29 13:13 | Outpatient (CLI) | payer MEDICARE, BC ==
[2018-10-18 15:17] VITALS: BMI 32.6
[~2019-01-29 13:13] MED LIST changes: +LEVAQUIN750 MG PO
== END | disposition home or self-care (01) ==
LOC: D.LABREF 13:13
PROVIDERS: ATTEND Family Medicine
DX: I50.9 Heart failure, unspecified (principal)

== ENCOUNTER 2019-02-13 17:40 | Emergency (ER) | payer MEDICARE, BC ==
[~2019-02-13] VITALS: Ht 175.3 cm; Wt 106.6 kg
[2019-02-13 17:42] VITALS: Ht 175.3 cm; Wt 106.6 kg
[2019-02-13 18:24] LABS: BASOPHILS 0.3 % (0-2); EOSINOPHILS 2.2 % (0-7); HEMATOCRIT 39.4 % (36.0-48.0); HEMOGLOBIN 12.4 g/dL (12-16); IMMATURE GRANULOCYTES 0.2 % (0-5); LYMPHOCYTES 32.7 % (15-50); MCH 27.4 pg (26.0-34.0); MCHC 31.5 g/dL (31.0-37.0); MCV 87.2 fL (80.0-100.0); MEAN PLATELET VOLUME 10.3 fL (7.4-10.4); MONOCYTES 6.5 % (2-11); NEUTROPHILS 58.1 % (40-80); PLATELET COUNT 151 10x3/uL (130-400); RBC 4.52 10x6/uL (4.00-5.40); RDW 15.3 % (11.5-14.5); WBC 6.5 10x3/uL (4.8-10.8)
[2019-02-13 18:38] LABS: APTT 27.4 SECONDS (22.8-39.4); CALCIUM 9.1 mg/dL (8.5-10.1); CHLORIDE - SERUM 100 mmol/L (98-107); INR 1.06 (0.85-1.17); POTASSIUM - SERUM 4.5 mmol/L (3.5-5.1); PROTIME 13.3 SECONDS (11.6-15.0); SODIUM 138 mmol/L (136-145); UREA NITROGEN 16 mg/dL (7-18); eGFR NON AFRICAN AMERICAN 58 mL/min (90-120)
[2019-02-13 18:49] LABS: ALBUMIN 3.3 g/dL (3.4-5.0); ALKALINE PHOSPHATASE 94 U/L (46-116); ALT (SGPT) 38 U/L (10-68); BILIRUBIN - TOTAL 0.58 mg/dL (0.2-1.3); CKMB 0.5 U/L (0.0-3.6); CREATINE KINASE 73 UL (21-215); MAGNESIUM - SERUM 1.4 mg/dL (1.8-2.4); PROTEIN - SERUM 7.5 g/dL (6.4-8.2)
[2019-02-13 19:02] LABS: CALC OSMOLALITY 284 mosm/kg (275-300); GLUCOSE 238 mg/dL (74-106); TROPONIN-I < 0.017 ng/mL (0.000-0.060)
[2019-02-13 19:58] VITALS: BP 139/73
== END 2019-02-13 19:58 | disposition home or self-care (01) ==
LOC: D.ER 17:40
PROVIDERS: Family Medicine
DX: M25.561 Pain in right knee (principal); R55 Syncope and collapse; W19.XXXA Unspecified fall, initial encounter; I10 Essential (primary) hypertension; E11.9 Type 2 diabetes mellitus without complications; Z86.73 Personal history of transient ischemic attack (TIA), and cerebral infarction without residual deficits; J44.9 Chronic obstructive pulmonary disease, unspecified

== ENCOUNTER → 2019-03-10 09:55 | Outpatient (CLI) | payer MEDICARE, BC ==
[2019-02-13 17:42] VITALS: BMI 32.6
== END | disposition home or self-care (01) ==
LOC: D.US 09:55
PROVIDERS: ATTEND Surgery
DX: G43.909 Migraine, unspecified, not intractable, without status migrainosus (principal); Z86.73 Personal history of transient ischemic attack (TIA), and cerebral infarction without residual deficits

== ENCOUNTER 2019-05-06 16:02 | Emergency (ER) | payer MEDICARE, BC ==
[~2019-05-06] VITALS: Ht 175.3 cm; Wt 106.8 kg
[2019-05-06 16:10] VITALS: Ht 175.3 cm; Wt 106.8 kg
[2019-05-06] MEDS ORDERED: METHOCARBAMOL750 MG PO (16:15)
[2019-05-06] MEDS ORDERED: ASPIRIN81 MG PO (16:16)
[2019-05-06] MEDS ORDERED: CRESTOR5 MG PO (16:17)
[2019-05-06] MEDS ORDERED: GLUCOPHAGE500 MG PO (16:18)
[2019-05-06] MEDS ORDERED: BUSPAR5 MG PO (16:19)
[2019-05-06 16:36] LABS: BASOPHILS 0.3 % (0-2); HEMATOCRIT 40.3 % (36.0-48.0); HEMOGLOBIN 13.3 g/dL (12-16); IMMATURE GRANULOCYTES 0.2 % (0-5); LYMPHOCYTES 25.1 % (15-50); MCH 28.4 pg (26.0-34.0); MCV 86.1 fL (80.0-100.0); MEAN PLATELET VOLUME 10.1 fL (7.4-10.4); MONOCYTES 5.1 % (2-11); NEUTROPHILS 67.3 % (40-80); PLATELET COUNT 170 10x3/uL (130-400); RBC 4.68 10x6/uL (4.00-5.40); RDW 15.4 % (11.5-14.5); WBC 6.5 10x3/uL (4.8-10.8)
[2019-05-06 16:50] LABS: APTT 28.3 SECONDS (22.8-39.4); INR 1.06 (0.85-1.17); PROTIME 13.7 SECONDS (11.6-15.0)
[2019-05-06 17:00] LABS: CALC OSMOLALITY 287 mosm/kg (275-300); CALCIUM 8.9 mg/dL (8.5-10.1); CARBON DIOXIDE 30.9 mmol/L (21.0-32.0); CHLORIDE - SERUM 100 mmol/L (98-107); CREATININE - SERUM 1.1 mg/dL (0.6-1.3); GLUCOSE 216 mg/dL (74-106); POTASSIUM - SERUM 4.3 mmol/L (3.5-5.1); SODIUM 139 mmol/L (136-145); UREA NITROGEN 21 mg/dL (7-18); eGFR NON AFRICAN AMERICAN 52 mL/min (90-120)
[2019-05-06 17:16] LABS: ALBUMIN 3.3 g/dL (3.4-5.0); ALKALINE PHOSPHATASE 81 U/L (46-116); ALT (SGPT) 36 U/L (10-68); CKMB 0.6 U/L (0.0-3.6); CREATINE KINASE 39 UL (21-215); MAGNESIUM - SERUM 1.4 mg/dL (1.8-2.4); PROTEIN - SERUM 7.4 g/dL (6.4-8.2); TROPONIN-I < 0.017 ng/mL (0.000-0.060)
[2019-05-06 19:51] VITALS: BP 132/73
== END 2019-05-06 19:52 | disposition home or self-care (01) ==
LOC: D.ER 16:02
PROVIDERS: Family Medicine
DX: M54.2 Cervicalgia (principal); E11.9 Type 2 diabetes mellitus without complications; Z79.84 Long term (current) use of oral hypoglycemic drugs; I10 Essential (primary) hypertension; Z95.5 Presence of coronary angioplasty implant and graft; J44.9 Chronic obstructive pulmonary disease, unspecified; K21.9 Gastro-esophageal reflux disease without esophagitis

== ENCOUNTER 2019-06-02 16:17 | Inpatient (IN) | payer MEDICARE, BC ==
[~2019-06-02] VITALS: Ht 175.3 cm; Wt 111.1 kg
[~2019-06-02 16:17] MED LIST changes: +ASPIRIN81 MG PO; +BUSPAR5 MG PO; +CRESTOR5 MG PO; +GLUCOPHAGE500 MG PO; +METHOCARBAMOL750 MG PO
[2019-06-02] MEDS ORDERED: METHOCARBAMOL750 MG PO (16:38)
[2019-06-02] MEDS ORDERED: PLAVIX75 MG PO (16:40)
[2019-06-02] MEDS ORDERED: TRAZODONE HCL150 MG PO (16:45)
--- NOTE | 2019-06-02 16:47 | NUR ---
LABS DRAWN WITH IV START. SENT VIA TUBE STATION TO LAB.
--- NOTE | 2019-06-02 16:48 | NUR ---
URINE COLLECTED AND SENT TO LAB VIA TUBE SYSTEM.
--- NOTE | 2019-06-02 16:50 | NUR ---
POC OCCULT STOOL NEGATIVE AT THIS TIME.
[2019-06-02 16:59] LABS: BASOPHILS 0.2 % (0-2); EOSINOPHILS 2.3 % (0-7); IMMATURE GRANULOCYTES 0.2 % (0-5); MCH 28.8 pg (26.0-34.0); MCHC 33.3 g/dL (31.0-37.0); MCV 86.3 fL (80.0-100.0); MEAN PLATELET VOLUME 10.4 fL (7.4-10.4); NEUTROPHILS 55.3 % (40-80); PLATELET COUNT 203 10x3/uL (130-400); RBC 4.52 10x6/uL (4.00-5.40); WBC 5.7 10x3/uL (4.8-10.8)
[2019-06-02 17:13] LABS: ANION GAP 11.9 mmol/L (8-16); CALCIUM 9.2 mg/dL (8.5-10.1); CARBON DIOXIDE 29.4 mmol/L (21.0-32.0); CREATININE - SERUM 1.2 mg/dL (0.6-1.3); POTASSIUM - SERUM 4.3 mmol/L (3.5-5.1)
[2019-06-02 17:17] LABS: APTT 27.4 SECONDS (22.8-39.4); INR 0.99 (0.85-1.17)
[2019-06-02 17:18] LABS: APPEARANCE CLEAR (CLEAR); BACTERIA MODERATE /hpf (NEGATIVE); BILIRUBIN NEGATIVE (NEGATIVE); COLOR YELLOW (YELLOW); EPITHELIAL CELLS 0-5 /hpf (0-5); GLUCOSE NEGATIVE (NEGATIVE); KETONE NEGATIVE (NEGATIVE); NITRITE NEGATIVE (NEGATIVE); PROTEIN NEGATIVE (NEGATIVE); RED CELLS - URINE 0-5 /hpf (0-5); UROBILINOGEN NORMAL (NORMAL)
[2019-06-02 17:20] LABS: ALBUMIN 3.1 g/dL (3.4-5.0); BILIRUBIN - TOTAL 0.5 mg/dL (0.2-1.3); C-REACTIVE PROTEIN 0.9 mg/dL (0.0-0.9); MAGNESIUM - SERUM 1.4 mg/dL (1.8-2.4); PROTEIN - SERUM 7.7 g/dL (6.4-8.2)
--- NOTE | 2019-06-02 17:30 | NUR ---
PT PLACED ON BEDPAN; UPDATED ON PLAN OF CARE AND DELAYS IN CARE; NO NEEDS NOTED; WILL CONTINUE TO MONITOR.
[2019-06-02 19:00] VITALS: BP 119/56
--- NOTE | 2019-06-02 19:00 | NUR ---
PT RESTING ON BED. NO S/S OF ACUTE DISTRESS NOTED. PT UPDATED ON POC.
--- NOTE | 2019-06-02 20:00 | NUR ---
PT RESTING ON BED, EYES CLOSED. NO S/S OF ACUTE DISTRESS NOTED.
--- NOTE | 2019-06-02 21:55 | NUR ---
CALL FOR TELEMETRY NOT AVABALE AT THIS TIME.
[2019-06-02 23:36] VITALS: BP 140/66; BMI 36.2
[2019-06-03 01:26] VITALS: BP 135/61
[2019-06-03 05:30] VITALS: BP 103/61
--- NOTE | 2019-06-03 07:28 | NUR ---
SHIFT ASSESSMENT PERFORMED, PT RESTING IN BED, NO SIGNS OF DISTRESS NOTED. PT ANSWERS ALL QUESTIONS. PT STATES SHE WEARS GLASSES AND HEARING AIDS BUT SHE DOES NOT HAVE THEM HERE WITH HER. DENIES ANY FURTHER NEEDS AT THIS TIME, WILL CONT TO FOLLOW POC
[2019-06-03 09:28] VITALS: BP 130/71
--- NOTE | 2019-06-03 10:00 | NUR ---
ASSISTED PT TO BR AND BACK TO BED, MIN ASSISTANCE. NO SIGNS OF DISTRESS NOTED. BED ALARM ON. CALL LIGHT WITHIN REACH, WILL CONT TO FOLLOW POC
[2019-06-03 12:45] VITALS: BP 123/71
[2019-06-03 14:08] VITALS: Ht 175.3 cm; Wt 111.1 kg
--- NOTE | 2019-06-03 14:59 | NUR ---
PT RESTING IN BED, VSS AND WNL. NO SIGNS OF DISTRESS NOTED, BED ALARM ON, DENIES ANY NEEDS AT THIS TIME, CALL LIGHT WITHIN REACH, WILL CONT TO FOLLOW POC
[2019-06-03 17:17] VITALS: BP 140/63
--- NOTE | 2019-06-03 19:15 | NUR ---
SITTING UP ON SIDE OF BED. C/O ABD PAIN RATING 7 AND NAUSEA. MEDICATED WITH DILAUDID AND ZOFRAN ORDERED. RESP IRREG. SOB WITH EXERTION. O2 @ 2L/NC. AMB WITH ASSIST X1. NS @ 100 MLHR INFUSING IN LT AC. ALERT AND ORIENTED X4. SR ELEVATED X2. CL IN REACH.
--- NOTE | 2019-06-03 23:00 | NUR ---
IV CATH REMOVED FROM LT AC DUE TO C/O PAIN. 22G INSERTED IN RT FOREARM X1 ATTEMPT. PT NAHUM WELL.
[2019-06-03 23:09] VITALS: BP 124/63
[2019-06-04 01:45] VITALS: BP 122/56
--- NOTE | 2019-06-04 03:19 | NUR ---
PT HAS RESTED WELL SO FAR THIS SHIFT. NO DISTRESS. LYING ON LT SIDE IN BED. CL IN REACH.
[2019-06-04 05:20] VITALS: BP 116/52
[2019-06-04 05:25] LABS: BASOPHILS 0.2 % (0-2); EOSINOPHILS 2.8 % (0-7); HEMATOCRIT 37.4 % (36.0-48.0); HEMOGLOBIN 11.9 g/dL (12-16); IMMATURE GRANULOCYTES 0.2 % (0-5); LYMPHOCYTES 36.6 % (15-50); MCH 28.2 pg (26.0-34.0); MCHC 31.8 g/dL (31.0-37.0); MEAN PLATELET VOLUME 10.4 fL (7.4-10.4); MONOCYTES 7.1 % (2-11); NEUTROPHILS 53.1 % (40-80); PLATELET COUNT 169 10x3/uL (130-400); RBC 4.22 10x6/uL (4.00-5.40); RDW 15.3 % (11.5-14.5); WBC 4.7 10x3/uL (4.8-10.8)
[2019-06-04 05:43] LABS: MCV 88.6 fL (80.0-100.0)
[2019-06-04 05:48] LABS: ANION GAP 13.9 mmol/L (8-16); CALCIUM 8.6 mg/dL (8.5-10.1); CARBON DIOXIDE 27.3 mmol/L (21.0-32.0); CREATININE - SERUM 1.1 mg/dL (0.6-1.3); MAGNESIUM - SERUM 1.5 mg/dL (1.8-2.4); PHOSPHOROUS 4.1 mg/dL (2.5-4.9); POTASSIUM - SERUM 4.2 mmol/L (3.5-5.1)
[2019-06-04 09:04] VITALS: BP 104/61
--- NOTE | 2019-06-04 12:14 | MORECARE ---
CASE MANAGEMENT DISCHARGE SUMMARY PATIENT: WALLY FAY UNIT: [id number] ADM DATE: 06/02/19 AGE: 73 : 46 SEX: F ROOM/BED: D.2205 AUTHOR: FANNIE BELL PHYSICIAN: REFERRING PHYSICIAN: NAILA BENAVIDEZ DO DATE OF SERVICE: 06/04/19 Discharge Plan Patient Name: WALLY FAY [facility] [facility] 1945 Planned Disposition: Home Anticipated Discharge Date: Discharge Date: Expected LOS: Initial Reviewer: [email or web address] Initial Review Date: 06/02/2019 Generated: 06/04/19 1:13 pm Patient Name: WALLY FAY Page [phone] at 1214 All edits/amendments must be made on the electronic document DICTATION DATE: 06/04/19 1213 CYTOLOGY MANAGER: WINNIE 06/04/19 1213 RPT#: [id number] DC DATE: STATUS: ADM IN [facility] [address] [place] [address] END OF REPORT
--- NOTE | 2019-06-04 12:29 | MORECARE ---
CASE MANAGEMENT DISCHARGE SUMMARY PATIENT: WALLY FAY UNIT: [id number] ADM DATE: 06/02/19 AGE: 73 : 46 SEX: F ROOM/BED: D.2208 AUTHOR: FANNIE BELL PHYSICIAN: REFERRING PHYSICIAN: NAILA BENAVIDEZ DO DATE OF SERVICE: 06/04/19 Discharge Plan Patient Name: WALLY FAY Facility: [facility]:[place] : 1945 Planned Disposition: Home Anticipated Discharge Date: Discharge Date: Expected LOS: Initial Reviewer: [email or web address] Initial Review Date: 06/02/2019 Generated: 06/04/19 1:29 pm Comments DCP- Discharge Planning Updated by [email or web address]: Jenny Fleming on 06/04/19 11:[address] Patient Name: WALLY FAY Admission Status: ER Accout number: [id number] Admission Date: 06-02-2019 : 1945 Admission Diagnosis: Attending: NAILA BENAVIDEZ Current LOS: 2 Anticipated DC Date: Planned Disposition: Home Primary Insurance: MEDICARE A & B Discharge Planning Comments: CM met with patient to complete initial dc planning assessment. CM educated patient on the CM role and verbal consent given by patient to complete assessment. Patient lives at home with her son and spouse where she is independent with her care. At discharge patient plans to return home and feels this is a safe discharge. CM discussed availability of home health, rehab services, and medical equipment. She has a CPAP machine, home O2, and walker at home. She uses [facility]. She had [facility] home health in the past, but did not want to use them. Her daughter is trying to get her spouse on [facility]. Patient denied known discharge needs at this time. CM will continue to follow and will assist as needed with dc plans/needs. Winch Runner: Jenny Fleming DCPIA - Discharge Planning Initial Assessment Updated by [email or web address]: Jenny Fleming on 06/04/19 12:20 pm * Is the patient Alert and Oriented? Yes * How many steps to enter\exit or inside your home? 12/03 * PCP [facility] * [facility] * Preadmission Environment Home with Family * ADLs Independent * Equipment CPAP Oxygen Walker * List name and contact numbers for known caregivers / representatives who currently or will assist patient after discharge: TRISTIAN HARRIS (DAUGHTER) [phone] * Verbal permission to speak to the caregivers and representatives has been obtained from the patient. N/A * Please name any agencies selected above. TRYING TO GET [facility] FOR HER SPOUSE * Additional services required to return to the preadmission environment? No * Can the patient safely return to the preadmission environment? Yes * Has this patient been hospitalized within the prior 30 days at any hospital? No Last DP export: 06/04/19 11:14 a Patient Name: WALLY FAY Page [phone] at 1229 All edits/amendments must be made on the electronic document DICTATION DATE: 06/04/191228 ORTHOPEDIC TECH: WINNIE 06/04/199 RPT#: [id number] DC DATE: STATUS: ADM IN [facility] [address] [place] [address] END OF REPORT
[2019-06-04 13:41] VITALS: BP 150/74
--- NOTE | 2019-06-04 14:43 | NUR ---
PATIENT LAYING ON LEFT SIDE. IV THERAPY INFILTRATED TO RIGHT FOREARM. NO NEEDS AT THIS TIME. WCTM
[2019-06-04 17:51] VITALS: BP 141/64
[2019-06-04 20:00] VITALS: BP 148/61
[2019-06-05] VITALS: BP 107/59
--- NOTE | 2019-06-05 07:49 | NUR ---
PATIENT AWAKE LAYING ON BACK. NO NEEDS AT THIS TIME. CL IN REACH. WCTM
[2019-06-05 08:02] LABS: BASOPHILS 0.2 % (0-2); HEMATOCRIT 40.3 % (36.0-48.0); HEMOGLOBIN 12.6 g/dL (12-16); IMMATURE GRANULOCYTES 0.4 % (0-5); LYMPHOCYTES 32.8 % (15-50); MCH 28.1 pg (26.0-34.0); MCHC 31.3 g/dL (31.0-37.0); MCV 89.8 fL (80.0-100.0); MEAN PLATELET VOLUME 10.3 fL (7.4-10.4); MONOCYTES 6.5 % (2-11); NEUTROPHILS 57.1 % (40-80); PLATELET COUNT 155 10x3/uL (130-400); RBC 4.49 10x6/uL (4.00-5.40); RDW 15.5 % (11.5-14.5); WBC 5.1 10x3/uL (4.8-10.8)
[2019-06-05 08:19] LABS: ANION GAP 10.3 mmol/L (8-16); CALCIUM 8.2 mg/dL (8.5-10.1); CARBON DIOXIDE 29.3 mmol/L (21.0-32.0); MAGNESIUM - SERUM 1.6 mg/dL (1.8-2.4); PHOSPHOROUS 3.9 mg/dL (2.5-4.9); POTASSIUM - SERUM 4.6 mmol/L (3.5-5.1)
[2019-06-05 08:47] VITALS: BP 155/72
[2019-06-05 11:47] VITALS: BP 117/64
[2019-06-05 20:00] VITALS: BP 140/66
[2019-06-06] VITALS: BP 135/65
[2019-06-06 05:10] LABS: BASOPHILS 0.4 % (0-2); EOSINOPHILS 2.4 % (0-7); HEMATOCRIT 38.2 % (36.0-48.0); HEMOGLOBIN 11.8 g/dL (12-16); IMMATURE GRANULOCYTES 0.2 % (0-5); MCH 28.1 pg (26.0-34.0); MCHC 30.9 g/dL (31.0-37.0); MEAN PLATELET VOLUME 10.1 fL (7.4-10.4); MONOCYTES 6.3 % (2-11); NEUTROPHILS 61.7 % (40-80); PLATELET COUNT 170 10x3/uL (130-400); RDW 15.6 % (11.5-14.5)
[2019-06-06 05:25] LABS: ANION GAP 6.7 mmol/L (8-16); CALCIUM 8.2 mg/dL (8.5-10.1); CARBON DIOXIDE 31.8 mmol/L (21.0-32.0); CREATININE - SERUM 1.2 mg/dL (0.6-1.3); MAGNESIUM - SERUM 1.6 mg/dL (1.8-2.4); PHOSPHOROUS 3.4 mg/dL (2.5-4.9); POTASSIUM - SERUM 4.5 mmol/L (3.5-5.1)
[2019-06-06 09:48] VITALS: BP 152/72
--- NOTE | 2019-06-06 11:10 | NUR ---
PATIENT SITTING UP ON SIDE OF BED. CO OF PAIN STILL A 10 OUT OF 10 ON THE PAIN SCALE. ONE TIME DOSE OF PAIN MEDICATION GIVEN. ASSISTED TO A SLEEPING POSITION. BED ALARM TURNED ON. CL IN REACH. TM
--- NOTE | 2019-06-06 13:06 | NUR ---
Nutrition follow-up: Diet: ADA consistent CHO PO intake 75-100% of meals Pt reports increased pain; nursing is aware +BM Wt: 244# Will continue to provide food choices with selective menus and honor food preferences. RDN following.
[2019-06-06 13:40] VITALS: BP 141/67
[2019-06-06] MEDS ORDERED: LEVOFLOXACIN500 MG PO (14:22)
[2019-06-06] MEDS ORDERED: FLAGYL500 MG PO (14:22)
--- NOTE | 2019-06-06 15:21 | MORECARE ---
CASE MANAGEMENT DISCHARGE SUMMARY PATIENT: WALLY FAY UNIT: [id number] ADM DATE: 06/02/19 AGE: 73 : 46 SEX: F ROOM/BED: D.2205 AUTHOR: RAYDOC PHYSICIAN: REFERRING PHYSICIAN: NAILA BENAVIDEZ DO DATE OF SERVICE: 06/06/19 Discharge Plan Patient Name: WALLY FAY Facility: [facility]:[place] : 1945 Planned Disposition: Home Anticipated Discharge Date: Discharge Date: Expected LOS: Initial Reviewer: [id number] Initial Review Date: 06/02/2019 Generated: 06/06/19 4:20 pm Comments DCP- Discharge Planning Updated by [email or web address]: Jenny Fleming on 06/06/19 2:[address] PATIENT DISCHARGING HOME TODAY, SHE IS CURRENT WITH [employer] AND SHE SI REQUESTING AN AIDE FOR HELP INSIDE HER HOME. I WILL CONTACT [facility] TO LET THEM KNOW. IMM SERVED AND EXPLAINED DCP- Discharge Planning Updated by [email or web address]: Jenny Fleming on 06/04/19 11:[address] Patient Name: WALLY FAY Admission Status: ER Accout number: [id number] Admission Date: 06-02-2019 : 1945 Admission Diagnosis: Attending: NAILA BENAVIDEZ Current LOS: 2 Anticipated DC Date: Planned Disposition: Home Primary Insurance: MEDICARE A & B Discharge Planning Comments: CM met with patient to complete initial dc planning assessment. CM educated patient on the CM role and verbal consent given by patient to complete assessment. Patient lives at home with her son and spouse where she is independent with her care. At discharge patient plans to return home and feels this is a safe discharge. CM discussed availability of home health, rehab services, and medical equipment. She has a CPAP machine, home O2, and walker at home. She uses [facility]. She had [facility] in the past, but did not want to use them. Her daughter is trying to get her spouse on [employer] [facility]. Patient denied known discharge needs at this time. CM will continue to follow and will assist as needed with dc plans/needs. Preschool Paraprofessional: Jenny Fleming DCPIA - Discharge Planning Initial Assessment Updated by [id number]: Jenny Fleming on 06/04/19 12:20 pm * Is the patient Alert and Oriented? Yes * How many steps to enter\exit or inside your home? 12/03 * PCP FATOU * [facility] * Preadmission Environment Home with Family * ADLs Independent * Equipment CPAP Oxygen Walker * List name and contact numbers for known caregivers / representatives who currently or will assist patient after discharge: TRISTIAN HARRIS (DAUGHTER) [phone] * Verbal permission to speak to the caregivers and representatives has been obtained from the patient. N/A * Please name any agencies selected above. TRYING TO GET AREA ON AGING FOR HER SPOUSE * Additional services required to return to the preadmission environment? No * Can the patient safely return to the preadmission environment? Yes * Has this patient been hospitalized within the prior 30 days at any hospital? No Coverage Notice Reviewer: [id number] Bernadette Fleming Notice Issued Date-Time: 06/04/2019 10:15 Notice Type: Patient Choice Letter Notice Delivered To: Patient Relationship to Patient: Flume Worker Name: Delivery Method: HAND - Hand Delivered Ameena Days: Prior Verbal Notification: Recipient Understood Notice: Yes Recipient Signature: Yes Med Rec Note Co-signed by Attending: Coverage Notice Comment: [facility] Reviewer: [id number] - Jenny Fleming Notice Issued Date-Time: 06/06/2019 15:00 Notice Type: IM Discharge Notice Notice Delivered To: Relationship to Patient: Flume Worker Name: Delivery Method: HAND - Hand Delivered Ameena Days: Prior Verbal Notification: Recipient Understood Notice: Yes Recipient Signature: Yes Med Rec Note Co-signed by Attending: Coverage Notice Comment: Last DP export: 06/04/19 11:30 a Patient Name: WALLY FAY Page 12776 at 1521 All edits/amendments must be made on the electronic document DICTATION DATE: 06/06/191519 QUALITY ASSURANCE COORDINATOR: WINNIE 06/06/191519 RPT#: [id number] DC DATE: STATUS: ADM IN [facility] [address] [place] [address] END OF REPORT
--- NOTE | 2019-06-06 15:30 | MORECARE ---
CASE MANAGEMENT DISCHARGE SUMMARY PATIENT: WALLY FAY UNIT: [id number] ADM DATE: 06/02/19 AGE: 73 : 46 SEX: F ROOM/BED: D.2205 AUTHOR: RAYDOC PHYSICIAN: REFERRING PHYSICIAN: NAILA BENAVIDEZ DO DATE OF SERVICE: 06/06/19 Discharge Plan Patient Name: WALLY FAY Facility: [facility]:[place] : 1945 Planned Disposition: Home Anticipated Discharge Date: Discharge Date: Expected LOS: Initial Reviewer: [email or web address] Initial Review Date: 06/02/2019 Generated: 06/06/19 4:30 pm Comments DCP- Discharge Planning Updated by [id number]: Jenny Fleming on 06/06/19 2:[address] PATIENT DISCHARGING HOME TODAY, SHE IS CURRENT WITH [employer] AND SHE SI REQUESTING AN AIDE FOR HELP INSIDE HER HOME. I WILL CONTACT [facility] TO LET THEM KNOW. IMM SERVED AND EXPLAINED DCP- Discharge Planning Updated by [email or web address]: Jenny Fleming on 06/04/19 11:[address] Patient Name: WALLY FAY Admission Status: ER Accout number: [id number] Admission Date: 06-02-2019 : 1945 Admission Diagnosis: Attending: NAILA BENAVIDEZ Current LOS: 2 Anticipated DC Date: Planned Disposition: Home Primary Insurance: MEDICARE A & B Discharge Planning Comments: CM met with patient to complete initial dc planning assessment. CM educated patient on the CM role and verbal consent given by patient to complete assessment. Patient lives at home with her son and spouse where she is independent with her care. At discharge patient plans to return home and feels this is a safe discharge. CM discussed availability of home health, rehab services, and medical equipment. She has a CPAP machine, home O2, and walker at home. She uses [facility]. She had [facility] in the past, but did not want to use them. Her daughter is trying to get her spouse on [employer] Aging. Patient denied known discharge needs at this time. CM will continue to follow and will assist as needed with dc plans/needs. Bridge Gang Worker: Jenny Fleming DCPIA - Discharge Planning Initial Assessment Updated by [id number]: Jenny Fleming on 06/04/19 12:20 pm * Is the patient Alert and Oriented? Yes * How many steps to enter\exit or inside your home? 12/03 * PCP FATOU * [facility] * Preadmission Environment Home with Family * ADLs Independent * Equipment CPAP Oxygen Walker * List name and contact numbers for known caregivers / representatives who currently or will assist patient after discharge: TRISTIAN HARRIS (DAUGHTER) [phone] * Verbal permission to speak to the caregivers and representatives has been obtained from the patient. N/A * Please name any agencies selected above. TRYING TO GET ARE[employer] ON AGING FOR HER SPOUSE * Additional services required to return to the preadmission environment? No * Can the patient safely return to the preadmission environment? Yes * Has this patient been hospitalized within the prior 30 days at any hospital? No External Providers External Provider: [facility] Contact Date: Service Request Date: Service Type: Resolution: Reviewer: Comments: Coverage Notice Reviewer: [id number] Bernadette Fleming Notice Issued Date-Time: 06/04/2019 10:15 Notice Type: Patient Choice Letter Notice Delivered To: Patient Relationship to Patient: Instrument Installer Name: Delivery Method: HAND - Hand Delivered Ameena Days: Prior Verbal Notification: Recipient Understood Notice: Yes Recipient Signature: Yes Med Rec Note Co-signed by Attending: Coverage Notice Comment: [facility] Reviewer: [id number] Bernadette Fleming Notice Issued Date-Time: 06/06/2019 15:00 Notice Type: IM Discharge Notice Notice Delivered To: Relationship to Patient: Instrument Installer Name: Delivery Method: HAND - Hand Delivered Ameena Days: Prior Verbal Notification: Recipient Understood Notice: Yes Recipient Signature: Yes Med Rec Note Co-signed by Attending: Coverage Notice Comment: Last DP export: 06/06/19 2:21 p Patient Name: WALLY FAY Page [phone] at 1530 All edits/amendments must be made on the electronic document DICTATION DATE: 06/06/19 1530 ROUNDING MACHINE TENDER: WINNIE 06/06/19 1530 RPT#: [id number] DC DATE: STATUS: ADM IN [facility] [address] [place] [address] END OF REPORT
--- NOTE | 2019-06-06 16:05 | NUR ---
IV THERAPY REMOVED FROM RIGHT AC TIP INTACT. DISCHARGE INSTRUCTIONS GIVEN. PATIENT VERBALIZED UNDERSTANDING. WAITING ON SON TO ARRIVE TO PICK HER UP.
--- NOTE | 2019-06-07 09:17 | MORECARE ---
CASE MANAGEMENT DISCHARGE SUMMARY PATIENT: WALLY FAY UNIT: [id number] ADM DATE: 06/02/19 AGE: 73 : 46 SEX: F ROOM/BED: D.2205 AUTHOR: FANNIE BELL PHYSICIAN: REFERRING PHYSICIAN: NAILA BENAVIDEZ DO DATE OF SERVICE: 06/07/19 Discharge Plan Patient Name: WALLY FAY Facility: [facility]:[place] : 1945 Planned Disposition: Home Anticipated Discharge Date: Discharge Date: 06/06/2019 Expected LOS: Initial Reviewer: [id number] Initial Review Date: 06/02/2019 Generated: 06/07/19 10:17 am Comments DCP- Discharge Planning Updated by [email or web address]: Jenny Fleming on 06/06/19 2:[address] PATIENT DISCHARGING HOME TODAY, SHE IS CURRENT WITH [employer] AND SHE SI REQUESTING AN AIDE FOR HELP INSIDE HER HOME. I WILL CONTACT [facility] TO LET THEM KNOW. IMM SERVED AND EXPLAINED DCP- Discharge Planning Updated by [id number]: Jenny Fleming on 06/04/19 11:[address] Patient Name: WALLY FAY Admission Status: ER Accout number: [id number] Admission Date: 06-02-2019 : 1945 Admission Diagnosis: Attending: NAILA BENAVIDEZ Current LOS: 2 Anticipated DC Date: Planned Disposition: Home Primary Insurance: MEDICARE A & B Discharge Planning Comments: CM met with patient to complete initial dc planning assessment. CM educated patient on the CM role and verbal consent given by patient to complete assessment. Patient lives at home with her son and spouse where she is independent with her care. At discharge patient plans to return home and feels this is a safe discharge. CM discussed availability of home health, rehab services, and medical equipment. She has a CPAP machine, home O2, and walker at home. She uses [facility]. She had [facility] in the past, but did not want to use them. Her daughter is trying to get her spouse on [employer] Aging. Patient denied known discharge needs at this time. CM will continue to follow and will assist as needed with dc plans/needs. Home Care Assistant: Jenny Fleming DCPIA - Discharge Planning Initial Assessment Updated by [email or web address]: Jenny Fleming on 06/04/19 12:20 pm * Is the patient Alert and Oriented? Yes * How many steps to enter\exit or inside your home? 12/03 * PCP FATOU * [facility] * Preadmission Environment Home with Family * ADLs Independent * Equipment CPAP Oxygen Walker * List name and contact numbers for known caregivers / representatives who currently or will assist patient after discharge: TRISTIAN HARRIS (DAUGHTER) [phone] * Verbal permission to speak to the caregivers and representatives has been obtained from the patient. N/A * Please name any agencies selected above. TRYING TO GET AREA ON AGING FOR HER SPOUSE * Additional services required to return to the preadmission environment? No * Can the patient safely return to the preadmission environment? Yes * Has this patient been hospitalized within the prior 30 days at any hospital? No Coverage Notice Reviewer: [id number] Bernadette Fleming Notice Issued Date-Time: 06/04/2019 10:15 Notice Type: Patient Choice Letter Notice Delivered To: Patient Relationship to Patient: Housing Assistant Name: Delivery Method: HAND - Hand Delivered Ameena Days: Prior Verbal Notification: Recipient Understood Notice: Yes Recipient Signature: Yes Med Rec Note Co-signed by Attending: Coverage Notice Comment: [facility] Reviewer: [id number] - Jenny Fleming Notice Issued Date-Time: 06/06/2019 15:00 Notice Type: IM Discharge Notice Notice Delivered To: Relationship to Patient: Housing Assistant Name: Delivery Method: HAND - Hand Delivered Ameena Days: Prior Verbal Notification: Recipient Understood Notice: Yes Recipient Signature: Yes Med Rec Note Co-signed by Attending: Coverage Notice Comment: Last DP export: 06/06/19 2:30 p Patient Name: WALLY FAY Page [phone] at 0917 All edits/amendments must be made on the electronic document DICTATION DATE: 06/07/19916 FIRER HELPER: WINNIE 06/07/19916 RPT#: [id number] DC DATE:06/06/19 STATUS: DIS IN [facility] [address] [place] [address] END OF REPORT
== END 2019-06-06 18:10 | disposition home or self-care (01) | DRG 690 ==
LOC: D.ER 16:17 → D.MS 19:32
PROVIDERS: Family Medicine; ADMIT Family Medicine; ATTEND Family Medicine
DX: N39.0 Urinary tract infection, site not specified (principal); K57.32 Diverticulitis of large intestine without perforation or abscess without bleeding; E11.65 Type 2 diabetes mellitus with hyperglycemia; I10 Essential (primary) hypertension; K21.9 Gastro-esophageal reflux disease without esophagitis; J44.9 Chronic obstructive pulmonary disease, unspecified; I25.10 Atherosclerotic heart disease of native coronary artery without angina pectoris; B96.20 Unspecified Escherichia coli [E. coli] as the cause of diseases classified elsewhere

== ENCOUNTER 2019-06-19 09:32 | Inpatient (IN) | payer MEDICARE, BC ==
[~2019-06-19] VITALS: Ht 175.3 cm; Wt 97.5 kg
[~2019-06-19 09:32] MED LIST changes: +LEVOFLOXACIN500 MG PO
[2019-06-19] MEDS ORDERED: LIPITOR40 MG PO (09:49)
[2019-06-19] MEDS ORDERED: GLUCOPHAGE1000 MG PO (09:50)
[2019-06-19] MEDS ORDERED: GABAPENTIN100 MG PO (09:52)
[2019-06-19] MEDS ORDERED: MOBIC7.5 MG PO (09:53)
[2019-06-19] MEDS ORDERED: SOLIQUA 100 UNIT3 ML SQ (09:54)
[2019-06-19] MEDS ORDERED: TOUJEO SOL300 UNIT/1 SC (09:58)
[2019-06-19 09:59] LABS: BASOPHILS 0.2 % (0-2); EOSINOPHILS 4.2 % (0-7); HEMATOCRIT 40.1 % (36.0-48.0); HEMOGLOBIN 13.1 g/dL (12-16); MCH 28.5 pg (26.0-34.0); MCHC 32.7 g/dL (31.0-37.0); MCV 87.2 fL (80.0-100.0); MEAN PLATELET VOLUME 10.2 fL (7.4-10.4); MONOCYTES 7.4 % (2-11); NEUTROPHILS 58.2 % (40-80); PLATELET COUNT 180 10x3/uL (130-400); RDW 14.8 % (11.5-14.5); WBC 5.7 10x3/uL (4.8-10.8)
[2019-06-19 10:20] LABS: APTT 27.5 SECONDS (22.8-39.4); INR 1.04 (0.85-1.17); PROTIME 13.6 SECONDS (11.6-15.0)
[2019-06-19 10:35] LABS: CALC OSMOLALITY 279 mosm/kg (275-300); CARBON DIOXIDE 31.9 mmol/L (21.0-32.0); CHLORIDE - SERUM 101 mmol/L (98-107); CREATININE - SERUM 1.2 mg/dL (0.6-1.3); POTASSIUM - SERUM 4.6 mmol/L (3.5-5.1); SODIUM 139 mmol/L (136-145); UREA NITROGEN 18 mg/dL (7-18); eGFR NON AFRICAN AMERICAN 47 mL/min (90-120)
[2019-06-19 10:36] LABS: GLUCOSE 96 mg/dL (74-106)
[2019-06-19 10:44] LABS: ALBUMIN 3.2 g/dL (3.4-5.0); ALKALINE PHOSPHATASE 61 U/L (30-120); ALT (SGPT) 33 U/L (10-68); LIPASE 144 U/L (73-393); MAGNESIUM - SERUM 1.4 mg/dL (1.8-2.4); PROTEIN - SERUM 6.8 g/dL (6.4-8.2)
[2019-06-19 10:46] LABS: D-DIMER-QUANTITATIVE 0.72 ug/mLFEU (0.20-0.54)
[2019-06-19 11:05] LABS: PRO BNP 118 pg/mL (0-125); THYROID STIMULATING HORMONE 2.66 uIU/mL (0.36-3.74); TROPONIN-I < 0.017 ng/mL (0.000-0.060)
--- NOTE | 2019-06-19 11:11 | NUR ---
LACTIC ACID 2.3. DR. FOX NOTIFIED.
[2019-06-19 11:53] LABS: BACTERIA MODERATE /hpf (NEGATIVE); BILIRUBIN NEGATIVE (NEGATIVE); GLUCOSE NEGATIVE (NEGATIVE); KETONE NEGATIVE (NEGATIVE); NITRITE NEGATIVE (NEGATIVE); RED CELLS - URINE RARE /hpf (0-5); UROBILINOGEN NORMAL (NORMAL)
[2019-06-19 11:54] LABS: HYALINE CAST 0-5 /lpf (NONE SEEN)
[2019-06-19 12:27] VITALS: BP 158/61
[2019-06-19 13:30] VITALS: BP 145/69
[2019-06-19 17:24] VITALS: BP 149/63
[2019-06-19 18:13] LABS: CHOL - HDL RATIO 4.2 ratio (2.3-4.1); LDL-HDL RATIO 2.1 ratio (1.5-3.5)
--- NOTE | 2019-06-19 19:19 | NUR ---
PT ON LIGHT STATED SHE IS IN A LOT OF PAIN AND NEEDS SOMETHING MORE THAN TYLENOL 3. ALICIAD Una DURHAM EDGE BEADER AND RECEIVED ORDR FOR ROSY
[2019-06-19 19:23] VITALS: BP 144/85; BMI 31.8
[2019-06-19 20:00] VITALS: BP 126/62
--- NOTE | 2019-06-19 20:00 | NUR ---
PT. IN BED, AAO X 3, PT STATES DILAUDID HELPED RIGHT HIP PAIN AT THIS TIME.
--- NOTE | 2019-06-20 01:21 | NUR ---
PT CALLED REQUESTNG PAIN MED, PT MEDICATED FOR RIGHT HIP PAIN OF 8/10 WITH DILAUDID 0.5MG IVP PER DOCTORS ORDER.
--- NOTE | 2019-06-20 01:51 | NUR ---
pt called requesting pain med, medicated per md order with 0.5mg dilaudid ivp for right hip pain of 11/23
--- NOTE | 2019-06-20 03:04 | NUR ---
I have reviewed this patient and I concur with the Shift Assessment completed by the Licensed Practical Nurse today this shift.
[2019-06-20 04:00] VITALS: BP 124/61
[2019-06-20 05:31] LABS: BASOPHILS 0.3 % (0-2); EOSINOPHILS 3.7 % (0-7); HEMOGLOBIN 13.1 g/dL (12-16); IMMATURE GRANULOCYTES 0.3 % (0-5); LYMPHOCYTES 24.8 % (15-50); MCH 28.8 pg (26.0-34.0); MEAN PLATELET VOLUME 10.6 fL (7.4-10.4); MONOCYTES 6.6 % (2-11); NEUTROPHILS 64.3 % (40-80); PLATELET COUNT 183 10x3/uL (130-400); RBC 4.55 10x6/uL (4.00-5.40); RDW 15.2 % (11.5-14.5)
[2019-06-20 05:40] LABS: MCV 90.1 fL (80.0-100.0); WBC 7.3 10x3/uL (4.8-10.8)
--- NOTE | 2019-06-20 05:50 | NUR ---
pt running sinus rythum in the 70's
[2019-06-20 05:56] LABS: % SATURATION 26 % (15-55); IRON 73 ug/dl (35-150); TOTAL IRON BIND CAPACITY 272 ug/dl (260-445); UNSAT IRON BIND CAPACITY 199 ug/dl (150-375)
[2019-06-20 06:38] LABS: ALBUMIN 3.2 g/dL (3.4-5.0); ALKALINE PHOSPHATASE 55 U/L (30-120); ALT (SGPT) 31 U/L (10-68); BILIRUBIN - TOTAL 0.48 mg/dL (0.2-1.3); CALCIUM 9.4 mg/dL (8.5-10.1); CARBON DIOXIDE 29.5 mmol/L (21.0-32.0); CHLORIDE - SERUM 101 mmol/L (98-107); FERRITIN 34 ng/mL (3-244); GLUCOSE 140 mg/dL (74-106); POTASSIUM - SERUM 4.5 mmol/L (3.5-5.1); PROTEIN - SERUM 7.1 g/dL (6.4-8.2); SODIUM 140 mmol/L (136-145)
[2019-06-20 06:40] LABS: CALC OSMOLALITY 285 mosm/kg (275-300); CREATININE - SERUM 2.3 mg/dL (0.6-1.3); UREA NITROGEN 26 mg/dL (7-18); eGFR NON AFRICAN AMERICAN 22 mL/min (90-120)
[2019-06-20 08:44] VITALS: BP 119/48
--- NOTE | 2019-06-20 12:46 | NUR ---
I have reviewed this patient and I concur with the Shift Assessment completed by the Licensed Practical Nurse today this shift.
[2019-06-20 13:34] VITALS: BMI 31.7
[2019-06-20 14:24] VITALS: BP 133/67
[2019-06-20 20:00] VITALS: BP 143/47
--- NOTE | 2019-06-20 20:00 | NUR ---
ALERT RESTING IN BED, C/O PAIN TO RIGHT HIP WITH MOVEMENT, SEE SHIFT ASSESSMENT, CALL BETY ELY
[2019-06-21 04:00] VITALS: BP 135/63
[2019-06-21 04:59] LABS: BASOPHILS 0.2 % (0-2); EOSINOPHILS 4.4 % (0-7); HEMATOCRIT 36.8 % (36.0-48.0); HEMOGLOBIN 11.6 g/dL (12-16); IMMATURE GRANULOCYTES 0.2 % (0-5); LYMPHOCYTES 25.2 % (15-50); MCH 28.3 pg (26.0-34.0); MCHC 31.5 g/dL (31.0-37.0); MCV 89.8 fL (80.0-100.0); MEAN PLATELET VOLUME 10.1 fL (7.4-10.4); MONOCYTES 7.4 % (2-11); NEUTROPHILS 62.6 % (40-80); PLATELET COUNT 163 10x3/uL (130-400)
[2019-06-21 05:05] LABS: WBC 5.2 10x3/uL (4.8-10.8)
[2019-06-21 05:13] LABS: ALBUMIN 2.7 g/dL (3.4-5.0); BILIRUBIN - TOTAL 0.5 mg/dL (0.2-1.3); CALCIUM 8.3 mg/dL (8.5-10.1); CARBON DIOXIDE 30.9 mmol/L (21.0-32.0); POTASSIUM - SERUM 4.9 mmol/L (3.5-5.1); PROTEIN - SERUM 6.6 g/dL (6.4-8.2)
[2019-06-21 05:14] LABS: CREATININE - SERUM 1.3 mg/dL (0.6-1.3)
--- NOTE | 2019-06-21 07:20 | NUR ---
NO UPDRAFT GIVEN PT IN TO MUCH PAIN
--- NOTE | 2019-06-21 07:36 | NUR ---
PT ON CL THIS MORNING STATED SHE IS IN A LOT OF PAIN. STATES PAIN IS IN HER BACK AND HIPS AND JUST STIFF THIS MORNING. ENCOURAGED PT TO GET UP AND MOVE MUCH POSSIBLE. ADMINISTERED PRN PAIN MEDICATION WELL SCHEDULED MEDS, ASSUME PT CARE
[2019-06-21 07:58] VITALS: BP 104/64
--- NOTE | 2019-06-21 10:32 | NUR ---
LOC WITH PT IN WITH PATIENT THIS MORNING, PT STATES SHE IS UNABLE TO MOVE DUE TO PAIN IN HER RT LEG AND HIP, WAS ABLE TO GET PT TO SIT UP AT SIDE OF BED AND STAND FOR ABOUT 3 SECS AND RETRY BEORE I ADMINISTEED PRN PAIN MEICATION. A LITTLE TOO EARLY FOR TRAMADOL SO I ADMINISTERED PRN IV PAIN MEDICATION. PT DID C/O DIZZINESS THAT COMES AND GOES WHILE SHE IS SITTING UP AND STATED THIS IS NOT A NEW THING. NO OTHER NEEDS VOICED AT THIS TIME. CONTINUE WITH PLAN OF CARE
[2019-06-21 12:24] VITALS: BP 111/59
--- NOTE | 2019-06-21 12:52 | NUR ---
I have reviewed this patient and I concur with the Shift Assessment completed by the Licensed Practical Nurse today this shift.
--- NOTE | 2019-06-21 15:24 | NUR ---
PT LYING IN BED STATED PAIN IS AT A 10, PT SEEMS TO BE VERY CONFUSED STATED " I HAVE BEEN LAYING IN THIS SAME PLACE ALL NIGHT" REORIENTED PT TO HOSPITAL AND PLAN OF CARE, PT STATED " TIS PLACE IS A DUMP, ARENT I GETTING TESTS DONE TODAY?" CHECKED ORDERSW AND NO TESTS SCHEDULED FOR TODAY. ADMINISTERED PRN PAIN MEDICATION WELL SCHEDULED MEDS. CONTINUE WITH PLAN OF CARE
--- NOTE | 2019-06-21 16:21 | NUR ---
PT O2 LEVEL IS AT 87, PT HAS 2L OF NC SHE WAS NOT WEARING. REAPPLIED PT NC AND O2 WENT BACK UP TO 97. ENCOURAGED PT TO KEEP O2 ON. NO OTHER NEEDS VOICED, CONTINUE WITH PLAN OF CARE
[2019-06-21 16:28] VITALS: BP 129/57
--- NOTE | 2019-06-21 18:15 | NUR ---
PT ON CL FOR BEDPAN AND STATED PAIN IS AT A 7, PT IS A LITTLE MORE ALERT NOW AND ENCOURAGED PT TO KEEP O2 ON, ASSISTED PT WITH BEDPAN AND ADMINISTER PRN PAIN MEDICATION
[2019-06-21 19:43] VITALS: BP 108/53
--- NOTE | 2019-06-21 21:24 | NUR ---
LYING QUEITLY WITH NO COMPLAITNS VOICED. RESP EVEN AND UNALBORED. O2 @ 2L PER NC ON. NO DISTRESS NOTED. IV TO LFA INTACT WITHOUT REDNESS OR EDEMA NOTED.CL IN REACH
[2019-06-22] VITALS: BP 135/72
--- NOTE | 2019-06-22 03:30 | NUR ---
I have reviewed this patient and I concur with the Shift Assessment completed by the Licensed Practical Nurse today this shift.
[2019-06-22 04:00] VITALS: BP 159/79
[2019-06-22 06:12] LABS: BASOPHILS 0.2 % (0-2); EOSINOPHILS 5.2 % (0-7); HEMATOCRIT 38.8 % (36.0-48.0); HEMOGLOBIN 12.1 g/dL (12-16); IMMATURE GRANULOCYTES 0.2 % (0-5); LYMPHOCYTES 32.5 % (15-50); MCH 28.5 pg (26.0-34.0); MCHC 31.2 g/dL (31.0-37.0); MCV 91.5 fL (80.0-100.0); MEAN PLATELET VOLUME 10.6 fL (7.4-10.4); MONOCYTES 7.6 % (2-11); NEUTROPHILS 54.3 % (40-80); PLATELET COUNT 166 10x3/uL (130-400); RBC 4.24 10x6/uL (4.00-5.40); RDW 15.1 % (11.5-14.5); WBC 4.6 10x3/uL (4.8-10.8)
[2019-06-22 06:33] LABS: ALBUMIN 2.9 g/dL (3.4-5.0); ANION GAP 7.4 mmol/L (8-16); BILIRUBIN - TOTAL 0.48 mg/dL (0.2-1.3); CALCIUM 8.4 mg/dL (8.5-10.1); CARBON DIOXIDE 32.6 mmol/L (21.0-32.0); CREATININE - SERUM 1.1 mg/dL (0.6-1.3); PROTEIN - SERUM 6.9 g/dL (6.4-8.2)
[2019-06-22 09:43] VITALS: BP 103/58
--- NOTE | 2019-06-22 10:57 | NUR ---
PT STILL CONFUSED THIS MORNING AND DAUGHTER AT BEDSIDE STATES THIS IS NOT LIKE HER, PT HAS BEEN CONFUSED LAST 2 DAYS, EXPLAINED UTI CAN CAUSE CONFUSION WELL AND WHEN PT DOES NOT KEEP O2 ON CAN CAUSE CONFUSION WELL, PT FAMILY WOULD LIKE TO SEE OR JOSUÉ, ADVISED I WILL RELAY MESSAGE
[2019-06-22 12:53] VITALS: BP 109/69
--- NOTE | 2019-06-22 14:50 | NUR ---
I have reviewed this patient and I concur with the Shift Assessment completed by the Licensed Practical Nurse today this shift.
[2019-06-22 17:53] VITALS: BP 128/66
[2019-06-22 20:00] VITALS: BP 168/77
--- NOTE | 2019-06-22 21:00 | NUR ---
AWAKE,ALERT.NO COMPLIANTS VOCIED. RESP EVEN AND UANBLORED. NO DISTRESS NOTED.SL TO LFA INTACT WITHOUT REDNESS OR EDEMA NOTED. CL IN REACH
[2019-06-23] VITALS: BP 136/58
[2019-06-23 04:00] VITALS: BP 139/62
--- NOTE | 2019-06-23 04:02 | NUR ---
I have reviewed this patient and I concur with the Shift Assessment completed by the Licensed Practical Nurse today this shift.
[2019-06-23 05:43] LABS: BASOPHILS 0.2 % (0-2); EOSINOPHILS 6.3 % (0-7); HEMATOCRIT 37.9 % (36.0-48.0); HEMOGLOBIN 11.9 g/dL (12-16); IMMATURE GRANULOCYTES 0.2 % (0-5); MCH 28.2 pg (26.0-34.0); MCHC 31.4 g/dL (31.0-37.0); MCV 89.8 fL (80.0-100.0); MEAN PLATELET VOLUME 10.3 fL (7.4-10.4); MONOCYTES 7.8 % (2-11); NEUTROPHILS 49.5 % (40-80); PLATELET COUNT 164 10x3/uL (130-400); RBC 4.22 10x6/uL (4.00-5.40); RDW 14.8 % (11.5-14.5); WBC 4.6 10x3/uL (4.8-10.8)
[2019-06-23 07:14] LABS: ALBUMIN 3.1 g/dL (3.4-5.0); BILIRUBIN - TOTAL 0.56 mg/dL (0.2-1.3); CALCIUM 8.5 mg/dL (8.5-10.1); CARBON DIOXIDE 31.6 mmol/L (21.0-32.0); POTASSIUM - SERUM 4.6 mmol/L (3.5-5.1); PROTEIN - SERUM 6.5 g/dL (6.4-8.2)
--- NOTE | 2019-06-23 07:32 | NUR ---
ALERT AND ORIENTED. LUNGS CLEAR BILATERALLY. HEART SOUNDS S1 AND S2 HEARD IN ALL JOEDA. BOWEL SOUNDS ACTIVE X 4. SKIN INTACT WITHOUT REDNESS. C/O RIGHT HIP PAIN. IV TO LFA SL. O2 IN PLACE AT 2L NC. DENIES NEEDS. BED LOW. CALL BARRETT AND PERSONAL ITEMS IN REACH. WILL CONTINUE TO MONITOR.
[2019-06-23 08:35] VITALS: Ht 175.3 cm; Wt 97.5 kg
[2019-06-23 09:14] VITALS: BP 187/84
--- NOTE | 2019-06-23 12:02 | NUR ---
RESTING IN BED. DENIES NEEDS. WILL CONTINUE TO MONITOR.
--- NOTE | 2019-06-23 12:04 | NUR ---
ORTHOSTATIC BP TAKEN PER ORDER. LYING 150/48. SITTING 146/64. STANDING 138/70.
[2019-06-23 12:52] VITALS: BP 150/78
--- NOTE | 2019-06-23 13:15 | MORECARE ---
CASE MANAGEMENT DISCHARGE SUMMARY PATIENT: WALLY LYNCH UNIT: [id number] ADM DATE: 06/19/19 AGE: 73 : 46 SEX: F ROOM/BED: D.2228 AUTHOR: FANNIE BELL PHYSICIAN: REFERRING PHYSICIAN: FRANKIE MACHADO MD DATE OF SERVICE: 06/23/19 Discharge Plan Patient Name: WALLY LYNCH [facility] [facility] 1945 Planned Disposition: Inpatient Rehab Anticipated Discharge Date: Discharge Date: Expected LOS: Initial Reviewer: [email or web address] Initial Review Date: 06/23/2019 Generated: 06/23/19 2:14 pm DCPIA - Discharge Planning Initial Assessment Updated by [email or web address]: Christie Brown on 06/23/19 1:13 pm * Is the patient Alert and Oriented? Yes * How many steps to enter\exit or inside your home? 11/15 * PCP Dr. Hughes * Pharmacy [facility] on [facility] * Preadmission Environment Home with Family * ADLs Partial Dependent * Partial ADLs (Assistance needed) Ambulation * Equipment CPAP Oxygen Walker * List name and contact numbers for known caregivers / representatives who currently or will assist patient after discharge: Kath Flavio [facility] - [phone] [facility] - [phone] * Verbal permission to speak to the caregivers and representatives has been obtained from the patient. Yes * Community resources currently utilized Home Health * Please name any agencies selected above. [facility] * Additional services required to return to the preadmission environment? No * Can the patient safely return to the preadmission environment? Yes * Has this patient been hospitalized within the prior 30 days at any hospital? Yes Patient Name: WALLY LYNCH Page [phone] at 1315 All edits/amendments must be made on the electronic document DICTATION DATE: 06/23/19 1314 HOURLY CAREGIVER: WINNIE 06/23/19 1314 RPT#: [id number] DC DATE: STATUS: ADM IN [facility] [address] [place] [address] END OF REPORT
--- NOTE | 2019-06-23 13:22 | MORECARE ---
CASE MANAGEMENT DISCHARGE SUMMARY PATIENT: WALLY LYNCH UNIT: [id number] ADM DATE: 06/19/19 AGE: 73 : 46 SEX: F ROOM/BED: D.2228 AUTHOR: RAY,DOC PHYSICIAN: REFERRING PHYSICIAN: FRANKIE MACHADO MD DATE OF SERVICE: 06/23/19 Discharge Plan Patient Name: WALLY LYNCH Facility: [facility]:[place] : 1945 Planned Disposition: Inpatient Rehab Anticipated Discharge Date: Discharge Date: Expected LOS: Initial Reviewer: [id number] Initial Review Date: 06/23/2019 Generated: 06/23/19 2:22 pm Comments DCP- Discharge Planning Updated by [id number]: Christie Brown on 06/23/19 12:[address] Patient Name: WALLY LYNCH Admission Status: ER Accout number: [id number] Admission Date: 06-19-2019 : 1945 Admission Diagnosis: Attending: MAURISIO MACHADO Current LOS: 4 Anticipated DC Date: Planned Disposition: Inpatient Rehab Primary Insurance: MEDICARE A & B Discharge Planning Comments: CM met with patient to complete initial dc planning assessment. CM educated patient on the CM role and verbal consent given by patient to complete assessment. Patient lives at home with her disabled and her son. States her son works, so mainly she is with her that she care for. CM discussed availability of home health, rehab services, and medical equipment. Patient states she would like to go to rehab at [facility] to get stronger prior to going home. She has an ortho work up still in progress. Rehab prescreening is ordered. CM will continue to follow and will assist as needed with dc plans/needs. Energy Auditor: Christie Brown DCPIA - Discharge Planning Initial Assessment Updated by [email or web address]: Christie Brown on 06/23/19 1:13 pm * Is the patient Alert and Oriented? Yes * How many steps to enter\exit or inside your home? 11/15 * PCP Dr. Hughes * Pharmacy [facility] on [address] * Preadmission Environment Home with Family * ADLs Partial Dependent * Partial ADLs (Assistance needed) Ambulation * Equipment CPAP Oxygen Walker * List name and contact numbers for known caregivers / representatives who currently or will assist patient after discharge: Kath Muniz - DTR - [phone] David Lynch - [facility] - [phone] * Verbal permission to speak to the caregivers and representatives has been obtained from the patient. Yes * Community resources currently utilized Home Health * Please name any agencies selected above. [facility] * Additional services required to return to the preadmission environment? No * Can the patient safely return to the preadmission environment? Yes * Has this patient been hospitalized within the prior 30 days at any hospital? Yes Coverage Notice Reviewer: [id number] Bernadette Brown Notice Issued Date-Time: 06/23/2019 13:16 Notice Type: Patient Choice Letter Notice Delivered To: Patient Relationship to Patient: Self Occupational Therapy Director Name: Delivery Method: HAND - Hand Delivered Ameena Days: Prior Verbal Notification: Recipient Understood Notice: Yes Recipient Signature: Yes Med Rec Note Co-signed by Attending: Coverage Notice Comment: KEANU for Inpatient rehab at [facility] and [facility] Reviewer: [id number] Bernadette Brown Notice Issued Date-Time: 06/23/2019 13:16 Notice Type: IM Discharge Notice Notice Delivered To: Patient Relationship to Patient: Self Occupational Therapy Director Name: Delivery Method: HAND - Hand Delivered Ameena Days: Prior Verbal Notification: Recipient Understood Notice: Yes Recipient Signature: Yes Med Rec Note Co-signed by Attending: Coverage Notice Comment: IMM explained, signed, given, copy placed in Mr Last DP export: 06/23/19 12:15 pm Patient Name: WALLY LYNCH Page [phone] at 1322 All edits/amendments must be made on the electronic document DICTATION DATE: 06/23/19 1322 PRESSURIZER: WINNIE 06/23/19 1322 RPT#: [id number] DC DATE: STATUS: ADM IN [facility] [address] [place] [address] END OF REPORT
--- NOTE | 2019-06-23 16:04 | NUR ---
Rehab Prescreening Consult recieved and the chart has been reviewed. She was able to ambulate 24 ft yesterday and then her legs gave away. Rehab will follow her progress with therapy to determine if she is able to tolerate 3 hrs of therapy everyday 5 days a week. Kori Henning RN Clinical Liaison, Rehab
[2019-06-23 17:13] VITALS: BP 162/72
[2019-06-23 20:00] VITALS: BP 171/70
--- NOTE | 2019-06-23 20:00 | NUR ---
ALERT RESTING IN BED, DENIES PAIN OR NEEDS AT THIS TIME, SEE SHIFT ASSESSMENT, CALL LIGHT IN REACH
--- NOTE | 2019-06-23 20:39 | NUR ---
OT NOTE: PT COMPLETED BED MOB TASK SIDE ROLLING WITH MIN A USING SIDE RAIL. PT COMPLETED FACE/HAND HYGIENE TASKS WITH SETUP. PT STATED WHEN STANDING LEG SOMETIMES EDMOND. [phone] THANK YOU,JOHANA LEE
[2019-06-24] VITALS (7 sets, daily range): BP systolic 135–168; BP diastolic 60–77
[2019-06-24 05:46] LABS: BASOPHILS 0.2 % (0-2); EOSINOPHILS 4.1 % (0-7); HEMATOCRIT 36.8 % (36.0-48.0); HEMOGLOBIN 11.5 g/dL (12-16); IMMATURE GRANULOCYTES 0.2 % (0-5); LYMPHOCYTES 32.5 % (15-50); MCH 27.5 pg (26.0-34.0); MCHC 31.3 g/dL (31.0-37.0); MEAN PLATELET VOLUME 10.5 fL (7.4-10.4); MONOCYTES 8.4 % (2-11); NEUTROPHILS 54.6 % (40-80); PLATELET COUNT 177 10x3/uL (130-400); RBC 4.18 10x6/uL (4.00-5.40); RDW 14.5 % (11.5-14.5); WBC 5.6 10x3/uL (4.8-10.8)
[2019-06-24 06:29] LABS: ANION GAP 9.8 mmol/L (8-16); BILIRUBIN - TOTAL 0.58 mg/dL (0.2-1.3); CALCIUM 8.9 mg/dL (8.5-10.1); CARBON DIOXIDE 33.2 mmol/L (21.0-32.0); CREATININE - SERUM 1.2 mg/dL (0.6-1.3)
--- NOTE | 2019-06-24 11:42 | NUR ---
PT OUT OF ROOM HANGING ON TO RAILS IN HALLWAY, ASKED HER WHERE SHE WAS GOING, PT STATED SHE WAS HEADING TO HER ROOM TO BACK, GUIDED PT BACK TO ROOM, REORIENTED PT TO HOSPITAL ROOM, PT STATED SHE CAN HEAR PEOPLE TALKING ABOUT HER AND SHE KNOWS WE ARE KEEPING SECRETS. TOLD PT NO ONE IS TALKING ABOUT HER AND NO ONE IS KEEPING SECRETS. PT IS VERY CONFUSED, TUCKDE PT BACK INTO BED AND TURNED ON ALARM
--- NOTE | 2019-06-24 15:42 | NUR ---
I have reviewed this patient and I concur with the Shift Assessment completed by the Licensed Practical Nurse today this shift.
--- NOTE | 2019-06-24 20:00 | NUR ---
ALERT SITTING UP ON SIDE OF BED, DENIES PAIN OR NEEDS, BUT APPEARS CONFUSED TALKING ABOUT SOME MAN IN ROOM HIDING UNDER WINDOW, SEE SHIFT ASSESSMENT, CALL LIGHT IN REACH, FALL PRECAUTIONS IN PLACE RICHARD ALARM ON
--- NOTE | 2019-06-24 21:30 | NUR ---
REMAING CONFUSED KEEPS GETTING UP OUT OF BED TO BATHROOM OR OUT IN HALLWAY,KEEP REMINDING THAT SHE IS IN HOSPITAL AND NEEDS TO CALL FOR ASSISTANCE TO KEEP FROM FALLING
--- NOTE | 2019-06-24 22:40 | NUR ---
BED ALARM GOING OFF PT FOUND SITTING ON FLOOR AT BEDSIDE DENIES INJURY OR PAIN ASSISTED BACK TO BED NO VISIABLE INJURIES, PT STATES JUST GETTING UP TO WALK AROUND, BED ALARM AND FALL PRECAUTIONS AGAIN ON AND IN PLACE
--- NOTE | 2019-06-24 23:10 | NUR ---
BRENDA LAL NOTIFIED OF PT FALL NO ORDERS AT THIS TIME
--- NOTE | 2019-06-24 23:20 | NUR ---
HS NOTIFIED OF FALL, DAUGHTER TRISTIAN NOTIFIED
[2019-06-25 05:36] LABS: BASOPHILS 0.4 % (0-2); EOSINOPHILS 4.8 % (0-7); HEMATOCRIT 38.6 % (36.0-48.0); HEMOGLOBIN 12.1 g/dL (12-16); IMMATURE GRANULOCYTES 0.4 % (0-5); LYMPHOCYTES 30.7 % (15-50); MCH 28.3 pg (26.0-34.0); MCHC 31.3 g/dL (31.0-37.0); MEAN PLATELET VOLUME 10.5 fL (7.4-10.4); MONOCYTES 9.1 % (2-11); NEUTROPHILS 54.6 % (40-80); RBC 4.27 10x6/uL (4.00-5.40); RDW 14.6 % (11.5-14.5); WBC 5.6 10x3/uL (4.8-10.8)
[2019-06-25 05:37] LABS: MCV 90.4 fL (80.0-100.0); PLATELET COUNT 136 10x3/uL (130-400)
[2019-06-25 05:59] LABS: ANION GAP 10.8 mmol/L (8-16); CALCIUM 8.9 mg/dL (8.5-10.1); CARBON DIOXIDE 30.1 mmol/L (21.0-32.0); CREATININE - SERUM 1.2 mg/dL (0.6-1.3); POTASSIUM - SERUM 3.9 mmol/L (3.5-5.1)
[2019-06-25 09:32] VITALS: BP 139/79
[2019-06-25 12:40] VITALS: BP 144/66
--- NOTE | 2019-06-25 13:41 | NUR ---
NUTRITION F/U CHART REVIEWED, PT VISIT. PT REFUSED BREAKFAST THIS AM. STATED SHE DID NOT FEEL LIKE EATING. CURRENTLY SLEEPING THROUGH LUNCH. WILL CONTINUE TO PROVIDE DIET, MONITOR PO INTAKE. RD FOLLOWING
--- NOTE | 2019-06-25 15:35 | NUR ---
I have reviewed this patient and I concur with the Shift Assessment completed by the Licensed Practical Nurse today this shift.
[2019-06-25 16:53] VITALS: BP 124/82
--- NOTE | 2019-06-25 17:36 | NUR ---
OT NOTE: PT VERY CONFUSED TODAY. REFUSED TO GET OUT OF BED BUT COULD NOT PROVIDE REASON. ASKED PT IF SHE WAS COLD, TIRED, HURTING, ETC.. PT DENIED ALL ..STATED THAT SHE JUST DIDNT WANT TO DO IT AND RESPONDED, "WHY DO IT IF I DONT HAVE TO?'' MADE SEVERAL ATTEMPTS BUT PT CONTINUED TO REFUSE WITHOUT REASON. INFORMED NURSING. ZACHERY OLIVEIRA,OTR/L
--- NOTE | 2019-06-25 19:39 | NUR ---
OT NOTE: (DOS 06/24/2019) PT COMPLETED SUPINE TO SIT WITH SBA. PT COMPLETED STATIC EOB SITTING WITH SBA. PT COMPLETED BUE AROM EXS AT EOB WITH SBA. PT REQUIRED MIN CUES FOR PARTICIPATION AND TASKS COMPLETION. PT IS ANXIOUS AND CONFUSED. NURSING AWARE. [phone] THANK YOU,JOHANA LEE
[2019-06-25 20:00] VITALS: BP 151/63
--- NOTE | 2019-06-25 20:50 | NUR ---
OT NOTE: UPON ENTERING , PT SITTING AT EOB CRYING. PT UNABLE TO ARTICULATE WHY SHE IS CRYING. PT STATED SHE FELL YESTERDAY. CONSULTED NURSING. NURSING CAME IN PT ROOM AND SPOKE WITH HER AND CHECKED VITALS. PT COMPLETED SIT TO STAND WITH CGA. PT COMPLETED SIT TO SUPINE WITH SBA. PT COMPLETED BED MOB TASKS WITH SBA. PT COMPLETED BUE AROM AXS WITH NO C/O PAIN. PT IS CONFUSED. NURSING AWARE. PT LACKS SAFETY AWARENESS. [phone] THANK YOU,JOHANA LEE
[2019-06-26 04:00] VITALS: BP 97/54
[2019-06-26 04:21] LABS: BASOPHILS 0.4 % (0-2); EOSINOPHILS 3.4 % (0-7); HEMATOCRIT 37.9 % (36.0-48.0); IMMATURE GRANULOCYTES 0.2 % (0-5); LYMPHOCYTES 33.3 % (15-50); MCHC 31.7 g/dL (31.0-37.0); MCV 88.6 fL (80.0-100.0); MEAN PLATELET VOLUME 10.3 fL (7.4-10.4); MONOCYTES 7.9 % (2-11); NEUTROPHILS 54.8 % (40-80); PLATELET COUNT 156 10x3/uL (130-400); RBC 4.28 10x6/uL (4.00-5.40); RDW 14.6 % (11.5-14.5); WBC 5.3 10x3/uL (4.8-10.8)
[2019-06-26 04:43] LABS: CALCIUM 8.8 mg/dL (8.5-10.1); CARBON DIOXIDE 36.6 mmol/L (21.0-32.0); CREATININE - SERUM 1.1 mg/dL (0.6-1.3); POTASSIUM - SERUM 3.6 mmol/L (3.5-5.1)
[2019-06-26 08:17] VITALS: BP 144/64
--- NOTE | 2019-06-26 09:14 | NUR ---
PT LYING IN BED SEEMS TO BE MORE ALERT AND WITH IT TODAY, PT STATED SHE SLEPT ALL NIGHT AND DID NOT GET UP, STILL SORE ON BACKSIDE, PT HAS BRUISE TO MIDDLE OF BACK SAYS BACK END SORE, HAS A LITTLE REDNESS. PT STATED DAUGHTER STOPPED BY YESTERDAY AND HAD A NICE VISIT. NO OTHER NEEDS VOICED, CL IN REACH BED ALARM ON, CON TINUE WITH PLAN OF CARE
--- NOTE | 2019-06-26 11:25 | MORECARE ---
CASE MANAGEMENT DISCHARGE SUMMARY PATIENT: WALLY LYNCH UNIT: [id number] ADM DATE: 06/19/19 AGE: 73 : 46 SEX: F ROOM/BED: D.2228 AUTHOR: FANNIE BELL PHYSICIAN: REFERRING PHYSICIAN: FRANKIE MACHADO MD DATE OF SERVICE: 06/26/19 Discharge Plan Patient Name: WALLY LYNCH Facility: [facility]:[place] : 1945 Planned Disposition: Inpatient Rehab Anticipated Discharge Date: Discharge Date: Expected LOS: Initial Reviewer: [id number] Initial Review Date: 06/23/2019 Generated: 06/26/19 12:24 pm Comments DCP- Discharge Planning Updated by [id number]: Christie Rodgersnasim on 06/26/19 10:[address] CM met with patient in the room. She is oriented to person, place and time. She is in agreement to discharge to [facility] today. She would like me to notify her son and daughter that she is discharging to [facility] today. I called the daughter's phone with no answer. I called patient's son, David, and he states they spoke with Dr. Miller last night and they were all in agreement to discharge to [facility]. He states that they do not have a POA for her at this time, but have been talking about getting it started. He states "she has not been herself for about a week now." I notified Janna Serrano APN that patient and family are in agreement to discharge to [facility] today. DCP- Discharge Planning Updated by [id number]: Christie Brown on 06/23/19 12:[address] Patient Name: WALLY LYNCH Admission Status: ER Accout number: [id number] Admission Date: 06-19-2019 : 1945 Admission Diagnosis: Attending: MAURISIO MACHADO Current LOS: 4 Anticipated DC Date: Planned Disposition: Inpatient Rehab Primary Insurance: MEDICARE A & B Discharge Planning Comments: CM met with patient to complete initial dc planning assessment. CM educated patient on the CM role and verbal consent given by patient to complete assessment. Patient lives at home with her disabled and her son. States her son works, so mainly she is with her that she care for. CM discussed availability of home health, rehab services, and medical equipment. Patient states she would like to go to rehab at [facility] to get stronger prior to going home. She has an ortho work up still in progress. Rehab prescreening is ordered. CM will continue to follow and will assist as needed with dc plans/needs. Oncology Physician: Christie Brown DCPIA - Discharge Planning Initial Assessment Updated by [id number]: Christie rBown on 06/23/19 1:13 pm * Is the patient Alert and Oriented? Yes * How many steps to enter\\exit or inside your home? 11/15 * PCP Dr. Hughes * Pharmacy [facility] on [address] * Preadmission Environment Home with Family * ADLs Partial Dependent * Partial ADLs (Assistance needed) Ambulation * Equipment CPAP Oxygen Walker * List name and contact numbers for known caregivers / representatives who currently or will assist patient after discharge: Kath Roroseanne DTR - [phone] David Lynch [facility] - [phone] * Verbal permission to speak to the caregivers and representatives has been obtained from the patient. Yes * Community resources currently utilized Home Health * Please name any agencies selected above. [facility] * Additional services required to return to the preadmission environment? No * Can the patient safely return to the preadmission environment? Yes * Has this patient been hospitalized within the prior 30 days at any hospital? Yes Coverage Notice Reviewer: [id number] Bernadette Brown Notice Issued Date-Time: 06/23/2019 13:16 Notice Type: Patient Choice Letter Notice Delivered To: Patient Relationship to Patient: Self Social Media Editor Name: Delivery Method: HAND - Hand Delivered Ameena Days: Prior Verbal Notification: Recipient Understood Notice: Yes Recipient Signature: Yes Med Rec Note Co-signed by Attending: Coverage Notice Comment: KEANU for Inpatient rehab at [facility] and [facility] Reviewer: [id number] Bernadette Brown Notice Issued Date-Time: 06/23/2019 13:16 Notice Type: IM Discharge Notice Notice Delivered To: Patient Relationship to Patient: Self Social Media Editor Name: Delivery Method: HAND - Hand Delivered Ameena Days: Prior Verbal Notification: Recipient Understood Notice: Yes Recipient Signature: Yes Med Rec Note Co-signed by Attending: Coverage Notice Comment: IMM explained, signed, given, copy placed in Mr Reviewer: [id number] - Christie Brown Notice Issued Date-Time: 06/26/2019 11:17 Notice Type: IM Discharge Notice Notice Delivered To: Patient Relationship to Patient: Self Social Media Editor Name: Delivery Method: HAND - Hand Delivered Ameena Days: Prior Verbal Notification: Recipient Understood Notice: Yes Recipient Signature: Yes Med Rec Note Co-signed by Attending: Coverage Notice Comment: IMM explained, voiced understanding, given, copy placed in MR Last DP export: 06/23/19 12:22 pm Patient Name: WALLY LYNCH Page [phone] at 1125 All edits/amendments must be made on the electronic document DICTATION DATE: 06/26/191123 TELEPHONE CLERK TELEGRAPH OFFICE: WINNIE 06/26/191123 RPT#: [id number] DC DATE: STATUS: ADM IN [facility] [address] [place] [address] END OF REPORT
[2019-06-26] MEDS ORDERED: PERPHENAZINE2 MG PO (11:45)
[2019-06-26] MEDS ORDERED: RANEXA500 MG PO (11:45)
[2019-06-26] MEDS ORDERED: TRICOR48 MG PO (11:46)
[2019-06-26] MEDS ORDERED: LIPITOR10 MG PO (11:46)
[2019-06-26] MEDS ORDERED: CARAFATE1 G PO (11:47)
[2019-06-26] MEDS ORDERED: PROTONIX40 MG PO (11:48)
[2019-06-26 13:52] VITALS: BP 121/61
--- NOTE | 2019-06-26 14:53 | NUR ---
CALLED CARE AND GAVE REPORT TO RN. PT REQUESTED TO HAVE A BATH BEFORE SHE WENT DOWN TO [facility]. PT WAS GIVEN BATH AND TAKEN DOWN BY COMMUTATOR PRESSER. IV DC WITH CATHETER INTACT
--- NOTE | 2019-06-27 11:35 | MORECARE ---
CASE MANAGEMENT DISCHARGE SUMMARY PATIENT: WALLY LYNCH UNIT: [id number] ADM DATE: 06/19/19 AGE: 73 : 46 SEX: F ROOM/BED: D.2228 AUTHOR: FANNIE BELL PHYSICIAN: REFERRING PHYSICIAN: FRANKIE MACHADO MD DATE OF SERVICE: 06/27/19 Discharge Plan Patient Name: WALLY LYNCH Facility: [facility]:[place] : 1945 Planned Disposition: Inpatient Rehab Anticipated Discharge Date: Discharge Date: 06/26/2019 Expected LOS: 0 Initial Reviewer: [email or web address] Initial Review Date: 06/23/2019 Generated: 06/27/19 12:34 pm DCP- Discharge Planning Updated by [email or web address]: Christie Brown on 06/26/19 10:[address] CM met with patient in the room. She is oriented to person, place and time. She is in agreement to discharge to [facility] today. She would like me to notify her son and daughter that she is discharging to [facility] today. I called the daughter's phone with no answer. I called patient's son, David, and he states they spoke with Dr. Miller last night and they were all in agreement to discharge to [facility]. He states that they do not have a POA for her at this time, but have been talking about getting it started. He states "she has not been herself for about a week now." I notified Janna Serrano APN that patient and family are in agreement to discharge to [facility] today. DCP- Discharge Planning Updated by [id number]: Christie Brown on 06/23/19 12:[address] Patient Name: WALLY LYNCH Admission Status: ER Accout number: [id number] Admission Date: 06-19-2019 : 1945 Admission Diagnosis: Attending: MAURISIO MACHADO Current LOS: 4 Anticipated DC Date: Planned Disposition: Inpatient Rehab Primary Insurance: MEDICARE A & B Discharge Planning Comments: CM met with patient to complete initial dc planning assessment. CM educated patient on the CM role and verbal consent given by patient to complete assessment. Patient lives at home with her disabled and her son. States her son works, so mainly she is with her that she care for. CM discussed availability of home health, rehab services, and medical equipment. Patient states she would like to go to rehab at [facility] to get stronger prior to going home. She has an ortho work up still in progress. Rehab prescreening is ordered. CM will continue to follow and will assist as needed with dc plans/needs. Gristmill Operator: Christie Brown DCPIA - Discharge Planning Initial Assessment Updated by [id number]: Christie Brown on 06/23/19 1:13 pm * Is the patient Alert and Oriented? Yes * How many steps to enter\\exit or inside your home? 11/15 * PCP Dr. Hughes * Pharmacy [facility] [address] * Preadmission Environment Home with Family * ADLs Partial Dependent * Partial ADLs (Assistance needed) Ambulation * Equipment CPAP Oxygen Walker * List name and contact numbers for known caregivers / representatives who currently or will assist patient after discharge: Kath Roroseanne [facility] - [phone] David Lynch [facility] - [phone] * Verbal permission to speak to the caregivers and representatives has been obtained from the patient. Yes * Community resources currently utilized Home Health * Please name any agencies selected above. [facility] * Additional services required to return to the preadmission environment? No * Can the patient safely return to the preadmission environment? Yes * Has this patient been hospitalized within the prior 30 days at any hospital? Yes Coverage Notice Reviewer: [id number] Bernadette Brown Notice Issued Date-Time: 06/23/2019 13:16 Notice Type: Patient Choice Letter Notice Delivered To: Patient Relationship to Patient: Self Safety Deposit Clerk Name: Delivery Method: HAND - Hand Delivered Ameena Days: Prior Verbal Notification: Recipient Understood Notice: Yes Recipient Signature: Yes Med Rec Note Co-signed by Attending: Coverage Notice Comment: KEANU for Inpatient rehab at [facility] and [facility] Reviewer: [id number] Bernadette Brown Notice Issued Date-Time: 06/23/2019 13:16 Notice Type: IM Discharge Notice Notice Delivered To: Patient Relationship to Patient: Self Safety Deposit Clerk Name: Delivery Method: HAND - Hand Delivered Ameena Days: Prior Verbal Notification: Recipient Understood Notice: Yes Recipient Signature: Yes Med Rec Note Co-signed by Attending: Coverage Notice Comment: IMM explained, signed, given, copy placed in Mr Reviewer: [id number] Bernadette Brown Notice Issued Date-Time: 06/26/2019 11:17 Notice Type: IM Discharge Notice Notice Delivered To: Patient Relationship to Patient: Self Safety Deposit Clerk Name: Delivery Method: HAND - Hand Delivered Ameena Days: Prior Verbal Notification: Recipient Understood Notice: Yes Recipient Signature: Yes Med Rec Note Co-signed by Attending: Coverage Notice Comment: IMM explained, voiced understanding, given, copy placed in MR Last DP export: 06/26/19 10:25 a Patient Name: WALLY LYNCH Page [phone] at 1135 All edits/amendments must be made on the electronic document DICTATION DATE: 06/27/19 1134 COMMISSION AGENT LIVESTOCK: WINNIE 06/27/19 1134 RPT#: [id number] DC DATE:06/26/19 STATUS: DIS IN [facility] [address] [place] [address] END OF REPORT
== END 2019-06-26 16:35 | DRG 312 ==
LOC: OBSVTIME → D.ER 09:32 → D.OPS 09:32 → D.ER 11:04 → D.MS 11:04 → OBSVTIME 11:04 → D.ER 13:30 → D.MS 17:04 → EDSTATUS 06-20 14:00 → D.MS 06-26 16:35
PROVIDERS: Family Medicine; Internal Medicine Gastroenterology; Internal Medicine Interventional Cardiology; Internal Medicine Nephrology; ADMIT Emergency Medicine; ATTEND Emergency Medicine
PROC: 0DB78ZX Excision of Stomach, Pylorus, Via Natural or Artificial Opening Endoscopic, Diagnostic (ICD-10-PCS; 2019-06-20)
PROC: 0DB48ZX Excision of Esophagogastric Junction, Via Natural or Artificial Opening Endoscopic, Diagnostic (ICD-10-PCS; 2019-06-20)
PROC: 0DB98ZX Excision of Duodenum, Via Natural or Artificial Opening Endoscopic, Diagnostic (ICD-10-PCS; principal; 2019-06-20 15:45)
DX: R55 Syncope and collapse (principal); N39.0 Urinary tract infection, site not specified; K92.2 Gastrointestinal hemorrhage, unspecified; K21.0 Gastro-esophageal reflux disease with esophagitis; M16.10 Unilateral primary osteoarthritis, unspecified hip; E03.9 Hypothyroidism, unspecified; M25.551 Pain in right hip; W19.XXXA Unspecified fall, initial encounter; I10 Essential (primary) hypertension; I25.10 Atherosclerotic heart disease of native coronary artery without angina pectoris; E11.65 Type 2 diabetes mellitus with hyperglycemia; I50.9 Heart failure, unspecified; G47.33 Obstructive sleep apnea (adult) (pediatric); M54.9 Dorsalgia, unspecified; E66.9 Obesity, unspecified; Z68.31 Body mass index [BMI] 31.0-31.9, adult; M16.11 Unilateral primary osteoarthritis, right hip; K44.9 Diaphragmatic hernia without obstruction or gangrene; F91.8 Other conduct disorders

== ENCOUNTER 2019-06-26 14:53 | Inpatient (IN) | payer MEDICARE, BC ==
[~2019-06-26] VITALS: Ht 175.3 cm; Wt 111.6 kg
[~2019-06-26 14:53] MED LIST changes: +LIPITOR10 MG PO; +MOBIC7.5 MG PO; +PERPHENAZINE2 MG PO; +RANEXA500 MG PO; +TRICOR48 MG PO
--- NOTE | 2019-06-26 17:29 | NUR ---
PATIENT ARRIVED TO UNIT FROM [facility]. PT ARRIVED IN W/C WITH BELONGINGS. PT IS FRIENDLY AND TALKATIVE. PT HAS A BRUISE TO LEFT HIP, RED AREA TO BUTTOCKS, AND RED AREA TO ELBOW. PT IS ALERT TO SELF. PASSCODE GIVEN TO POA. PT IS ON 2 LITERS OF OXYGEN. PT ALLOWED STAFF TO OBTAIN WEIGHT. DNR PER POIsa NAIDU. VITALS SIGNS: B/P: 133/65, P: 68, R: 16, T: 98.3, 95%. DIABETIC DIET. WEIGHT: 245.2.
[2019-06-26 18:07] VITALS: BP 133/65; BMI 36.2
--- NOTE | 2019-06-26 18:24 | NUR ---
The patient is becoming anxious. She yelled at one of the patient's that was acting out. Ativan 0.5 mg po given now.
[2019-06-26 20:00] VITALS: BP 155/69
--- NOTE | 2019-06-27 00:20 | NUR ---
PATIENT RESTING QUIETLY AT THIS TIME, PATIENT IS ORIENTED TO PERSON AND TIME ONLY, NO S/I. WILL FOLLOW NEW POC
[2019-06-27 06:19] LABS: BASOPHILS 0.2 % (0-2); EOSINOPHILS 4.6 % (0-7); HEMATOCRIT 39.8 % (36.0-48.0); HEMOGLOBIN 12.8 g/dL (12-16); IMMATURE GRANULOCYTES 0.3 % (0-5); LYMPHOCYTES 37.5 % (15-50); MCH 28.8 pg (26.0-34.0); MCHC 32.2 g/dL (31.0-37.0); MCV 89.4 fL (80.0-100.0); MEAN PLATELET VOLUME 9.9 fL (7.4-10.4); MONOCYTES 6.2 % (2-11); NEUTROPHILS 51.2 % (40-80); PLATELET COUNT 170 10x3/uL (130-400); RBC 4.45 10x6/uL (4.00-5.40); RDW 14.7 % (11.5-14.5); WBC 6.3 10x3/uL (4.8-10.8)
[2019-06-27 06:59] LABS: ALBUMIN 3.5 g/dL (3.4-5.0); ANION GAP 10.1 mmol/L (8-16); BILIRUBIN - TOTAL 0.67 mg/dL (0.2-1.3); CALCIUM 8.6 mg/dL (8.5-10.1); CARBON DIOXIDE 33.5 mmol/L (21.0-32.0); CHOL - HDL RATIO 3.2 ratio (2.3-4.1); CREATININE - SERUM 1.2 mg/dL (0.6-1.3); LDL-HDL RATIO 1.6 ratio (1.5-3.5); POTASSIUM - SERUM 3.6 mmol/L (3.5-5.1); PROTEIN - SERUM 7.7 g/dL (6.4-8.2)
[2019-06-27 09:08] VITALS: BP 156/73
--- NOTE | 2019-06-27 11:45 | NUR ---
The patient is awake, alert, oriented x3. She is pleasant when she is approached. welder 2nd shift stated that she put herself in the floor and has apparently done that up on the M/S floor. She has not shown any aggression, depression, SI or HI today. She c/o her butt hurting, she is sitting on a audi mat. She can stand to transfer, but she uses a w/c to self propel. Provide prescribed meds. The patient is compliant with meds. Continue POC.
[2019-06-27 12:41] LABS: BILIRUBIN NEGATIVE (NEGATIVE); EPITHELIAL CELLS 0-5 /hpf (0-5); GLUCOSE 1000 mg/dL (NEGATIVE); KETONE NEGATIVE (NEGATIVE); NITRITE NEGATIVE (NEGATIVE); SPECIFIC GRAVITY 1.015 (1.005-1.020); UROBILINOGEN NORMAL (NORMAL)
[2019-06-27 12:43] LABS: BACTERIA FEW /hpf (NEGATIVE); HYALINE CAST RARE /lpf (NONE SEEN)
[2019-06-27 12:45] VITALS: Ht 175.3 cm; Wt 111.6 kg
[2019-06-27 20:06] VITALS: BP 161/67
--- NOTE | 2019-06-28 00:17 | NUR ---
B.) PT IS ALERT AND ORIENTED TO SELF AND SITUTION AT TIMES. SHE IS CALM AND COOPERATIVE WITH CARE. SHE HAS BEEN OBSERVED BY TECHS PLACING HERSELF INTO THE FLOOR AND REFUSING TO GET UP. I.) PROVIDED PM MEDICATIONS PRESCRIBED. PLACED CPAP AT NIGHTTIME. REDIRECT OFTEN. R.) COMPLIANT WITH ALL MEDICATIONS. TOLERATES CPAP WITH NO DISTRESS. DIFFICULT TO REDIRECT AT TIMES. P.) WILL CONTINUE TO MONITOR.
--- NOTE | 2019-06-28 10:02 | NUR ---
The patient is awake and alert, she is oriented x3, but she has poor insight into her situation. She self propels in her w/c, but she is able to transfer with assist. The patient does yell at the other patient's she does not comprehend that some of the patient's have a psychiatric diagnosis that prevents them from being able to stop of their behaviors. Provide prescribed meds. The patient is compliant with meds. Continue POC.
--- NOTE | 2019-06-28 19:46 | NUR ---
RECEIVED IN DAYROOM. SITTING QUIETLY IN A CHAIR WITH PEERS AT HER SIDE. CALM AND COOPERATIVE WITH CARE AND ASSESSMENT. ENCOURAGE TO EXPRESS NEEDS. CONTINUES TO SIT QUIETLY IN DAYROOM. CONTINUE PLAN OF CARE
[2019-06-28 20:29] VITALS: BP 146/57
[2019-06-29 10:16] VITALS: BP 144/75
--- NOTE | 2019-06-29 11:35 | NUR ---
RECEIVED IN DAYROOM. WATCHING TV. CALM AND COOPERATIVE WITH CARE AND ASSESSMENT. NO BEHAVIORS. REDIRECT AND REORIENT NEEDED. SOCIALIZING WITH STAFF AT THIS TIME. CONTINUE PLAN OF CARE.
--- NOTE | 2019-06-29 16:58 | PN ---
PATIENT:WALLY FAY MEDICAL RECORD: [id number] LOCATION:[facility] ADMISSION DATE: 06/26/19 PROGRESS NOTE DATE OF SERVICE: 06/28/2019 SUBJECTIVE: The patient's case was reviewed with staff. The patient propels herself via wheelchair. The patient reports that she believes the depression escalated because of the loss of her nephew and a brother. She also has had some health issues related to 6 stents and everything just built up. OBJECTIVE: Her general appearance is appropriate. She is alert to person, place, time, and situation. Her speech is soft, low tone low volume. Her associations are somewhat intact. Her eye contact is fair. Her judgment and insight is impaired and her impulsivity is high. Thought and concentration is circumstantial. Her mood is depressed and anxious. Affect is restricted. The patient does not appear to be attending to visual or auditory hallucination. The patient denies any suicidal ideation. ASSESSMENT: Major depression, generalized anxiety. PLAN: Continue to monitor the patient on current medications effectiveness. Also, to stabilize her mood and decrease her anxiety and prepare her to keep her safe from self and others and to prepare her for discharge. Dictated By: Mai David APN I have interviewed/examined the above patient and agree with these documented findings. TRANSINT:[id number] Voice Confirmation ID: [id number] DOCUMENT ID: [id number] CRICKET CONROY MD at 1658 at 1717 CC: [id number] DICTATION DATE: 06/28/19 1423 SOLE CONDITIONER: 06/28/19 2102 ADM IN [facility] [address] [id number]
--- NOTE | 2019-06-29 16:58 | PSY ---
PATIENT NAME:WALLY FAY MEDICAL RECORD: [id number] : [birth year] LOCATION:[facility] ADMISSION DATE: 06/26/19 ACCOUNT: [id number] PSYCHIATRIC EVALUATION DATE OF EVALUATION: 06/27/19 IDENTIFYING DATA: The patient is a 73-year-old female and she had presented to the Emergency Room after a syncopal episode. She had apparently fell and hit her head. The patient reported that she could not move. CHIEF COMPLAINT: Depression and anxiety. HISTORY OF PRESENT ILLNESS: The patient was admitted to the hospital after this episode and was evaluated and did have a CT of the head that showed no acute findings. She does have a long past medical history and that she is on 36 different medications at least 6-7 of them have the potential to cause some cognitive impairment. There is no history of drugs or alcohol. The staff reports that she is easily agitated and difficult to redirect. It is reported that the patient does have a short temper and that she has been known to strike out at others. She also is reportedly paranoid about people and this has continued to escalate in the last couple of weeks. PAST MEDICAL HISTORY: Includes a history of heart artery stent, acute right hip, syncope and collapse, diverticulosis, COPD, diabetes, CAD, history of falls, type 2 diabetes, obstructive sleep apnea, hypothyroidism, GERD with esophageal, essential hypertension, hyperlipidemia, CHF, Wells's esophagitis, history of CVA, chronic neck pain, and coronary artery disease. PAST PSYCHIATRIC HISTORY: Really negative by report. FAMILY HISTORY: Unknown. ALLERGIES: MÓNICA INHIBITORS, SULFA, MORPHINE AND MORE. MEDICATIONS: Protonix, Synthroid, multivitamin, Lasix, albuterol inhaler, Zoloft, Isosorbide mononitrate extended release, Bystolic, Ativan 1 mg at bedtime, Fluticasone, aspirin 81 mg, buspirone 5 mg twice a day, methocarbamol, metformin, gabapentin and insulin, also Lipitor, TriCor, Ranexa, Trilafon, and Carafate. SOCIAL HISTORY: The patient is and has been for 53 years. They have 2 children. There is no history of alcohol or substance abuse. The patient's spouse has had a stroke and has some deficits from that. They live at home. MENTAL STATUS EXAM: The patient is awake, alert and oriented to person and place, but not fully to time or situation. Her mood is depressed and anxious. Her affect is restricted. Anxiety moderate. Memory, some issues with poor recent and remote events. She does not appear to be attending to any visual or auditory hallucinations or is illustrating any delusions at this time. Her judgment and insight are poor. IMPRESSION: AXIS I: Major depression, neurocognitive disorder, generalized anxiety, and insomnia. AXIS II: Deferred. AXIS III: Acute syncope and collapse, hip contusion, no fracture, coronary artery disease, type 2 diabetes, hypothyroidism, chronic congestive heart failure, obstructive sleep apnea, osteoarthritis, chronic back pain. AXIS IV: Psychosocial stressors include financial, social and environmental. PLAN: Is that the patient has been admitted to [facility] for a comprehensive medical, psychological, and social evaluation. She will be treated with both mood stabilizing and thought stabilizing and/or memory enhancing medication. Goal is to keep the patient safe and see how she is tolerating medications. Dictated By: Mai David APN I have interviewed/examined the above patient and agree with these documented findings. TRANSINT:[id number] Voice Confirmation ID: [id number] DOCUMENT ID: [id number] Dictated By: MAI DAVID I have interviewed/examined the above patient and agree with these documented findings. CRICKET CONROY MD at 1658 at 1717 CC: [id number] DICTATION DATE: 06/27/19 1730 STUDENT: 06/27/19 2152 ADM IN [place] [address] [place] [address]
--- NOTE | 2019-06-29 19:36 | NUR ---
RECEIVED IN DAYROOM. SITTING IN A RECLINER. CALM AND COOPERATIVE WITH CARE AND ASSESSMENT. ENCOURAGE TO EXPRESS NEEDS. RESTING IN RECLINER OUTSIDE OF NURSES STATION AT THIS TIME. CONTINUE PLAN OF CARE
[2019-06-30 08:29] VITALS: BP 140/83
--- NOTE | 2019-06-30 08:30 | NUR ---
RECEIVED IN HALLWAY OUTSIDE OF NURSES STATION. CALM AND COOPERATIVE WITH CARE AND ASSESSMENT. NO BEHAVIORS. REDIRECT AND REORIENT NEEDED. EATING BREAKFAST AT THIS TIME. CONTINUE PLAN OF CARE.
--- NOTE | 2019-06-30 14:48 | PN ---
PATIENT:WALLY FAY MEDICAL RECORD: [id number] LOCATION:[facility] ADMISSION DATE: 06/26/19 PROGRESS NOTE DATE OF SERVICE: 06/29/2019 SUBJECTIVE: The patient's case was reviewed with staff. The patient propels herself via wheelchair. The patient states that she does have some issues with balance and that her bottom is hurting from her fall. The patient also states that she hopes to have [facility] to come and help her and her after she leaves here. OBJECTIVE: Her general appearance is appropriate. She is alert to person, place, time and situation. Her speech is soft, low tone, low volume. Her associations are somewhat intact. Her eye contact is good. Her judgment and insight are impaired. Impulsivity is high. Thought and concentration is circumstantial. Her mood is depressed and anxious. Affect is restricted. The patient does not appear to be attending to visual, auditory hallucinations. The patient denies any suicidal ideation. ASSESSMENT: Major depression, generalized anxiety. PLAN: Plan is to continue to monitor the patient on her current medications for effectiveness and stabilization of her mood and to decrease her anxiety and to prepare her for discharge. TRANSINT:[id number] Voice Confirmation ID: [id number] DOCUMENT ID: [id number] CRICKET CONROY MD at 1448 CC: [id number] DICTATION DATE: 06/29/191535 SENIOR GEOTECHNICAL ENGINEER: 06/29/19 2317 ADM IN [facility] [address] [place] [address]
--- NOTE | 2019-06-30 16:06 | NUR ---
Nutrition Follow-up: Recieved consult for diet change. Changed diet to Diabetic/Cardiac High fiber per MD request. Patient currently with good PO intake. RD Following.
--- NOTE | 2019-06-30 19:57 | NUR ---
RECEIVED IN DAYROOM. SITTING IN A WHEELCHAIR WITH PEERS AT HER SIDE. CALM AND COOPERAIVE WITH CARE AND ASSESSMENT. ENCOURAGE TO EXPRESS NEEDS. CONTINUES TO SIT CALMLY IN DAYROOM. CONTINUE PLAN OF CARE
[2019-06-30 20:49] VITALS: BP 129/74
--- NOTE | 2019-07-01 08:30 | NUR ---
RECEIVED IN HALLWAY OUTSIDE OF NURSES STATION. CALM AND COOPERATIVE WITH CARE AND ASSESSMENT. NO BEHAVIORS. REDIRECT AND REORIENT NEEDED. EATING BREAKAFAST AT THIS TIME. CONTINUE PLAN OF CARE.
[2019-07-01 08:33] VITALS: BP 149/82
--- NOTE | 2019-07-01 15:04 | PN ---
PATIENT:WALLY FAY MEDICAL RECORD: [id number] LOCATION:[facility] ADMISSION DATE: 06/26/19 PROGRESS NOTE DATE OF SERVICE: 06/30/2019 SUBJECTIVE: The patient's case was discussed with staff. She has no new complaint. OBJECTIVE: The patient has a depressed mood, but no active thoughts of harming herself or others. ASSESSMENT: Major depression. PLAN: The patient will be started on Depakote to assist with mood stabilization. Her long-term prognosis is guarded. TRANSINT:[id number] Voice Confirmation ID: [id number] DOCUMENT ID: [id number] CRICKET CONROY MD at 1504 CC: [id number] DICTATION DATE: 06/30/19 170 PRINT LINE INSPECTOR: 06/30/19 2343 ADM IN [place] [id number] [place] [address]
[2019-07-01] MEDS ORDERED: DESERYL PO (15:39)
--- NOTE | 2019-07-01 19:44 | NUR ---
RECEIVED IN DINING AREA. SITTING IN A WHEELCHAIR. CALM AND COOPERATIVE WITH CARE AND ASSESSMENT. STATES SHE IS HAVING SOME NAUSEA THIS EVENING AND A HEADACHE. ENCOURAGE TO EXPRESS NEEDS. SITTING QUIETLY AT THIS TIME. CONTINUE PLAN OF CARE
[2019-07-01 20:32] VITALS: BP 169/68
--- NOTE | 2019-07-02 08:36 | NUR ---
RECEIVED IN HALLWAY OUTSIDE OF NURSES STATION. CALM AND COOPERATIVE WITH CARE AND ASSESSMENT. NO BEHAVIORS. EXCITED ABOUT DISCHARGING TODAY. REDIRECT AND REORIENT NEEDED. WAITING FOR BREAKFAST AT THIS TIME. CONTINUE PLAN OF CARE.
[2019-07-02 10:21] VITALS: BP 149/76
--- NOTE | 2019-07-02 13:50 | PN ---
PATIENT:WALLY FAY MEDICAL RECORD: [id number] LOCATION:[facility] ADMISSION DATE: 06/26/19 PROGRESS NOTE DATE OF SERVICE: 07/01/2019 SUBJECTIVE: The patient's case was discussed with staff. She has no new complaint. OBJECTIVE: The patient is in good behavioral control. She has a euthymic mood. She denies that she would seek to harm herself. She denies psychotic symptoms. ASSESSMENT: Major depression. PLAN: The patient is requesting discharge tomorrow. She feels she no longer needs this level of care, and even though I am been taking care of some medication changes, I agree. She is wanting to go to physical therapy, but I am not sure if she is going to qualify for inpatient or residential physical therapy and she will be referred to services in the home. She also will be referred to [facility] for her depressive illness followup. There is no evidence of acute or direct dangerousness. She will be discharged to home tomorrow. TRANSINT:[id number] Voice Confirmation ID: [id number] DOCUMENT ID: [id number] CRICKET CONROY MD at 1350 CC: [id number] DICTATION DATE: 07/01/19 1536 WORKFORCE MANAGEMENT COORDINATOR: 07/01/19 1757 ADM IN [place] [id number] [place] [id number]
--- NOTE | 2019-07-02 18:01 | NUR ---
PATIENT DISCHARGED TO HOME WITH [facility]. PATIENT TRANSPORTED TO HOME BY HER SON. DISCHARGE PAPERWORK AND MEDICATIONS INFORMATION GIVEN TO PATIENT AND HER SON AND THEY VERBALIZED UNDERSTANDING. PAPERWORK FAXED TO [facility] AND PCP, DR LAINEZ. HARD COPY SENT HOME WITH PATIENT. PATIENT BELONGINGS SENT HOME WITH PATIENT. MEDICATIONS SENT TO [facility] E[facility]RONICALLY.
--- NOTE | 2019-07-03 09:01 | PN ---
PATIENT:WALLY FAY MEDICAL RECORD: [id number] LOCATION:[facility] ADMISSION DATE: 06/26/19 PROGRESS NOTE DATE OF SERVICE: 07/02/2019 SUBJECTIVE: The patient's case was discussed with staff. She has no new complaint. OBJECTIVE: The patient is in good behavioral control with limited insight about her condition. She tolerates her medicines well. ASSESSMENT: Major depression. PLAN: The patient has no evidence of direct dangerousness. She is going to go home and will have outpatient home bound physical therapy to assist her. From a psychiatric standpoint, she is doing very well. Her mood is almost completely euthymic and there is certainly no evidence of psychotic symptoms or acute dangerousness. She will have follow up with [facility]. TRANSINT:[id number] Voice Confirmation ID: [id number] DOCUMENT ID: [id number] CRICKET CONROY MD at 0901 CC: [id number] DICTATION DATE: 07/02/19 1502 CHERRY PITTER: 07/02/19 2324 DIS IN 07/02/19 [facility] [address] [place] [address]
== END 2019-07-02 18:00 | disposition home health service (06) | DRG 885 ==
LOC: D.PSYCH 14:53
PROVIDERS: ADMIT Psychiatry & Neurology Psychiatry; ATTEND Psychiatry & Neurology Psychiatry
DX: F33.1 Major depressive disorder, recurrent, moderate (principal); I50.32 Chronic diastolic (congestive) heart failure; F41.1 Generalized anxiety disorder; F03.90 Unspecified dementia, unspecified severity, without behavioral disturbance, psychotic disturbance, mood disturbance, and anxiety; G47.00 Insomnia, unspecified; I10 Essential (primary) hypertension; E78.5 Hyperlipidemia, unspecified; I25.10 Atherosclerotic heart disease of native coronary artery without angina pectoris; I11.0 Hypertensive heart disease with heart failure; E11.65 Type 2 diabetes mellitus with hyperglycemia; K21.0 Gastro-esophageal reflux disease with esophagitis; K22.70 Barrett's esophagus without dysplasia; K29.70 Gastritis, unspecified, without bleeding; E03.9 Hypothyroidism, unspecified; G47.33 Obstructive sleep apnea (adult) (pediatric); J44.9 Chronic obstructive pulmonary disease, unspecified; M19.90 Unspecified osteoarthritis, unspecified site; E66.9 Obesity, unspecified; Z68.35 Body mass index [BMI] 35.0-35.9, adult; J30.9 Allergic rhinitis, unspecified; G89.4 Chronic pain syndrome

== ENCOUNTER 2019-07-22 17:43 | Inpatient (IN) | payer MEDICARE, BC ==
[~2019-07-22] VITALS: Ht 175.3 cm; Wt 108.9 kg
--- NOTE | ~2019-07-22 | HEMODYNAMI ---
PATIENT:WALLY FAY MEDICAL RECORD: [id number] : 47 [id number] ADMISSION DATE: 07/22/19 Generatedon:07/23/201916:36 Patient name: WALLY FAY Patient #: [id number] : 1945 Date of study: 07/23/2019 Page: Of Hemodynamic Procedure Report Patient Data Patient Demographics Procedure consent was obtained First Name: WALLY Gender: Female Last Name: NYA : 1945 Middle Initial: DIANA Age: 73 year(s) Patient #: [id number] Race: SSN: [id number] Additional ID: [id number] Contact details [address]: [address] [place] [address] State: [place] City: [place] Zip code: [address] Past Medical History Allergies Allergen Reaction Date Comments Reported Other allergy 12/30/2015 MARCELO,Tape, Hydrocodone, Reglan, Sulfa, Morphine Other allergy 02/11/2016 Sulfa, Morphine, Hydrocodone, Reglan, MARCELO Inhibitors, tape Other allergy 03/19/2016 Marcelo Inhibitors, Sulfa, Hydrocodone, Morphine, Acetametaphen, Metoclopramide, Adhesive Tape MARCELO inhibitors 06/15/2016 Sulfa drugs 06/15/2016 Adhesive tape 06/15/2016 Other allergy 06/15/2016 amlodipine, reglan, hydrocodone Other allergy 06/04/2018 ADHESIVE TAPE, HYDROCODONE, MORPHINE, REGLAN, SULFA, VICODIN, MEPERIDINE, OXYCODONE, ACETAMINOPHEN, METOCLOPRAMIDE Adhesive tape 06/04/2018 MARCELO inhibitors 06/04/2018 Other allergy 07/23/2019 SULFA, hydrocodone, metoclopramide, morphine, marcelo inhibitors, adhesive tape, silk tape,acetemenaphin, pxycodone, mepredine Admission Admission Data Admission Date: 07/22/2019 Admission Time: 21:08 Arrival Date: 07/23/2019 Arrival Time: 0:00 Admit Source: Other Insurance Payor: Medicare Room #: D.2112 [facility] #: [id number] Height (in.): 68.9 BSA: 2.23 (m2) Height (cm.): 175 BMI: 35.59 (kg/m2) Weight (lbs.): 240.31 Weight (kg.): 109 Lab Results Lab Result Date: 07/23/2019 Lab Result Time: 0:00 Biochemistry Name Units Result Min Max BUN mg/dl 16 --(---*)-- 7 18 Creatinine mg/dl 1.1 --(--*-)-- 0.6 1.3 eGFR ml/min 52 *-(----)-- 90 120 NONAFRICAN CBC Name Units Result Min Max Hematocrit % 40 -*(----)-- 42 54 Hemoglobin g/dl 12.5 *-(----)-- 13.5 17.5 Procedure Procedure Types Cath Procedure Diagnostic Procedure [facility] w/Coronaries Sedation Charges Moderate Sedation up to 15 minutes Procedure Description Procedure Date Procedure Date: 07/23/2019 Procedure Start Time: 16:15 Procedure End Time: 16:34 Procedure Staff Name Function Keaton Talley MD Performing Physician Katherine Marmolejo RT Scrub Nurys Cleary RN Nurse Chloe Leon RT Monitor Procedure Data Cath Procedure Fluoroscopy Diagnostic fluoroscopy Total fluoroscopy Time: 6.1 time: 6.1 min min Diagnostic fluoroscopy Total fluoroscopy dose: 571 dose: 571 mGy mGy Contrast Material Contrast Material Type Amount (ml) Isovue 370 52 Entry Location Entry Primary Successful Side Size Upsize Upsize Entry Closure Luna ccessful Closure Location (Fr) 1 (Fr) 2 (Fr) Remarks Device Remarks Radial Right 6 Fr Mechanical artery Short Compression Femoral Right 5 Fr Exoseal artery Estimated blood loss: 5 ml Diagnostic catheters Device Type Used For End Catheter Placement DIAGNOSTIC [place] 110cm 5 Procedure Fr catheter ([id number]) MULTIPACK JL 4.0 5Fr Procedure catheter MULTIPACK 3DRC 5Fr Procedure catheter MULTIPACK Pigtail 5 Fr Procedure catheter Procedure Complications No complications Procedure Medications Medication Administration Route Dosage 0.9% NaCl I.V. 100 ml/hr Oxygen etCO2 Nasal cannula 2 l/min Lidocaine 2% added to field 20 Heparin Flush Bag added to field 2 bags (1000units/500ml NS) Radial Cocktail added to field 1 syringe (Verapamil 2mg/Nitro 400mcg/Heparin 1500units) Versed I.V. 2 mg Fentanyl I.V. 50 mcg Fentanyl I.V. 50 mcg Hemodynamics Rest BSA: 2.23 (m2) HGB: 12.5 (g/dl) O2 Consumption: Estimated: 199.3 (ml/min) O2 Con sumption indexed: Estimated:89.37 (ml/min/m) Heart Rate: 64 (bpm) Pressure Samples Time Site Value (mmHg) Purpose Heart Use Rate(bpm) 16:29 LV 112/13,16 Snapshot 67 Gradients Valve Time Site Site Mean SEP/DFP Peak To Heart Use 1 2 (mmHg) (sec/min) Peak Rate (mmHg) (bpm) Aortic 16:29 LV AO 69 Snapshots Pre Cath Intra NCS Post Cath Vital Signs Time Heart Resp SPO2 etCO2 NIBP (mmHg) Rhythm Pain Sedation Rate (ipm) (%) (mmHg) Status Level (bpm) 16:06:19 65 13 97 52.7 Measuring NSR 0 (11) 10(A) , No pain 16:10:11 66 17 97 52.7 188/97(151) NSR 0 (11) 10(A) , No pain 16:14:35 62 12 98 25.2 140/67(111) NSR 0 (11) 10(A) , No pain 16:18:53 60 19 96 49.7 149/86(131) NSR 0 (11) 10(A) , No pain 16:23:16 62 16 97 54.9 151/87(107) NSR 0 (11) 10(A) , No pain 16:27:42 69 10 98 52.7 158/80(132) NSR 0 (11) 10(A) , No pain 16:32:06 66 7 99 50.5 159/90(115) NSR 0 (11) 10(A) , No pain Medications Time Medication Route Dose Verified Delivered Reason Notes E ffectiveness by by 16:05:39 0.9% NaCl I.V. 100 Keaton Nurys used for ml/hr Mayank Evin procedure MD RODRIGUEZ 16:05:48 Oxygen etCO2 2 l/min Keaton Nuno used for Nasal Mayank Evin procedure cannula MD RODRIGUEZ 16:05:52 Lidocaine 2% added 20ml Keaton Pugh for local to vial Counts Include 234 [facility] anesthetic field MD THOMAS 16:05:56 Heparin Flush added 2 bags Keaton Pugh used for Bag to Counts Include 234 [facility] procedure (1000units/500ml field MD THOMAS NS) 16:06:07 Radial Cocktail added 1 Keaton Pugh used for (Verapamil to syringe Counts Include 234 [facility] procedure 2mg/Nitro field MD THOMAS 400mcg/Hepari 16:10:02 Versed I.V. 2 mg Keaton Hooka for Grant Evin sedation RN 16:10:08 Fentanyl I.V. 50 mcg Keaton Nurys for Grant Evin sedation RN 16:16:54 Fentanyl I.V. 50 mcg Keaton Hooka for [facility] sedation MD RODRIGUEZglass washer Log Time Note 15:42:37 Informed consent obtained and on chart 15:42:47 Arrival Date: 07/23/2019 12:00:00 AM 15:43:57 Insurance Payor : Medicare 15:44:05 Patient Height : 68.9 inches 15:44:10 Patient Weight : 240.31 lbs 15:45:01 Lab Result : Hemoglobin 12.5 g/dl 15:45:01 Lab Result : Hematocrit 40 % 15:45:01 Lab Result : eGFR NONAFRICAN 52 ml/min 15:45:01 Lab Result : BUN 16 mg/dl 15:45:01 Lab Result : Creatinine 1.1 mg/dl 15:47:27 ACC Patient presents with Stable Angina CCS Anginal Class 3--Marked limitation of physical activity, angina occurs with ordinary activity.. 15:47:45 Procedure Status Urgent Heart Cath (IP). 15:47:48 Time tracking: Regular hours (M-F 7:00 - 5:00) 15:47:56 Plan of Care:Hemodynamics will remain stable., Cardiac rhythm will remain stable., Comfort level will be maintained., Respiratory function will remain adequate., Patient/ family verbilizes understanding of procedure., Procedure tolerated without complication., Recovers from procedure without complications.. 15:49:29 H&P Date Dictated: 07/22/2019 Within 30 days and on chart.. 15:49:32 Family unavailable. 15:49:34 Patient NPO since Midnight. 15:50:58 Patient allergic to Other allergySULFA, hydrocodone, metoclopramide, morphine, marcelo inhibitors, adhesive tape, silk tape,acetemenaphin, pxycodone, mepredine 15:51:15 Admit Source: Other 15:51:18 Nurys Cleary RN sent for patient. Start room use. 15:52:52 Sharps counted by scrub and verified by R.N. 15:52:52 Alarms reviewed by R. N. 15:52:59 Stress Test: no; N/A ? 15:53:03 Lab results completed and on chart. 16:04:23 Patient received from Med II to CCL 1 Alert and oriented. Tansferred to table in Supine position. 16:04:29 Correct patient and procedure confirmed by team. 16:04:29 Warm blankets applied, and wendy hugger turned on for patient comfort. 16:04:30 Vital chart was started 16:04:30 ECG and BP/O2 sat monitors applied to patient. 16:04:32 Full Disclosure recording started 16:04:33 Pre-op teaching completed and patient verbalized understanding. 16:04:33 Pre-procedure instructions explained to patient. 16:04:41 Is the patient allergic to Iodine/contrast media? No. 16:04:43 Was the patient premedicated? No 16:04:45 Is patient on blood thinner?Yes 16:04:47 ACC The patient was administered the following blood thiners within the last 24 hours: ACCPlavix 16:04:50 Patient diabetic? Yes. 16:04:52 If diabetic: On Metformin? Yes 16:04:55 If on Metformin: Last Dose? 07/22/2019 16:04:58 Patient not . Patient is over age 55. 16:04:59 ----Pre-sedation anethsthesia assessment.---- 16:05:02 Previous problem with sedation/anesthesia? No ? 16:05:04 Snore? Yes 16:05:05 Sleep apnea? Yes 16:05:06 Deviated septum? No 16:05:07 Opens mouth fully? Yes 16:05:09 Sticks out tongue? Yes 16:05:12 Airway obstruction? Yes copd 16:05:17 Dentures? Yes IN TIGHT 16:05:23 Modified Kike's test Ulnar < 7 seconds 16:05:26 Patient pain scale 0/10 ?. 16:05:31 IV patent on arrival in right antecubital with 0.9% NaCl at [facility]. 16:05:37 Right Radial & Right Groin area was prepped with chlora-prep and draped in sterile fashion 16:05:39 0.9% NaCl 100 ml/hr I.V. was administered by Nurys Cleayr RN; used for procedure; Verbal order read back and verified. 16:05:42 Use device set Radial Dx or PCI 16:05:43 ACIST Syringe (92309) opened to sterile field. 16:05:44 Medline Cath Pack ([id number]) opened to sterile field. 16:05:45 ACIST Hand Control (04611) opened to sterile field. 16:05:45 Bag Decanter (2002S) opened to sterile field. 16:05:46 ACIST Manifold (03913) opened to sterile field. 16:05:47 MBrace Wrist Support ([id number]) opened to sterile field. 16:05:48 Oxygen 2 l/min etCO2 Nasal cannula was administered by Nurys Cleary RN; used for procedure; Verbal order read back and verified. 16:05:49 EMERALD Guide Wire (559-369) opened to sterile field. 16:05:50 SHEATH 6FR RAIN (5250314) opened to sterile field. 16:05:52 Lidocaine 2% 20ml vial added to field was administered by Keaton Talley MD; for local anesthetic; Verbal order read back and verified. 16:05:56 Heparin Flush Bag (1000units/500ml NS) 2 bags added to field was administered by Keaton Talley MD; used for procedure; Verbal order read back and verified. 16:06:07 Radial Cocktail (Verapamil 2mg/Nitro 400mcg/Heparin 1500units) 1 syringe added to field was administered by Keaton Talley MD; used for procedure; Verbal order read back and verified. 16:07:38 Baseline sample Acquired. 16:07:42 Rhythm: sinus bradycardia 16:08:36 --------ALL STOP TIME OUT------ 16:08:37 Final Timeout: patient, procedure, and site verified with staff and physician. All members of the team are in agreement. 16:08:39 Right Radial & Right Groin site verified by team. 16:08:44 Fire Safety Assessment: A--An alcohol-based skin anteseptic being used preoperatively., C--Open oxygen or nitrous oxide is being used., D--An ESU, laser, or fiber-optic light is being used. 16:08:47 Physical assessment completed. ASA score P 2 - A patient with mild systemic disease as per Keaton Talley MD. 16:08:51 3a) 45-59 Moderately reduced kidney function. 16:08:54 Maximum allowable contrast dose (3.7 X eGFR X 0.75)144 ml. 16:08:59 Sedation plan: IV Moderate Sedation Medication:Versed, Fentanyl 16:10:02 Versed 2 mg I.V. was administered by Nurys Cleary RN; for sedation; Verbal order read back and verified. 16:10:08 Fentanyl 50 mcg I.V. was administered by Nurys Cleary RN; for sedation; Verbal order read back and verified. 16:15:09 Procedure started. 16:15:16 Local anesthetic to right radial artery with Lidocaine 2% by Keaton Talley MD.INITIAL ACCESS ONLY 16:16:53 A 6 Fr Short sheath was inserted into the Right Radial artery 16:16:54 Fentanyl 50 mcg I.V. was administered by Nurys Cleary RN; for sedation; Verbal order read back and verified. 16:17:42 A DIAGNOSTIC [place] 110cm 5 Fr catheter ([id number]) was advanced over the wire and used for Procedure. 16:21:08 GLIDE WIRE Super Stiff Angled 260cm ([id number]) opened to sterile field. 16:22:52 UNABLE TO CAUNNULATE USING RADIAL ARTERY GOING TO PROCEED WITH GROIN. 16:23:13 Local anesthetic to right femoral artery with Lidocaine 2% by Keaton Talley MD.ADDITIONAL ACCESS 16:23:23 A 5 Fr sheath was inserted into the Right Femoral artery 16:23:27 Use device set Femoral Dx 16:23:34 DIAGNOSTIC Multipack 5Fr catheter set ([id number]) opened to sterile field. 16:24:38 A MULTIPACK JL 4.0 5Fr catheter was advanced over the wire and used for Procedure. 16:25:35 LCA angiography performed. 16:25:40 Injector settings: Ml/sec: 3, Volume: 6, 16:26:44 Catheter removed. 16:26:51 A MULTIPACK 3DRC 5Fr catheter was advanced over the wire and used for Procedure. 16::58 Injector settings: Ml/sec: 3, Volume: 6, 16:27:59 ACCDominant side:Co-Dominant 16:28:01 Catheter removed. 16:28:11 A MULTIPACK Pigtail 5 Fr catheter was advanced over the wire and used for Procedure. 16:29:07 LV gram done using BAI 16:29:28 LV hemodynamics recorded. 16::31 Injector settings: Ml/sec: 5, Volume: 15, 16:29:36 EF : 55 % 16:29:43 Catheter removed. 16:29:51 EXOSEAL 5Fr (EX500) opened to sterile field. 16:30:18 Sheath removed intact; hemostasis achieved with Exoseal to the Right Femoral artery. 16:30:27 ZEPHYR REGULAR TR BAND (028230) opened to sterile field. 16:30:45 Sheath removed intact; hemostasis achieved with Mechanical Compression to the Right Radial artery. 16:30:52 Procedure ended.(Physican Out) 16:31:03 Fluoroscopy time 06.10 minutes. 16:31:25 Fluoroscopy dose: 571 mGy 16:31:25 Flurop Dose total: 571 16:31:39 Dose Area Product 01633 mGy/cm. 16:31:43 Contrast amount:Isovue 370 52ml. 16:31:46 Sharps counted by scrub and verified by R.N. 16:31:46 Maximum allowable dose exceeded? No. 16:31:49 Maurepas band inflated with 10cc of air. 16:31:53 Post-op/insertion site Right Femoral artery dressed using a 4 x 4 and Tegaderm. 16:31:57 Post right femoral artery:stable, soft, clean and dry 16:32:07 Post Procedure Pulses reassessed and unchanged 16:32:12 Post-procedure physical assessment completed. ASA score P 2 - A patient with mild systemic disease as per Keaton Talley MD. 16:32:15 Post procedure rhythm: unchanged. 16:32:17 Estimated blood loss: 5 ml 16:32:19 Patient needs reinforcement of post procedure teaching. 16:32:19 Post procedure instruction explained to patient.Patient verbalizes understanding. 16:32:30 Procedure type changed to Cath procedure, Diagnostic procedure, LHC, LHC w/Coronaries, Sedation Charges, Moderate Sedation up to 15 minutes 16:33:46 Procedure and supply charges have been captured, reviewed, submitted and are correct. 16:33:50 Procedure Complication : No complications 16:33:52 Vital chart was stopped 16:33:56 [facility] Findings: mild to moderate CAD (<70%) 16:33:58 See physician's report for complete and final results. 16:33:58 Operative report dictated upon procedure completion. 16:34:01 Report given to [facility]. 16:34:04 Patient transfered to [facility] with Bed. 16:34:06 Full Disclosure recording stopped 16:34:06 Procedure ended. 16:34:13 ACC-PCI Only Patient was given prescriptions, or instructed by Keaton Talley MD to start/continue the following medications upon discharge: Plavix 16:34:14 End room use (Document Last) 16:34:28 End room use (Document Last) 16:34:47 End room use (Document Last) Device Usage Item Name Manufacture Quantity Catalog Hospital Part Current Minima l Lot# / Number Charge Number Stock Stock Serial# Code ACIST Acist 1 36792 631075 553344 357898 20 Syringe Medical (08007) Systems Inc Medline Medline 1 [id number] 768676 30319 544044 5 Cath Pack ([id number]) Bag Microtek 1 013435 74306 413789 5 Decanter Medical Inc. () ACIST Hand Acist 1 77754 927127 673213 290272 5 Control Medical (61775) Systems Inc ACIST Acist 1 46103 545185 816093 016528 5 Manifold Medical (15272) Systems Inc MBrace Advanced 1 140-0250-00 508414 30483 308405 5 Wrist Vascular Support Dynamics ([id number]) EMERALD Cardinal 1 502-455 200764 794793 115931 5 Guide Wire Health (234-455) SHEATH 6FR Cardinal 1 8089484 469852 3364037 171354 5 [facility] ([id number]) DIAGNOSTIC Terumo 1 40-7366 696670 875394 163434 5 [place] 110cm 5 Fr catheter (524108) GLIDE WIRE Terumo 1 GU4252 497101 463685 056999 5 Super Stiff Angled 260cm (XC1946) DIAGNOSTIC Cardinal 1 XF8481 991190 52861 693646 30 Multipack Health 5Fr catheter set (OG1036) MULTIPACK Cardinal 1 411418 5 JL 4.0 5Fr Health catheter MULTIPACK Cardinal 1 173917 5 3DRC 5Fr Health catheter MULTIPACK Cardinal 1 226873 5 Pigtail 5 Health Fr catheter EXOSEAL 5Fr Cardinal 1 EX500 123510 567373 107005 10 (EX500) Health ZEPHYR Cardinal 1 559681 648485 3018457 567465 5 REGULAR TR Health BAND (597722) Signature Audit [place] Stage Time Signature Unsigned Intra-Procedure 07/23/2019 Chloe Leon 4:34:28 PM RT(R) Intra-Procedure 07/23/2019 Nurys Cleary 4:34:47 PM RN Intra-Procedure 07/23/2019 Keaton Forman 4:35:59 PM Bob [facility] [address] [place] [address]
[~2019-07-22 17:43] MED LIST changes: +DESERYL PO
[2019-07-22 18:37] LABS: BASOPHILS 0.2 % (0-2); EOSINOPHILS 2.7 % (0-7); HEMOGLOBIN 12.8 g/dL (12-16); IMMATURE GRANULOCYTES 0.4 % (0-5); LYMPHOCYTES 40.9 % (15-50); MCH 28.4 pg (26.0-34.0); MCV 88.9 fL (80.0-100.0); MEAN PLATELET VOLUME 10.6 fL (7.4-10.4); MONOCYTES 5.2 % (2-11); NEUTROPHILS 50.6 % (40-80); PLATELET COUNT 155 10x3/uL (130-400); RDW 13.8 % (11.5-14.5); WBC 5.6 10x3/uL (4.8-10.8)
[2019-07-22 18:46] LABS: CALC OSMOLALITY 273 mosm/kg (275-300); CALCIUM 9.1 mg/dL (8.5-10.1); CARBON DIOXIDE 30.5 mmol/L (21.0-32.0); CHLORIDE - SERUM 99 mmol/L (98-107); CREATININE - SERUM 1.1 mg/dL (0.6-1.3); INR 0.97 (0.85-1.17); POTASSIUM - SERUM 4.4 mmol/L (3.5-5.1); PROTIME 12.9 SECONDS (11.6-15.0); SODIUM 136 mmol/L (136-145); UREA NITROGEN 16 mg/dL (7-18); eGFR NON AFRICAN AMERICAN 52 mL/min (90-120)
[2019-07-22 18:55] LABS: GLUCOSE 116 mg/dL (74-106)
[2019-07-22 19:07] LABS: ALBUMIN 3.5 g/dL (3.4-5.0); ALKALINE PHOSPHATASE 64 U/L (30-120); ALT (SGPT) 28 U/L (10-68); BILIRUBIN - TOTAL 0.43 mg/dL (0.2-1.3); CKMB 0.4 U/L (0.0-3.6); CREATINE KINASE 29 UL (21-215); FERRITIN 38 ng/mL (3-244); PRO BNP 129 pg/mL (0-125); PROTEIN - SERUM 7.7 g/dL (6.4-8.2); TROPONIN-I < 0.017 ng/mL (0.000-0.060)
[2019-07-22 19:20] LABS: BILIRUBIN NEGATIVE (NEGATIVE); GLUCOSE NEGATIVE (NEGATIVE); KETONE NEGATIVE (NEGATIVE); NITRITE NEGATIVE (NEGATIVE); UROBILINOGEN NORMAL (NORMAL)
[2019-07-22 19:21] LABS: BACTERIA MODERATE /hpf (NEGATIVE); EPITHELIAL CELLS OCC /hpf (0-5); RED CELLS - URINE OCC /hpf (0-5); WHITE CELLS - URINE 0-5 /hpf (NEGATIVE)
[2019-07-22 20:00] VITALS: BP 175/102
--- NOTE | 2019-07-22 20:08 | NUR ---
PT ASSISTED WITH BED MCKINNEY AT THIS TIME. NO OTHER NEEDS EXPRESSED BY PT. WILL CONTINUE TO MONITOR.
--- NOTE | 2019-07-22 21:48 | NUR ---
PT ASSISTED WITH BEDPAN. PT DENIES FURTHER NEEDS. WILL CONTINUE TO MONITOR.
[2019-07-23] VITALS (11 sets, daily range): BP systolic 118–165; BP diastolic 51–92; Ht 175.3 cm; Wt 108.9 kg
--- NOTE | 2019-07-23 00:36 | NUR ---
CHILDREN'S ATTENDANT AT BED SIDE TO OBTAIN VITALS.
[2019-07-23 01:03] LABS: CKMB 0.4 U/L (0.0-3.6); CREATINE KINASE 29 UL (21-215); TROPONIN-I < 0.017 ng/mL (0.000-0.060)
[2019-07-23 06:45] LABS: BASOPHILS 0.4 % (0-2); EOSINOPHILS 3.2 % (0-7); HEMOGLOBIN 12.5 g/dL (12-16); IMMATURE GRANULOCYTES 0.2 % (0-5); LYMPHOCYTES 35.6 % (15-50); MCH 28.1 pg (26.0-34.0); MCHC 31.3 g/dL (31.0-37.0); MCV 89.9 fL (80.0-100.0); MONOCYTES 8.2 % (2-11); NEUTROPHILS 52.4 % (40-80); PLATELET COUNT 158 10x3/uL (130-400); RBC 4.45 10x6/uL (4.00-5.40); RDW 13.8 % (11.5-14.5)
[2019-07-23 07:02] LABS: CALCIUM 9.1 mg/dL (8.5-10.1); CARBON DIOXIDE 33.8 mmol/L (21.0-32.0); CHLORIDE - SERUM 99 mmol/L (98-107); CKMB 0.3 U/L (0.0-3.6); CREATINE KINASE 29 UL (21-215); CREATININE - SERUM 1.1 mg/dL (0.6-1.3); MAGNESIUM - SERUM 1.4 mg/dL (1.8-2.4); PHOSPHOROUS 4.5 mg/dL (2.5-4.9); POTASSIUM - SERUM 4.2 mmol/L (3.5-5.1); SODIUM 139 mmol/L (136-145); THYROID STIMULATING HORMONE 1.19 uIU/mL (0.36-3.74); UREA NITROGEN 16 mg/dL (7-18); eGFR NON AFRICAN AMERICAN 52 mL/min (90-120)
[2019-07-23 07:07] LABS: CALC OSMOLALITY 284 mosm/kg (275-300); GLUCOSE 214 mg/dL (74-106); TROPONIN-I < 0.017 ng/mL (0.000-0.060)
--- NOTE | 2019-07-23 08:40 | NUR ---
LEFT AC 20G IV PT STATES "CAME OUT" WITH CATH INTACT. RIGHT UPPER ARM 22G IV INSERTED ON FOURTH ATTEMPT.
[2019-07-23 09:22] LABS: CHOL - HDL RATIO 3.6 ratio (2.3-4.1)
--- NOTE | 2019-07-23 16:50 | NUR ---
PT ARRIVED FROM MEDIA PROFESSIONAL VIA BED LAYING FLAT. ALERT AND ORIENTED. O2 AT 3L VIA NC. VS STABLE. RIGHT UPPER ARM 22G IV INFUSING NS. RIGHT WRIST Z BAND NO BLEEDING NOTED. RIGHT GROIN 5 KOREAN EXOSEAL GROIN SOFT, SHOWS NO S/S OF HEMATOMA, DRESSING C/D/I. PT STATES SHE HAS NO FURTHER NEEDS AT THIS TIME. BED LOW. CL IN REACH.
--- NOTE | 2019-07-23 17:36 | NUR ---
RIGHT GROIN SOFT DRESSING C/D/I. VS STABLE. PT LAYING FLAT. RIGHT WRIST NO BLEEDING NOTED TO SITE. WILL COTNINUE TO MONITOR. BED LOW. CL IN REACH. O2 AT 3L VIA NC.
--- NOTE | 2019-07-23 18:31 | NUR ---
RIGHT GROIN SOFT DRESSING C/D/. RIGHT WRIST NO BLEEDING NOTED. WILL CONTINUE TO MONITOR. VS STABLE.
--- NOTE | 2019-07-23 20:50 | NUR ---
PT REMOVED Z BAND TO RIGHT WRIST BEFORE TIME TO RELEASE PRESSURE. SMALL HEMATOMA NOTED BESIDE INSERTION SITE. LARGE BANDAID APPLIED AND Z BAND REAPPLIED, NO ACTIVE BLEEDING NOTED AT THIS TIME. WILL CONTINUE TO MONITER
--- NOTE | 2019-07-23 22:40 | NUR ---
PT IN BED, CONFUSED, Z BAND STILL IN PLACE TO RIGHT WRIST, CL IN REACH, SR UP X 2.
[2019-07-24] VITALS: BP 138/96
[2019-07-24 00:01] VITALS: BP 138/76
--- NOTE | 2019-07-24 03:51 | NUR ---
I have reviewed this patient and I concur with the Shift Assessment completed by the Licensed Practical Nurse today this shift.
[2019-07-24 04:00] VITALS: BP 140/80
[2019-07-24 05:52] LABS: BASOPHILS 0.1 % (0-2); EOSINOPHILS 0 % (0-7); HEMATOCRIT 43.3 % (36.0-48.0); HEMOGLOBIN 13.4 g/dL (12-16); IMMATURE GRANULOCYTES 0.2 % (0-5); MCH 27.8 pg (26.0-34.0); MCHC 30.9 g/dL (31.0-37.0); MCV 89.8 fL (80.0-100.0); MEAN PLATELET VOLUME 11.1 fL (7.4-10.4); MONOCYTES 2.3 % (2-11); NEUTROPHILS 84.4 % (40-80); RBC 4.82 10x6/uL (4.00-5.40); RDW 13.7 % (11.5-14.5)
[2019-07-24 05:54] LABS: PLATELET COUNT 194 10x3/uL (130-400); WBC 8.3 10x3/uL (4.8-10.8)
[2019-07-24 06:30] LABS: ANION GAP 10.9 mmol/L (8-16); CALCIUM 8.9 mg/dL (8.5-10.1); CARBON DIOXIDE 30.4 mmol/L (21.0-32.0); CREATININE - SERUM 1.3 mg/dL (0.6-1.3); MAGNESIUM - SERUM 1.5 mg/dL (1.8-2.4); POTASSIUM - SERUM 4.3 mmol/L (3.5-5.1)
[2019-07-24 06:34] LABS: PHOSPHOROUS 3.2 mg/dL (2.5-4.9)
[2019-07-24 09:08] VITALS: BP 128/68
--- NOTE | 2019-07-24 10:17 | MORECARE ---
CASE MANAGEMENT DISCHARGE SUMMARY PATIENT: WALLY FAY UNIT: [id number] ADM DATE: 07/22/19 AGE: 73 : 46 SEX: F ROOM/BED: D.[facility] [place] AUTHOR: FANNIE BELL PHYSICIAN: REFERRING PHYSICIAN: JUAN CARLOS ARGUETA MD DATE OF SERVICE: 07/24/19 Discharge Plan Patient Name: WALLY FAY Facility: [facility]:[place] : 1945 Planned Disposition: Home with Home Health Anticipated Discharge Date: 07/24/19 Discharge Date: Expected LOS: 2 Initial Reviewer: [id number] Initial Review Date: 07/24/2019 Generated: 07/24/19 11:16 am DCPIA - Discharge Planning Initial Assessment Updated by [email or web address]: Brando Samano on 07/24/19 10:15 am * Is the patient Alert and Oriented? Yes * How many steps to enter\exit or inside your home? 8-O/2-I * PCP DR. LAINEZ * Pharmacy [facility] * Preadmission Environment Home with Family * ADLs Partial Dependent * Partial ADLs (Assistance needed) Transfers * Equipment CPAP Oxygen Walker * Other Equipment HOME OXYGEN - [facility] * List name and contact numbers for known caregivers / representatives who currently or will assist patient after discharge: TRISTIAN HARRIS, DTR, CJ FAY, SON, * Verbal permission to speak to the caregivers and representatives has been obtained from the patient. N/A * Community resources currently utilized Home Health * Please name any agencies selected above. [facility] * Additional services required to return to the preadmission environment? No * Can the patient safely return to the preadmission environment? Yes * Has this patient been hospitalized within the prior 30 days at any hospital? Yes Patient Name: WALLY FAY Page [id number] at 1017 All edits/amendments must be made on the electronic document DICTATION DATE: 07/24/19 1017 STOREKEEPER HELPER: WINNIE 07/24/19 1017 RPT#: [id number] DC DATE: STATUS: ADM IN [facility] [address] [place] [address] END OF REPORT
--- NOTE | 2019-07-24 10:31 | MORECARE ---
CASE MANAGEMENT DISCHARGE SUMMARY PATIENT: WALLY FAY UNIT: [id number] ADM DATE: 07/22/19 AGE: 73 : 46 SEX: F ROOM/BED: D.0189 AUTHOR: RAY,DOC PHYSICIAN: REFERRING PHYSICIAN: JUAN CARLOS ARGUETA MD DATE OF SERVICE: 07/24/19 Discharge Plan Patient Name: WALLY FAY Facility: [facility]:[place] : 1945 Planned Disposition: Home with Home Health Anticipated Discharge Date: 07/24/19 Discharge Date: Expected LOS: 2 Initial Reviewer: [id number] Initial Review Date: 07/24/2019 Generated: 07/24/19 11:30 am Comments DCP- Discharge Planning Updated by [id number]: Brando Samano on 07/24/19 9:[address] Patient Name: WALLY FAY Admission Status: ER Accout number: [id number] Admission Date: 07-22-2019 : 1945 Admission Diagnosis: Attending: JUAN CARLOS ARGUETA Current LOS: 2 Anticipated DC Date: 07-24-2019 Planned Disposition: Home with Home Health Primary Insurance: MEDICARE A & B [facility] Discharge Planning Comments: CM MET WITH PT IN ROOM TO DISCUSS DISCHARGE PLANNING AND NEEDS. PT REPORTS LIVING AT HOME INDEPENDENTLY WITH HER DISABLED SPOUSE AND HER SON; PT IS CAREGIVER FOR HER SPOUSE. PT HAS CPAP, HOME OXYGEN AND [facility]ER [facility]. [facility]. CM DISCUSSED AVAILABILITY OF HOME HEALTH, REHAB SERVICES AND MEDICAL EQUIPMENT. PT DENIES DISCHARGE NEEDS OTHER THAN HOME HEALTH TO RESUME, REPORTS HER SON WILL PICK HER UP FOR DISCHARGE HOME. [facility] S[facility]. CM CALLED [employer], , SPOKE TO LARRY AND VERIFIED PT IS ACTIVE WITH [facility]. CM FAXED UPDATE TO [facility] AT [phone]. FOR DISCHARGE, NOTIFY [facility] AT [phone]; FAX DISCHARGE INFORMATION TO [facility] AT [phone]. Conditioning Machine Operator: Brando Samano DCPIA - Discharge Planning Initial Assessment Updated by [id number]: Brando Samano on 07/24/19 10:15 am * Is the patient Alert and Oriented? Yes * How many steps to enter\exit or inside your home? 8-O/2-I * PCP DR. LAINEZ * Pharmacy [facility] [address] * Preadmission Environment Home with Family * ADLs Partial Dependent * Partial ADLs (Assistance needed) Transfers * Equipment CPAP Oxygen Walker * Other Equipment HOME OXYGEN - [facility] * List name and contact numbers for known caregivers / representatives who currently or will assist patient after discharge: TRISTIAN HARRIS, DTR, CJ FAY, SON, * Verbal permission to speak to the caregivers and representatives has been obtained from the patient. N/A * Community resources currently utilized Home Health * Please name any agencies selected above. [facility] * Additional services required to return to the preadmission environment? No * Can the patient safely return to the preadmission environment? Yes * Has this patient been hospitalized within the prior 30 days at any hospital? Yes External Providers External Provider: [facility] Next Contact Date: 07/24/2019 Service Request Date: Service Type: Resolution: Reviewer: Comments: Coverage Notice Reviewer: [id number] - Brando Samano Notice Issued Date-Time: 07/24/2019 10:00 Notice Type: Patient Choice Letter Notice Delivered To: Patient Relationship to Patient: Associate Account Executive Name: Delivery Method: HAND - Hand Delivered Ameena Days: Prior Verbal Notification: Recipient Understood Notice: Yes Recipient Signature: Yes Med Rec Note Co-signed by Attending: Coverage Notice Comment: [facility] Last DP export: 07/24/19 9:17 am Patient Name: WALLY FAY Page 72325 at 1031 All edits/amendments must be made on the electronic document DICTATION DATE: 07/24/19 1030 NEONATAL SOCIAL WORKER: WINNIE 07/24/19 1030 RPT#: [id number] DC DATE: STATUS: ADM IN [facility] [address] [place] [address] END OF REPORT
[2019-07-24 12:57] VITALS: BP 106/52
--- NOTE | 2019-07-24 13:58 | NUR ---
I have reviewed this patient and I concur with the Shift Assessment completed by the Licensed Practical Nurse today this shift.
[2019-07-24 20:00] VITALS: BP 122/68
[2019-07-25] VITALS: BP 142/64
[2019-07-25 04:00] VITALS: BP 142/65
[2019-07-25 04:36] LABS: HEMATOCRIT 38.2 % (36.0-48.0); HEMOGLOBIN 11.8 g/dL (12-16); MCH 27.8 pg (26.0-34.0); MCHC 30.9 g/dL (31.0-37.0); MCV 89.9 fL (80.0-100.0); MEAN PLATELET VOLUME 10.2 fL (7.4-10.4); RBC 4.25 10x6/uL (4.00-5.40); RDW 13.7 % (11.5-14.5)
[2019-07-25 04:56] LABS: PLATELET COUNT 145 10x3/uL (130-400); WBC 5.1 10x3/uL (4.8-10.8)
[2019-07-25 05:05] LABS: ANION GAP 11.8 mmol/L (8-16); CALCIUM 8.6 mg/dL (8.5-10.1); CARBON DIOXIDE 31.2 mmol/L (21.0-32.0); CREATININE - SERUM 1.5 mg/dL (0.6-1.3); PHOSPHOROUS 3.3 mg/dL (2.5-4.9)
[2019-07-25 05:14] LABS: BASOPHILS 1 % (0-2); EOSINOPHILS 1 % (0-7); LYMPHOCYTES 40 % (15-50); MONOCYTES 4 % (2-11); NEUTROPHILS 54 % (40-80); PLATELET ESTIMATE DECREASED
--- NOTE | 2019-07-25 08:58 | OP ---
PATIENT NAME: WALLY FAY MEDICAL RECORD: [id number] :[birth year] LOCATION:D.M2 D.2 ADMISSION DATE:07/22/19 SURGEON: REGINA GARZA MD DATE OF OPERATION: 07/23/2019 PROCEDURE: Left heart catheterization, selective coronary angiography, right femoral artery approach. CATHETERS: A 5-Hungarian sheath, 5/4 left and right Timothy, 5/4 pig. The procedure was well tolerated. The patient returned to the moralez, sheath removed. ExoSeal device placed. FINDINGS: Left ventriculography in 30-degree BAI view: Normal wall motion. Normal systolic function. CORONARY ANATOMY: LEFT MAIN: Left main is free of disease. LAD: An area of previous stent is widely patent. 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 No evidence of restenosis. CIRCUMFLEX: Large circumflex system, free of disease. One small OM not bigger. The diagnostic catheter has about 50% mid stenosis. RIGHT CORONARY ARTERY: Again, a small codominant, free of disease. IMPRESSION: No evidence of restenosis. 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 Good LV function. TRANSINT:[id number] Voice Confirmation ID: [id number] DOCUMENT ID: [id number] REGINA GARZA MD at 0858 CC: [id number] DICTATION DATE: 07/23/19 164 SEWER AND INSPECTOR: 07/23/19 1821 ADM IN [facility] [address] [place] [address]
[2019-07-25 10:08] VITALS: BP 143/62
[2019-07-25] MEDS ORDERED: LEVOFLOXACIN500 MG PO (13:33)
--- NOTE | 2019-07-25 13:43 | NUR ---
Nutrition Follow-up: Ate 100% of breakfast this AM per record. Noted plans to d/c today. Diet: Cardiac WT: 240# (07/22) Labs noted: Glu 204, POC Glu 401 Meds noted: Protonix, Carafate, Lasix, Humalog, MagOx, Zofran -Change to cardiac carb consistent diet. -Monitor wt; noted daily wts ordered. -RD following.
--- NOTE | 2019-07-25 14:06 | NUR ---
I have reviewed this patient and I concur with the Shift Assessment completed by the Licensed Practical Nurse today this shift.
--- NOTE | 2019-07-25 14:35 | NUR ---
PT IS DISCHARGED HOME VIA WHEELCHAIR WITH FAMILY. PIV REMOVED WITH CATHETER TIP FULLY INTACT. TELEMETRY REMOVED AND RETURNED. PT SIGNED PROPER DISCHARGE INSTRUCTIONS AND REMOVED ALL VALUABLES FROM THE ROOM.
--- NOTE | 2019-07-25 16:46 | MORECARE ---
CASE MANAGEMENT DISCHARGE SUMMARY PATIENT: WALLY FAY UNIT: [id number] ADM DATE: 07/22/19 AGE: 73 : 46 SEX: F ROOM/BED: D.0691 AUTHOR: RAY,DOC PHYSICIAN: REFERRING PHYSICIAN: JUAN CARLOS ARGUETA MD DATE OF SERVICE: 07/25/19 Discharge Plan Patient Name: WALLY FAY Facility: [facility]:[place] : 1945 Planned Disposition: Home with Home Health Anticipated Discharge Date: 07/25/19 Discharge Date: 07/25/2019 Expected LOS: 3 Initial Reviewer: [id number] Initial Review Date: 07/24/2019 Generated: 07/25/19 5:45 pm Comments DCP- Discharge Planning Updated by [email or web address]: Brando Samano on 07/24/19 9:[address] Patient Name: WALLY FAY Admission Status: ER Accout number: [id number] Admission Date: 07-22-2019 : 1945 Admission Diagnosis: Attending: JUAN CARLOS ARGUETA Current LOS: 2 Anticipated DC Date: 07-24-2019 Planned Disposition: Home with Home Health Primary Insurance: MEDICARE A & B [facility] Discharge Planning Comments: CM MET WITH PT IN ROOM TO DISCUSS DISCHARGE PLANNING AND NEEDS. PT REPORTS LIVING AT HOME INDEPENDENTLY WITH HER DISABLED SPOUSE AND HER SON; PT IS CAREGIVER FOR HER SPOUSE. PT HAS CPAP, HOME OXYGEN AND [facility]. PT [facility]. CM DISCUSSED AVAILABILITY OF HOME HEALTH, REHAB SERVICES AND MEDICAL EQUIPMENT. PT DENIES DISCHARGE NEEDS OTHER THAN HOME HEALTH TO RESUME, REPORTS HER SON WILL PICK HER UP FOR DISCHARGE HOME. CHOICE FOR [facility] SIGNED. CM CALLED [employer], , SPOKE TO LARRY AND VERIFIED PT IS ACTIVE WITH [facility]. CM FAXED UPDATE TO [facility] AT [phone]. FOR DISCHARGE, NOTIFY [facility] AT [phone]; FAX DISCHARGE INFORMATION TO [facility] AT [phone]. Lead Applications Developer: Brando Samano DCPIA - Discharge Planning Initial Assessment Updated by [id number]: Brando Samano on 07/24/19 10:15 am * Is the patient Alert and Oriented? Yes * How many steps to enter\exit or inside your home? 8-O/2-I * PCP DR. LAINEZ * Pharmacy [facility] [address] * Preadmission Environment Home with Family * ADLs Partial Dependent * Partial ADLs (Assistance needed) Transfers * Equipment CPAP Oxygen Walker * Other Equipment HOME OXYGEN - [facility] * List name and contact numbers for known caregivers / representatives who currently or will assist patient after discharge: TRISTIAN HARRIS, DTR, CJ FAY, SON, * Verbal permission to speak to the caregivers and representatives has been obtained from the patient. N/A * Community resources currently utilized Home Health * Please name any agencies selected above. [facility] * Additional services required to return to the preadmission environment? No * Can the patient safely return to the preadmission environment? Yes * Has this patient been hospitalized within the prior 30 days at any hospital? Yes Coverage Notice Reviewer: [id number] Bernadette Samano Notice Issued Date-Time: 07/24/2019 10:00 Notice Type: Patient Choice Letter Notice Delivered To: Patient Relationship to Patient: Brim Rounder Name: Delivery Method: HAND - Hand Delivered Ameena Days: Prior Verbal Notification: Recipient Understood Notice: Yes Recipient Signature: Yes Med Rec Note Co-signed by Attending: Coverage Notice Comment: [facility] Last DP export: 07/24/19 9:31 am Patient Name: WALLY FAY Page 45845 at 1646 All edits/amendments must be made on the electronic document DICTATION DATE: 07/25/191644 PLASTIC PRESS OPERATOR: WINNIE 07/25/191644 RPT#: [id number] DC DATE:07/25/19 STATUS: DIS IN [facility] [address] [place] [address] END OF REPORT
--- NOTE | 2019-07-25 16:53 | MORECARE ---
CASE MANAGEMENT DISCHARGE SUMMARY PATIENT: WALLY FAY UNIT: [id number] ADM DATE: 07/22/19 AGE: 73 : 47 SEX: F ROOM/BED: D.0832 AUTHOR: RAY,DOC PHYSICIAN: REFERRING PHYSICIAN: JUAN CARLOS ARGUETA MD DATE OF SERVICE: 07/25/19 Discharge Plan Patient Name: WALLY FAY Facility: [facility]:[place] : 1945 Planned Disposition: Home with Home Health Anticipated Discharge Date: 07/25/19 Discharge Date: 07/25/2019 Expected LOS: 3 Initial Reviewer: [id number] Initial Review Date: 07/24/2019 Generated: 07/25/19 5:53 pm Comments DCP- Discharge Planning Updated by [email or web address]: Bradno Samano on 07/25/19 3:[address] Patient Name: WALLY FAY Encounter No: [id number] : 1945 Primary Insurance: MEDICARE A & B Anticipated DC Date: 07-25-2019 Planned Disposition: Home with Home Health External Planned Provider:[facility] Discharge Planning Comments: CM RECEIVED DISCHARGE ORDER ,FAXED DISCHARGE INFORMATION TO [facility] AT [phone]. Movie Shot Cameraman: Brando Samano Appended by Brando Samano on 07/25/2019 16:50 CDT: CM MET WITH PT IN ROOM TO DISCUSS DISCHARGE NEEDS, PT DENIES NEEDS, REPORTS FAMILY TO MERCHANDISING EXECUTION ASSOCIATE. IMPORTANT MESSAGE FROM MEDICARE PROVIDED AND EXPLAINED. ELMA NAVARRETE DCP- Discharge Planning Updated by [id number]: Brando Samano on 07/24/19 9:[address] Patient Name: WALLY FAY Admission Status: ER Accout number: [id number] Admission Date: 07-22-2019 : 1945 Admission Diagnosis: Attending: JUAN CARLOS ARGUETA Current LOS: 2 Anticipated DC Date: 07-24-2019 Planned Disposition: Home with Home Health Primary Insurance: MEDICARE A & B PLANNED EXTERNAL PROVIDER: [facility] Discharge Planning Comments: CM MET WITH PT IN ROOM TO DISCUSS DISCHARGE PLANNING AND NEEDS. PT REPORTS LIVING AT HOME INDEPENDENTLY WITH HER DISABLED SPOUSE AND HER SON; PT IS CAREGIVER FOR HER SPOUSE. PT HAS CPAP, HOME OXYGEN AND WALKER FROM [facility]. PT HAS HOME HEALTH WITH [facility]. CM DISCUSSED AVAILABILITY OF HOME HEALTH, REHAB SERVICES AND MEDICAL EQUIPMENT. PT DENIES DISCHARGE NEEDS OTHER THAN HOME HEALTH TO RESUME, REPORTS HER SON WILL PICK HER UP FOR DISCHARGE HOME. CHOICE FOR [facility] SIGNED. CM CALLED [facility], , SPOKE TO LARRY AND VERIFIED PT IS ACTIVE WITH [facility]. CM FAXED UPDATE TO [facility] AT [phone]. FOR DISCHARGE, NOTIFY [facility] AT [phone]; FAX DISCHARGE INFORMATION TO [facility] AT [phone]. Movie Shot Cameraman: Brando Samano DCPIA - Discharge Planning Initial Assessment Updated by [id number]: Brando Samano on 07/24/19 10:15 am * Is the patient Alert and Oriented? Yes * How many steps to enter\exit or inside your home? 8-O/2-I * PCP DR. LAINEZ * Pharmacy [facility] [address] * Preadmission Environment Home with Family * ADLs Partial Dependent * Partial ADLs (Assistance needed) Transfers * Equipment CPAP Oxygen Walker * Other Equipment HOME OXYGEN - [facility] * List name and contact numbers for known caregivers / representatives who currently or will assist patient after discharge: TRISTIAN HARRIS, DTR, CJ FAY, SON, * Verbal permission to speak to the caregivers and representatives has been obtained from the patient. N/A * Community resources currently utilized Home Health * Please name any agencies selected above. [facility] * Additional services required to return to the preadmission environment? No * Can the patient safely return to the preadmission environment? Yes * Has this patient been hospitalized within the prior 30 days at any hospital? Yes Coverage Notice Reviewer: [id number] Samano Notice Issued Date-Time: 07/24/2019 10:00 Notice Type: Patient Choice Letter Notice Delivered To: Patient Relationship to Patient: Small Machine Bindery Operator Name: Delivery Method: HAND - Hand Delivered Ameena Days: Prior Verbal Notification: Recipient Understood Notice: Yes Recipient Signature: Yes Med Rec Note Co-signed by Attending: Coverage Notice Comment: [facility] Reviewer: [id number] Samano Notice Issued Date-Time: 07/25/2019 14:25 Notice Type: IM Discharge Notice Notice Delivered To: Patient Relationship to Patient: Small Machine Bindery Operator Name: Delivery Method: HAND - Hand Delivered Ameena Days: Prior Verbal Notification: Recipient Understood Notice: Yes Recipient Signature: Yes Med Rec Note Co-signed by Attending: Coverage Notice Comment: Last DP export: 07/25/19 3:46 p Patient Name: WALLY FAY Page 28486 at 1653 All edits/amendments must be made on the electronic document DICTATION DATE: 07/25/191652 SENIOR ADVOCATE: WINNIE 07/25/191652 RPT#: [id number] DC DATE:07/25/19 STATUS: DIS IN [facility] [address] [place] [address] END OF REPORT
[2019-07-27 14:08] LABS: AEROBE ID Preliminary report (())
== END 2019-07-25 14:49 | disposition home health service (06) | DRG 286 ==
LOC: D.ER 17:43 → D.M2 21:08
PROVIDERS: Emergency Medicine; Family Medicine; Internal Medicine Interventional Cardiology; ADMIT Internal Medicine Nephrology; ATTEND Internal Medicine Nephrology
PROC: B2151ZZ Fluoroscopy of Left Heart using Low Osmolar Contrast (ICD-10-PCS; 2019-07-23)
PROC: 4A023N7 Measurement of Cardiac Sampling and Pressure, Left Heart, Percutaneous Approach (ICD-10-PCS; 2019-07-23)
PROC: B2111ZZ Fluoroscopy of Multiple Coronary Arteries using Low Osmolar Contrast (ICD-10-PCS; principal; 2019-07-23 15:50)
DX: I11.0 Hypertensive heart disease with heart failure (principal); G93.41 Metabolic encephalopathy; I50.31 Acute diastolic (congestive) heart failure; I24.9 Acute ischemic heart disease, unspecified; N39.0 Urinary tract infection, site not specified; E78.5 Hyperlipidemia, unspecified; E11.9 Type 2 diabetes mellitus without complications; I25.10 Atherosclerotic heart disease of native coronary artery without angina pectoris; E03.9 Hypothyroidism, unspecified; G47.00 Insomnia, unspecified; J44.9 Chronic obstructive pulmonary disease, unspecified; K21.9 Gastro-esophageal reflux disease without esophagitis; Z86.73 Personal history of transient ischemic attack (TIA), and cerebral infarction without residual deficits; F41.8 Other specified anxiety disorders